=== PATIENT | male | born 1975 | race Hispanic/Latino ===

== ENCOUNTER 2017-08-07 15:40 | Emergency (ER) | payer OTHER ==
--- NOTE | 2017-08-07 17:16 | RAD REPORT ---
EXAM DESCRIPTION: RAD - Hand Left 3 View - 08/07/2017 5:07 pm CLINICAL HISTORY: Hand pain COMPARISON: None. FINDINGS: No fracture or dislocation is seen. No aggressive marrow pattern. No radiopaque foreign jacquelyn dy seen. IMPRESSION: No acute finding is evident.
--- NOTE | 2017-08-07 17:19 | EDPHYS ---
Physician Documentation [facility] Name: Frank Peck Age: 41 yrs Sex: Male : 1975 Arrival Date: 08/07/2017 Time: 15:44 Bed 9 Private MD: Out, [facility] ED Physician Noé Moreno HPI: 08/07 16:47 This 41 yrs old Male presents to ER via Ambulatory with complaints of Hand ps1 Pain. 16:47 The patient or guardian reports pain. The complaints affect the PIP of left little ps1 finger, PIP of left ring finger, PIP of left middle finger and PIP of left index finger. 16:47 Context: unknown. Onset: The symptoms/episode began/occurred 2 month(s) ago. Associated ps1 signs and symptoms: The patient has no apparent associated signs or symptoms. Historical: - Allergies: 15:52 No Known Allergies; hj - Home Meds: 15:52 carbamazepine 200 mg Oral tab 1 tab four times a day [Active]; hj - PMHx: 15:52 Cerebral Palsy; hj - PSHx: 15:52 leg surgery; hj ROS: 16:49 Constitutional: Negative for fever, chills, and weight loss, Cardiovascular: Negative ps1 for chest pain, palpitations, and edema, Respiratory: Negative for shortness of breath, cough, wheezing, and pleuritic chest pain, Abdomen/GI: Negative for abdominal pain, nausea, vomiting, diarrhea, and constipation, Back: Negative for injury and pain. 16:49 MS/extremity: Positive for increased flexibility in joints. . Exam: 17:19 Constitutional: This is a well developed, well nourished patient who is awake, alert, ps1 and in no acute distress. Head/Face: Normocephalic, atraumatic. Eyes: Pupils equal round and reactive to light, extra-ocular motions intact. Lids and lashes normal. Conjunctiva and sclera are non-icteric and not injected. Chest/axilla: Normal chest wall appearance and motion. Nontender with no deformity. No lesions are appreciated. Cardiovascular: Regular rate and rhythm. No gallops, murmurs, or rubs. Normal PMI, no JVD. No pulse deficits. Respiratory: Lungs have equal breath sounds bilaterally, clear to auscultation and percussion. No rales, rhonchi or wheezes noted. No increased work of breathing, no retractions or nasal flaring. Abdomen/GI: Soft, non-tender, with normal bowel sounds. No distension or tympany. No guarding or rebound. No evidence of tenderness throughout. 17:19 Constitutional: The patient appears CP appearing facies 17:19 Musculoskeletal/extremity: Extremities: grossly normal except: noted in the left hand: hyperextended DIP joints. No apparent trauma. . Vital Signs: 15:53 BP 114 / 80; Pulse 77; Resp 18; Temp 99.0(TE); Pulse Ox 100% on R/A; Weight 47.63 kg; hj Height 5 ft. 0 in. (152.40 cm); 15:53 Body Mass Index 20.51 (47.63 kg, 152.40 cm) hj MDM: 17:03 Patient medically screened. ps1 17:19 Data reviewed: vital signs, nurses notes, radiologic studies, plain films. ps1 08/07 16:50 Order name: Hand Left 3 View XRAY; Complete Time: 17:17 ps1 Administered Medications: No medications were administered Disposition: 1818 17:18 Discharged to Home. Impression: Left hand pain. - Condition is Stable. - Discharge Instructions: Hand Contusion. - Prescriptions for Anaprox 275 mg Oral Tablet - take 1 tablet by ORAL route every 8 hours As needed; 30 tablet. - Medication Reconciliation Form, Thank You Letter, Antibiotic Education, Prescription Opioid Use form. - Follow up: Private Physician; When: As needed; Reason: Recheck today's complaints, Continuance of care, Re-evaluation by your physician. Follow up: Emergency Department; When: As needed; Reason: Worsening of condition. - Problem is an ongoing problem. - Symptoms are unchanged. Signatures: Dispatcher [employer] EDMS Jus Singleton, RN RN Eulogio Epps RN RN hj Singer, Phillip, MD MD ps1
--- NOTE | 2017-08-07 17:19 | ER ---
Nurse's Notes [facility] Name: Frank Peck Age: 41 yrs Sex: Male : 1975 Arrival Date: 08/07/2017 Time: 15:44 Bed 9 Private MD: Out, [facility] Diagnosis: Left hand pain Presentation: 08/07 15:50 Presenting complaint: Patient states: kuwaiti speaking only: he is complaining of L hj hand?L wrist when he woke up this AM; it gets stiff;. Transition of care: patient was not received from another setting of care. Onset of symptoms was August 07, 2017. Care prior to arrival: None. 15:50 Method Of Arrival: Ambulatory hj 15:50 Acuity: ABBEY 4 hj 16:21 Initial Sepsis Screen: Does the patient meet any 2 criteria? No. Patient's initial hj sepsis screen is negative. Does the patient have a suspected source of infection? No. Patient's initial sepsis screen is negative. Triage Assessment: 15:53 General: Appears in no apparent distress. uncomfortable, Behavior is calm, cooperative, hj appropriate for age. Pain: Complains of pain in left hand. Historical: - Allergies: 15:52 No Known Allergies; hj - Home Meds: 15:52 carbamazepine 200 mg Oral tab 1 tab four times a day [Active]; hj - PMHx: 15:52 Cerebral Palsy; hj - PSHx: 15:52 leg surgery; hj Screenin:40 Abuse screen: Denies threats or abuse. Denies injuries from another. Nutritional sg screening: No deficits noted. Tuberculosis screening: No symptoms or risk factors identified. Never had TB. Fall Risk None identified. Assessment: 16:40 General: Appears in no apparent distress. comfortable, well groomed, well developed, sg well nourished, Behavior is calm, cooperative, appropriate for age. Pain: Complains of pain in left hand Pain does not radiate. Quality of pain is described as tender. Neuro: Level of Consciousness is awake, alert, obeys commands, Oriented to person, place, situation. Cardiovascular: Heart tones S1 S2 present Capillary refill is brisk in bilateral fingers Patient's skin is warm and dry. Chest pain is denied. Respiratory: Airway is patent Respiratory effort is even, unlabored, Respiratory pattern is regular, symmetrical. GI: No signs and/or symptoms were reported involving the gastrointestinal system. : No signs and/or symptoms were reported regarding the genitourinary system. EENT: No signs and/or symptoms were reported regarding the EENT system. Derm: Skin is pink, warm \T\ dry. Musculoskeletal: Circulation, motion, and sensation intact. Capillary refill is brisk, in bilateral fingers. Range of motion: intact in left wrist and right wrist Swelling absent. Vital Signs: 15:53 BP 114 / 80; Pulse 77; Resp 18; Temp 99.0(TE); Pulse Ox 100% on R/A; Weight 47.63 kg; hj Height 5 ft. 0 in. (152.40 cm); 15:53 Body Mass Index 20.51 (47.63 kg, 152.40 cm) ED Course: 15:44 Patient arrived in ED. mr 15:45 Out, of [facility] is Private Physician. mr 15:52 Triage completed. hj 15:53 Arm band placed on left wrist. hj 16:25 Noé Moreno MD is Attending Physician. ps1 17:00 Patient has correct armband on for positive identification. Pulse ox on. NIBP on. sg 17:07 Hand Left 3 View XRAY In Process Unspecified. EDMS 17:40 No provider procedures requiring assistance completed. Patient did not have IV access sg during this emergency room visit. Administered Medications: No medications were administered Outcome: 17:18 Discharge ordered by . ps1 17:40 Discharged to home via wheelchair, with family. sg 17:40 Condition: good 17:40 Discharge instructions given to family, systems eng, Instructed on discharge instructions, follow up and referral plans. medication usage, safety practices, Demonstrated understanding of instructions, follow-up care, medications, Prescriptions given X 1. 17:47 Patient left the ED. sg Signatures: Dispatcher [employer] EDMS Jus Singleton RN RN sg Rivera, Maria mr Eulogio Epps, Noé Ny RN, MD MD ps1
== END 2017-08-07 17:47 | disposition home or self-care (01) ==
LOC: ER 15:40
DX: M79.642 Pain in left hand (principal); G80.9 Cerebral palsy, unspecified
CPT/HCPCS: 99283

== ENCOUNTER 2018-05-07 13:48 | Emergency (ER) | payer OTHER ==
--- NOTE | 2018-05-07 15:51 | ER ---
Nurse's Notes [facility] Name: Frank Peck Age: 42 yrs Sex: Male : 1975 Arrival Date: 05/07/2018 Time: 13:53 Bed 28 Private MD: Diagnosis: Hemorrhoid Presentation: 05/07 14:10 Presenting complaint: Mother states: Rectal pain x 3 days. Transition of care: patient hb was not received from another setting of care. Onset of symptoms was May 04, 2018. Risk Assessment: Do you want to hurt yourself or someone else? Patient reports no desire to harm self or others. Care prior to arrival: None. 14:10 Method Of Arrival: Wheelchair hb 14:10 Acuity: ABBEY 3 hb 15:13 Initial Sepsis Screen: Does the patient meet any 2 criteria? No. Patient's initial rv sepsis screen is negative. Does the patient have a suspected source of infection? No. Patient's initial sepsis screen is negative. Historical: - Allergies: 14:10 No Known Allergies; hb - Home Meds: 14:10 carbamazepine 200 mg Oral tab 1 tab four times a day [Active]; hb - PMHx: 14:10 Cerebral Palsy; hb - PSHx: 14:10 leg surgery; hb - Immunization history:: Adult Immunizations up to date. - Social history:: Smoking status: Patient/guardian denies using tobacco. - Ebola Screening: : No symptoms or risks identified at this time. Screenin:12 Abuse screen: Denies threats or abuse. Denies injuries from another. Nutritional rv screening: No deficits noted. Tuberculosis screening: No symptoms or risk factors identified. Fall Risk None identified. Assessment: 15:10 General: Appears in no apparent distress. uncomfortable, Behavior is calm, cooperative. rv Pain: Complains of pain in rectal. Neuro: Level of Consciousness is awake, alert, obeys commands, Oriented to person, place, time, situation. Cardiovascular: Capillary refill < 3 seconds. Respiratory: Airway is patent. GI: Parent/caregiver reports the patient having pain, rectal bleeding 3 days ago. : No signs and/or symptoms were reported regarding the genitourinary system. EENT: No signs and/or symptoms were reported regarding the EENT system. Derm: Skin is intact. Musculoskeletal: No signs and/or symptoms reported regarding the musculoskeletal system. 16:05 Reassessment: Patient appears in no apparent distress at this time. rv Vital Signs: 14:10 BP 134 / 88; Pulse 86; Resp 16; Temp 98.8; Pulse Ox 99% on R/A; Pain 10/10; hb 15:30 BP 109 / 74; Pulse 100; Resp 18 S; Pulse Ox 99% on R/A; rv 16:05 BP 118 / 71; Pulse 85; Resp 17 S; Pulse Ox 99% on R/A; rv ED Course: 13:53 Patient arrived in ED. mr 14:10 Arm band placed on left wrist. hb 14:11 Triage completed. hb 15:08 Neri Freire NP is PHCP. pm1 15:08 Geovani Reed MD is Attending Physician. pm1 15:12 Patient has correct armband on for positive identification. Placed in gown. Bed in low rv position. Call light in reach. Side rails up X 1. Adult w/ patient. Pulse ox on. NIBP on. 15:49 Eulogio Agudelo MD is Referral Physician. pm1 16:06 Served as a sugar plantation manager during rectal exam. Patient did not have IV access during this emergency room visit. Administered Medications: No medications were administered Outcome: 15:50 Discharge ordered by MD. pm1 16:06 Discharged to home via wheelchair. rv 16:06 Condition: improved 16:06 Discharge instructions given to patient, family, Instructed on discharge instructions, follow up and referral plans. medication usage, Demonstrated understanding of instructions, follow-up care, medications, Prescriptions given X 2. 16:11 Patient left the ED. rv Signatures: Faviola Boo mr Neri Freire, KELLY APPEALS ANALYST pm1 Kira Nicole, RN RN Tru Leonardo RN RN rv
--- NOTE | 2018-05-07 15:51 | EDPHYS ---
Physician Documentation [facility] Name: Frank Peck Age: 42 yrs Sex: Male : 1975 Arrival Date: 05/07/2018 Time: 13:53 Bed 28 Private MD: ED Physician Geovani Reed HPI: 05/07 15:45 This 42 yrs old Male presents to ER via Wheelchair with complaints of Rectal pm1 Pain. 15:45 The patient presents to the emergency department with pain in the rectal area. Onset: pm1 The symptoms/episode began/occurred 3 day(s) ago. Context: the patient has no known special context relating to the rectal area complaint(s). Modifying factors: The symptoms are alleviated by nothing, The symptoms are aggravated by nothing. Associate signs and symptoms: Pertinent negatives: abdominal pain, constipation, diarrhea, fever, vomiting. The patient has not experienced similar symptoms in the past. The patient has not recently seen a physician. Historical: - Allergies: 14:10 No Known Allergies; hb - Home Meds: 14:10 carbamazepine 200 mg Oral tab 1 tab four times a day [Active]; hb - PMHx: 14:10 Cerebral Palsy; hb - PSHx: 14:10 leg surgery; hb - Immunization history:: Adult Immunizations up to date. - Social history:: Smoking status: Patient/guardian denies using tobacco. - Ebola Screening: : No symptoms or risks identified at this time. ROS: 15:45 Constitutional: Negative for fever, chills, and weight loss, Eyes: Negative for injury, pm1 pain, redness, and discharge, ENT: Negative for injury, pain, and discharge, Neck: Negative for injury, pain, and swelling, Cardiovascular: Negative for chest pain, palpitations, and edema, Respiratory: Negative for shortness of breath, cough, wheezing, and pleuritic chest pain, Abdomen/GI: Negative for abdominal pain, nausea, vomiting, diarrhea, and constipation, Back: Negative for injury and pain, : Negative for injury, bleeding, discharge, and swelling, MS/Extremity: Negative for injury and deformity, Skin: Negative for injury, rash, and discoloration, Neuro: Negative for headache, weakness, numbness, tingling, and seizure. Exam: 15:45 Constitutional: This is a well developed, well nourished patient who is awake, alert, pm1 and in no acute distress. Head/Face: Normocephalic, atraumatic. Eyes: Pupils equal round and reactive to light, extra-ocular motions intact. Lids and lashes normal. Conjunctiva and sclera are non-icteric and not injected. Cornea within normal limits. Periorbital areas with no swelling, redness, or edema. ENT: Nares patent. No nasal discharge, no septal abnormalities noted. Tympanic membranes are normal and external auditory canals are clear. Oropharynx with no redness, swelling, or masses, exudates, or evidence of obstruction, uvula midline. Mucous membranes moist. Neck: Trachea midline, no thyromegaly or masses palpated, and no cervical lymphadenopathy. Supple, full range of motion without nuchal rigidity, or vertebral point tenderness. No Meningismus. Chest/axilla: Normal chest wall appearance and motion. Nontender with no deformity. No lesions are appreciated. Cardiovascular: Regular rate and rhythm with a normal S1 and S2. No gallops, murmurs, or rubs. No pulse deficits. Respiratory: Lungs have equal breath sounds bilaterally, clear to auscultation and percussion. No rales, rhonchi or wheezes noted. No increased work of breathing, no retractions or nasal flaring. Abdomen/GI: Soft, non-tender, with normal bowel sounds. No distension or tympany. No guarding or rebound. No evidence of tenderness throughout. 15:45 Back: No spinal tenderness. No costovertebral tenderness. Full range of motion. Skin: Warm, dry with normal turgor. Normal color with no rashes, no lesions, and no evidence of cellulitis. MS/ Extremity: Pulses equal, no cyanosis. Neurovascular intact. Full, normal range of motion. 15:45 Abdomen/GI: Rectal exam: rectal tone normal, hemorrhoid(s), external, with inflammation, with pain, without bleeding, without thrombosis, [facility]. Vital Signs: 14:10 BP 134 / 88; Pulse 86; Resp 16; Temp 98.8; Pulse Ox 99% on R/A; Pain 10/10; hb 15:30 BP 109 / 74; Pulse 100; Resp 18 S; Pulse Ox 99% on R/A; rv 16:05 BP 118 / 71; Pulse 85; Resp 17 S; Pulse Ox 99% on R/A; rv MDM: 15:09 Patient medically screened. pm1 15:45 Data reviewed: vital signs. Data interpreted: Pulse oximetry: on room air is 99 %. pm1 Interpretation: normal. Counseling: I had a detailed discussion with the patient and/or guardian regarding: the historical points, exam findings, and any diagnostic results supporting the discharge/admit diagnosis, the need for outpatient follow up, for definitive care, a general surgeon, to return to the emergency department if symptoms worsen or persist or if there are any questions or concerns that arise at home. Administered Medications: No medications were administered Disposition: 17:56 Co-signature as Attending Physician, Geovani Reed MD. rn Disposition: 05/07/18 15:50 Discharged to Home. Impression: Hemorrhoid. - Condition is Stable. - Discharge Instructions: Hemorrhoids. - Prescriptions for Colace 100 mg Oral Tablet - take 1 tablet by ORAL route every 12 hours; 14 tablet. Anusol- HC 25 mg Rectal Suppository - insert 1 suppository by RECTAL route every 12 hours As needed; 20 suppository. - Medication Reconciliation Form, Thank You Letter form. - Follow up: Emergency Department; When: As needed; Reason: Worsening of condition. Follow up: Eulogio Agudelo MD; When: 2 - 3 days; Reason: Recheck today's complaints, Continuance of care, Re-evaluation by your physician. - Problem is new. - Symptoms have improved. Signatures: Geovani Reed MD MD rn Neri Freire, KELLY RETAIL LEADER pm1 Kira Nicole RN RN hb Vicente, Ronaldo, RN RN rv Corrections: (The following items were deleted from the chart) 16:11 15:50 05/07/2018 15:50 Discharged to Home. Impression: Hemorrhoid. Condition is Stable. rv Forms are Medication Reconciliation Form, Thank You Letter, Antibiotic Education, Prescription Opioid Use. Follow up: Emergency Department; When: As needed; Reason: Worsening of condition. Follow up: Eulogio Agudelo; When: 2 - 3 days; Reason: Recheck today's complaints, Continuance of care, Re-evaluation by your physician. Problem is new. Symptoms have improved. pm1
== END 2018-05-07 16:11 | disposition home or self-care (01) ==
LOC: ER 13:48
DX: K64.4 Residual hemorrhoidal skin tags (principal); G80.9 Cerebral palsy, unspecified
CPT/HCPCS: 99283

== ENCOUNTER 2019-04-17 20:28 | Emergency (ER) | payer OTHER ==
[2019-04-17 21:16] LABS: Absolute Lymphocytes (CBC) 1.4 K/uL (0.7-4.9); Basophils % 0.5 % (0-1.3); Hematocrit 42.2 % (39.6-49.0); Lymphocytes % 21.8 % (15.3-44.8); MPV 8.5 fL (7.6-11.3); RBC Red Blood Cell Count 4.59 M/uL (4.33-5.43)
[2019-04-17 21:26] LABS: Protime INR 1.01
[2019-04-17 21:34] LABS: ALT/SGPT 22 U/L (12-78); AST/SGOT 17 U/L (15-37); Albumin 3.9 g/dL (3.4-5.0); Alkaline Phosphatase 87 U/L (45-117); BUN Blood Urea Nitrogen 12 mg/dL (7-18); Bicarbonate 27 mmol/L (21-32); Bilirubin Direct < 0.1 mg/dL (0-0.2); Bilirubin Total 0.2 mg/dL (0.2-1.0); CKMB Creatine Kinase MB < 1.0 ng/mL (0.3-3.6); Creatine Phosphokinase 55 U/L (39-308); Glucose Level 103 mg/dL (74-106); Lipase 196 U/L (73-393); Magnesium 2.1 mg/dL (1.8-2.4); Protein, Total 7.8 g/dL (6.4-8.2); Sodium Level 141 mmol/L (136-145); Troponin (Emerg Dept Use Only) < 0.02 ng/mL (0.0-0.045)
--- NOTE | 2019-04-17 23:39 | ER ---
Nurse's Notes [facility] Name: Frank Peck Age: 43 yrs Sex: Male : 1975 Arrival Date: 04/17/2019 Time: 20:33 Bed 19 Private MD: Diagnosis: Epilepsy and recurrent seizures Presentation: 04/17 20:59 Presenting complaint: Mother states: Took his seizure medication late in the day and tl2 has had several seizure episodes this evening. Family denies any confusion or post ictal behavior post seizure. Family states that pt is at normal mentation at this time. Transition of care: patient was not received from another setting of care. Onset of symptoms was April 17, 2019. Risk Assessment: Do you want to hurt yourself or someone else? Patient reports no desire to harm self or others. Initial Sepsis Screen: Does the patient meet any 2 criteria? No. Patient's initial sepsis screen is negative. Does the patient have a suspected source of infection? No. Patient's initial sepsis screen is negative. Care prior to arrival: None. 20:59 Method Of Arrival: Wheelchair tl2 20:59 Acuity: ABBEY 3 tl2 Triage Assessment: 21:01 General: Appears in no apparent distress. Behavior is calm, cooperative. Pain: Denies tl2 pain. Neuro: Level of Consciousness is awake, alert, Oriented to pt is at normal mentation. Cardiovascular: Denies chest pain. Respiratory: Airway is patent Respiratory effort is even, unlabored, Respiratory pattern is regular, symmetrical. GI: No signs and/or symptoms were reported involving the gastrointestinal system. : No signs and/or symptoms were reported regarding the genitourinary system. Derm: Skin is pink, warm \T\ dry. Historical: - Allergies: 21:01 No Known Allergies; tl2 - Home Meds: 21:01 carbamazepine 200 mg Oral tab 1 tab four times a day [Active]; tl2 - PMHx: 21:01 Cerebral Palsy; Seizures; tl2 - Immunization history:: Adult Immunizations up to date. - Social history:: Smoking status: Patient/guardian denies using tobacco. - Ebola Screening: : No symptoms or risks identified at this time. Screenin:03 Abuse screen: Denies threats or abuse. Nutritional screening: No deficits noted. tl2 Tuberculosis screening: No symptoms or risk factors identified. Fall Risk Ambulatory Aid- Crutches/Cane/Walker (15 pts). Gait- Impaired (20 pts.). Mental Status- Overestimates/Forgets Limitations (15 pts.). Assessment: 21:01 Reassessment: see triage assessment. tl2 22:04 Reassessment: Patient appears in no apparent distress at this time. Patient and/or tl2 family updated on plan of care and expected duration. Pain level reassessed. Patient is alert, oriented x 3, equal unlabored respirations, skin warm/dry/pink. Awaiting lab results and further orders. Family stated to Dr. Carmen that pt has had 3 small episodes since being in the ER. Family did not notify staff when episodes were happening. Pt is not post ictal at this time. 04/18 00:08 Reassessment: Patient appears in no apparent distress at this time. Patient and/or tl2 family updated on plan of care and expected duration. Pain level reassessed. Patient is alert, oriented x 3, equal unlabored respirations, skin warm/dry/pink. Dr Carmen approved discharge without UDS. Family verbalized understanding of discharge instructions and need for follow up. Vital Signs: 04/17 21:01 BP 116 / 79; Pulse 67; Resp 18; Temp 98.6(A); Pulse Ox 97% on R/A; Weight 47.63 kg; tl2 Height 5 ft. 1 in. (154.94 cm); 22:04 BP 115 / 73; Pulse 61; Resp 18; Pulse Ox 100% on R/A; tl2 04/18 00:08 BP 123 / 78; Pulse 67; Resp 18; Pulse Ox 99% on R/A; tl2 04/17 21:01 Body Mass Index 19.84 (47.63 kg, 154.94 cm) tl2 Baker Coma Score: 04/17 21:01 Eye Response: spontaneous(4). Verbal Response: oriented(5). Motor Response: localizes tl2 pain(5). Total: 14. ED Course: 20:33 Patient arrived in ED. es 20:46 Cristofer Carmen MD is Attending Physician. tw4 20:59 Heidi Contreras, RAMSEY is Primary Nurse. tl2 21:01 Triage completed. tl2 21:01 Arm band placed on right wrist. tl2 21:03 Patient has correct armband on for positive identification. Bed in low position. Call tl2 light in reach. Side rails up X2. Adult w/ patient. 21:03 Inserted saline lock: 20 gauge in right antecubital area, using aseptic technique. tl2 Blood collected. placed by tessie Villanueva. 21:04 Seizure precautions initiated. tl2 23:38 Jesus Perry MD is Referral Physician. tw4 04/18 00:08 No provider procedures requiring assistance completed. IV discontinued, intact, tl2 bleeding controlled, No redness/swelling at site. Pressure dressing applied. Administered Medications: No medications were administered Outcome: 04/17 23:37 Discharge ordered by . tw4 04/18 00:08 Discharged to home via wheelchair, with family. tl2 Condition: stable Discharge instructions given to patient, family, Instructed on discharge instructions, follow up and referral plans. Demonstrated understanding of instructions, follow-up care. 00:13 Patient left the ED. tl2 Signatures: Manasa Guzman Taylor, RN RN tl2 Cristofer Carmen MD MD tw4
--- NOTE | 2019-04-17 23:39 | EDPHYS ---
Physician Documentation [facility] Name: Frank Peck Age: 43 yrs Sex: Male : 1975 Arrival Date: 04/17/2019 Time: 20:33 Bed 19 Private MD: ED Physician Cristofer Carmen HPI: 04/18 05:41 This 43 yrs old Male presents to ER via Wheelchair with complaints of Seizure. tw4 05:41 The patient presents with a history of multiple seizures, a total of 3. Character of tw4 seizure(s): Loss of consciousness: the patient did not lose consciousness, Motor activity: focal activity. Seizure onset: today. Context: the seizure(s) was witnessed, by family, mother. The patient has not experienced similar symptoms in the past. Historical: - Allergies: 04/17 21:01 No Known Allergies; tl2 - Home Meds: 21:01 carbamazepine 200 mg Oral tab 1 tab four times a day [Active]; tl2 - PMHx: 21:01 Cerebral Palsy; Seizures; tl2 - Immunization history:: Adult Immunizations up to date. - Social history:: Smoking status: Patient/guardian denies using tobacco. - Ebola Screening: : No symptoms or risks identified at this time. ROS: 04/18 05:41 Constitutional: Negative for fever, chills, and weight loss, Eyes: Negative for injury, tw4 pain, redness, and discharge, Cardiovascular: Negative for chest pain, palpitations, and edema, Respiratory: Negative for shortness of breath, cough, wheezing, and pleuritic chest pain, Abdomen/GI: Negative for abdominal pain, nausea, vomiting, diarrhea, and constipation, Back: Negative for injury and pain, Skin: Negative for injury, rash, and discoloration. Neuro: Positive for seizure activity, Negative for altered mental status, dizziness, gait disturbance, headache, hearing loss, loss of consciousness, speech changes, syncope, near syncope, tingling, tinnitus, tremor. Exam: 05:41 Constitutional: This is a well developed, well nourished patient who is awake, alert, tw4 and in no acute distress. Head/Face: Normocephalic, atraumatic. Cardiovascular: Regular rate and rhythm with a normal S1 and S2. No gallops, murmurs, or rubs. Normal PMI, no JVD. No pulse deficits. Respiratory: Lungs have equal breath sounds bilaterally, clear to auscultation and percussion. No rales, rhonchi or wheezes noted. No increased work of breathing, no retractions or nasal flaring. Abdomen/GI: Soft, non-tender, with normal bowel sounds. No distension or tympany. No guarding or rebound. No evidence of tenderness throughout. Back: No spinal tenderness. No costovertebral tenderness. Full range of motion. MS/ Extremity: Pulses equal, no cyanosis. Neurovascular intact. Full, normal range of motion. Neuro: Awake and alert, GCS 15, oriented to person, place, time, and situation. Cranial nerves II-XII grossly intact. Motor strength 5/5 in all extremities. Sensory grossly intact. Cerebellar exam normal. Normal gait. Vital Signs: 04/17 21:01 BP 116 / 79; Pulse 67; Resp 18; Temp 98.6(A); Pulse Ox 97% on R/A; Weight 47.63 kg; tl2 Height 5 ft. 1 in. (154.94 cm); 22:04 BP 115 / 73; Pulse 61; Resp 18; Pulse Ox 100% on R/A; tl2 04/18 00:08 BP 123 / 78; Pulse 67; Resp 18; Pulse Ox 99% on R/A; tl2 04/17 21:01 Body Mass Index 19.84 (47.63 kg, 154.94 cm) tl2 [place] Coma Score: 04/17 21:01 Eye Response: spontaneous(4). Verbal Response: oriented(5). Motor Response: localizes tl2 pain(5). Total: 14. MDM: 20:55 Patient medically screened. 04/18 05:41 Differential diagnosis: cerebral vascular accident, drug overdose, cardiac arrhythmia, tw4 seizure. Data reviewed: vital signs, nurses notes. Counseling: I had a detailed discussion with the patient and/or guardian regarding: the historical points, exam findings, and any diagnostic results supporting the discharge/admit diagnosis. 04/17 20:47 Order name: Basic Metabolic Panel tw4 04/17 20:47 Order name: CBC with Diff tw4 04/17 20:47 Order name: Ckmb tw4 04/17 20:47 Order name: CPK tw4 04/17 20:47 Order name: Hepatic Function tw4 04/17 20:47 Order name: Lipase [facility] 04/17 20:47 Order name: Magnesium 04/17 20:47 Order name: Protime (+inr) [facility] 04/17 20:47 Order name: Ptt, Activated 04/17 20:47 Order name: Troponin (emerg Dept Use Only) [facility] 04/17 20:47 Order name: EKG; Complete Time: 20:48 tw4 04/17 20:47 Order name: Cardiac monitoring; Complete Time: 21:04 tw 04/17 21:51 Order name: Carbamazepine (tegretol); Complete Time: 22:59 04/17 20:47 Order name: EKG - Nurse/Tech; Complete Time: 21:23 [facility] 04/17 20:47 Order name: IV Saline Lock; Complete Time: 21:05 [facility] 04/17 20:47 Order name: Labs collected and sent; Complete Time: 21:11 [facility] 04/17 20:47 Order name: NPO; Complete Time: 21:05 [facility] 04/17 20:47 Order name: O2 Per Protocol; Complete Time: 21:05 [facility] 04/17 20:47 Order name: O2 Sat Monitoring; Complete Time: 21:05 Administered Medications: No medications were administered Disposition: 04/17/19 23:37 Discharged to Home. Impression: Epilepsy and recurrent seizures. - Condition is Stable. - Discharge Instructions: Seizure, Adult. - Medication Reconciliation Form, Thank You Letter, Antibiotic Education, Prescription Opioid Use form. - Follow up: Private Physician; When: Upon discharge from the Emergency Department; Reason: Recheck today's complaints, Continuance of care. Follow up: Jesus Perry MD; When: Upon discharge from the Emergency Department; Reason: Recheck today's complaints, Continuance of care. - Problem is an ongoing problem. - Symptoms are unchanged. Signatures: Dispatcher [employer] EDHeidi Sanchez, RN RN tl2 Cristofer Carmen MD MD tw4 Corrections: (The following items were deleted from the chart) 04/17 23:38 23:37 04/17/2019 23:37 Discharged to Home. Impression: Epilepsy and recurrent seizures. tw4 Condition is Stable. Forms are Medication Reconciliation Form, Thank You Letter, Antibiotic Education, Prescription Opioid Use. Follow up: Private Physician; When: Upon discharge from the Emergency Department; Reason: Recheck today's complaints, Continuance of care. Problem is an ongoing problem. Symptoms are unchanged. tw4 04/18 00:13 04/17 20:47 Urine Dipstick-Ancillary ordered. tw4 tl2 04/18 00:13 04/17 23:38 04/17/2019 23:37 Discharged to Home. Impression: Epilepsy and recurrent tl2 seizures. Condition is Stable. Forms are Medication Reconciliation Form, Thank You Letter, Antibiotic Education, Prescription Opioid Use. Follow up: Private Physician; When: Upon discharge from the Emergency Department; Reason: Recheck today's complaints, Continuance of care. Follow up: Jesus Perry; When: Upon discharge from the Emergency Department; Reason: Recheck today's complaints, Continuance of care. Problem is an ongoing problem. Symptoms are unchanged. tw4
[2019-04-18 00:38] VITALS: TEMP 98.6
[2019-04-18 00:41] VITALS: BP 123/78; O2SAT 99
--- NOTE | 2019-04-19 11:46 | EKG ---
Test Date: 2019-04-17 Test Time: 21:18:29 Pricing Coordinator: RUTHANN MEASUREMENT RESULTS: Intervals: Rate: 65 NV: 188 QRSD: 92 QT: 352 QTc: 366 [place]: P: 34 NV: 188 QRS: 80 T: 54 INTERPRETIVE STATEMENTS: Normal sinus rhythm Incomplete right bundle branch block Nonspecific ST abnormality Abnormal ECG Compared to ECG 01/28/2017 13:32:52 Incomplete right bundle-branch block now present Sinus bradycardia no longer present ST (T wave) deviation still present Electronically Signed On 04-19-19 11:42:23 FACTORY WORKER by Santiago Gunderson
--- NOTE | 2019-04-20 10:22 | EKG ---
Test Date: 2019-04-17 Test Time: 21:19:00 [employer] Order Filler: RUTHANN MEASUREMENT RESULTS: Intervals: Rate: 65 CO: 192 QRSD: 86 QT: 352 QTc: 366 [place]: P: -1 CO: 192 QRS: 74 T: 49 INTERPRETIVE STATEMENTS: Normal sinus rhythm Nonspecific ST abnormality Abnormal ECG Compared to ECG 04/17/2019 21:18:29 Incomplete right bundle-branch block no longer present ST (T wave) deviation still present Electronically Signed On 04-20-19 10:21:50 ENVIRONMENTAL LEAD by Stephen Lindsey
== END 2019-04-18 00:13 | disposition home or self-care (01) ==
LOC: ER 20:28
DX: G40.802 Other epilepsy, not intractable, without status epilepticus (principal); G80.9 Cerebral palsy, unspecified
CPT/HCPCS: 36415; 80048; 80076; 80156; 82550; 82553; 83690; 83735; 84484; 85025; 85610; 85730; 93005; 99283

== ENCOUNTER 2019-05-18 22:23 | Emergency (ER) | payer OTHER ==
--- NOTE | 2019-05-18 23:12 | EDPHYS ---
Physician Documentation [facility] Name: Frank Peck Age: 43 yrs Sex: Male : 1975 Arrival Date: 05/18/2019 Time: 22: Bed 18 Private MD: ED Physician Cristofer Carmen HPI: 05/18 23:02 This 43 yrs old Male presents to ER via Wheelchair with complaints of Seizure. la1 23:02 The patient presents with a history of multiple seizures, an unknown number, that last la1 5 second(s), with the most recent occurring 1 minute(s) ago, after having a possible seizure episode, no tonic-clonic activity was appreciated, no post-ictal period is described, the episode(s) was witnessed, by family. Character of seizure(s): Loss of consciousness: the patient did not lose consciousness, Motor activity: focal activity, of the right arm and left arm, Incontinence: none, Apnea: the patient did not experience apnea, Circulation: the patient did not experience evidence of pulse disturbance, Eye movements: the eyes did not move. Seizure Hx: Original onset: longstanding, Usual frequency: unknown, Seizure medications: tegretol. Associated injury: The patient did not suffer any apparent associated injury. Current symptoms: Currently, the patient is not experiencing any symptoms. The patient has experienced similar episodes in the past. Pt had what family are describing as a sz in front of me while in the room, patients arms shook for about 3 seconds, during the time pt turned his head and made eye contact with me and smiled. Pt at baseline mental status per family, has not been able to see neurology since their last visit but is planning no making apt in the morning. Historical: - Allergies: 22:48 No Known Allergies; - Home Meds: 22:48 carbamazepine 200 mg Oral tab 1 tab four times a day [Active]; - PMHx: 22:48 Cerebral Palsy; Seizures; - Immunization history:: Flu vaccine is up to date. - Coronavirus screen:: The patient has NOT traveled to [place], [place], or [place] in the past 14 days. - Social history:: Smoking status: Patient/guardian denies using. - Ebola Screening: : Patient negative for fever greater than or equal to 101.5 degrees Fahrenheit, and additional compatible Ebola Virus Disease symptoms Patient denies exposure to infectious person. ROS: 23:05 Constitutional: Negative for fever, chills, and weight loss, ENT: Negative for injury, la1 pain, and discharge, Cardiovascular: Negative for chest pain, palpitations, and edema, Respiratory: Negative for shortness of breath, cough, wheezing, and pleuritic chest pain, Abdomen/GI: Negative for abdominal pain, nausea, vomiting, diarrhea, and constipation, Back: Negative for injury and pain, MS/Extremity: Negative for injury and deformity, Psych: Negative for depression, anxiety, suicide ideation, homicidal ideation, and hallucinations. 23:05 Neuro: Positive for seizure activity, Negative for altered mental status, dizziness, gait disturbance, headache, loss of consciousness, numbness, speech changes, syncope, visual changes, weakness. Exam: 23:05 Constitutional: This is a well developed, well nourished patient who is awake, alert, la1 and in no acute distress. Head/Face: Normocephalic, atraumatic. Eyes: Pupils equal round and reactive to light, extra-ocular motions intact. Lids and lashes normal. Conjunctiva and sclera are non-icteric and not injected. Cornea within normal limits. Periorbital areas with no swelling, redness, or edema. ENT: Mucous membranes moist. Neck: Trachea midline. No Meningismus. Chest/axilla: Normal chest wall appearance and motion. Cardiovascular: Regular rate and rhythm with a normal S1 and S2. No gallops, murmurs, or rubs. Respiratory: Lungs have equal breath sounds bilaterally, clear to auscultation Abdomen/GI: Soft, non-tender, with normal bowel sounds. Back: No spinal tenderness. Skin: Warm, dry with normal turgor. Normal color with no rashes, no lesions, and no evidence of cellulitis. 23:05 Neuro: Orientation: is normal, Mentation: no acute changes, Sensation: is normal, seizure activity, focal in nature is displayed by patient, arms shook for the about three seconds, no LOC, pt making eye contact and smiling throughout. 23:05 Special observations: no evidence of discomfort, the patient smiles, the patient tolerates PO fluids, tolerates food. Vital Signs: 22:49 BP 120 / 74; Pulse 81; Resp 18; Temp 98.1; Pulse Ox 100% ; Weight 47.63 kg; Height 5 wh ft. 0 in. (152.40 cm); Pain 0/10; 22:49 Body Mass Index 20.51 (47.63 kg, 152.40 cm) wh [place] Coma Score: 22:52 Eye Response: spontaneous(4). Verbal Response: oriented(5). Motor Response: obeys wh commands(6). Total: 15. MDM: 22:29 Patient medically screened. la1 23:10 Differential diagnosis: cerebral vascular accident, drug overdose, seizure, TIA. Data la1 reviewed: vital signs, nurses notes, lab test result(s), and as a result, I will discharge patient. Data interpreted: Pulse oximetry: on room air is 100 %. Interpretation: normal. Counseling: I had a detailed discussion with the patient and/or guardian regarding: the historical points, exam findings, and any diagnostic results supporting the discharge/admit diagnosis, the need for outpatient follow up, a neurologist, to return to the emergency department if symptoms worsen or persist or if there are any questions or concerns that arise at home. Special discussion: Based on the history and exam findings, there is no indication for further emergent testing or inpatient evaluation. I discussed with the patient/guardian the need to see the neurologist for further evaluation of the symptoms. 05/18 23:14 Order name: Urine Dipstick--Ancillary (enter results) mw2 05/18 23:08 Order name: Urine Dipstick-Ancillary (obtain specimen); Complete Time: 23:11 la1 Administered Medications: No medications were administered Disposition: 05/19 06:48 Co-signature as Attending Physician, Cristofer Carmen MD I agree with the assessment and tw4 plan of care. Disposition: 05/18/19 23:12 Discharged to Home. Impression: Epilepsy and recurrent seizures. - Condition is Stable. - Discharge Instructions: Seizure, Adult. - Medication Reconciliation Form, Thank You Letter form. - Follow up: Private Physician; When: 2 - 3 days; Reason: Recheck today's complaints, Re-evaluation by your physician. Follow up: Emergency Department; When: As needed; Reason: Worsening of condition. - Problem is an ongoing problem. - Symptoms are unchanged. Signatures: Dispatcher [employer] EDMS Yinka Benson, [employer] BOX LINING MACHINE OPERATOR-Cla1 Jennifer Lindo Cristofer, MD MD tw4 Corrections: (The following items were deleted from the chart) 05/18 23:20 23:12 05/18/2019 23:12 Discharged to Home. Impression: Epilepsy and recurrent seizures. wh Condition is Stable. Forms are Medication Reconciliation Form, Thank You Letter, Antibiotic Education, Prescription Opioid Use. Follow up: Private Physician; When: 2 - 3 days; Reason: Recheck today's complaints, Re-evaluation by your physician. Follow up: Emergency Department; When: As needed; Reason: Worsening of condition. Problem is an ongoing problem. Symptoms are unchanged. la1
--- NOTE | 2019-05-18 23:12 | ER ---
Nurse's Notes [facility] Name: Frank Peck Age: 43 yrs Sex: Male : 1975 Arrival Date: 05/18/2019 Time: 22:26 Bed 18 Private MD: Diagnosis: Epilepsy and recurrent seizures Presentation: 05/18 22:45 Presenting complaint: Family states Pt is having more seizure activity today. Mother wh states he had 8 seizure like activity at home. Mother states Pt hasn't had much sleep because he hasn't slept well this past few days mostly because of watching Tv. Transition of care: patient was not received from another setting of care. Onset of symptoms was May 18, 2019. Risk Assessment: Do you want to hurt yourself or someone else? Patient reports no desire to harm self or others. Initial Sepsis Screen: Does the patient meet any 2 criteria? No. Patient's initial sepsis screen is negative. Does the patient have a suspected source of infection? No. Patient's initial sepsis screen is negative. Care prior to arrival: None. 22:45 Method Of Arrival: Wheelchair 22:45 Acuity: ABBEY 3 Historical: - Allergies: 22:48 No Known Allergies; - Home Meds: 22:48 carbamazepine 200 mg Oral tab 1 tab four times a day [Active]; - PMHx: 22:48 Cerebral Palsy; Seizures; - Immunization history:: Flu vaccine is up to date. - Coronavirus screen:: The patient has NOT traveled to [place], [place], or [place] in the past 14 days. - Social history:: Smoking status: Patient/guardian denies using. - Ebola Screening: : Patient negative for fever greater than or equal to 101.5 degrees Fahrenheit, and additional compatible Ebola Virus Disease symptoms Patient denies exposure to infectious person. Screenin:51 Abuse screen: Denies threats or abuse. Denies injuries from another. Nutritional screening: No deficits noted. Tuberculosis screening: No symptoms or risk factors identified. Fall Risk None identified. Assessment: 22:49 General: Appears in no apparent distress. Behavior is calm, cooperative. Pain: Denies pain. Neuro: Level of Consciousness is awake, alert, Hx of Cerebral Palsy. Seizure activity reported prior to arrival. Cardiovascular: Heart tones S1 S2. Respiratory: Airway is patent Respiratory effort is even, unlabored, Respiratory pattern is regular, symmetrical, Breath sounds are clear bilaterally. GI: Abdomen is flat, non-distended. : No signs and/or symptoms were reported regarding the genitourinary system. EENT: No signs and/or symptoms were reported regarding the EENT system. Derm: Skin is intact, is healthy with good turgor, Skin is pink, warm \T\ dry. normal. Musculoskeletal: Hx of Cerebral Palsy. Vital Signs: 22:49 BP 120 / 74; Pulse 81; Resp 18; Temp 98.1; Pulse Ox 100% ; Weight 47.63 kg; Height 5 wh ft. 0 in. (152.40 cm); Pain 0/10; 22:49 Body Mass Index 20.51 (47.63 kg, 152.40 cm) wh [place] Coma Score: 22:52 Eye Response: spontaneous(4). Verbal Response: oriented(5). Motor Response: obeys commands(6). Total: 15. ED Course: 22:26 Patient arrived in ED. cl3 22:29 Jennifer Lindo is Primary Nurse. wh 22:29 Yinka Benson FNP-C is PHCP. la1 22:29 Cristofer Carmen MD is Attending Physician. la1 22:46 Triage completed. wh 22:51 Arm band placed on right wrist. wh 22:52 Patient has correct armband on for positive identification. Bed in low position. Call light in reach. Side rails up X 1. Adult w/ patient. Seizure precautions initiated. Pulse ox on. NIBP on. 23:19 No provider procedures requiring assistance completed. Patient did not have IV access during this emergency room visit. Administered Medications: No medications were administered Outcome: 23:12 Discharge ordered by . la1 23:19 Discharged to home via wheelchair, with family. wh 23:19 Condition: stable 23:19 Discharge instructions given to patient, family, Instructed on discharge instructions, follow up and referral plans. POC Demonstrated understanding of instructions, follow-up care, POC 23:20 Patient left the ED. Signatures: Yinka Benson FNP-C HIP HOP DANCER-Cla1 Jennifer Lindo Sakina Quesada cl3
[2019-05-18 23:25] VITALS: BP 120/74; TEMP 98.1; O2SAT 100
[2019-05-18 23:28] LABS: Urine Blood NEGATIVE (NEG); Urine Glucose NEGATIVE (NEG); Urine Protein NEGATIVE (NEG); Urine Specific Gravity 1.015 (1.005-1.030); Urine pH 6.5 (5.0-7.0)
== END 2019-05-18 23:20 | disposition home or self-care (01) ==
LOC: ER 22:23
DX: G40.802 Other epilepsy, not intractable, without status epilepticus (principal); G80.9 Cerebral palsy, unspecified
CPT/HCPCS: 81003; 99283

== ENCOUNTER 2021-06-27 14:49 | Emergency (ER) | payer OTHER ==
--- OUTSIDE RECORDS SUMMARY | 2021-06-27 14:52 | XMS REPORT | Continuity of Care Document ---
:1975 Author Organization [facility] Address [address] [place] [address] [address] [place] [address] Care Team Providers Name Role Phone Doug Baez MD Attending Clinician DOUG BAEZ Attending Clinician Unavailable DOUG BAEZ Attending Clinician Unavailable Payers Payer Name Policy Type Policy Number Effective Date Expiration Date S ource Problems This patient has no known problems. Allergies, Adverse Reactions, Alerts Allergy Allergy Status Severity Reaction(s) Onset Inactive Treating Comm ents Source Name Type Date Date Clinician NO KNOWN Drug Active [facility] ALLERGIE Class ity of [facility] Social History Social Habit Start Date Stop Date Quantity Comments Source History [facility] [place] Alcohol Std Drinks Medica l Branch History [facility] [place] Alcohol Binge Medical Bra [facility] Sex Assigned [facility] Alcohol intake 2019-06-16 2019-06-16 [facility] 00:00:00 00:00:00 Medical Branch History INOH 2019-06-16 2019-06-16 1 [facility] [place] Alcohol Frequency 00:00:00 00:00:00 Medical Branch Smoking Status Start Date Stop Date Source Never smoker [facility] Medical Branch Medications Ordered Filled Start Stop Current Ordering Indication Dosage Frequency Signature Comments Components Source Medication Medication Date Date Medication? Clinician (SIG) Name Name carBAMazepi Yes Univer s ne 400 mg 1-23 ity of 12 hr 00:00: [place] tablet 00 Medical Branch carBAMazepi 0 Yes Univer s ne 400 mg 1-23 ity of 12 hr 00:00: [place] tablet 00 Medical Branch Vital Signs Vital Name Observation Time Observation Value Comments Source Systolic blood 2019-06-16 21:32:00 113 mm[Hg] Univer sity of pressure [facility] Diastolic blood 2019-06-16 21:32:00 71 mm[Hg] Unive rsity of pressure [facility] Heart rate 2019-06-16 21:32:00 81 /min [facility]i [facility] Body temperature 2019-06-16 21:32:00 36.33 [facility] 2019-06-16 21:32:00 14 /min [facility] Procedures This patient has no known procedures. Encounters Start End Encounter Admission Attending Care Care Encounter Source Date/Time Date/Time Type Type Clinicians Facility Department ID 2019-06-16 2019-06-16 Office Sasha [facility] [id number] Univers 15:10:10 16:34:53 Visit Benoit Pappas [id number] brendan [facility] [id number] Reji vega Professio [phone] Tn dical nal 092 Branch Building 2019-06-16 2019-06-16 Outpatient R BENOIT BAEZ [facility] [id number] Univers 15:00:00 15:00:00 BENOIT BAEZ [facility] Results This patient has no known results.
[2021-06-27 15:06] LABS: Hematocrit 38.5 % (39.6-49.0); Lymphocytes % 17.7 % (15.3-44.8); RBC Red Blood Cell Count 4.37 M/uL (4.33-5.43)
[2021-06-27 15:09] LABS: Urine Blood Negative (Negative); Urine Glucose Negative (Negative); Urine Protein Negative (Negative)
[2021-06-27] MEDS ORDERED: LEVETIRACETAM 500 MG/5 ML VIAL IV ONE (15:14)
[2021-06-27] MEDS ORDERED: NA CHLORIDE 0.9% 1,000 ML ONE (15:14)
[2021-06-27] MEDS ORDERED: carBAMazepine 200 MG TAB ONE (15:14)
[2021-06-27] MEDS ORDERED: NA CHLORIDE 0.9% 250 ML ONE (15:14)
[2021-06-27 15:18] LABS: Potassium 3.5 mmol/L (3.5-5.1)
[2021-06-27 15:19] LABS: Urine Bacteria <20 /HPF (NONE SEEN); Urine RBC <5 /HPF (NONE SEEN)
[2021-06-27 15:23] LABS: Barbiturates NEGATIVE (NEGATIVE); Benzodiazepines NEGATIVE (NEGATIVE); Cocaine NEGATIVE (NEGATIVE); METHAMPHETAM NEGATIVE (NEGATIVE); Methadone NEGATIVE (NEGATIVE); Opiates NEGATIVE (NEGATIVE); Phencyclidine NEGATIVE (NEGATIVE); THC Cannibis NEGATIVE (NEGATIVE)
--- NOTE | 2021-06-27 17:26 | ER ---
Nurse's Notes [facility] Name: Frank Peck Age: 45 yrs Sex: Male : 1975 Arrival Date: 06/27/2021 Time: 14:50 Bed 6 Private MD: Diagnosis: Epileptic seizures related to external causes, not intractable, without status epilepticus Presentation: 06/27 14:53 Chief complaint: Patient states: seizure. Coronavirus screen: Vaccine status: Patient olivarez reports receiving the 2nd dose of the covid vaccine. Ebola Screen: Patient denies travel to an Ebola-affected area in the 21 days before illness onset. Initial Sepsis Screen: Does the patient meet any 2 criteria? HR > 90 bpm. Does the patient have a suspected source of infection? No. Patient's initial sepsis screen is negative. Risk Assessment: Do you want to hurt yourself or someone else? Patient reports no desire to harm self or others. Onset of symptoms was June 27, 2021. 14:53 Method Of Arrival: EMS: [facility] 14:53 Acuity: ABBEY 3 olivarez Triage Assessment: 14:59 General: Appears in no apparent distress. Behavior is calm, cooperative. Pain: Denies olivarez pain. Historical: - Allergies: 14:59 No Known Allergies; olivarez - Home Meds: 14:59 carbamazepine 200 mg Oral tab 1 tab four times a day [Active]; olivarez - PMHx: 14:59 Cerebral Palsy; Seizures; olivarez - PSHx: 14:59 None; olivarez - Immunization history:: Adult Immunizations up to date. - Social history:: Smoking status: Patient denies any tobacco usage or history of. - Family history:: not pertinent. - Hospitalizations: : No recent hospitalization is reported. Screenin:59 Abuse screen: Denies threats or abuse. Denies injuries from another. Nutritional olivarez screening: No deficits noted. Tuberculosis screening: No symptoms or risk factors identified. Fall Risk IV access (20 points). Assessment: 17:55 General: Appears in no apparent distress. Behavior is calm, cooperative. Pain: Denies olivarez pain. Neuro: Level of Consciousness is awake, alert, obeys commands, Oriented to person, Appropriate for age. Vital Signs: 14:53 BP 121 / 88; Pulse 97; Resp 18; Temp 98.8(O); Pulse Ox 100% on R/A; Weight 61 kg; olivarez Height 5 ft. 2 in. (157.48 cm); 16:04 BP 105 / 68; Pulse 75; Resp 18; Pulse Ox 100% ; olivarez 14:53 Body Mass Index 24.60 (61.00 kg, 157.48 cm) olivarez ED Course: 14:50 Patient arrived in ED. ap3 14:51 Geovani Reed MD is Attending Physician. rn 14:59 Triage completed. olivarez 14:59 Arm band placed on. olivarez 14:59 Patient has correct armband on for positive identification. Placed in gown. Bed in low olivarez position. Adult w/ patient. Seizure precautions initiated. seizure pads applied to bed. 14:59 Inserted saline lock: 20 gauge in right antecubital area, using aseptic technique. olivarez 15:00 No provider procedures requiring assistance completed. olivarez 15:18 COVID-19/FLU A+B (Document "Date of Onset" if Symptomatic) Sent. olivarez 15:48 Kira Calixto, RN is Primary Nurse. olivarez 17:56 IV discontinued, intact, Pressure dressing applied. olivarez Administered Medications: 15:17 Drug: NS 0.9% 1000 ml Route: IV; Rate: 1000 ml; Site: right antecubital; olivarez 15:17 Drug: Keppra (levETIRAcetam) 1000 mg Route: IV; Rate: calculated rate; Site: right olivarez antecubital; 15:17 Drug: TEGretol (carbamazepine) 200 mg Route: PO; olivarez Outcome: 17:26 Discharge ordered by . rn 17:55 Discharged to home via ambulance. olivarez 17:55 Condition: good 17:55 Discharge instructions given to family. 17:56 Patient left the ED. olivarez Signatures: Geovani Reed MD MD rn Prokisch, Amanda, RN RN ap3 Kira Calixto RN RN olivarez
--- NOTE | 2021-06-27 17:27 | EDPHYS ---
[facility] Name: Frank Peck Age: 45 yrs Sex: Male : 1975 Arrival Date: 06/27/2021 Time: 14:50 Bed 6 Private MD: ED Physician Geovani Reed HPI: 06/27 16:24 This 45 yrs old Male presents to ER via EMS with complaints of Seizure. rn 16:24 The patient presents with a history of multiple seizures, an unknown number. Character rn of seizure(s): Loss of consciousness: it is not known if the patient experienced loss of consciousness, Motor activity: generalized, Incontinence: incontinent of bladder, Apnea: the patient did not experience apnea, Circulation: the patient did not experience evidence of pulse disturbance. Seizure onset: today. Associated injury: The patient did not suffer any apparent associated injury. Current symptoms: Currently, the patient is not experiencing any symptoms. The patient has experienced similar episodes in the past. The patient has not recently seen a physician. Mother reports patient missed 1 or 2 doses of seizure medication yesterday after she upset him by taking away his candy bag. Patient also stays up all night and sleeps during the day. Mother reports multiple seizures today, brief, unknown number. EMS reports found patient with wet shorts from urine, no seizure activity noted by EMS, no meds given. Pt takes carbamazepine for seizures. . Historical: - Allergies: 14:59 No Known Allergies; olivarez - Home Meds: 14:59 carbamazepine 200 mg Oral tab 1 tab four times a day [Active]; olivarez - PMHx: 14:59 Cerebral Palsy; Seizures; olivarez - PSHx: 14:59 None; olivarez - Immunization history:: Adult Immunizations up to date. - Social history:: Smoking status: Patient denies any tobacco usage or history of. - Family history:: not pertinent. - Hospitalizations: : No recent hospitalization is reported. ROS: 16:24 Constitutional: Negative for fever, chills, and weight loss, Eyes: Negative for injury, rn pain, redness, and discharge, Neck: Negative for injury, pain, and swelling, Cardiovascular: Negative for chest pain, palpitations, and edema, Respiratory: Negative for shortness of breath, cough, wheezing, and pleuritic chest pain, Abdomen/GI: Negative for abdominal pain, nausea, vomiting, diarrhea, and constipation, Back: Negative for injury and pain, : Negative for injury, bleeding, discharge, and swelling, MS/Extremity: Negative for injury and deformity, Skin: Negative for injury, rash, and discoloration, Neuro: Negative for headache, weakness, numbness, tingling Exam: 16:24 Constitutional: This is a well developed, well nourished patient who is awake, alert, rn and in no acute distress. Answering all questions appropriately. Head/Face: Normocephalic, atraumatic. Eyes: Periorbital areas with no swelling, redness, or edema. ENT: MMM, no tongue laceration Cardiovascular: Regular rate and rhythm. No pulse deficits. Respiratory: No increased work of breathing, no retractions or nasal flaring. Abdomen/GI: Soft, non-tender, non-distended Skin: Warm, dry, no cellulitis MS/ Extremity: Pulses equal, no cyanosis. Neuro: Awake and alert, non-verbal, + contractures of bilateral upper and lower extremities. Vital Signs: 14:53 BP 121 / 88; Pulse 97; Resp 18; Temp 98.8(O); Pulse Ox 100% on R/A; Weight 61 kg; olivarez Height 5 ft. 2 in. (157.48 cm); 16:04 BP 105 / 68; Pulse 75; Resp 18; Pulse Ox 100% ; olivarez 14:53 Body Mass Index 24.60 (61.00 kg, 157.48 cm) olivarez MDM: 14:51 Patient medically screened. rn 16:24 Differential diagnosis: seizure. Data reviewed: vital signs, nurses notes, lab test rn result(s), EKG. 17:24 Counseling: I had a detailed discussion with the patient and/or guardian regarding: the rn historical points, exam findings, and any diagnostic results supporting the discharge/admit diagnosis, lab results, radiology results, the need for outpatient follow up, to return to the emergency department if symptoms worsen or persist or if there are any questions or concerns that arise at home. Response to treatment: the patient's symptoms have markedly improved after treatment, the patient's condition has returned to base line, the patient is now symptom free, patient is well hydrated. and as a result, I will discharge patient. Special discussion: I discussed with the patient/guardian in detail that at this point there is no indication for admission to the hospital. It is understood, however, that if the symptoms persist or worsen the patient needs to return immediately for re-evaluation. Based on the history and exam findings, there is no indication for further emergent testing or inpatient evaluation. I discussed with the patient/guardian the need to see the neurologist for further evaluation of the symptoms. ED course: Pt back to baseline, no further seizures, likely 2/2 missing doses. COVID machine is currently down, will dc home prior to result as lab does not known when it would return. Afebrile without any new symptoms. . 06/27 14:51 Order name: CBC with Diff; Complete Time: 15:47 rn 06/27 14:51 Order name: Basic Metabolic Panel; Complete Time: 15:47 rn 06/27 14:51 Order name: Urine Drug Screen; Complete Time: 15:47 rn 06/27 14:51 Order name: Urine Microscopic Only; Complete Time: 15:47 06/27 14:52 Order name: COVID-19/FLU A+B (Document "Date of Onset" if Symptomatic) 06/27 15:10 Order name: Urine Dipstick-Ancillary; Complete Time: 15:47 [facility] 06/27 14:51 Order name: IV Start; Complete Time: 15:18 rn 06/27 14:51 Order name: Urine Dipstick-Ancillary (obtain specimen); Complete Time: 15:18 rn 06/27 14:51 Order name: EKG; Complete Time: 14:54 rn 06/27 14:51 Order name: EKG - Nurse/Tech; Complete Time: 15:01 rn 06/27 15:20 Order name: Urine Culture [facility] 06/27 14:51 Order name: Cardiac monitoring; Complete Time: 15:01 rn 06/27 14:51 Order name: O2 Sat Monitoring; Complete Time: 15:01 rn Administered Medications: 15:17 Drug: NS 0.9% 1000 ml Route: IV; Rate: 1000 ml; Site: right antecubital; olivarez 15:17 Drug: Keppra (levETIRAcetam) 1000 mg Route: IV; Rate: calculated rate; Site: right olivarez antecubital; 15:17 Drug: TEGretol (carbamazepine) 200 mg Route: PO; olivarez Disposition Summary: 06/27/21 17:26 Discharge Ordered Location: Home rn Problem: new rn Symptoms: have improved rn Condition: Stable rn Diagnosis - Epileptic seizures related to external causes, not intractable, without status rn epilepticus Followup: rn - With: Private Physician - When: As needed - Reason: Recheck today's complaints, Re-evaluation by your physician Discharge Instructions: - Discharge Summary Sheet rn - Epilepsy rn - Seizure, Adult rn Forms: - Medication Reconciliation Form rn - Thank You Letter rn - Antibiotic furniture shampooer - Prescription Opioid Use rn Signatures: Dispatcher [employer] Geovani Cordon MD MD rn Gin-Kira Miller RN RN olivarez
[2021-06-27 17:58] LABS: SARS-COV-2 RT PCR NEGATIVE (NEGATIVE)
[2021-06-27 18:54] VITALS: TEMP 98.8; O2SAT 100
[2021-06-27 18:59] VITALS: BP 105/68
--- NOTE | 2021-06-28 12:54 | EKG ---
Test Date: 2021-06-27 Test Time: 15:08:55 Divinity Professor: ALP MEASUREMENT RESULTS: Intervals: Rate: 84 NM: 204 QRSD: 88 QT: 336 QTc: 397 Rhodes: P: 74 NM: 204 QRS: 95 T: 71 INTERPRETIVE STATEMENTS: Normal sinus rhythm Rightward axis Borderline ECG Compared to ECG 06/27/2021 15:08:21 ST (T wave) deviation no longer present Electronically Signed On 06-28-21 12:52:05 SENIOR SUPPLIER QUALITY ENGINEER by Santiago Gunderson
--- NOTE | 2021-06-28 12:54 | EKG ---
Test Date: 2021-06-27 Test Time: 15:08:21 Life Skills Trainer: ALP MEASUREMENT RESULTS: Intervals: Rate: 83 FL: 202 QRSD: 88 QT: 332 QTc: 390 [place]: P: 70 FL: 202 QRS: 94 T: 71 INTERPRETIVE STATEMENTS: Normal sinus rhythm Rightward axis Nonspecific ST abnormality Abnormal ECG Compared to ECG 04/17/2019 21:19:00 Right-axis deviation now present ST (T wave) deviation still present Electronically Signed On 06-28-21 12:52:06 NEW CAR INSPECTOR by Santiago Gunderson
== END 2021-06-27 17:56 | disposition home or self-care (01) ==
LOC: ER 14:49
DX: G40.509 Epileptic seizures related to external causes, not intractable, without status epilepticus (principal); G80.9 Cerebral palsy, unspecified; Z20.822 Contact with and (suspected) exposure to COVID-19
CPT/HCPCS: 93005 ×2; 87088; 85025; 87086; 80048; 36415; 0240U; 80307; 96374; 99284; J1953; J7050; J7030; 81003; 81015

== ENCOUNTER 2022-04-26 18:25 | Emergency (ER) | payer OTHER ==
--- OUTSIDE RECORDS SUMMARY | 2022-04-26 18:27 | XMS REPORT | Continuity of Care Document ---
:1975 Author Organization [facility] t Address [address] [place] [address] Care Team Providers Name Role Phone Benoit Baez MD Attending Clinician BENOIT BAEZ Attending Clinician Unavailable BENOIT BAEZ Attending Clinician Unavailable Payers Payer Name Policy Type Policy Number Effective Date Expiration Date S ource Problems This patient has no known problems. Allergies, Adverse Reactions, Alerts Allergy Allergy Status Severity Reaction(s) Onset Inactive Treating Comm ents Source Name Type Date Date Clinician NO KNOWN Drug Active Univers ALLERGIE Class ity of [facility] Social History Social Habit Start Date Stop Date Quantity Comments Source History [facility] Alcohol Std Drinks Medica l Branch History [facility] Alcohol Binge Medical Bra [facility] Sex Assigned At [facility] Branch Alcohol intake 2019-06-16 2019-06-16 [facility] 00:00:00 00:00:00 Medical Branch History [facility] 2019-06-16 2019-06-16 [facility] [place] Alcohol Frequency 00:00:00 00:00:00 Medical Branch Smoking Status Start Date Stop Date Source Never smoker [facility] Branch Medications Ordered Filled Start Stop Current Ordering Indication Dosage Frequency Signature Comments Components Source Medication Medication Date Date Medication? Clinician (SIG) Name Name carBAMazepi 2020-0 Yes Univer s ne 400 mg 1-23 ity of 12 hr 00:00: [place] tablet 00 Medical Branch carBAMazepi 2020-0 Yes Univer s ne 400 mg 1-23 ity of 12 hr 00:00: [place] tablet 00 [facility] Vital Signs Vital Name Observation Time Observation Value Comments Source Systolic blood 2019-06-16 21:32:00 113 mm[Hg] Univer sity of pressure [facility] Diastolic blood 2019-06-16 21:32:00 71 mm[Hg] Unive rsity of pressure [facility] Heart rate 2019-06-16 21:32:00 81 /min Universi ty [facility] Body temperature 2019-06-16 21:32:00 36.33 Amber Univ ersity of [facility] Respiratory rate 2019-06-16 21:32:00 14 /min [facility] Procedures This patient has no known procedures. Encounters Start End Encounter Admission Attending Care Care Encounter Source Date/Time Date/Time Type Type Clinicians Facility Department ID 2022-03-27 2022-03-27 Outpatient SFA SFA [id number] Fabricio 14:13:32 14:13:32 [address] [place] 2019-06-16 2019-06-16 Office Sasha INLE [id number] [facility] 15:10:10 16:34:53 [id number] Reji vega Professio [id number] Mt dical nal 092 [facility] 2019-06-16 2019-06-16 Outpatient BENOIT LOO [facility] [id number] [facility] 15:00:00 15:00:00 BENOIT BAEZ [facility] Results This patient has no known results.
[2022-04-26] MEDS ORDERED: FAMOTIDINE 20 MG/2 ML VIAL IV ONE (19:20)
[2022-04-26] MEDS ORDERED: NA CHLORIDE 0.9% 1,000 ML ONE (19:20)
[2022-04-26] MEDS ORDERED: ONDANSETRON 4 MG/2 ML VIAL ONE ×2 (19:20→22:22)
[2022-04-26 19:35] LABS: Urine Blood Negative (Negative); Urine Glucose Negative (Negative); Urine Protein 1+ (Negative); Urine Specific Gravity >=1.030 (1.005-1.030)
[2022-04-26 19:44] LABS: Absolute Lymphocytes (CBC) 1.3 K/uL (0.7-4.9); Hematocrit 39.7 % (39.6-49.0); Lymphocytes % 17.2 % (15.3-44.8); MCV 87.1 fL (80-100); MPV 7.9 fL (7.6-11.3); RBC Red Blood Cell Count 4.56 M/uL (4.33-5.43)
[2022-04-26 19:47] LABS: Urine Bacteria None Seen /HPF (<20); Urine Mucus 2+ /HPF (None Seen); Urine RBC <5 /HPF (None Seen)
[2022-04-26 20:00] LABS: Albumin 3.7 g/dL (3.4-5.0); Bilirubin Total 0.4 mg/dL (0.2-1.0); Potassium 3.6 mmol/L (3.5-5.1); Protein, Total 7.8 g/dL (6.4-8.2)
[2022-04-26 20:17] LABS: SARS-COV-2 RT PCR NEGATIVE (NEGATIVE)
--- NOTE | 2022-04-26 20:18 | RAD REPORT ---
EXAM DESCRIPTION: RAD - Chest Single View - 04/26/2022 8:02 pm CLINICAL HISTORY: Cough Chest pain. COMPARISON: Chest Pa And Lat (2 Views) dated 09/10/2017; Chest Single View dated 03/28/2017; Chest Sin gle View dated 01/28/2017; Chest Single View dated 01/23/2017 FINDINGS: Portable technique limits examination quality. Mild interstitial opacities are present in both lower lobes, likely indicating viral infection. The h eart is normal in size. No displaced fractures.
[2022-04-26] MEDS ORDERED: NA CHLORIDE 0.9% 50 ML IV ONE (20:35)
[2022-04-26] MEDS ORDERED: AZITHROMYCIN 250 MG TAB ONE (20:35)
[2022-04-26] MEDS ORDERED: CEFTRIAXONE 1000 MG/VIAL ONE (20:35)
--- NOTE | 2022-04-26 21:56 | RAD REPORT ---
EXAM DESCRIPTION: CT - Soft Tissue Neck W/Contr CLINICAL HISTORY: dysphagia Neck pain and swelling COMPARISON: No comparisons TECHNIQUE All CT scans are performed using dose optimization technique as appropriate and may includ e automated exposure control or mA/KV adjustment according to patient size. FINDINGS: Adenoidal and tonsillar tissue appears prominent. No peritonsillar abscess. No prevertebral abscess. Salivary glands are symmetric. No intrinsic neck mass is seen. No bulky lymphadenopathy in the neck. Normal size thyroid gland. IMPRESSION: Adenoidal and tonsillar tissue is prominent.
--- NOTE | 2022-04-26 22:21 | EDPHYS ---
Physician Documentation [facility] Name: Frank Peck Age: 46 yrs Sex: Male : 1975 Arrival Date: 04/26/2022 Time: 18:30 Bed 15 Private MD: ED Physician Kaleb Jaquez HPI: 04/26 20:00 This 46 yrs old Male presents to ER via Ambulatory with complaints of Fever, cp Vomiting. 20:00 The patient or guardian reports cough, that is intermittent. cp 20:00 Onset: The symptoms/episode began/occurred 3 day(s) ago. Associated signs and symptoms: cp Pertinent positives: fever, rhinorrhea, sore throat, vomiting, Pertinent negatives: diarrhea. Mother reports she has not given patient prescribed medications due to vomiting. Historical: - Allergies: 18:42 No Known Drug Allergies; ll1 - PMHx: 18:42 Seizures; Cerebral Palsy; ll1 - PSHx: 18:42 None; ll1 - Immunization history:: Adult Immunizations up to date. - Social history:: Smoking status: Patient denies any tobacco usage or history of. ROS: 20:05 Constitutional: Positive for poor PO intake, Negative for fever. cp 20:05 Eyes: Negative for injury, pain, redness, and discharge. cp 20:05 ENT: Positive for sore throat, Negative for drainage from ear(s), ear pain, difficulty handling secretions. 20:05 Cardiovascular: Negative for chest pain, palpitations. 20:05 Respiratory: Positive for cough, "sounds productive", Negative for wheezing. 20:05 Abdomen/GI: Positive for vomiting, Negative for diarrhea, constipation. 20:05 Neuro: Negative for altered mental status. 20:05 Unable to obtain ROS due to patient non-verbal, history given by mother. Exam: 20:10 Head/Face: Normocephalic, atraumatic. cp 20:10 Constitutional: The patient appears in no acute distress, alert, awake, non-toxic, well developed, well nourished. 20:10 Eyes: Periorbital structures: appear normal, Conjunctiva: normal, no exudate, no injection, Sclera: no appreciated abnormality, Lids and lashes: appear normal, bilaterally. 20:10 ENT: External ear(s): are unremarkable, Ear canal(s): are normal, clear, TM's: dullness, bilaterally, Nose: is normal, Mouth: Lips: moist, Oral mucosa: moist, Posterior pharynx: Airway: no evidence of obstruction, patent, Tonsils: bilaterally enlarged, with erythema, Uvula: midline, erythema, that is moderate, exudate, is not appreciated. 20:10 Neck: ROM/movement: is normal, is supple, without pain, no range of motions limitations, no meningismus, Lymph nodes: lymphadenopathy is appreciated, anterior cervical nodes. 20:10 Chest/axilla: Inspection: normal, Palpation: is normal, no crepitus, no tenderness. 20:10 Cardiovascular: Rate: normal, Rhythm: regular, Edema: is not appreciated, JVD: is not appreciated. 20:10 Respiratory: the patient does not display signs of respiratory distress, Respirations: cp normal, no use of accessory muscles, no retractions, labored breathing, is not present, Breath sounds: bronchial sounds, that are mild, are heard diffusely, decreased breath sounds, are not appreciated, stridor, is not appreciated, + upper airway congestion. wheezing: is not appreciated. 20:10 Abdomen/GI: Inspection: abdomen appears normal, Palpation: abdomen is soft and non-tender, in all quadrants. 20:10 Back: pain, is absent, ROM is normal. 20:10 Skin: no rash present. 20:10 Neuro: Orientation: no acute changes, per family, Mentation: no acute changes, per family. Vital Signs: 18:41 BP 104 / 78; Pulse 101; Resp 18; Temp 100.0; Pulse Ox 100% ; ll1 20:00 BP 100 / 73; Pulse 93; Resp 20 S; Pulse Ox 99% on R/A; aa9 22:00 BP 101 / 68; Pulse 73; Resp 22 S; Pulse Ox 95% on R/A; aa9 22:40 BP 111 / 70; Pulse 84; Resp 20; Pulse Ox 95% on R/A; aa9 MDM: 18:45 Patient medically screened. cp 22:20 Data reviewed: vital signs, nurses notes, lab test result(s), radiologic studies, CT cp scan, plain films. 22:20 Antibiotic administration: The patient is discharged and will get outpatient cp antibiotics, Zithromax, Augmentin. Differential diagnosis: flu, viral Infection, bacterial infection, bronchitis, pneumonia UTI, gastroenteritis. Test interpretation: by ED physician or midlevel provider: plain radiologic studies. Counseling: I had a detailed discussion with the patient and/or guardian regarding: the historical points, exam findings, and any diagnostic results supporting the discharge/admit diagnosis, lab results, radiology results, to return to the emergency department if symptoms worsen or persist or if there are any questions or concerns that arise at home. Response to treatment: the patient's symptoms have markedly improved after treatment, VSS. Nausea markedly improved and patient observed tolerating oral meds. Will discharge to home for continued monitoring. 04/26 19:09 Order name: CBC with Diff; Complete Time: 20:09 04/26 19:09 Order name: CMP; Complete Time: 20:09 04/26 20:09 Interpretation: Normal except: GLOB 4.1; A/G 0.9. 04/26 19:09 Order name: Lipase; Complete Time: 20:09 04/26 19:09 Order name: Urine Microscopic Only; Complete Time: 20:09 04/26 20:28 Interpretation: Reviewed. 04/26 19:09 Order name: Strep; Complete Time: 20:09 04/26 19:09 Order name: COVID-19/FLU A+B/RSV; Complete Time: 20:28 04/26 20:28 Interpretation: Reviewed. 04/26 19:09 Order name: Magnesium; Complete Time: 20:09 04/26 19:09 Order name: XRAY Chest (1 view); Complete Time: 20:28 04/26 20:28 Interpretation: Report reviewed. 04/26 19:35 Order name: Urine Dipstick-Ancillary; Complete Time: 19:40 [facility] 04/26 19:40 Interpretation: Normal except: UKET Trace; UPROT 1+. cp 04/26 19:56 Order name: Throat Culture [facility] 04/26 20:54 Order name: CT Soft Tissue Neck W/contr; Complete Time: 22:01 cp 04/26 19:09 Order name: IV Saline Lock; Complete Time: 19:31 cp 04/26 19:09 Order name: Labs collected and sent; Complete Time: 19:31 cp 04/26 19:09 Order name: Urine Dipstick-Ancillary (obtain specimen); Complete Time: 19:32 cp 04/26 20:29 Order name: PO challenge; Complete Time: 20:40 cp Administered Medications: 19:31 Drug: NS 0.9% 1000 ml Route: IV; Rate: 1 bolus; Site: left antecubital; aa9 20:30 Follow up: Response: No adverse reaction; IV Status: Completed infusion; IV Intake: aa9 100ml 19:31 Drug: Pepcid (famotidine) 20 mg Route: IVP; Site: left antecubital; aa9 22:41 Follow up: Response: No adverse reaction aa9 19:31 Drug: Zofran (Ondansetron) 4 mg Route: IVP; Site: left antecubital; aa9 22:41 Follow up: Response: No adverse reaction aa9 20:40 Drug: Rocephin - (cefTRIAXone) 1 grams Route: IVPB; Infused Over: 30 mins; Site: left aa9 antecubital; 22:10 Follow up: Response: No adverse reaction; IV Status: Completed infusion; IV Intake: aa9 100ml 20:41 Drug: Zithromax (azithromycin) 500 mg Route: PO; aa9 22:09 Follow up: Response: No adverse reaction aa9 22:21 Drug: Zofran (Ondansetron) 4 mg Route: IVP; Site: left antecubital; aa9 22:37 Follow up: Response: No adverse reaction aa9 Disposition: 04/27 18:51 Co-signature as Attending Physician, Kaleb BORGES was immediately available on-site ms3 in the Emergency Department for consultation in the care of the patient. Disposition Summary: 04/26/22 22:20 Discharge Ordered Location: Home cp Problem: new cp Symptoms: have improved cp Condition: Stable cp Diagnosis - Vomiting cp - Acute tonsillitis, unspecified cp - Pneumonia in diseases classified elsewhere cp Followup: cp - With: Private Physician - When: 2 - 3 days - Reason: Recheck today's complaints Discharge Instructions: - Discharge Summary Sheet cp - Nausea and Vomiting, Adult cp - Community-Acquired Pneumonia, Adult cp - Tonsillitis cp Forms: - Medication Reconciliation Form cp - Thank You Letter cp - Antibiotic Education cp - Prescription Opioid Use cp Prescriptions: - Augmentin 875-125 mg Oral Tablet - take 1 tablet by ORAL route every 12 hours for 10 days; 20 tablet; Refills: 0, cp Product Selection Permitted - Lidocaine Viscous - take 5 milliliter by ORAL route every 4-6 hours As needed; 1 bottle; Refills: cp 0, Product Selection Permitted - Zithromax Z-Ismael 250 mg Oral Tablet - take 1 tablet by ORAL route as directed for 5 days Day 1 - take two (2) tablets cp one time. Day 2, 3, 4 , 5 take one (1) tablet once daily.; 6 tablet; Refills: 0, Product Selection Permitted - Zofran 4 mg Oral Tablet - take 1 tablet by ORAL route every 12 hours As needed; 20 tablet; Refills: 0, cp Product Selection Permitted - Ibuprofen 800 mg Oral Tablet - take 1 tablet by ORAL route every 8 hours As needed take with food; 30 tablet; cp Refills: 0, Product Selection Permitted Signatures: Dispatcher [employer] Osmar Yuan PA PA cp Lewis, Lynsay, RN RN ll1 Kaleb Jaquez DO DO ms3 Nika Najera RN RN aa9
--- NOTE | 2022-04-26 22:21 | ER ---
Nurse's Notes [facility] Name: Frank Peck Age: 46 yrs Sex: Male : 1975 Arrival Date: 04/26/2022 Time: 18:30 Bed 15 Private MD: Diagnosis: Vomiting;Acute tonsillitis, unspecified;Pneumonia in diseases classified elsewhere Presentation: 04/26 18:41 Chief complaint: Patient states: Cough, fever, N/V since Saturday. Ebola Screen: Patient ll1 denies travel to an Ebola-affected area in the 21 days before illness onset. Risk Assessment: Do you want to hurt yourself or someone else? Patient reports no desire to harm self or others. Onset of symptoms was April 23, 2022. 18:41 Method Of Arrival: Ambulatory ll1 18:41 Acuity: ABBEY 3 ll1 18:41 Coronavirus screen: Client denies travel out of the [place] in the last 14 days. ll1 congestion, cough unrelated to allergies, fatigue, fever, headache, nausea, vomiting. Initial Sepsis Screen: Does the patient meet any 2 criteria? HR > 90 bpm. No. Patient's initial sepsis screen is negative. Does the patient have a suspected source of infection? Yes: Productive cough/pneumonia. Historical: - Allergies: 18:42 No Known Drug Allergies; ll1 - PMHx: 18:42 Seizures; Cerebral Palsy; ll1 - PSHx: 18:42 None; ll1 - Immunization history:: Adult Immunizations up to date. - Social history:: Smoking status: Patient denies any tobacco usage or history of. Screenin:46 [facility] ED Fall Risk Assessment (Adult) History of falling in the last 3 months, ko1 including since admission No falls in past 3 months (0 pts) Confusion or Disorientation No (0 pts) Intoxicated or Sedated No (0 pts) Impaired Gait Yes (1 pt) Mobility Assist Device Used Yes (1 pt) Altered Elimination Yes (1 pt) Score/Fall Risk Level 3 or more points = High Risk Oriented to surroundings, Maintained a safe environment, Educated pt \T\ family on fall prevention, incl call for assistance when getting out of bed, Assessed \T\ reinforced patient's understanding of fall precautions, Provided non-skid footwear, Hourly rounding (assess needs \T\ fall precautionary measures) done, Used ambulatory aids as needed (educated on \T\ assisted with), Used gait belt as appropriate Implemented a Fall Risk Plan of Care, Apply high fall risk patient identification: yellow non skid footwear/ fall signage, Remained w/in arm's length of patient and in sight while toileting, Offered frequent toileting (1:1 observation), Remained with patient while ambulating, Utilized family, sitter, or virtual director of primary as indicated. Abuse screen: Denies threats or abuse. Denies injuries from another. Nutritional screening: No deficits noted. Tuberculosis screening: No symptoms or risk factors identified. Assessment: 18:46 General: Appears in no apparent distress. ill, Behavior is inappropriate for age, ko1 cerebral palsy. Pain: Complains of pain in abdomen. GI: Abdomen is non-distended, Stools are reported to be diarrhea. Parent/caregiver reports the patient having diarrhea, nausea, vomiting. 19:32 General: Appears in no apparent distress. slender, Behavior is calm. Pain: Complains of aa9 pain in chest and abdomen. Neuro: Level of Consciousness is awake, alert. Respiratory: Airway is patent Respiratory effort is even, unlabored. GI: Abdomen is non-distended, Parent/caregiver reports the patient having pain. 21:58 Reassessment: Patient appears in no apparent distress at this time. Patient and/or aa9 family updated on plan of care and expected duration. Pain level reassessed. 22:40 Reassessment: Patient appears in no apparent distress at this time. pt taken to aa9 personal vehicle with mother and family member via wheelchair, prescriptions explained, denies concerns. Vital Signs: 18:41 BP 104 / 78; Pulse 101; Resp 18; Temp 100.0; Pulse Ox 100% ; ll1 20:00 BP 100 / 73; Pulse 93; Resp 20 S; Pulse Ox 99% on R/A; aa9 22:00 BP 101 / 68; Pulse 73; Resp 22 S; Pulse Ox 95% on R/A; aa9 22:40 BP 111 / 70; Pulse 84; Resp 20; Pulse Ox 95% on R/A; aa9 ED Course: 18:30 Patient arrived in ED. mr 18:34 Osmar Torres PA is PHCP. cp 18:34 Kaleb Jaquez DO is Attending Physician. cp 18:42 Triage completed. ll1 18:42 Arm band placed on Patient placed in an exam room, on a stretcher. ll1 18:44 Benita Padilla, RN is Primary Nurse. ko1 18:46 Patient has correct armband on for positive identification. Fall risk band placed. Bed ko1 in low position. Call light in reach. Side rails up X2. Adult w/ patient. 19:28 Inserted saline lock: 20 gauge in left antecubital area, using aseptic technique. Blood aa9 collected. 19:31 Strep Sent. aa9 19:31 COVID-19/FLU A+B/RSV Sent. aa9 19:31 CBC with Diff Sent. aa9 19:31 CMP Sent. aa9 19:31 Lipase Sent. aa9 19:31 Urine Microscopic Only Sent. aa9 19:32 Magnesium Sent. aa9 20:03 XRAY Chest (1 view) In Process Unspecified. EDMS 21:35 CT Soft Tissue Neck W/contr In Process Unspecified. EDMS 22:37 No provider procedures requiring assistance completed. IV discontinued, intact, aa9 bleeding controlled, No redness/swelling at site. Pressure dressing applied. Administered Medications: 19:31 Drug: NS 0.9% 1000 ml Route: IV; Rate: 1 bolus; Site: left antecubital; aa9 20:30 Follow up: Response: No adverse reaction; IV Status: Completed infusion; IV Intake: aa9 100ml 19:31 Drug: Pepcid (famotidine) 20 mg Route: IVP; Site: left antecubital; aa9 22:41 Follow up: Response: No adverse reaction aa9 19:31 Drug: Zofran (Ondansetron) 4 mg Route: IVP; Site: left antecubital; aa9 22:41 Follow up: Response: No adverse reaction aa9 20:40 Drug: Rocephin - (cefTRIAXone) 1 grams Route: IVPB; Infused Over: 30 mins; Site: left aa9 antecubital; 22:10 Follow up: Response: No adverse reaction; IV Status: Completed infusion; IV Intake: aa9 100ml 20:41 Drug: Zithromax (azithromycin) 500 mg Route: PO; aa9 22:09 Follow up: Response: No adverse reaction aa9 22:21 Drug: Zofran (Ondansetron) 4 mg Route: IVP; Site: left antecubital; aa9 22:37 Follow up: Response: No adverse reaction aa9 Medication: 19:35 VIS not applicable for this client. aa9 Intake: 20:30 IV: 100ml; Total: 100ml. aa9 22:10 IV: 100ml; Total: 200ml. aa9 Outcome: 22:20 Discharge ordered by MD. cp 22:37 Discharged to home via wheelchair, with family. aa9 22:37 Condition: stable 22:37 Discharge instructions given to patient, family, Instructed on discharge instructions, follow up and referral plans. medication usage, Demonstrated understanding of instructions, follow-up care, medications, Prescriptions given X 5 22:38 Patient left the ED. aa9 Signatures: Dispatcher [employer] EDPR Rajeev Faviola mr Osmar Torres PA PA cp Lewis, Lynsay, RN RN ll1 Nika Najera RN RN aa9 Benita Padilla RN RN ko1 Corrections: (The following items were deleted from the chart) 18:46 18:41 Pulse 92bpm; Pulse Ox 100%; ll1 ll1
[2022-04-26 22:53] VITALS: TEMP 100
[2022-04-26 23:08] VITALS: BP 101/68; O2SAT 95
== END 2022-04-26 22:38 | disposition home or self-care (01) ==
LOC: ER 18:25
DX: J18.9 Pneumonia, unspecified organism (principal); J03.90 Acute tonsillitis, unspecified; Z20.822 Contact with and (suspected) exposure to COVID-19
CPT/HCPCS: 96365; 96361; 87070; 85025; 36415; 83735; 87081; 83690; 80053; 0241U; 70491; 71045; 96375; 99284; Q9967; Q0144; J7030; J2405 ×2; 81003; 81015

== ENCOUNTER 2023-10-15 21:41 | Emergency (ER) | payer OTHER ==
--- OUTSIDE RECORDS SUMMARY | 2023-10-15 21:50 | XMS REPORT | Continuity of Care Document ---
Author Name Unknown Address [address] [place] [address] [facility] thconnect Address [address] [place] [address] Care Team Providers Care Medical Director Of Hospice Name Role Phone Emily Bustamante NP Primary Care Physician [phone] Lori Atkins MD Attending Clinician [phone] Emily Bustamante NP Attending Clinician [phone] Benoit Baez MD Attending Clinician [phone] BENOIT BAEZ Attending Clinician Unavail able BENOIT BAEZ Attending Clinician Unavail able Payers Payer Name Policy Type Policy Number Effective Date Expirati on Date Source Allergies, Adverse Reactions, Alerts Allergy Name Allergy Type Status Severity Reaction(s) Onset Date Inactive Date Treating Clinician Comments Source NO KNOWN ALLERGIE S Drug Class Active [facility] Social History Social Habit Start Date Stop Date Quantity Comments Source Sexual orientation [facility] History SDOH Alcohol Std Drinks [facility] History SDOH Alcohol Binge [facility] History of Social function 2019-11-25 00:00:00 2019-11-25 00:00:00 [facility] Alcoholic beverage intake 2019-06-16 00:00:00 2019-06-16 00:00:00 Lifetime non-drinker (finding) [facility] Alcohol intake 2019-06-16 00:00:00 2019-06-16 00:00:00 Lifetime non-drinker (finding) [facility] History SDOH Alcohol Frequency 2019-06-16 00:00:00 2019-06-16 00:00:00 1 [facility] Sex assigned at 1975 00:00:00 1975 00:00:00 [facility] Smoking Status Start Date Stop Date Source Never smoked tobacco [facility] Medications Ordered Medication Name Filled Medication Name Start Date Stop Date Current Medication? Ordering Clinician Indication Dosage Frequency Signature (SIG) Comments Components Source famotidine 40 mg tablet 09-29 00:00: 00 Yes mg Fabricio Casiano fluticasone propionate 50 mcg/actuati on blister powder for inhalation 09-29 00:00: 00 Yes 1mcg/ac tuation Fabricio Casiano Arnuity Ellipta 50 mcg/actuati on powder for inhalation 09-29 00:00: 00 Yes 1mcg/ac tuation Fabricio Casiano carbamazepi ne 200 mg tablet 09-29 00:00: 00 Yes 2mg Fabricio Casiano omeprazole 40 mg capsule,del ayed release 09-29 00:00: 00 Yes 1mg Fabricio Casiano loratadine 10 mg capsule 09-29 00:00: 00 Yes 1mg Fabricio Casiano Arnuity Ellipta 50 mcg/actuati on powder for inhalation 08-11 00:00: 00 Yes 1mcg/ac tuation Fabricio Casiano omeprazole 40 mg capsule,del ayed release 08-11 00:00: 00 Yes 1mg Fabricio Casiano loratadine 10 mg capsule 08-11 00:00: 00 Yes 1mg Fabricio Casiano famotidine 40 mg tablet 08-07 00:00: 00 Yes mg Fabricio Casiano carbamazepi ne 200 mg tablet 08-07 00:00: 00 Yes 2mg Fabricio Casiano USE 1 SPRAY IN EACH NOSTRIL TWICE DAILY. - 00:00: 00 Yes 50 Fabricio Casiano TAKE 1 CAPSULE BY MOUTH EVERY MORNING - 00:00: 00 Yes Fabricio Casiano TAKE 1 TABLET DAILY. 04-30 00:00: 00 Yes 40 Fabricio Casiano TAKE 2 TABLETS TWICE DAILY 04-30 00:00: 00 Yes 200 Fabricio Casiano TAKE 1 CAPSULE EVERY MORNING DAILY. 2022-04 00:00: 00 08-26 00:00 :00 No 40 Fabricio Casiano USE 1 SPRAY IN EACH NOSTRIL TWICE DAILY. 2022-04 00:00: 00 08-26 00:00 :00 No 50 Fabricio Casiano TAKE 1 TABLET DAILY. 2022-04 00:00: 00 08-26 00:00 :00 No 40 Fabricio Casiano TAKE 2 TABLETS TWICE DAILY 2022-04 00:00: 00 08-26 00:00 :00 No 200 Fabricio Casiano SHAKE LIQUID AND USE 1 SPRAY IN EACH NOSTRIL TWICE DAILY 11-20 00:00: 00 Yes Fabricio Casiano TAKE 1 TABLET BY MOUTH DAILY 11-20 00:00: 00 Yes Fabricio Casiano TAKE 1 TABLET DAILY. 11-20 00:00: 00 08-26 00:00 :00 No 40 Fabricio Casiano TAKE 5 ML EVERY 4 TO 6 HOURS NEEDED FOR COUGH. 11-20 00:00: 00 08-26 00:00 :00 No [id number] Fabricio Casiano OMEPRAZOLE 40 MG CPDR 11-13 00:00: 00 Yes Fabricio Casiano TAKE 2 TABLETS BY MOUTH TWICE DAILY 08-01 00:00: 00 Yes Fabricio Casiano TAKE 1 TABLET BY MOUTH DAILY 08-01 00:00: 00 Yes Fabricio Casiano FLUTICASONE PROPIONATE 50 MCG/ACT SUSP - 00:00: 00 Yes Fabricio Casiano TAKE 1 TABLET DAILY. 08-01 00:00: 00 08-26 00:00 :00 No 10 Fabricio Casiano TAKE 5 ML EVERY 4 TO 6 HOURS NEEDED FOR COUGH. - 00:00: 00 08-26 00:00 :00 No [id number] Fabricio Casiano TAKE 1 TABLET BY MOUTH DAILY 1- 00:00: 00 Yes Fabricio Casiano AZITHROMYCI N 250 MG TABS 05-02 00:00: 00 Yes Fabricio Casiano ALBUTEROL SULFATE HFA 108 (90 Base) MCG/ACT AERS 05-02 00:00: 00 Yes Fabricio Casiano TAKE 5 ML EVERY 4 TO 6 HOURS NEEDED FOR COUGH. 05-02 00:00: 00 08-26 00:00 :00 No [id number] Fabricio Casiano MOUNJARO 2.5 MG/0.5ML SOPN 05-02 00:00: 00 08-26 00:00 :00 No Fabricio Casiano 1 CAP EVERY 8 HOURS NEEDED FOR COUGH 05-02 00:00: 00 08-26 00:00 :00 No 200 Fabricio Casiano USE 1 SPRAY IN EACH NOSTRIL TWICE DAILY. 05-02 00:00: 00 08-26 00:00 :00 No 50 Fabricio Casiano TAKE 1 TABLET BY MOUTH EVERY EIGHT HOURS NEEDED FOR PAIN CONTROL 04-26 00:00: 00 Yes Fabricio Casiano LIDOCAINE VISCOUS 2 % SOLN 04-26 00:00: 00 Yes Fabricio Casiano ONDANSETRON HYDROCHLORI DE 4 MG TABS 04-26 00:00: 00 Yes Fabricio Casiano AMOXICILLIN /CLAVULANAT E POTASSIUM 875-125 MG TABS 04-26 00:00: 00 Yes Fabricio Casiano TK 2 TS PO ON DAY 1, THEN TK 1 T PO D FOR 4 DAYS 04-26 00:00: 00 Yes Fabricio Casiano TAKE 1 TABLET BY MOUTH DAILY 2021-04 00:00: 00 Yes Fabricio Casiano TAKE 2 TABLETS BY MOUTH TWICE DAILY 2021-04 00:00: 00 Yes Fabricio Casiano TAKE 1 CAPSULE BY MOUTH EVERY MORNING 2021-04 00:00: 00 Yes Fabricio Casiano FLUTICASONE PROPIONATE 50 MCG/ACT SUSP 2021-04 00:00: 00 Yes Fabricio Casiano TAKE 1 TABLET DAILY. 2021-04 00:00: 00 08-26 00:00 :00 No 40 Fabricio Patricia Casiano FLUTICASONE PROPIONATE 50 MCG/ACT SUSP 2021-0 9-13 00:00: 00 Yes Fabricio Casiano TAKE 5 ML BY MOUTH EVERY 4 TO 6 HOURS NEEDED 2021-0 9-13 00:00: 00 Yes Fabricio Casiano OMEPRAZOLE 40 MG CPDR 2021-0 9-13 00:00: 00 Yes Fabricio Casiano CARBAMAZEPI NE 200 MG TABS 2021-0 9-13 00:00: 00 Yes Fabricio Casiano FAMOTIDINE 40 MG TABS 2021-0 9-13 00:00: 00 Yes Fabricio Casiano TAKE 5 ML BY MOUTH EVERY 6 TO 8 HOURS NEEDED 2021-0 8-24 00:00: 00 Yes Fabricio Casiano &lt 2021-0 8-09 00:00: 00 Yes Fabricio Casiano Dose Unknown 0 8-09 00:00: 00 Yes Fabricio Casiano TAKE 1 TABLET BY MOUTH DAILY 2021-0 7-23 00:00: 00 Yes 500 Fabricio Casiano FAMOTIDINE 40 MG TABS 0 7-20 00:00: 00 Yes Fabricio Casiano TAKE 5 ML BY MOUTH EVERY 6 TO 8 HOURS NEEDED 2021-0 7-11 00:00: 00 Yes Fabricio Casiano TAKE 2 TABLETS BY MOUTH TWICE A DAY FROYLAN DOS TABLETAS DOS VECES AL DMITRI OK TO CRUSH 0 - 00:00: 00 Yes 200 Fabricio Casiano Dose Unknown 0 - 00:00: 00 Yes Fabricio Casiano TAKE 2 TABLETS BY MOUTH TWICE A DAY FROYLAN DOS TABLETAS DOS VECES AL DMITRI OK TO CRUSH 0 10-18 00:00: 00 Yes Fabricio Casiano Dose Unknown 0 - 00:00: 00 Yes Fabricio Casiano TAKE 1 TABLET BY MOUTH DAILY 0 -23 00:00: 00 Yes Fabricio Casiano TAKE 1 TABLET BY MOUTH DAILY 2021-0 -15 00:00: 00 Yes Fabricio Casiano APPLY TOPICALLY TO THE AFFECTED AREA TWICE DAILY 2021-0 6-15 00:00: 00 Yes Fabricio Casiano loratadine 10 mg tablet 2021-0 -26 00:00: 00 Yes 1mg Fabricio Casiano famotidine 40 mg tablet 0 5- 00:00: 00 Yes 1mg Fabricio Casiano fluticasone propionate 50 mcg/actuati on nasal spray,suspe nsion 0 - 00:00: 00 Yes 1mcg/ac tuation Fabricio Casiano omeprazole 40 mg capsule,del ayed release 0 09-14 00:00: 00 Yes 1mg Fabricio Casiano Bromfed DM 2 mg-30 mg-10 mg/5 mL oral syrup 0 - 00:00: 00 Yes 5mg/5 mL Fabricio Casiano Dose Unknown 4-04 00:00: 00 Yes Fabricio Casiano Dose Unknown 07-19 00:00: 00 Yes Fabricio Casiano loratadine 10 mg tablet 0 - 00:00: 00 Yes 1mg Fabricio Casiano carbamazepi ne 200 mg tablet 07-18 00:00: 00 Yes 2mg Fabricio Casiano fluticasone propionate 50 mcg/actuati on nasal spray,suspe nsion - 00:00: 00 Yes 1mcg/ac tuation Fabricio Casiano omeprazole 40 mg capsule,del ayed release - 00:00: 00 Yes 1mg Fabricio Casiano Bromfed DM 2 mg-30 mg-10 mg/5 mL oral syrup 0 3- 00:00: 00 Yes 5mg/5 mL Fabricio Casiano famotidine 40 mg tablet 0 2-10 00:00: 00 Yes 1mg Fabricio Casiano Dose Unknown 0 2-10 00:00: 00 Yes Fabricio Casiano Dose Unknown 0 2-10 00:00: 00 Yes Fabricio Casiano Dose Unknown 0 2-10 00:00: 00 Yes Fabricio Casiano Dose Unknown 0 2-10 00:00: 00 Yes Fabricio Casiano nystatin 100,000 unit/gram topical cream 2020-04 2- 00:00: 00 Yes 1unit/g dyllan Fabricio Casiano famotidine 40 mg tablet 2020-04 2-14 00:00: 00 Yes 1mg Fabricio Casiano loratadine 10 mg tablet 2020-04 2-14 00:00: 00 Yes 1mg Fabricio Casiano levofloxaci n 500 mg tablet 2020-04-14 00:00: 00 Yes 1mg Fabricio Casiano carbamazepi ne 200 mg tablet 2020-04- 00:00: 00 Yes 2mg Fabricio Casiano ondansetron 4 mg disintegrat ing tablet 2020-04- 00:00: 00 Yes 1mg Fabricio Casiano fluticasone propionate 50 mcg/actuati on nasal spray,suspe nsion 2020-04- 00:00: 00 Yes 1mcg/ac tuation Fabricio Miramontesfed DM 2 mg-30 mg-10 mg/5 mL oral syrup 2020-04- 00:00: 00 Yes 5mg/5 mL Fabricio Casiano famotidine 40 mg tablet - 00:00: 00 Yes 1mg Fabricio Casiano loratadine 10 mg tablet - 00:00: 00 Yes 1mg Fabricio Casiano carbamazepi ne 200 mg tablet - 00:00: 00 Yes 2mg Fabricio Casiano fluticasone propionate 50 mcg/actuati on nasal spray,suspe nsion 11-01 00:00: 00 Yes 1mcg/ac tuation Fabricio Miraomntesfed DM 2 mg-30 mg-10 mg/5 mL oral syrup - 00:00: 00 Yes 5mg/5 mL Fabricio Casiano loratadine 10 mg tablet 0 - 00:00: 00 Yes 1mg Fabricio Casiano famotidine 40 mg tablet 0 - 00:00: 00 Yes 1mg Fabricio Casiano carbamazepi ne 200 mg tablet 0 - 00:00: 00 Yes 2mg Fabricio Casiano fluticasone propionate 50 mcg/actuati on nasal spray,suspe nsion - 00:00: 00 Yes 1mcg/ac tuation Fabricio Casiano Bromfed DM 2 mg-30 mg-10 mg/5 mL oral syrup 0 - 00:00: 00 Yes 5mg/5 mL Fabricio Casiano loratadine 10 mg tablet 0 2-24 00:00: 00 Yes 1mg Fabricio Casiano carbamazepi ne 200 mg tablet 2-24 00:00: 00 Yes 2mg Fabricio Casiano fluticasone propionate 50 mcg/actuati on nasal spray,suspe nsion 2-24 00:00: 00 Yes 1mcg/ac tuation Fabricio Casiano Bromfed DM 2 mg-30 mg-10 mg/5 mL oral syrup 2-24 00:00: 00 Yes 5mg/5 mL Fabricio Casiano loratadine 10 mg tablet - 00:00: 00 Yes 1mg Fabricio Casiano carbamazepi ne 200 mg tablet 05-19 00:00: 00 Yes 2mg Fabricio Casiano fluticasone propionate 50 mcg/actuati on nasal spray,suspe nsion 05-19 00:00: 00 Yes 1mcg/ac tuation Fabricio Casiano Bromfed DM 2 mg-30 mg-10 mg/5 mL oral syrup 05-19 00:00: 00 Yes 5mg/5 mL Fabricio Casiano carbamazepi ne 200 mg tablet 05-16 00:00: 00 Yes 2mg Fabricio Casiano carbamazepi ne 200 mg tablet 2019-04 00:00: 00 Yes 2mg Fabricio Miramontesfed DM 2 mg-30 mg-10 mg/5 mL oral syrup 2019-04 00:00: 00 Yes 5mg/5 mL Fabricio Casiano loratadine 10 mg tablet 2019-04 0-16 00:00: 00 Yes 1mg Fabricio Casiano carbamazepi ne ER 400 mg tablet,exte nded release,12 hr 2019-04 0-16 00:00: 00 Yes 1mg Fabricio Casiano fluticasone propionate 50 mcg/actuati on nasal spray,suspe nsion 2019-04 0-16 00:00: 00 Yes 1mcg/ac tuation Fabricio Casiano loratadine 10 mg tablet -24 00:00: 00 Yes 1mg Fabricio Casiano carbamazepi ne ER 400 mg tablet,exte nded release,12 hr 7-24 00:00: 00 Yes 1mg Fabricio Casiano fluticasone propionate 50 mcg/actuati on nasal spray,suspe nsion 2019-0 7-24 00:00: 00 Yes 1mcg/ac tuation Fabricio Casiano fluticasone propionate 50 mcg/actuati on nasal spray,suspe nsion 2019-0 6-05 00:00: 00 Yes 1mcg/ac tuation Fabricio Casiano loratadine 10 mg tablet 0 4-28 00:00: 00 Yes 1mg Fabricio Casiano carbamazepi ne ER 400 mg tablet,exte nded release,12 hr 2019-0 4-28 00:00: 00 Yes 1mg Fabricio Casiano loratadine 10 mg tablet 0 3-24 00:00: 00 Yes 1mg Fabricio Casiano carbamazepi ne ER 400 mg tablet,exte nded release,12 hr 2019-0 3-24 00:00: 00 Yes 1mg Fabricio Casiano carBAMazepi ne 400 mg 12 hr tablet 0 1-23 00:00: 00 Yes [facility] loratadine 10 mg tablet 0 1-21 00:00: 00 Yes 1mg Fabricio Casiano carbamazepi ne ER 400 mg tablet,exte nded release,12 hr 0 1-21 00:00: 00 Yes 1mg Fabricio Casiano loratadine 10 mg tablet 2018-04 0-08 00:00: 00 Yes 1mg Fabricio Casiano fluticasone propionate 50 mcg/actuati on nasal spray,suspe nsion 2018-04 0-08 00:00: 00 Yes 1mcg/ac tuation Fabricio Casiano fluticasone propionate 50 mcg/actuati on nasal spray,suspe nsion 2018-04 0-08 00:00: 00 Yes 1mcg/ac tuation Fabricio Casiano Bromfed DM 2 mg-30 mg-10 mg/5 mL oral syrup 2018-04 0-08 00:00: 00 Yes 5mg/5 mL Fabricio Casiano Bromfed DM 2 mg-30 mg-10 mg/5 mL oral syrup 2018-04 0-08 00:00: 00 Yes 5mg/5 mL Fabricio Casiano fluticasone propionate 50 mcg/actuati on nasal spray,suspe nsion 0 8-05 00:00: 00 Yes 1mcg/ac tuation Fabricio Casiano loratadine 10 mg tablet 10-28 00:00: 00 Yes 1mg Fabricio Casiano Bromfed DM 2 mg-30 mg-10 mg/5 mL oral syrup 10-28 00:00: 00 Yes 5mg/5 mL Fabricio Casiano loratadine 10 mg tablet 09-23 00:00: 00 Yes 1mg Fabricio Casiano fluticasone propionate 50 mcg/actuati on nasal spray,suspe nsion 09-23 00:00: 00 Yes 1mcg/ac tuation Fabricio Casiano Bromfed DM 2 mg-30 mg-10 mg/5 mL oral syrup 09-23 00:00: 00 Yes 5mg/5 mL Fabricio Casiano carbamazepi ne 200 mg tablet 07-29 00:00: 00 Yes 2mg Fabricio Casiano carbamazepi ne 200 mg tablet 05-01 00:00: 00 Yes 2mg Fabricio Casiano carbamazepi ne 200 mg tablet 2017-04 00:00: 00 Yes 2mg Fabricio Casiano loratadine 10 mg tablet 2017-04 00:00: 00 Yes 1mg Fabricio Casiano prednisone 20 mg tablet 2017-04 00:00: 00 Yes 1mg Fabricio Casiano azithromyci n 250 mg tablet 2017-04 00:00: 00 Yes mg Fabricio Casiano promethazin e-DM 6.25 mg-15 mg/5 mL syrup 2017-04 00:00: 00 Yes 5mg/5 mL Fabricio Casiano carbamazepi ne 200 mg tablet 12-24 00:00: 00 Yes 2mg Fabricio Casiano ondansetron 4 mg disintegrat ing tablet 12-24 00:00: 00 Yes 1mg Fabricio Casiano amoxicillin 875 mg-potassiu m clavulanate 125 mg tablet 12-24 00:00: 00 Yes 1mg Fabricio Casiano Saline Mist 0.65 % nasal spray aerosol 12-24 00:00: 00 Yes 2% Fabricio Casiano carbamazepi ne 200 mg tablet 09-09 00:00: 00 Yes 4mg Fabricio Casiano promethazin e-DM 6.25 mg-15 mg/5 mL syrup 5-21 00:00: 00 Yes 5mg/5 mL Fabricio Casiano carbamazepi ne 200 mg tablet 3-15 00:00: 00 Yes 1mg Fabricio Casiano carbamazepi ne 200 mg tablet 2016-04 2-20 00:00: 00 Yes 1mg Fabricio Casiano carbamazepi ne 200 mg tablet 9-06 00:00: 00 Yes 1mg Fabricio Casiano Tessalon Perles 100 mg capsule 6-09 00:00: 00 Yes 1mg Fabricio Casiano carbamazepi ne 200 mg tablet 3-11 00:00: 00 Yes 1mg Fabricio Casiano neomycin-po lymyxin-hyd rocort 3.5 mg-10,000 unit/mL-1 % ear drops,susp 2015-04 0-06 00:00: 00 Yes 4mg/mL- unit/mL -% Fabricio Casiano penicillin V potassium 250 mg tablet 2015-04 0-06 00:00: 00 Yes 1mg Fabricio Casiano carbamazepi ne 200 mg tablet 9 00:00: 00 Yes 1mg Fabricio Casiano carbamazepi ne 200 mg tablet 8-04 00:00: 00 Yes 1mg Fabricio Casiano Tessalon Perle 100 mg capsule 3-03 00:00: 00 Yes 1mg Fabricio Casiano Zithromax Z-Ismael 250 mg tablet 2-26 00:00: 00 Yes 12mg Fabricio Casiano albuterol sulfate 2.5 mg/3 mL (0.083 %) solution for nebulizatio n 2-23 00:00: 00 Yes 1/3 mL (0.083 %) Fabricio Casiano carbamazepi ne 200 mg tablet 2-10 00:00: 00 Yes 1mg Fabricio Casiano albuterol sulfate 2.5 mg/3 mL (0.083 %) solution for nebulizatio n 1- 00:00: 00 Yes 1/3 mL (0.083 %) Fabricio Casiano albuterol sulfate 0.63 mg/3 mL solution for nebulizatio n 1- 00:00: 00 Yes 1mg/3 mL Fabricio Casiano carbamazepi ne 200 mg tablet 2014- 0-20 00:00: 00 Yes 1mg Fabricio Casiano Immunizations Ordered Immunization Name Filled Immunization Name Date Status Comments Source influenza, seasonal vaccine, quadrivalent, adjuvanted, .5mL dose, preservative-free influenza, seasonal vaccine, quadrivalent, adjuvanted, .5mL dose, preservative-free 2022-03-27 00:00:00 Completed Fabricio Patricia Oh influenza, seasonal vaccine, quadrivalent, adjuvanted, .5mL dose, preservative-free influenza, seasonal vaccine, quadrivalent, adjuvanted, .5mL dose, preservative-free 2022-03-27 00:00:00 Completed Fabricio Patricia Oh Moderna COVID-19 Vaccine Moderna COVID-19 Vaccine 2021-07-18 00:00:00 Completed Fabricio Patricia Casiano Moderna COVID-19 Vaccine Moderna COVID-19 Vaccine 2021-07-18 00:00:00 Completed Fabricio Patricia Casiano Moderna COVID-19 Vaccine Moderna COVID-19 Vaccine 2020-07-26 00:00:00 Completed Fabricio Patricia Casiano Moderna COVID-19 Vaccine Moderna COVID-19 Vaccine 2020-07-26 00:00:00 Completed Fabricio Patricia Casiano Moderna COVID-19 Vaccine Moderna COVID-19 Vaccine 2020-06-24 00:00:00 Completed Fabricio Patricia Casiano Moderna COVID-19 Vaccine Moderna COVID-19 Vaccine 2020-06-24 00:00:00 Completed Fabricio Patricia Oh Vital Signs Vital Name Observation Time Observation Value Comments S ource Systolic blood pressure 2019-06-16 21:32:00 113 mm[Hg] [place] [facility] Diastolic blood pressure 2019-06-16 21:32:00 71 mm[Hg] [place] [facility] Heart rate 2019-06-16 21:32:00 81 /min [facility] Body temperature 2019-06-16 21:32:00 36.33 Amber [facility] Respiratory rate 2019-06-16 21:32:00 14 /min [facility] BP Diastolic 2023-08-12 16:03:00 76 mm[Hg] [place] keller Patricia Casiano Weight Measured 2023-08-12 16:03:00 Fabricio F Oh Height Measured 2023-08-12 16:03:00 Fabricio F Oh Body Temperature 2023-08-12 16:03:00 97.80 degrees Fabricio F Oh Heart Rate 2023-08-12 16:03:00 66.00 /min Casie en F Oh Respiratory Rate 2023-08-12 16:03:00 Fabricio F Oh BP Systolic 2023-08-12 16:03:00 113 mm[Hg] Step hen F Oh BP Systolic 2023-05-01 17:21:00 Step hen F Oh BP Diastolic 2023-05-01 17:21:00 Oliver phen F Oh Weight Measured 2023-05-01 17:21:00 Fabricio F Oh Height Measured 2023-05-01 17:21:00 Fabricio F Oh Body Temperature 2023-05-01 17:21:00 Fabricio F Oh Heart Rate 2023-05-01 17:21:00 Casie en F Oh Respiratory Rate 2023-05-01 17:21:00 Fabricio F Oh BP Systolic 2022-08-01 17:16:00 114 mm[Hg] Step hen F Oh BP Diastolic 2022-08-01 17:16:00 74 mm[Hg] Oliver phen F Oh Weight Measured 2022-08-01 17:16:00 Fabricio F Oh Height Measured 2022-08-01 17:16:00 Fabricio F Oh Body Temperature 2022-08-01 17:16:00 98.00 degrees Fabricio F Oh Heart Rate 2022-08-01 17:16:00 78.00 /min Casie en F Oh Respiratory Rate 2022-08-01 17:16:00 19.00 /min Fabricio F Oh BP Systolic 2022-05-02 14:51:00 105 mm[Hg] Step hen F Oh BP Diastolic 2022-05-02 14:51:00 69 mm[Hg] Oliver phen F Oh Weight Measured 2022-05-02 14:51:00 Fabricio F Oh Height Measured 2022-05-02 14:51:00 63.00 inches Fabricio F Oh Body Temperature 2022-05-02 14:51:00 98.20 degrees Fabricio F Oh Heart Rate 2022-05-02 14:51:00 79.00 /min Casie en F Oh Respiratory Rate 2022-05-02 14:51:00 18.00 /min Fabricio F Oh BP Systolic 2022-03-27 14:24:00 125 mm[Hg] Step hen F Oh BP Diastolic 2022-03-27 14:24:00 82 mm[Hg] Oliver phen F Oh Weight Measured 2022-03-27 14:24:00 Fabricio F Oh Height Measured 2022-03-27 14:24:00 63.00 inches Fabricio F Oh Body Temperature 2022-03-27 14:24:00 97.80 degrees Fabricio F Oh Heart Rate 2022-03-27 14:24:00 67.00 /min Casie en F Oh Respiratory Rate 2022-03-27 14:24:00 17.00 /min Fabricio F Oh BP Systolic 2021-07-18 16:39:00 112 mm[Hg] Step hen F Oh BP Diastolic 2021-07-18 16:39:00 75 mm[Hg] Oliver phen F Oh Weight Measured 2021-07-18 16:39:00 Fabricio F Oh Height Measured 2021-07-18 16:39:00 63.00 inches Fabricio F Oh Body Temperature 2021-07-18 16:39:00 98.10 degrees Fabricio F Oh Heart Rate 2021-07-18 16:39:00 66.00 /min Casie en F Oh Respiratory Rate 2021-07-18 16:39:00 17.00 /min Fabricio F Oh BP Systolic 2021-04-04 11:07:00 119 mm[Hg] Step hen F Oh BP Diastolic 2021-04-04 11:07:00 79 mm[Hg] Oliver phen F Oh Weight Measured 2021-04-04 11:07:00 Fabricio F Oh Height Measured 2021-04-04 11:07:00 63.00 inches Fabricio F Oh Body Temperature 2021-04-04 11:07:00 98.30 degrees Fabricio F Oh Heart Rate 2021-04-04 11:07:00 73.00 /min Casie en F Oh Respiratory Rate 2021-04-04 11:07:00 16.00 /min Fabricio F Oh BP Systolic 2019-05-12 17:01:00 107 mm[Hg] Step hen F Oh BP Diastolic 2019-05-12 17:01:00 66 mm[Hg] Oliver phen F Oh Weight Measured 2019-05-12 17:01:00 Fabricio F Oh Height Measured 2019-05-12 17:01:00 63.00 inches Fabricio F Oh Body Temperature 2019-05-12 17:01:00 98.60 degrees Fabricio F Oh Heart Rate 2019-05-12 17:01:00 83.00 /min Casie en F Oh Respiratory Rate 2019-05-12 17:01:00 17.00 /min Fabricio F Oh BP Systolic 2019-01-27 16:35:00 111 mm[Hg] Step hen F Oh BP Diastolic 2019-01-27 16:35:00 71 mm[Hg] Oliver phen F Oh Weight Measured 2019-01-27 16:35:00 Fabricio F Oh Height Measured 2019-01-27 16:35:00 63.00 inches Fabricio F Oh Body Temperature 2019-01-27 16:35:00 98.70 degrees Fabricio F Oh Heart Rate 2019-01-27 16:35:00 66.00 /min Casie en F Oh Respiratory Rate 2019-01-27 16:35:00 18.00 /min Fabricio F Oh BP Systolic 2018-10-28 16:05:00 115 mm[Hg] Step hen F Oh BP Diastolic 2018-10-28 16:05:00 69 mm[Hg] Oliver phen F Oh Weight Measured 2018-10-28 16:05:00 Fabricio F Oh Height Measured 2018-10-28 16:05:00 63.00 inches Fabricio F Oh Body Temperature 2018-10-28 16:05:00 98.10 degrees Fabricio F Oh Heart Rate 2018-10-28 16:05:00 85.00 /min Casie en F Oh Respiratory Rate 2018-10-28 16:05:00 16.00 /min Fabricio F Oh Encounters Start Date/Time End Date/Time Encounter Type Admission Type Attending [facility] Facility Care Department Encounter ID Source 2023-09-30 14:24:01 2023-09-30 14:24:01 Outpatient [facility] [id number] Fabricio Casiano 2023-09-30 00:00:00 2023-09-30 00:00:00 Outpatient Visit [facility] [id number] Fabricio Casiano 2023-08-30 00:00:00 2023-08-30 14:35:54 Letter (Out) Milly Lori [facility] [id number] [facility] 2023-08-19 00:00:00 2023-08-19 00:00:00 Letter (Out) Emily Bustamante [facility] [id number] [facility] 2023-08-12 16:00:07 2023-08-12 16:00:07 Outpatient [facility] [id number] Fabricio Casiano 2023-08-12 00:00:00 2023-08-12 00:00:00 Outpatient Visit [facility] [id number] Fabricio Casiano 2023-06-11 00:00:00 2023-06-11 00:00:00 Outpatient Visit [facility] [id number] Fabricio Casiano 2023-05-01 00:00:00 2023-05-01 00:00:00 Outpatient Visit [facility] [id number] Fabricio Casiano 2023-02-28 00:00:00 2023-02-28 00:00:00 Outpatient Visit [facility] [id number] Fabricio Casiano 2023-02-21 17:36:45 2023-02-21 17:36:45 Outpatient [facility] [id number] Fabricio Casiano 2023-02-06 14:58:04 2023-02-06 14:58:04 Outpatient [facility] 1018 Fabricio Casiano 2022-11-20 13:50:35 2022-11-20 13:50:35 Outpatient [facility] [id number] Fabricio Casiano 2022-11-20 00:00:00 2022-11-20 00:00:00 Outpatient Visit [facility] [id number] Fabricio Casiano 2022-08-01 17:01:17 2022-08-01 17:01:17 Outpatient [facility] 0412 Fabricio Casiano 2022-08-01 00:00:00 2022-08-01 00:00:00 Outpatient Visit [facility] [id number] Fabricio Casiano 2022-05-02 14:39:05 2022-05-02 14:39:05 Outpatient [facility] 0111 Fabricio Casiano 2022-05-02 00:00:00 2022-05-02 00:00:00 Outpatient Visit [facility] [id number] Fabricio Casiano 2022-03-29 00:00:00 2022-03-29 00:00:00 Outpatient Visit [facility] [id number] Fabricio Casiano 2022-03-27 14:13:32 2022-03-27 14:13:32 Outpatient [facility] [id number] Fabricio Casiano 2022-03-27 00:00:00 2022-03-27 00:00:00 Outpatient Visit [facility] [id number] Fabricio Casiano 2022-01-01 00:00:00 2022-01-01 00:00:00 Outpatient Visit [facility] [id number] Fabricio Casiano 2021-10-25 00:00:00 2021-10-25 00:00:00 Outpatient Visit SFA [id number] Fabricio Casiano 2019-06-16 15:10:10 2019-06-16 16:34:53 Office Visit Benoit Baez [facility] Elyse Bynum [facility] [id number] [facility] 2019-06-16 15:00:00 2019-06-16 15:00:00 Outpatient R BENOIT BAEZ [facility] [id number] [facility] Results Test Description Test Time Test Comments Results Result Co mments Source LIPID [id number] 04:48:17* Test Item Value Reference Range Interpretation Comme nts CHOLESTEROL (test code = 2210) 191 MG/DL <200 TRIGLYCERIDES (test code = 2232) 82 MG/DL <150 HDL CHOLESTEROL (test code = 2220) 58 MG/DL >39 CALC LDL CHOL (test code = 2237) 115 MG/DL <100 H NOTE: CALCULATED LDL IS BASED ON VARUN-WAGONER METHOD WHICHINCLUDES ADJUSTABLE TRIGLYCERIDE:VLDL CHOLESTEROL RATIO.THIS FACTOR VARIES BY MEASURED TRIGLYCERIDE AND NON-HDLCHOLESTEROL CONCENTRATIONS WITH INCREASED CALCULATED LDL SEENIN HIGHER TRIGLYCERIDE OR LOWER NON-HDL SPECIMENS. FOR MOREINFORMATION, SEE CLIENT ANNOUNCEMENT AT [email or web address] /[email or web address]-[email or web address] RISK RATIO LDL/HDL (test code = 2238) 1.98 RATIO <3.55 COMPREHENSIVE METABOLIC [id number] 04:48:17* Test Item Value Reference Range Interpretation Comme nts GLUCOSE (test code = 2217) 97 MG/DL 70-99 BUN (test code = 2208) 12 MG/DL 6-20 CREATININE (test code = 2214) 0.86 MG/DL 0.80-1.40 eGFR (2020 CKD-EPI) (test code = 25478) 108 ML/MIN/1.73 >60 CALC BUN/CREAT (test code = 2235) 14 RATIO 6-28 SODIUM (test code = 223) 141 MEQ/L 133-146 POTASSIUM (test code = 2228) 4.2 MEQ/L 3.5-5.4 CHLORIDE (test code = 2215) 106 MEQ/L 95-107 CARBON DIOXIDE (test code = 2206) 23 MEQ/L 19-31 CALCIUM (test code = 2209) 8.8 MG/DL 8.5-10.5 PROTEIN, TOTAL (test code = 2229) 7.1 G/DL 6.1-8.3 ALBUMIN (test code = 2200) 4.3 G/DL 3.5-5.2 CALC GLOBULIN (test code = 2240) 2.8 G/DL 1.9-3.7 CALC A/G RATIO (test code = 2234) 1.5 RATIO 1.0-2.6 BILIRUBIN, TOTAL (test code = 2206) <0.2 MG/DL <=1.2 ALKALINE PHOSPHATASE (test code = 2203) 83 U/L 40-118 AST (test code = 2217) 15 U/L 9-50 ALT (test code = 2218) 15 U/L 5-50 CBC W/AUTO DIFF WITH [id number] 02:22:07* Test Item Value Reference Range Interpretation Comme nts WBC (test code = 1001) 4.9 K/UL 3.5-11.0 RBC (test code = 1002) 4.49 M/UL 4.50-6.10 L HEMOGLOBIN (test code = 1003) 13.0 G/DL 13.5-17.0 L HEMATOCRIT (test code = 1004) 38.8 % 40.0-51.0 L MCV (test code = 1005) 86.4 fL 80.0-99.0 MCH (test code = 1006) 29.0 PG 25.0-33.0 MCHC (test code = 1007) 33.5 G/DL 31.0-36.0 RDW (test code = 1038) 13.9 % 11.5-15.0 NEUTROPHILS (test code = 1008) 51.9 % LYMPHOCYTES (test code = 1010) 36.2 % MONOCYTES (test code = 1011) 7.2 % EOSINOPHILS (test code = 1012) 4.1 % BASOPHILS (test code = 1013) 0.4 % IMMATURE GRANULOCYTES (test code = 1036) 0.2 % NUCLEATED RBCS (test code = 1065) 0.0 /100 WBC'S See_Comment [Automated messa ge] The system which generated this result transmitted reference range: 0.0. The reference range was not used to interpret this result as normal/abnormal. PLATELET COUNT (test code = 1015) 165 K/UL 130-400 ABSOLUTE NEUTROPHILS (test code = 1066) 2.52 K/UL 1.50-7.50 ABSOLUTE LYMPHOCYTES (test code = 1067) 1.76 K/UL 1.00-4.00 ABSOLUTE MONOCYTES (test code = 1068) 0.35 K/UL 0.20-1.00 ABSOLUTE EOSINOPHILS (test code = 1040) 0.20 K/UL 0.00-0.50 ABSOLUTE BASOPHILS (test code = 1069) 0.02 K/UL 0.00-0.20 ABS IMMATURE GRANULOCYTES (test code = 1020) 0.01 K/UL 0.00-0.10 ABS NUCLEATED RBCS (test code = 96307) 0.00 K/UL 0.00-0.11 CBC W/AUTO [id number] 00:00:00* Test Item Value Reference Range Interpretation Comme nts WBC (test code = 1001) 4.9 K/UL RBC (test code = 1002) 4.49 M/UL HEMOGLOBIN (test code = 1003) 13.0 G/DL HEMATOCRIT (test code = 1004) 38.8 % MCV (test code = 1005) 86.4 fL MCH (test code = 1006) 29.0 PG MCHC (test code = 1007) 33.5 G/DL RDW (test code = 1038) 13.9 % NEUTROPHILS (test code = 1008) 51.9 % LYMPHOCYTES (test code = 1010) 36.2 % MONOCYTES (test code = 1011) 7.2 % EOSINOPHILS (test code = 1012) 4.1 % BASOPHILS (test code = 1013) 0.4 % IMMATURE GRANULOCYTES (test code = 1036) 0.2 % NUCLEATED RBCS (test code = 1065) 0.0 /100WBC'S PLATELET COUNT (test code = 1015) 165 K/UL ABSOLUTE NEUTROPHILS (test c ode = 1066) 2.52 K/UL ABSOLUTE LYMPHOCYTES (test c ode = 1067) 1.76 K/UL ABSOLUTE MONOCYTES (test cod e = 1068) 0.35 K/UL ABSOLUTE EOSINOPHILS (test c ode = 1040) 0.20 K/UL ABSOLUTE BASOPHILS (test cod e = 1069) 0.02 K/UL ABS IMMATURE GRANULOCYTES (t est code = 1020) 0.01 K/UL ABS NUCLEATED RBCS (test cod e = 64551) 0.00 K/UL Fabricio CasianoLIPID [id number] 00:00:00* Test Item Value Reference Range Interpretation Comme nts CHOLESTEROL (test code = 2210) 191 MG/DL TRIGLYCERIDES (test code = 2232) 82 MG/DL HDL CHOLESTEROL (test code = 2220) 58 MG/DL CALC LDL CHOL (test code = 2237) 115 MG/DL RISK RATIO LDL/HDL (test cod e = 2238) 1.98 RATIO Fabricio CasianoCOMPREHENSIVE METABOLIC [id number] 00:00:00* Test Item Value Reference Range Interpretation Comme nts GLUCOSE (test code = 2217) 97 MG/DL BUN (test code = 2208) 12 MG/DL CREATININE (test code = 2214) 0.86 MG/DL eGFR (2020 CKD-EPI) (test code = 61134) 108 ML/MIN/1.73 CALC BUN/CREAT (test code = 2235) 14 RATIO SODIUM (test code = 2231) 141 MEQ/L POTASSIUM (test code = 2228) 4.2 MEQ/L CHLORIDE (test code = 2215) 106 MEQ/L CARBON DIOXIDE (test code = 2206) 23 MEQ/L CALCIUM (test code = 2209) 8.8 MG/DL PROTEIN, TOTAL (test code = 2229) 7.1 G/DL ALBUMIN (test code = 2201) 4.3 G/DL CALC GLOBULIN (test code = 2240) 2.8 G/DL CALC A/G RATIO (test code = 2234) 1.5 RATIO BILIRUBIN, TOTAL (test code = 2207) <0.2 MG/DL ALKALINE PHOSPHATASE (test code = 2204) 83 U/L AST (test code = 2218) 15 U/L ALT (test code = 2219) 15 U/L Fabricio F OhCARBAMAZEPINE (TEGRETOL)2023-02-07 00:00:00* Test Item Value Reference Range Interpretation Comme nts CARBAMAZEPINE (TEGRETOL) (te st code = 3006) 11.2 UG/ML Fabricio CasianoCBC W/AUTO [id number] 00:00:00* Test Item Value Reference Range Interpretation Comme nts WBC (test code = 1001) 4.9 K/UL RBC (test code = 1002) 4.49 M/UL HEMOGLOBIN (test code = 1003) 13.0 G/DL HEMATOCRIT (test code = 1004) 38.8 % MCV (test code = 1005) 86.4 fL MCH (test code = 1006) 29.0 PG MCHC (test code = 1007) 33.5 G/DL RDW (test code = 1038) 13.9 % NEUTROPHILS (test code = 1008) 51.9 % LYMPHOCYTES (test code = 1010) 36.2 % MONOCYTES (test code = 1011) 7.2 % EOSINOPHILS (test code = 1012) 4.1 % BASOPHILS (test code = 1013) 0.4 % IMMATURE GRANULOCYTES (test code = 1036) 0.2 % NUCLEATED RBCS (test code = 1065) 0.0 /100WBC'S PLATELET COUNT (test code = 1015) 165 K/UL ABSOLUTE NEUTROPHILS (test c ode = 1066) 2.52 K/UL ABSOLUTE LYMPHOCYTES (test c ode = 1067) 1.76 K/UL ABSOLUTE MONOCYTES (test cod e = 1068) 0.35 K/UL ABSOLUTE EOSINOPHILS (test c ode = 1040) 0.20 K/UL ABSOLUTE BASOPHILS (test cod e = 1069) 0.02 K/UL ABS IMMATURE GRANULOCYTES (t est code = 1020) 0.01 K/UL ABS NUCLEATED RBCS (test cod e = 24013) 0.00 K/UL Fabricio CasianoLIPID [id number] 00:00:00* Test Item Value Reference Range Interpretation Comme nts CHOLESTEROL (test code = 2210) 191 MG/DL TRIGLYCERIDES (test code = 2232) 82 MG/DL HDL CHOLESTEROL (test code = 2220) 58 MG/DL CALC LDL CHOL (test code = 2237) 115 MG/DL RISK RATIO LDL/HDL (test cod e = 2238) 1.98 RATIO Fabricio CasianoCOMPREHENSIVE METABOLIC [id number] 00:00:00* Test Item Value Reference Range Interpretation Comme nts GLUCOSE (test code = 2217) 97 MG/DL BUN (test code = 2208) 12 MG/DL CREATININE (test code = 2214) 0.86 MG/DL eGFR (2020 CKD-EPI) (test code = 95149) 108 ML/MIN/1.73 CALC BUN/CREAT (test code = 2235) 14 RATIO SODIUM (test code = 2231) 141 MEQ/L POTASSIUM (test code = 2228) 4.2 MEQ/L CHLORIDE (test code = 2215) 106 MEQ/L CARBON DIOXIDE (test code = 2206) 23 MEQ/L CALCIUM (test code = 2209) 8.8 MG/DL PROTEIN, TOTAL (test code = 2229) 7.1 G/DL ALBUMIN (test code = 220) 4.3 G/DL CALC GLOBULIN (test code = 2240) 2.8 G/DL CALC A/G RATIO (test code = 2234) 1.5 RATIO BILIRUBIN, TOTAL (test code = 7) <0.2 MG/DL ALKALINE PHOSPHATASE (test code = 2204) 83 U/L AST (test code = 2218) 15 U/L ALT (test code = 2219) 15 U/L Fabricio CasianoCARBAMAZEPINE (TEGRETOL)2023-02-07 00:00:00* Test Item Value Reference Range Interpretation Comme nts CARBAMAZEPINE (TEGRETOL) (te st code = 3006) 11.2 UG/ML Fabricio CasianoCBC W/AUTO [id number] 00:00:00* Test Item Value Reference Range Interpretation Comme nts WBC (test code = 1001) 4.9 K/UL RBC (test code = 1002) 4.49 M/UL HEMOGLOBIN (test code = 1003) 13.0 G/DL HEMATOCRIT (test code = 1004) 38.8 % MCV (test code = 1005) 86.4 fL MCH (test code = 1006) 29.0 PG MCHC (test code = 1007) 33.5 G/DL RDW (test code = 1038) 13.9 % NEUTROPHILS (test code = 1008) 51.9 % LYMPHOCYTES (test code = 1010) 36.2 % MONOCYTES (test code = 1011) 7.2 % EOSINOPHILS (test code = 1012) 4.1 % BASOPHILS (test code = 1013) 0.4 % IMMATURE GRANULOCYTES (test code = 1036) 0.2 % NUCLEATED RBCS (test code = 1065) 0.0 /100WBC'S PLATELET COUNT (test code = 1015) 165 K/UL ABSOLUTE NEUTROPHILS (test c ode = 1066) 2.52 K/UL ABSOLUTE LYMPHOCYTES (test c ode = 1067) 1.76 K/UL ABSOLUTE MONOCYTES (test cod e = 1068) 0.35 K/UL ABSOLUTE EOSINOPHILS (test c ode = 1040) 0.20 K/UL ABSOLUTE BASOPHILS (test cod e = 1069) 0.02 K/UL ABS IMMATURE GRANULOCYTES (t est code = 1020) 0.01 K/UL ABS NUCLEATED RBCS (test cod e = 68454) 0.00 K/UL Fabricio Gomez FidelityLIPID [id number] 00:00:00* Test Item Value Reference Range Interpretation Comme nts CHOLESTEROL (test code = 2210) 191 MG/DL TRIGLYCERIDES (test code = 2232) 82 MG/DL HDL CHOLESTEROL (test code = 2220) 58 MG/DL CALC LDL CHOL (test code = 2237) 115 MG/DL RISK RATIO LDL/HDL (test cod e = 2238) 1.98 RATIO Fabricio CasianoCOMPREHENSIVE METABOLIC [id number] 00:00:00* Test Item Value Reference Range Interpretation Comme nts GLUCOSE (test code = 2217) 97 MG/DL BUN (test code = 2208) 12 MG/DL CREATININE (test code = 2214) 0.86 MG/DL eGFR (2020 CKD-EPI) (test code = 78819) 108 ML/MIN/1.73 CALC BUN/CREAT (test code = 2235) 14 RATIO SODIUM (test code = 2231) 141 MEQ/L POTASSIUM (test code = 2228) 4.2 MEQ/L CHLORIDE (test code = 2215) 106 MEQ/L CARBON DIOXIDE (test code = 2206) 23 MEQ/L CALCIUM (test code = 2209) 8.8 MG/DL PROTEIN, TOTAL (test code = 2229) 7.1 G/DL ALBUMIN (test code = 2201) 4.3 G/DL CALC GLOBULIN (test code = 2240) 2.8 G/DL CALC A/G RATIO (test code = 2234) 1.5 RATIO BILIRUBIN, TOTAL (test code = 2207) <0.2 MG/DL ALKALINE PHOSPHATASE (test code = 2204) 83 U/L AST (test code = 2218) 15 U/L ALT (test code = 2219) 15 U/L Fabricio CasianoCARBAMAZEPINE (TEGRETOL)2023-02-07 00:00:00* Test Item Value Reference Range Interpretation Comme nts CARBAMAZEPINE (TEGRETOL) (te st code = 3006) 11.2 UG/ML Fabricio CasianoCBC W/AUTO [id number] 00:00:00* Test Item Value Reference Range Interpretation Comme nts WBC (test code = 1001) 4.9 K/UL RBC (test code = 1002) 4.49 M/UL HEMOGLOBIN (test code = 1003) 13.0 G/DL HEMATOCRIT (test code = 1004) 38.8 % MCV (test code = 1005) 86.4 fL MCH (test code = 1006) 29.0 PG MCHC (test code = 1007) 33.5 G/DL RDW (test code = 1038) 13.9 % NEUTROPHILS (test code = 1008) 51.9 % LYMPHOCYTES (test code = 1010) 36.2 % MONOCYTES (test code = 1011) 7.2 % EOSINOPHILS (test code = 1012) 4.1 % BASOPHILS (test code = 1013) 0.4 % IMMATURE GRANULOCYTES (test code = 1036) 0.2 % NUCLEATED RBCS (test code = 1065) 0.0 /100WBC'S PLATELET COUNT (test code = 1015) 165 K/UL ABSOLUTE NEUTROPHILS (test c ode = 1066) 2.52 K/UL ABSOLUTE LYMPHOCYTES (test c ode = 1067) 1.76 K/UL ABSOLUTE MONOCYTES (test cod e = 1068) 0.35 K/UL ABSOLUTE EOSINOPHILS (test c ode = 1040) 0.20 K/UL ABSOLUTE BASOPHILS (test cod e = 1069) 0.02 K/UL ABS IMMATURE GRANULOCYTES (t est code = 1020) 0.01 K/UL ABS NUCLEATED RBCS (test cod e = 29689) 0.00 K/UL Fabricio CasianoLIPID [id number] 00:00:00* Test Item Value Reference Range Interpretation Comme nts CHOLESTEROL (test code = 2210) 191 MG/DL TRIGLYCERIDES (test code = 2232) 82 MG/DL HDL CHOLESTEROL (test code = 2220) 58 MG/DL CALC LDL CHOL (test code = 2237) 115 MG/DL RISK RATIO LDL/HDL (test cod e = 2238) 1.98 RATIO Fabricio CasianoCOMPREHENSIVE METABOLIC [id number] 00:00:00* Test Item Value Reference Range Interpretation Comme nts GLUCOSE (test code = 2217) 97 MG/DL BUN (test code = 2208) 12 MG/DL CREATININE (test code = 2214) 0.86 MG/DL eGFR (2020 CKD-EPI) (test code = 56999) 108 ML/MIN/1.73 CALC BUN/CREAT (test code = 2235) 14 RATIO SODIUM (test code = 2231) 141 MEQ/L POTASSIUM (test code = 2228) 4.2 MEQ/L CHLORIDE (test code = 2215) 106 MEQ/L CARBON DIOXIDE (test code = 2206) 23 MEQ/L CALCIUM (test code = 2209) 8.8 MG/DL PROTEIN, TOTAL (test code = 2229) 7.1 G/DL ALBUMIN (test code = 2201) 4.3 G/DL CALC GLOBULIN (test code = 2240) 2.8 G/DL CALC A/G RATIO (test code = 2234) 1.5 RATIO BILIRUBIN, TOTAL (test code = 2207) <0.2 MG/DL ALKALINE PHOSPHATASE (test code = 2204) 83 U/L AST (test code = 2218) 15 U/L ALT (test code = 2219) 15 U/L Fabricio CasianoCARBAMAZEPINE (TEGRETOL)2023-02-07 00:00:00* Test Item Value Reference Range Interpretation Comme nts CARBAMAZEPINE (TEGRETOL) (te st code = 3006) 11.2 UG/ML Fabricio CasianoCBC W/AUTO [id number] 00:00:00* Test Item Value Reference Range Interpretation Comme nts WBC (test code = 1001) 4.9 K/UL RBC (test code = 1002) 4.49 M/UL HEMOGLOBIN (test code = 1003) 13.0 G/DL HEMATOCRIT (test code = 1004) 38.8 % MCV (test code = 1005) 86.4 fL MCH (test code = 1006) 29.0 PG MCHC (test code = 1007) 33.5 G/DL RDW (test code = 1038) 13.9 % NEUTROPHILS (test code = 1008) 51.9 % LYMPHOCYTES (test code = 1010) 36.2 % MONOCYTES (test code = 1011) 7.2 % EOSINOPHILS (test code = 1012) 4.1 % BASOPHILS (test code = 1013) 0.4 % IMMATURE GRANULOCYTES (test code = 1036) 0.2 % NUCLEATED RBCS (test code = 1065) 0.0 /100WBC'S PLATELET COUNT (test code = 1015) 165 K/UL ABSOLUTE NEUTROPHILS (test c ode = 1066) 2.52 K/UL ABSOLUTE LYMPHOCYTES (test c ode = 1067) 1.76 K/UL ABSOLUTE MONOCYTES (test cod e = 1068) 0.35 K/UL ABSOLUTE EOSINOPHILS (test c ode = 1040) 0.20 K/UL ABSOLUTE BASOPHILS (test cod e = 1069) 0.02 K/UL ABS IMMATURE GRANULOCYTES (t est code = 1020) 0.01 K/UL ABS NUCLEATED RBCS (test cod e = 48196) 0.00 K/UL Fabricio Gomez [employer] [id number] 00:00:00* Test Item Value Reference Range Interpretation Comme nts CHOLESTEROL (test code = 2210) 191 MG/DL TRIGLYCERIDES (test code = 2232) 82 MG/DL HDL CHOLESTEROL (test code = 2220) 58 MG/DL CALC LDL CHOL (test code = 2237) 115 MG/DL RISK RATIO LDL/HDL (test cod e = 2238) 1.98 RATIO Fabricio CasianoCOMPREHENSIVE METABOLIC [id number] 00:00:00* Test Item Value Reference Range Interpretation Comme nts GLUCOSE (test code = 2217) 97 MG/DL BUN (test code = 2208) 12 MG/DL CREATININE (test code = 2214) 0.86 MG/DL eGFR (2020 CKD-EPI) (test code = 91309) 108 ML/MIN/1.73 CALC BUN/CREAT (test code = 2235) 14 RATIO SODIUM (test code = 2231) 141 MEQ/L POTASSIUM (test code = 2228) 4.2 MEQ/L CHLORIDE (test code = 2215) 106 MEQ/L CARBON DIOXIDE (test code = 2206) 23 MEQ/L CALCIUM (test code = 2209) 8.8 MG/DL PROTEIN, TOTAL (test code = 2229) 7.1 G/DL ALBUMIN (test code = 2201) 4.3 G/DL CALC GLOBULIN (test code = 2240) 2.8 G/DL CALC A/G RATIO (test code = 2234) 1.5 RATIO BILIRUBIN, TOTAL (test code = 2207) <0.2 MG/DL ALKALINE PHOSPHATASE (test code = 2204) 83 U/L AST (test code = 2218) 15 U/L ALT (test code = 2219) 15 U/L Fabricio CasianoCARBAMAZEPINE (TEGRETOL)2023-02-07 00:00:00* Test Item Value Reference Range Interpretation Comme nts CARBAMAZEPINE (TEGRETOL) (te st code = 3006) 11.2 UG/ML Fabricio CasianoCBC W/AUTO [id number] 00:00:00* Test Item Value Reference Range Interpretation Comme nts WBC (test code = 1001) 4.9 K/UL RBC (test code = 1002) 4.49 M/UL HEMOGLOBIN (test code = 1003) 13.0 G/DL HEMATOCRIT (test code = 1004) 38.8 % MCV (test code = 1005) 86.4 fL MCH (test code = 1006) 29.0 PG MCHC (test code = 1007) 33.5 G/DL RDW (test code = 1038) 13.9 % NEUTROPHILS (test code = 1008) 51.9 % LYMPHOCYTES (test code = 1010) 36.2 % MONOCYTES (test code = 1011) 7.2 % EOSINOPHILS (test code = 1012) 4.1 % BASOPHILS (test code = 1013) 0.4 % IMMATURE GRANULOCYTES (test code = 1036) 0.2 % NUCLEATED RBCS (test code = 1065) 0.0 /100WBC'S PLATELET COUNT (test code = 1015) 165 K/UL ABSOLUTE NEUTROPHILS (test c ode = 1066) 2.52 K/UL ABSOLUTE LYMPHOCYTES (test c ode = 1067) 1.76 K/UL ABSOLUTE MONOCYTES (test cod e = 1068) 0.35 K/UL ABSOLUTE EOSINOPHILS (test c ode = 1040) 0.20 K/UL ABSOLUTE BASOPHILS (test cod e = 1069) 0.02 K/UL ABS IMMATURE GRANULOCYTES (t est code = 1020) 0.01 K/UL ABS NUCLEATED RBCS (test cod e = 35075) 0.00 K/UL Fabricio CasianoLIPID [id number] 00:00:00* Test Item Value Reference Range Interpretation Comme nts CHOLESTEROL (test code = 2210) 191 MG/DL TRIGLYCERIDES (test code = 2232) 82 MG/DL HDL CHOLESTEROL (test code = 2220) 58 MG/DL CALC LDL CHOL (test code = 2237) 115 MG/DL RISK RATIO LDL/HDL (test cod e = 2238) 1.98 RATIO Fabricio CasianoCOMPREHENSIVE METABOLIC [id number] 00:00:00* Test Item Value Reference Range Interpretation Comme nts GLUCOSE (test code = 2217) 97 MG/DL BUN (test code = 2208) 12 MG/DL CREATININE (test code = 2214) 0.86 MG/DL eGFR (2020 CKD-EPI) (test code = 84921) 108 ML/MIN/1.73 CALC BUN/CREAT (test code = 2235) 14 RATIO SODIUM (test code = 2231) 141 MEQ/L POTASSIUM (test code = 2228) 4.2 MEQ/L CHLORIDE (test code = 2215) 106 MEQ/L CARBON DIOXIDE (test code = 2206) 23 MEQ/L CALCIUM (test code = 2209) 8.8 MG/DL PROTEIN, TOTAL (test code = 2229) 7.1 G/DL ALBUMIN (test code = 2201) 4.3 G/DL CALC GLOBULIN (test code = 2240) 2.8 G/DL CALC A/G RATIO (test code = 2234) 1.5 RATIO BILIRUBIN, TOTAL (test code = 2207) <0.2 MG/DL ALKALINE PHOSPHATASE (test code = 2204) 83 U/L AST (test code = 2218) 15 U/L ALT (test code = 2219) 15 U/L Fabricio CasianoCARBAMAZEPINE (TEGRETOL)2023-02-07 00:00:00* Test Item Value Reference Range Interpretation Comme nts CARBAMAZEPINE (TEGRETOL) (te st code = 3006) 11.2 UG/ML Fabricio CasianoCBC W/AUTO [id number] 00:00:00* Test Item Value Reference Range Interpretation Comme nts WBC (test code = 1001) 4.9 K/UL RBC (test code = 1002) 4.49 M/UL HEMOGLOBIN (test code = 1003) 13.0 G/DL HEMATOCRIT (test code = 1004) 38.8 % MCV (test code = 1005) 86.4 fL MCH (test code = 1006) 29.0 PG MCHC (test code = 1007) 33.5 G/DL RDW (test code = 1038) 13.9 % NEUTROPHILS (test code = 1008) 51.9 % LYMPHOCYTES (test code = 1010) 36.2 % MONOCYTES (test code = 1011) 7.2 % EOSINOPHILS (test code = 1012) 4.1 % BASOPHILS (test code = 1013) 0.4 % IMMATURE GRANULOCYTES (test code = 1036) 0.2 % NUCLEATED RBCS (test code = 1065) 0.0 /100WBC'S PLATELET COUNT (test code = 1015) 165 K/UL ABSOLUTE NEUTROPHILS (test c ode = 1066) 2.52 K/UL ABSOLUTE LYMPHOCYTES (test c ode = 1067) 1.76 K/UL ABSOLUTE MONOCYTES (test cod e = 1068) 0.35 K/UL ABSOLUTE EOSINOPHILS (test c ode = 1040) 0.20 K/UL ABSOLUTE BASOPHILS (test cod e = 1069) 0.02 K/UL ABS IMMATURE GRANULOCYTES (t est code = 1020) 0.01 K/UL ABS NUCLEATED RBCS (test cod e = 91579) 0.00 K/UL Fabricio Patricia AustinLIPID [id number] 00:00:00* Test Item Value Reference Range Interpretation Comme nts CHOLESTEROL (test code = 2210) 191 MG/DL TRIGLYCERIDES (test code = 2232) 82 MG/DL HDL CHOLESTEROL (test code = 2220) 58 MG/DL CALC LDL CHOL (test code = 2237) 115 MG/DL RISK RATIO LDL/HDL (test cod e = 2238) 1.98 RATIO Fabricio CasianoCOMPREHENSIVE METABOLIC [id number] 00:00:00* Test Item Value Reference Range Interpretation Comme nts GLUCOSE (test code = 2217) 97 MG/DL BUN (test code = 2208) 12 MG/DL CREATININE (test code = 2214) 0.86 MG/DL eGFR (2020 CKD-EPI) (test code = 93084) 108 ML/MIN/1.73 CALC BUN/CREAT (test code = 2235) 14 RATIO SODIUM (test code = 2231) 141 MEQ/L POTASSIUM (test code = 2228) 4.2 MEQ/L CHLORIDE (test code = 2215) 106 MEQ/L CARBON DIOXIDE (test code = 2206) 23 MEQ/L CALCIUM (test code = 2209) 8.8 MG/DL PROTEIN, TOTAL (test code = 2229) 7.1 G/DL ALBUMIN (test code = 2201) 4.3 G/DL CALC GLOBULIN (test code = 2240) 2.8 G/DL CALC A/G RATIO (test code = 2234) 1.5 RATIO BILIRUBIN, TOTAL (test code = 2207) <0.2 MG/DL ALKALINE PHOSPHATASE (test code = 2204) 83 U/L AST (test code = 2218) 15 U/L ALT (test code = 2219) 15 U/L Fabricio CasianoCARBAMAZEPINE (TEGRETOL)2023-02-07 00:00:00* Test Item Value Reference Range Interpretation Comme nts CARBAMAZEPINE (TEGRETOL) (te st code = 3006) 11.2 UG/ML Fabricio CasianoCBC W/AUTO [id number] 00:00:00* Test Item Value Reference Range Interpretation Comme nts WBC (test code = 1001) 4.9 K/UL RBC (test code = 1002) 4.49 M/UL HEMOGLOBIN (test code = 1003) 13.0 G/DL HEMATOCRIT (test code = 1004) 38.8 % MCV (test code = 1005) 86.4 fL MCH (test code = 1006) 29.0 PG MCHC (test code = 1007) 33.5 G/DL RDW (test code = 1038) 13.9 % NEUTROPHILS (test code = 1008) 51.9 % LYMPHOCYTES (test code = 1010) 36.2 % MONOCYTES (test code = 1011) 7.2 % EOSINOPHILS (test code = 1012) 4.1 % BASOPHILS (test code = 1013) 0.4 % IMMATURE GRANULOCYTES (test code = 1036) 0.2 % NUCLEATED RBCS (test code = 1065) 0.0 /100WBC'S PLATELET COUNT (test code = 1015) 165 K/UL ABSOLUTE NEUTROPHILS (test c ode = 1066) 2.52 K/UL ABSOLUTE LYMPHOCYTES (test c ode = 1067) 1.76 K/UL ABSOLUTE MONOCYTES (test cod e = 1068) 0.35 K/UL ABSOLUTE EOSINOPHILS (test c ode = 1040) 0.20 K/UL ABSOLUTE BASOPHILS (test cod e = 1069) 0.02 K/UL ABS IMMATURE GRANULOCYTES (t est code = 1020) 0.01 K/UL ABS NUCLEATED RBCS (test cod e = 59251) 0.00 K/UL Fabricio Gomez OhLIPID [id number] 00:00:00* Test Item Value Reference Range Interpretation Comme nts CHOLESTEROL (test code = 2210) 191 MG/DL TRIGLYCERIDES (test code = 2232) 82 MG/DL HDL CHOLESTEROL (test code = 2220) 58 MG/DL CALC LDL CHOL (test code = 2237) 115 MG/DL RISK RATIO LDL/HDL (test cod e = 2238) 1.98 RATIO Fabricio Gomez OhCOMPREHENSIVE METABOLIC [id number] 00:00:00* Test Item Value Reference Range Interpretation Comme nts GLUCOSE (test code = 2217) 97 MG/DL BUN (test code = 2208) 12 MG/DL CREATININE (test code = 2214) 0.86 MG/DL eGFR (2020 CKD-EPI) (test code = 00449) 108 ML/MIN/1.73 CALC BUN/CREAT (test code = 2235) 14 RATIO SODIUM (test code = 2231) 141 MEQ/L POTASSIUM (test code = 2228) 4.2 MEQ/L CHLORIDE (test code = 2215) 106 MEQ/L CARBON DIOXIDE (test code = 2206) 23 MEQ/L CALCIUM (test code = 2209) 8.8 MG/DL PROTEIN, TOTAL (test code = 2229) 7.1 G/DL ALBUMIN (test code = 2201) 4.3 G/DL CALC GLOBULIN (test code = 2240) 2.8 G/DL CALC A/G RATIO (test code = 2234) 1.5 RATIO BILIRUBIN, TOTAL (test code = 2207) <0.2 MG/DL ALKALINE PHOSPHATASE (test code = 2204) 83 U/L AST (test code = 2218) 15 U/L ALT (test code = 2219) 15 U/L Fabricio Patricia AustinCARBAMAZEPINE (TEGRETOL)2023-02-07 00:00:00* Test Item Value Reference Range Interpretation Comme nts CARBAMAZEPINE (TEGRETOL) (te st code = 3006) 11.2 UG/ML Fabricio CasianoCBC W/AUTO [id number] 00:00:00* Test Item Value Reference Range Interpretation Comme nts WBC (test code = 1001) 4.9 K/UL RBC (test code = 1002) 4.49 M/UL HEMOGLOBIN (test code = 1003) 13.0 G/DL HEMATOCRIT (test code = 1004) 38.8 % MCV (test code = 1005) 86.4 fL MCH (test code = 1006) 29.0 PG MCHC (test code = 1007) 33.5 G/DL RDW (test code = 1038) 13.9 % NEUTROPHILS (test code = 1008) 51.9 % LYMPHOCYTES (test code = 1010) 36.2 % MONOCYTES (test code = 1011) 7.2 % EOSINOPHILS (test code = 1012) 4.1 % BASOPHILS (test code = 1013) 0.4 % IMMATURE GRANULOCYTES (test code = 1036) 0.2 % NUCLEATED RBCS (test code = 1065) 0.0 /100WBC'S PLATELET COUNT (test code = 1015) 165 K/UL ABSOLUTE NEUTROPHILS (test c ode = 1066) 2.52 K/UL ABSOLUTE LYMPHOCYTES (test c ode = 1067) 1.76 K/UL ABSOLUTE MONOCYTES (test cod e = 1068) 0.35 K/UL ABSOLUTE EOSINOPHILS (test c ode = 1040) 0.20 K/UL ABSOLUTE BASOPHILS (test cod e = 1069) 0.02 K/UL ABS IMMATURE GRANULOCYTES (t est code = 1020) 0.01 K/UL ABS NUCLEATED RBCS (test cod e = 41330) 0.00 K/UL Fabricio CasianoLIPID [id number] 00:00:00* Test Item Value Reference Range Interpretation Comme nts CHOLESTEROL (test code = 2210) 191 MG/DL TRIGLYCERIDES (test code = 2232) 82 MG/DL HDL CHOLESTEROL (test code = 2220) 58 MG/DL CALC LDL CHOL (test code = 2237) 115 MG/DL RISK RATIO LDL/HDL (test cod e = 2238) 1.98 RATIO Fabricio CasianoCOMPREHENSIVE METABOLIC [id number] 00:00:00* Test Item Value Reference Range Interpretation Comme nts GLUCOSE (test code = 2217) 97 MG/DL BUN (test code = 2208) 12 MG/DL CREATININE (test code = 2214) 0.86 MG/DL eGFR (2020 CKD-EPI) (test code = 49101) 108 ML/MIN/1.73 CALC BUN/CREAT (test code = 2235) 14 RATIO SODIUM (test code = 2231) 141 MEQ/L POTASSIUM (test code = 2228) 4.2 MEQ/L CHLORIDE (test code = 2215) 106 MEQ/L CARBON DIOXIDE (test code = 2206) 23 MEQ/L CALCIUM (test code = 2209) 8.8 MG/DL PROTEIN, TOTAL (test code = 2229) 7.1 G/DL ALBUMIN (test code = 2201) 4.3 G/DL CALC GLOBULIN (test code = 2240) 2.8 G/DL CALC A/G RATIO (test code = 2234) 1.5 RATIO BILIRUBIN, TOTAL (test code = 2207) <0.2 MG/DL ALKALINE PHOSPHATASE (test code = 2204) 83 U/L AST (test code = 2218) 15 U/L ALT (test code = 2219) 15 U/L Fabricio CasianoCARBAMAZEPINE (TEGRETOL)2023-02-07 00:00:00* Test Item Value Reference Range Interpretation Comme nts CARBAMAZEPINE (TEGRETOL) (te st code = 3006) 11.2 UG/ML Fabricio CasianoCBC W/AUTO [id number] 00:00:00* Test Item Value Reference Range Interpretation Comme nts WBC (test code = 1001) 4.9 K/UL RBC (test code = 1002) 4.49 M/UL HEMOGLOBIN (test code = 1003) 13.0 G/DL HEMATOCRIT (test code = 1004) 38.8 % MCV (test code = 1005) 86.4 fL MCH (test code = 1006) 29.0 PG MCHC (test code = 1007) 33.5 G/DL RDW (test code = 1038) 13.9 % NEUTROPHILS (test code = 1008) 51.9 % LYMPHOCYTES (test code = 1010) 36.2 % MONOCYTES (test code = 1011) 7.2 % EOSINOPHILS (test code = 1012) 4.1 % BASOPHILS (test code = 1013) 0.4 % IMMATURE GRANULOCYTES (test code = 1036) 0.2 % NUCLEATED RBCS (test code = 1065) 0.0 /100WBC'S PLATELET COUNT (test code = 1015) 165 K/UL ABSOLUTE NEUTROPHILS (test c ode = 1066) 2.52 K/UL ABSOLUTE LYMPHOCYTES (test c ode = 1067) 1.76 K/UL ABSOLUTE MONOCYTES (test cod e = 1068) 0.35 K/UL ABSOLUTE EOSINOPHILS (test c ode = 1040) 0.20 K/UL ABSOLUTE BASOPHILS (test cod e = 1069) 0.02 K/UL ABS IMMATURE GRANULOCYTES (t est code = 1020) 0.01 K/UL ABS NUCLEATED RBCS (test cod e = 60341) 0.00 K/UL Fabricio Gomez AustinLIPID [id number] 00:00:00* Test Item Value Reference Range Interpretation Comme nts CHOLESTEROL (test code = 2210) 191 MG/DL TRIGLYCERIDES (test code = 2232) 82 MG/DL HDL CHOLESTEROL (test code = 2220) 58 MG/DL CALC LDL CHOL (test code = 2237) 115 MG/DL RISK RATIO LDL/HDL (test cod e = 2238) 1.98 RATIO Fabricio CasianoCOMPREHENSIVE METABOLIC [id number] 00:00:00* Test Item Value Reference Range Interpretation Comme nts GLUCOSE (test code = 2217) 97 MG/DL BUN (test code = 2208) 12 MG/DL CREATININE (test code = 2214) 0.86 MG/DL eGFR (2020 CKD-EPI) (test code = 27088) 108 ML/MIN/1.73 CALC BUN/CREAT (test code = 2235) 14 RATIO SODIUM (test code = 2231) 141 MEQ/L POTASSIUM (test code = 2228) 4.2 MEQ/L CHLORIDE (test code = 2215) 106 MEQ/L CARBON DIOXIDE (test code = 2206) 23 MEQ/L CALCIUM (test code = 2209) 8.8 MG/DL PROTEIN, TOTAL (test code = 2229) 7.1 G/DL ALBUMIN (test code = 2201) 4.3 G/DL CALC GLOBULIN (test code = 2240) 2.8 G/DL CALC A/G RATIO (test code = 2234) 1.5 RATIO BILIRUBIN, TOTAL (test code = 2207) <0.2 MG/DL ALKALINE PHOSPHATASE (test code = 2204) 83 U/L AST (test code = 2218) 15 U/L ALT (test code = 2219) 15 U/L Fabricio CasianoCARBAMAZEPINE (TEGRETOL)2023-02-07 00:00:00* Test Item Value Reference Range Interpretation Comme nts CARBAMAZEPINE (TEGRETOL) (te st code = 3006) 11.2 UG/ML Fabricio CasianoCBC W/AUTO [id number] 00:00:00* Test Item Value Reference Range Interpretation Comme nts WBC (test code = 1001) 4.9 K/UL RBC (test code = 1002) 4.49 M/UL HEMOGLOBIN (test code = 1003) 13.0 G/DL HEMATOCRIT (test code = 1004) 38.8 % MCV (test code = 1005) 86.4 fL MCH (test code = 1006) 29.0 PG MCHC (test code = 1007) 33.5 G/DL RDW (test code = 1038) 13.9 % NEUTROPHILS (test code = 1008) 51.9 % LYMPHOCYTES (test code = 1010) 36.2 % MONOCYTES (test code = 1011) 7.2 % EOSINOPHILS (test code = 1012) 4.1 % BASOPHILS (test code = 1013) 0.4 % IMMATURE GRANULOCYTES (test code = 1036) 0.2 % NUCLEATED RBCS (test code = 1065) 0.0 /100WBC'S PLATELET COUNT (test code = 1015) 165 K/UL ABSOLUTE NEUTROPHILS (test c ode = 1066) 2.52 K/UL ABSOLUTE LYMPHOCYTES (test c ode = 1067) 1.76 K/UL ABSOLUTE MONOCYTES (test cod e = 1068) 0.35 K/UL ABSOLUTE EOSINOPHILS (test c ode = 1040) 0.20 K/UL ABSOLUTE BASOPHILS (test cod e = 1069) 0.02 K/UL ABS IMMATURE GRANULOCYTES (t est code = 1020) 0.01 K/UL ABS NUCLEATED RBCS (test cod e = 52144) 0.00 K/UL Fabricio CasianoLIPID [id number] 00:00:00* Test Item Value Reference Range Interpretation Comme nts CHOLESTEROL (test code = 2210) 191 MG/DL TRIGLYCERIDES (test code = 2232) 82 MG/DL HDL CHOLESTEROL (test code = 2220) 58 MG/DL CALC LDL CHOL (test code = 2237) 115 MG/DL RISK RATIO LDL/HDL (test cod e = 2238) 1.98 RATIO Fabricio CasianoCOMPREHENSIVE METABOLIC [id number] 00:00:00* Test Item Value Reference Range Interpretation Comme nts GLUCOSE (test code = 2217) 97 MG/DL BUN (test code = 2208) 12 MG/DL CREATININE (test code = 2214) 0.86 MG/DL eGFR (2020 CKD-EPI) (test code = 45948) 108 ML/MIN/1.73 CALC BUN/CREAT (test code = 2235) 14 RATIO SODIUM (test code = 2231) 141 MEQ/L POTASSIUM (test code = 2228) 4.2 MEQ/L CHLORIDE (test code = 2215) 106 MEQ/L CARBON DIOXIDE (test code = 2206) 23 MEQ/L CALCIUM (test code = 2209) 8.8 MG/DL PROTEIN, TOTAL (test code = 2229) 7.1 G/DL ALBUMIN (test code = 2201) 4.3 G/DL CALC GLOBULIN (test code = 2240) 2.8 G/DL CALC A/G RATIO (test code = 2234) 1.5 RATIO BILIRUBIN, TOTAL (test code = 2207) <0.2 MG/DL ALKALINE PHOSPHATASE (test code = 2204) 83 U/L AST (test code = 2218) 15 U/L ALT (test code = 2219) 15 U/L Fabricio CasianoCARBAMAZEPINE (TEGRETOL)2023-02-07 00:00:00* Test Item Value Reference Range Interpretation Comme nts CARBAMAZEPINE (TEGRETOL) (te st code = 3006) 11.2 UG/ML Fabricio CasianoCBC W/AUTO [id number] 00:00:00* Test Item Value Reference Range Interpretation Comme nts WBC (test code = 1001) 4.9 K/UL RBC (test code = 1002) 4.49 M/UL HEMOGLOBIN (test code = 1003) 13.0 G/DL HEMATOCRIT (test code = 1004) 38.8 % MCV (test code = 1005) 86.4 fL MCH (test code = 1006) 29.0 PG MCHC (test code = 1007) 33.5 G/DL RDW (test code = 1038) 13.9 % NEUTROPHILS (test code = 1008) 51.9 % LYMPHOCYTES (test code = 1010) 36.2 % MONOCYTES (test code = 1011) 7.2 % EOSINOPHILS (test code = 1012) 4.1 % BASOPHILS (test code = 1013) 0.4 % IMMATURE GRANULOCYTES (test code = 1036) 0.2 % NUCLEATED RBCS (test code = 1065) 0.0 /100WBC'S PLATELET COUNT (test code = 1015) 165 K/UL ABSOLUTE NEUTROPHILS (test c ode = 1066) 2.52 K/UL ABSOLUTE LYMPHOCYTES (test c ode = 1067) 1.76 K/UL ABSOLUTE MONOCYTES (test cod e = 1068) 0.35 K/UL ABSOLUTE EOSINOPHILS (test c ode = 1040) 0.20 K/UL ABSOLUTE BASOPHILS (test cod e = 1069) 0.02 K/UL ABS IMMATURE GRANULOCYTES (t est code = 1020) 0.01 K/UL ABS NUCLEATED RBCS (test cod e = 70466) 0.00 K/UL Fabricio Patricia AustinLIPID [id number] 00:00:00* Test Item Value Reference Range Interpretation Comme nts CHOLESTEROL (test code = 2210) 191 MG/DL TRIGLYCERIDES (test code = 2232) 82 MG/DL HDL CHOLESTEROL (test code = 2220) 58 MG/DL CALC LDL CHOL (test code = 2237) 115 MG/DL RISK RATIO LDL/HDL (test cod e = 2238) 1.98 RATIO Fabricio CasianoCOMPREHENSIVE METABOLIC [id number] 00:00:00* Test Item Value Reference Range Interpretation Comme nts GLUCOSE (test code = 2217) 97 MG/DL BUN (test code = 2208) 12 MG/DL CREATININE (test code = 2214) 0.86 MG/DL eGFR (2020 CKD-EPI) (test code = 54508) 108 ML/MIN/1.73 CALC BUN/CREAT (test code = 2235) 14 RATIO SODIUM (test code = 2231) 141 MEQ/L POTASSIUM (test code = 2228) 4.2 MEQ/L CHLORIDE (test code = 2215) 106 MEQ/L CARBON DIOXIDE (test code = 2206) 23 MEQ/L CALCIUM (test code = 2209) 8.8 MG/DL PROTEIN, TOTAL (test code = 222) 7.1 G/DL ALBUMIN (test code = 2201) 4.3 G/DL CALC GLOBULIN (test code = 2240) 2.8 G/DL CALC A/G RATIO (test code = 2234) 1.5 RATIO BILIRUBIN, TOTAL (test code = 220) <0.2 MG/DL ALKALINE PHOSPHATASE (test code = 220) 83 U/L AST (test code = 2218) 15 U/L ALT (test code = 221) 15 U/L Fabricio Gomez AustinCARBAMAZEPINE (TEGRETOL)2023-02-07 00:00:00* Test Item Value Reference Range Interpretation Comme nts CARBAMAZEPINE (TEGRETOL) (te st code = 3006) 11.2 UG/ML Fabricio Gomez AustinCARBAMAZEPINE (TEGRETOL)2022-03-28 04:08:54* Test Item Value Reference Range Interpretation Comme nts CARBAMAZEPINE (TEGRETOL) (te st code = 3006) 6.6 UG/ML 4.0-12.0 COMPREHENSIVE METABOLIC [id number] 03:56:46* Test Item Value Reference Range Interpretation Comme nts GLUCOSE (test code = 2217) 94 MG/DL 70-99 BUN (test code = 2207) 14 MG/DL 6-20 CREATININE (test code = 2214) 0.94 MG/DL 0.80-1.40 eGFR (2020 CKD-EPI) (test code = 93202) 102 ML/MIN/1.73 >60 CALC BUN/CREAT (test code = 2235) 15 RATIO 6-28 SODIUM (test code = 2231) 143 MEQ/L 133-146 POTASSIUM (test code = 2228) 4.2 MEQ/L 3.5-5.4 CHLORIDE (test code = 2215) 105 MEQ/L 95-107 CARBON DIOXIDE (test code = 2206) 29 MEQ/L 19-31 CALCIUM (test code = 220) 9.5 MG/DL 8.5-10.5 PROTEIN, TOTAL (test code = 222) 7.4 G/DL 6.1-8.3 ALBUMIN (test code = 220) 4.3 G/DL 3.5-5.2 CALC GLOBULIN (test code = 2240) 3.1 G/DL 1.9-3.7 CALC A/G RATIO (test code = 2234) 1.4 RATIO 1.0-2.6 BILIRUBIN, TOTAL (test code = 2207) 0.2 MG/DL See_Comment [Automated me ssage] The system which generated this result transmitted reference range: <=1.2. The reference range was not used to interpret this result as normal/abnormal. ALKALINE PHOSPHATASE (test code = 2203) 96 U/L 40-119 AST (test code = 2218) 17 U/L 9-50 ALT (test code = 2219) 16 U/L 5-50 LIPID [id number] 03:56:46* Test Item Value Reference Range Interpretation Comme nts CHOLESTEROL (test code = 0) 176 MG/DL <200 TRIGLYCERIDES (test code = 2231) 74 MG/DL <150 HDL CHOLESTEROL (test code = 2219) 52 MG/DL >39 CALC LDL CHOL (test code = 2236) 108 MG/DL <100 H NOTE: CALCULATED LDL IS BASED ON VARUN-WAGONER METHOD WHICHINCLUDES ADJUSTABLE TRIGLYCERIDE:VLDL CHOLESTEROL RATIO.THIS FACTOR VARIES BY MEASURED TRIGLYCERIDE AND NON-HDLCHOLESTEROL CONCENTRATIONS WITH INCREASED CALCULATED LDL SEENIN HIGHER TRIGLYCERIDE OR LOWER NON-HDL SPECIMENS. FOR MOREINFORMATION, SEE CLIENT ANNOUNCEMENT AT [email or web address] /CalcLDL-C RISK RATIO LDL/HDL (test code = 223) 2.08 RATIO <3.55 UNLESS OTHERW ISE INDICATED, ALL TESTING PERFORMED AT[facility], [facility] [address] [place] [address] COLLATOR: ELIEZER MOSS M.D. CLIA NUMBER [id number] [place]. [id number] CBC W/AUTO DIFF WITH [id number] 03:07:54* Test Item Value Reference Range Interpretation Comme nts WBC (test code = 1001) 5.1 K/UL 3.5-11.0 RBC (test code = 1002) 4.69 M/UL 4.50-6.10 HEMOGLOBIN (test code = 1003) 13.7 G/DL 13.5-17.0 HEMATOCRIT (test code = 1004) 40.0 % 40.0-51.0 MCV (test code = 1005) 85.3 fL 80.0-99.0 MCH (test code = 1006) 29.2 PG 25.0-33.0 MCHC (test code = 1007) 34.3 G/DL 31.0-36.0 RDW (test code = 1038) 12.8 % 11.5-15.0 NEUTROPHILS (test code = 1008) 55.0 % LYMPHOCYTES (test code = 1010) 35.2 % MONOCYTES (test code = 1011) 5.7 % EOSINOPHILS (test code = 1012) 3.7 % BASOPHILS (test code = 1013) 0.4 % IMMATURE GRANULOCYTES (test code = 1036) 0.0 % NUCLEATED RBCS (test code = 1065) 0.0 /100 WBC'S See_Comment [Automated messa ge] The system which generated this result transmitted reference range: 0.0. The reference range was not used to interpret this result as normal/abnormal. PLATELET COUNT (test code = 1015) 211 K/UL 130-400 ABSOLUTE NEUTROPHILS (test code = 1066) 2.81 K/UL 1.50-7.50 ABSOLUTE LYMPHOCYTES (test code = 1067) 1.80 K/UL 1.00-4.00 ABSOLUTE MONOCYTES (test code = 1068) 0.29 K/UL 0.20-1.00 ABSOLUTE EOSINOPHILS (test code = 1040) 0.19 K/UL 0.00-0.50 ABSOLUTE BASOPHILS (test code = 1069) 0.02 K/UL 0.00-0.20 ABS IMMATURE GRANULOCYTES (test code = 1020) 0.00 K/UL 0.00-0.10 ABS NUCLEATED RBCS (test code = 42452) 0.00 K/UL 0.00-0.11 CARBAMAZEPINE (TEGRETOL)2022-03-28 00:00:00* Test Item Value Reference Range Interpretation Comme nts CARBAMAZEPINE (TEGRETOL) (te st code = 3006) 6.6 UG/ML Fabricio F OhCBC W/AUTO [id number] 00:00:00* Test Item Value Reference Range Interpretation Comme nts WBC (test code = 1001) 5.1 K/UL RBC (test code = 1002) 4.69 M/UL HEMOGLOBIN (test code = 1003) 13.7 G/DL HEMATOCRIT (test code = 1004) 40.0 % MCV (test code = 1005) 85.3 fL MCH (test code = 1006) 29.2 PG MCHC (test code = 1007) 34.3 G/DL RDW (test code = 1038) 12.8 % NEUTROPHILS (test code = 1008) 55.0 % LYMPHOCYTES (test code = 1010) 35.2 % MONOCYTES (test code = 1011) 5.7 % EOSINOPHILS (test code = 1012) 3.7 % BASOPHILS (test code = 1013) 0.4 % IMMATURE GRANULOCYTES (test code = 1036) 0.0 % NUCLEATED RBCS (test code = 1065) 0.0 /100WBC'S PLATELET COUNT (test code = 1015) 211 K/UL ABSOLUTE NEUTROPHILS (test c ode = 1066) 2.81 K/UL ABSOLUTE LYMPHOCYTES (test c ode = 1067) 1.80 K/UL ABSOLUTE MONOCYTES (test cod e = 1068) 0.29 K/UL ABSOLUTE EOSINOPHILS (test c ode = 1040) 0.19 K/UL ABSOLUTE BASOPHILS (test cod e = 1069) 0.02 K/UL ABS IMMATURE GRANULOCYTES (t est code = 1020) 0.00 K/UL ABS NUCLEATED RBCS (test cod e = 86557) 0.00 K/UL Fabricio CasianoCOMPREHENSIVE METABOLIC [id number] 00:00:00* Test Item Value Reference Range Interpretation Comme nts GLUCOSE (test code = 2217) 94 MG/DL BUN (test code = 2208) 14 MG/DL CREATININE (test code = 2214) 0.94 MG/DL eGFR (2020 CKD-EPI) (test code = 53815) 102 ML/MIN/1.73 CALC BUN/CREAT (test code = 2235) 15 RATIO SODIUM (test code = 2231) 143 MEQ/L POTASSIUM (test code = 2228) 4.2 MEQ/L CHLORIDE (test code = 2215) 105 MEQ/L CARBON DIOXIDE (test code = 2206) 29 MEQ/L CALCIUM (test code = 2209) 9.5 MG/DL PROTEIN, TOTAL (test code = 2229) 7.4 G/DL ALBUMIN (test code = 2201) 4.3 G/DL CALC GLOBULIN (test code = 2240) 3.1 G/DL CALC A/G RATIO (test code = 2234) 1.4 RATIO BILIRUBIN, TOTAL (test code = 2207) 0.2 MG/DL ALKALINE PHOSPHATASE (test code = 2204) 96 U/L AST (test code = 2218) 17 U/L ALT (test code = 2219) 16 U/L Fabrciio CasianoLIPID [id number] 00:00:00* Test Item Value Reference Range Interpretation Comme nts CHOLESTEROL (test code = 2210) 176 MG/DL TRIGLYCERIDES (test code = 2232) 74 MG/DL HDL CHOLESTEROL (test code = 2220) 52 MG/DL CALC LDL CHOL (test code = 2237) 108 MG/DL RISK RATIO LDL/HDL (test cod e = 2238) 2.08 RATIO Fabricio CasianoCARBAMAZEPINE (TEGRETOL)2022-03-28 00:00:00* Test Item Value Reference Range Interpretation Comme nts CARBAMAZEPINE (TEGRETOL) (te st code = 3006) 6.6 UG/ML Fabricio CasianoCBC W/AUTO [id number] 00:00:00* Test Item Value Reference Range Interpretation Comme nts WBC (test code = 1001) 5.1 K/UL RBC (test code = 1002) 4.69 M/UL HEMOGLOBIN (test code = 1003) 13.7 G/DL HEMATOCRIT (test code = 1004) 40.0 % MCV (test code = 1005) 85.3 fL MCH (test code = 1006) 29.2 PG MCHC (test code = 1007) 34.3 G/DL RDW (test code = 1038) 12.8 % NEUTROPHILS (test code = 1008) 55.0 % LYMPHOCYTES (test code = 1010) 35.2 % MONOCYTES (test code = 1011) 5.7 % EOSINOPHILS (test code = 1012) 3.7 % BASOPHILS (test code = 1013) 0.4 % IMMATURE GRANULOCYTES (test code = 1036) 0.0 % NUCLEATED RBCS (test code = 1065) 0.0 /100WBC'S PLATELET COUNT (test code = 1015) 211 K/UL ABSOLUTE NEUTROPHILS (test c ode = 1066) 2.81 K/UL ABSOLUTE LYMPHOCYTES (test c ode = 1067) 1.80 K/UL ABSOLUTE MONOCYTES (test cod e = 1068) 0.29 K/UL ABSOLUTE EOSINOPHILS (test c ode = 1040) 0.19 K/UL ABSOLUTE BASOPHILS (test cod e = 1069) 0.02 K/UL ABS IMMATURE GRANULOCYTES (t est code = 1020) 0.00 K/UL ABS NUCLEATED RBCS (test cod e = 30449) 0.00 K/UL Fabricio CaisanoCOMPREHENSIVE METABOLIC [id number] 00:00:00* Test Item Value Reference Range Interpretation Comme nts GLUCOSE (test code = 2217) 94 MG/DL BUN (test code = 2208) 14 MG/DL CREATININE (test code = 2214) 0.94 MG/DL eGFR (2020 CKD-EPI) (test code = 90422) 102 ML/MIN/1.73 CALC BUN/CREAT (test code = 2235) 15 RATIO SODIUM (test code = 2231) 143 MEQ/L POTASSIUM (test code = 2228) 4.2 MEQ/L CHLORIDE (test code = 2215) 105 MEQ/L CARBON DIOXIDE (test code = 2206) 29 MEQ/L CALCIUM (test code = 2209) 9.5 MG/DL PROTEIN, TOTAL (test code = 2229) 7.4 G/DL ALBUMIN (test code = 2201) 4.3 G/DL CALC GLOBULIN (test code = 2240) 3.1 G/DL CALC A/G RATIO (test code = 2234) 1.4 RATIO BILIRUBIN, TOTAL (test code = 2207) 0.2 MG/DL ALKALINE PHOSPHATASE (test code = 2204) 96 U/L AST (test code = 2218) 17 U/L ALT (test code = 2219) 16 U/L Fabricio CasianoLIPID [id number] 00:00:00* Test Item Value Reference Range Interpretation Comme nts CHOLESTEROL (test code = 2210) 176 MG/DL TRIGLYCERIDES (test code = 2232) 74 MG/DL HDL CHOLESTEROL (test code = 2220) 52 MG/DL CALC LDL CHOL (test code = 2237) 108 MG/DL RISK RATIO LDL/HDL (test cod e = 2238) 2.08 RATIO Fabricio CasianoCARBAMAZEPINE (TEGRETOL)2022-03-28 00:00:00* Test Item Value Reference Range Interpretation Comme nts CARBAMAZEPINE (TEGRETOL) (te st code = 3006) 6.6 UG/ML Fabricio CasianoCBC W/AUTO [id number] 00:00:00* Test Item Value Reference Range Interpretation Comme nts WBC (test code = 1001) 5.1 K/UL RBC (test code = 1002) 4.69 M/UL HEMOGLOBIN (test code = 1003) 13.7 G/DL HEMATOCRIT (test code = 1004) 40.0 % MCV (test code = 1005) 85.3 fL MCH (test code = 1006) 29.2 PG MCHC (test code = 1007) 34.3 G/DL RDW (test code = 1038) 12.8 % NEUTROPHILS (test code = 1008) 55.0 % LYMPHOCYTES (test code = 1010) 35.2 % MONOCYTES (test code = 1011) 5.7 % EOSINOPHILS (test code = 1012) 3.7 % BASOPHILS (test code = 1013) 0.4 % IMMATURE GRANULOCYTES (test code = 1036) 0.0 % NUCLEATED RBCS (test code = 1065) 0.0 /100WBC'S PLATELET COUNT (test code = 1015) 211 K/UL ABSOLUTE NEUTROPHILS (test c ode = 1066) 2.81 K/UL ABSOLUTE LYMPHOCYTES (test c ode = 1067) 1.80 K/UL ABSOLUTE MONOCYTES (test cod e = 1068) 0.29 K/UL ABSOLUTE EOSINOPHILS (test c ode = 1040) 0.19 K/UL ABSOLUTE BASOPHILS (test cod e = 1069) 0.02 K/UL ABS IMMATURE GRANULOCYTES (t est code = 1020) 0.00 K/UL ABS NUCLEATED RBCS (test cod e = 68830) 0.00 K/UL Fabricio CasianoCOMPREHENSIVE METABOLIC [id number] 00:00:00* Test Item Value Reference Range Interpretation Comme nts GLUCOSE (test code = 2217) 94 MG/DL BUN (test code = 2208) 14 MG/DL CREATININE (test code = 2214) 0.94 MG/DL eGFR (2020 CKD-EPI) (test code = 97842) 102 ML/MIN/1.73 CALC BUN/CREAT (test code = 2235) 15 RATIO SODIUM (test code = 2231) 143 MEQ/L POTASSIUM (test code = 2228) 4.2 MEQ/L CHLORIDE (test code = 2215) 105 MEQ/L CARBON DIOXIDE (test code = 2206) 29 MEQ/L CALCIUM (test code = 2209) 9.5 MG/DL PROTEIN, TOTAL (test code = 2229) 7.4 G/DL ALBUMIN (test code = 2201) 4.3 G/DL CALC GLOBULIN (test code = 2240) 3.1 G/DL CALC A/G RATIO (test code = 2234) 1.4 RATIO BILIRUBIN, TOTAL (test code = 2207) 0.2 MG/DL ALKALINE PHOSPHATASE (test code = 2204) 96 U/L AST (test code = 2218) 17 U/L ALT (test code = 2219) 16 U/L Fabricio CasianoLIPID [id number] 00:00:00* Test Item Value Reference Range Interpretation Comme nts CHOLESTEROL (test code = 2210) 176 MG/DL TRIGLYCERIDES (test code = 2232) 74 MG/DL HDL CHOLESTEROL (test code = 2220) 52 MG/DL CALC LDL CHOL (test code = 2237) 108 MG/DL RISK RATIO LDL/HDL (test cod e = 2238) 2.08 RATIO Fabricio CasianoCARBAMAZEPINE (TEGRETOL)2022-03-28 00:00:00* Test Item Value Reference Range Interpretation Comme nts CARBAMAZEPINE (TEGRETOL) (te st code = 3006) 6.6 UG/ML Fabricio CasianoCBC W/AUTO [id number] 00:00:00* Test Item Value Reference Range Interpretation Comme nts WBC (test code = 1001) 5.1 K/UL RBC (test code = 1002) 4.69 M/UL HEMOGLOBIN (test code = 1003) 13.7 G/DL HEMATOCRIT (test code = 1004) 40.0 % MCV (test code = 1005) 85.3 fL MCH (test code = 1006) 29.2 PG MCHC (test code = 1007) 34.3 G/DL RDW (test code = 1038) 12.8 % NEUTROPHILS (test code = 1008) 55.0 % LYMPHOCYTES (test code = 1010) 35.2 % MONOCYTES (test code = 1011) 5.7 % EOSINOPHILS (test code = 1012) 3.7 % BASOPHILS (test code = 1013) 0.4 % IMMATURE GRANULOCYTES (test code = 1036) 0.0 % NUCLEATED RBCS (test code = 1065) 0.0 /100WBC'S PLATELET COUNT (test code = 1015) 211 K/UL ABSOLUTE NEUTROPHILS (test c ode = 1066) 2.81 K/UL ABSOLUTE LYMPHOCYTES (test c ode = 1067) 1.80 K/UL ABSOLUTE MONOCYTES (test cod e = 1068) 0.29 K/UL ABSOLUTE EOSINOPHILS (test c ode = 1040) 0.19 K/UL ABSOLUTE BASOPHILS (test cod e = 1069) 0.02 K/UL ABS IMMATURE GRANULOCYTES (t est code = 1020) 0.00 K/UL ABS NUCLEATED RBCS (test cod e = 13016) 0.00 K/UL Fabricio Patricia OhCOMPREHENSIVE METABOLIC [id number] 00:00:00* Test Item Value Reference Range Interpretation Comme nts GLUCOSE (test code = 2217) 94 MG/DL BUN (test code = 2208) 14 MG/DL CREATININE (test code = 2214) 0.94 MG/DL eGFR (2020 CKD-EPI) (test code = 87487) 102 ML/MIN/1.73 CALC BUN/CREAT (test code = 2235) 15 RATIO SODIUM (test code = 2231) 143 MEQ/L POTASSIUM (test code = 2228) 4.2 MEQ/L CHLORIDE (test code = 2215) 105 MEQ/L CARBON DIOXIDE (test code = 2206) 29 MEQ/L CALCIUM (test code = 2209) 9.5 MG/DL PROTEIN, TOTAL (test code = 2229) 7.4 G/DL ALBUMIN (test code = 2201) 4.3 G/DL CALC GLOBULIN (test code = 2240) 3.1 G/DL CALC A/G RATIO (test code = 2234) 1.4 RATIO BILIRUBIN, TOTAL (test code = 2207) 0.2 MG/DL ALKALINE PHOSPHATASE (test code = 2204) 96 U/L AST (test code = 2218) 17 U/L ALT (test code = 2219) 16 U/L Fabricio Patricia OhLIPID [id number] 00:00:00* Test Item Value Reference Range Interpretation Comme nts CHOLESTEROL (test code = 2210) 176 MG/DL TRIGLYCERIDES (test code = 2232) 74 MG/DL HDL CHOLESTEROL (test code = 2220) 52 MG/DL CALC LDL CHOL (test code = 2237) 108 MG/DL RISK RATIO LDL/HDL (test cod e = 2238) 2.08 RATIO Fabricio CasianoCARBAMAZEPINE (TEGRETOL)2022-03-28 00:00:00* Test Item Value Reference Range Interpretation Comme nts CARBAMAZEPINE (TEGRETOL) (te st code = 3006) 6.6 UG/ML Fabricio CasianoCBC W/AUTO [id number] 00:00:00* Test Item Value Reference Range Interpretation Comme nts WBC (test code = 1001) 5.1 K/UL RBC (test code = 1002) 4.69 M/UL HEMOGLOBIN (test code = 1003) 13.7 G/DL HEMATOCRIT (test code = 1004) 40.0 % MCV (test code = 1005) 85.3 fL MCH (test code = 1006) 29.2 PG MCHC (test code = 1007) 34.3 G/DL RDW (test code = 1038) 12.8 % NEUTROPHILS (test code = 1008) 55.0 % LYMPHOCYTES (test code = 1010) 35.2 % MONOCYTES (test code = 1011) 5.7 % EOSINOPHILS (test code = 1012) 3.7 % BASOPHILS (test code = 1013) 0.4 % IMMATURE GRANULOCYTES (test code = 1036) 0.0 % NUCLEATED RBCS (test code = 1065) 0.0 /100WBC'S PLATELET COUNT (test code = 1015) 211 K/UL ABSOLUTE NEUTROPHILS (test c ode = 1066) 2.81 K/UL ABSOLUTE LYMPHOCYTES (test c ode = 1067) 1.80 K/UL ABSOLUTE MONOCYTES (test cod e = 1068) 0.29 K/UL ABSOLUTE EOSINOPHILS (test c ode = 1040) 0.19 K/UL ABSOLUTE BASOPHILS (test cod e = 1069) 0.02 K/UL ABS IMMATURE GRANULOCYTES (t est code = 1020) 0.00 K/UL ABS NUCLEATED RBCS (test cod e = 02272) 0.00 K/UL Fabricio CasianoCOMPREHENSIVE METABOLIC [id number] 00:00:00* Test Item Value Reference Range Interpretation Comme nts GLUCOSE (test code = 2217) 94 MG/DL BUN (test code = 2208) 14 MG/DL CREATININE (test code = 2214) 0.94 MG/DL eGFR (2020 CKD-EPI) (test code = 03107) 102 ML/MIN/1.73 CALC BUN/CREAT (test code = 2235) 15 RATIO SODIUM (test code = 2231) 143 MEQ/L POTASSIUM (test code = 2228) 4.2 MEQ/L CHLORIDE (test code = 2215) 105 MEQ/L CARBON DIOXIDE (test code = 2206) 29 MEQ/L CALCIUM (test code = 2209) 9.5 MG/DL PROTEIN, TOTAL (test code = 2229) 7.4 G/DL ALBUMIN (test code = 2201) 4.3 G/DL CALC GLOBULIN (test code = 2240) 3.1 G/DL CALC A/G RATIO (test code = 2234) 1.4 RATIO BILIRUBIN, TOTAL (test code = 2207) 0.2 MG/DL ALKALINE PHOSPHATASE (test code = 2204) 96 U/L AST (test code = 2218) 17 U/L ALT (test code = 2219) 16 U/L Fabricio CasianoLIPID [id number] 00:00:00* Test Item Value Reference Range Interpretation Comme nts CHOLESTEROL (test code = 2210) 176 MG/DL TRIGLYCERIDES (test code = 2232) 74 MG/DL HDL CHOLESTEROL (test code = 2220) 52 MG/DL CALC LDL CHOL (test code = 2237) 108 MG/DL RISK RATIO LDL/HDL (test cod e = 2238) 2.08 RATIO Fabricio CasianoCARBAMAZEPINE (TEGRETOL)2022-03-28 00:00:00* Test Item Value Reference Range Interpretation Comme nts CARBAMAZEPINE (TEGRETOL) (te st code = 3006) 6.6 UG/ML Fabricio CasianoCBC W/AUTO [id number] 00:00:00* Test Item Value Reference Range Interpretation Comme nts WBC (test code = 1001) 5.1 K/UL RBC (test code = 1002) 4.69 M/UL HEMOGLOBIN (test code = 1003) 13.7 G/DL HEMATOCRIT (test code = 1004) 40.0 % MCV (test code = 1005) 85.3 fL MCH (test code = 1006) 29.2 PG MCHC (test code = 1007) 34.3 G/DL RDW (test code = 1038) 12.8 % NEUTROPHILS (test code = 1008) 55.0 % LYMPHOCYTES (test code = 1010) 35.2 % MONOCYTES (test code = 1011) 5.7 % EOSINOPHILS (test code = 1012) 3.7 % BASOPHILS (test code = 1013) 0.4 % IMMATURE GRANULOCYTES (test code = 1036) 0.0 % NUCLEATED RBCS (test code = 1065) 0.0 /100WBC'S PLATELET COUNT (test code = 1015) 211 K/UL ABSOLUTE NEUTROPHILS (test c ode = 1066) 2.81 K/UL ABSOLUTE LYMPHOCYTES (test c ode = 1067) 1.80 K/UL ABSOLUTE MONOCYTES (test cod e = 1068) 0.29 K/UL ABSOLUTE EOSINOPHILS (test c ode = 1040) 0.19 K/UL ABSOLUTE BASOPHILS (test cod e = 1069) 0.02 K/UL ABS IMMATURE GRANULOCYTES (t est code = 1020) 0.00 K/UL ABS NUCLEATED RBCS (test cod e = 17896) 0.00 K/UL Fabricio Patricia OhCOMPREHENSIVE METABOLIC [id number] 00:00:00* Test Item Value Reference Range Interpretation Comme nts GLUCOSE (test code = 2217) 94 MG/DL BUN (test code = 2208) 14 MG/DL CREATININE (test code = 2214) 0.94 MG/DL eGFR (2020 CKD-EPI) (test code = 88667) 102 ML/MIN/1.73 CALC BUN/CREAT (test code = 2235) 15 RATIO SODIUM (test code = 2231) 143 MEQ/L POTASSIUM (test code = 2228) 4.2 MEQ/L CHLORIDE (test code = 2215) 105 MEQ/L CARBON DIOXIDE (test code = 2206) 29 MEQ/L CALCIUM (test code = 2209) 9.5 MG/DL PROTEIN, TOTAL (test code = 2229) 7.4 G/DL ALBUMIN (test code = 2201) 4.3 G/DL CALC GLOBULIN (test code = 2240) 3.1 G/DL CALC A/G RATIO (test code = 2234) 1.4 RATIO BILIRUBIN, TOTAL (test code = 2207) 0.2 MG/DL ALKALINE PHOSPHATASE (test code = 2204) 96 U/L AST (test code = 2218) 17 U/L ALT (test code = 2219) 16 U/L Fabricio CasianoLIPID [id number] 00:00:00* Test Item Value Reference Range Interpretation Comme nts CHOLESTEROL (test code = 2210) 176 MG/DL TRIGLYCERIDES (test code = 2232) 74 MG/DL HDL CHOLESTEROL (test code = 2220) 52 MG/DL CALC LDL CHOL (test code = 2237) 108 MG/DL RISK RATIO LDL/HDL (test cod e = 2238) 2.08 RATIO Fabricio CasianoCARBAMAZEPINE (TEGRETOL)2022-03-28 00:00:00* Test Item Value Reference Range Interpretation Comme nts CARBAMAZEPINE (TEGRETOL) (te st code = 3006) 6.6 UG/ML Fabricio CasianoCBC W/AUTO [id number] 00:00:00* Test Item Value Reference Range Interpretation Comme nts WBC (test code = 1001) 5.1 K/UL RBC (test code = 1002) 4.69 M/UL HEMOGLOBIN (test code = 1003) 13.7 G/DL HEMATOCRIT (test code = 1004) 40.0 % MCV (test code = 1005) 85.3 fL MCH (test code = 1006) 29.2 PG MCHC (test code = 1007) 34.3 G/DL RDW (test code = 1038) 12.8 % NEUTROPHILS (test code = 1008) 55.0 % LYMPHOCYTES (test code = 1010) 35.2 % MONOCYTES (test code = 1011) 5.7 % EOSINOPHILS (test code = 1012) 3.7 % BASOPHILS (test code = 1013) 0.4 % IMMATURE GRANULOCYTES (test code = 1036) 0.0 % NUCLEATED RBCS (test code = 1065) 0.0 /100WBC'S PLATELET COUNT (test code = 1015) 211 K/UL ABSOLUTE NEUTROPHILS (test c ode = 1066) 2.81 K/UL ABSOLUTE LYMPHOCYTES (test c ode = 1067) 1.80 K/UL ABSOLUTE MONOCYTES (test cod e = 1068) 0.29 K/UL ABSOLUTE EOSINOPHILS (test c ode = 1040) 0.19 K/UL ABSOLUTE BASOPHILS (test cod e = 1069) 0.02 K/UL ABS IMMATURE GRANULOCYTES (t est code = 1020) 0.00 K/UL ABS NUCLEATED RBCS (test cod e = 87651) 0.00 K/UL Fabricio CasianoCOMPREHENSIVE METABOLIC [id number] 00:00:00* Test Item Value Reference Range Interpretation Comme nts GLUCOSE (test code = 2217) 94 MG/DL BUN (test code = 2208) 14 MG/DL CREATININE (test code = 2214) 0.94 MG/DL eGFR (2020 CKD-EPI) (test code = 47199) 102 ML/MIN/1.73 CALC BUN/CREAT (test code = 2235) 15 RATIO SODIUM (test code = 2231) 143 MEQ/L POTASSIUM (test code = 2228) 4.2 MEQ/L CHLORIDE (test code = 2215) 105 MEQ/L CARBON DIOXIDE (test code = 2206) 29 MEQ/L CALCIUM (test code = 2209) 9.5 MG/DL PROTEIN, TOTAL (test code = 2229) 7.4 G/DL ALBUMIN (test code = 2201) 4.3 G/DL CALC GLOBULIN (test code = 2240) 3.1 G/DL CALC A/G RATIO (test code = 2234) 1.4 RATIO BILIRUBIN, TOTAL (test code = 2207) 0.2 MG/DL ALKALINE PHOSPHATASE (test code = 2204) 96 U/L AST (test code = 2218) 17 U/L ALT (test code = 2219) 16 U/L Fabricio CasianoLIPID [id number] 00:00:00* Test Item Value Reference Range Interpretation Comme nts CHOLESTEROL (test code = 2210) 176 MG/DL TRIGLYCERIDES (test code = 2232) 74 MG/DL HDL CHOLESTEROL (test code = 2220) 52 MG/DL CALC LDL CHOL (test code = 2237) 108 MG/DL RISK RATIO LDL/HDL (test cod e = 2238) 2.08 RATIO Fabricio CasianoCARBAMAZEPINE (TEGRETOL)2022-03-28 00:00:00* Test Item Value Reference Range Interpretation Comme nts CARBAMAZEPINE (TEGRETOL) (te st code = 3006) 6.6 UG/ML Fabricioaaron CasianoCBC W/AUTO [id number] 00:00:00* Test Item Value Reference Range Interpretation Comme nts WBC (test code = 1001) 5.1 K/UL RBC (test code = 1002) 4.69 M/UL HEMOGLOBIN (test code = 1003) 13.7 G/DL HEMATOCRIT (test code = 1004) 40.0 % MCV (test code = 1005) 85.3 fL MCH (test code = 1006) 29.2 PG MCHC (test code = 1007) 34.3 G/DL RDW (test code = 1038) 12.8 % NEUTROPHILS (test code = 1008) 55.0 % LYMPHOCYTES (test code = 1010) 35.2 % MONOCYTES (test code = 1011) 5.7 % EOSINOPHILS (test code = 1012) 3.7 % BASOPHILS (test code = 1013) 0.4 % IMMATURE GRANULOCYTES (test code = 1036) 0.0 % NUCLEATED RBCS (test code = 1065) 0.0 /100WBC'S PLATELET COUNT (test code = 1015) 211 K/UL ABSOLUTE NEUTROPHILS (test c ode = 1066) 2.81 K/UL ABSOLUTE LYMPHOCYTES (test c ode = 1067) 1.80 K/UL ABSOLUTE MONOCYTES (test cod e = 1068) 0.29 K/UL ABSOLUTE EOSINOPHILS (test c ode = 1040) 0.19 K/UL ABSOLUTE BASOPHILS (test cod e = 1069) 0.02 K/UL ABS IMMATURE GRANULOCYTES (t est code = 1020) 0.00 K/UL ABS NUCLEATED RBCS (test cod e = 08396) 0.00 K/UL Fabricio Patricia OhCOMPREHENSIVE METABOLIC [id number] 00:00:00* Test Item Value Reference Range Interpretation Comme nts GLUCOSE (test code = 2217) 94 MG/DL BUN (test code = 2208) 14 MG/DL CREATININE (test code = 2214) 0.94 MG/DL eGFR (2020 CKD-EPI) (test code = 02022) 102 ML/MIN/1.73 CALC BUN/CREAT (test code = 2235) 15 RATIO SODIUM (test code = 2231) 143 MEQ/L POTASSIUM (test code = 2228) 4.2 MEQ/L CHLORIDE (test code = 2215) 105 MEQ/L CARBON DIOXIDE (test code = 2206) 29 MEQ/L CALCIUM (test code = 2209) 9.5 MG/DL PROTEIN, TOTAL (test code = 2229) 7.4 G/DL ALBUMIN (test code = 2201) 4.3 G/DL CALC GLOBULIN (test code = 2240) 3.1 G/DL CALC A/G RATIO (test code = 2234) 1.4 RATIO BILIRUBIN, TOTAL (test code = 2207) 0.2 MG/DL ALKALINE PHOSPHATASE (test code = 2204) 96 U/L AST (test code = 2218) 17 U/L ALT (test code = 2219) 16 U/L Fabricio CasianoLIPID [id number] 00:00:00* Test Item Value Reference Range Interpretation Comme nts CHOLESTEROL (test code = 2210) 176 MG/DL TRIGLYCERIDES (test code = 2232) 74 MG/DL HDL CHOLESTEROL (test code = 2220) 52 MG/DL CALC LDL CHOL (test code = 2237) 108 MG/DL RISK RATIO LDL/HDL (test cod e = 2238) 2.08 RATIO Fabricio CasianoCARBAMAZEPINE (TEGRETOL)2022-03-28 00:00:00* Test Item Value Reference Range Interpretation Comme nts CARBAMAZEPINE (TEGRETOL) (te st code = 3006) 6.6 UG/ML Fabricio CasianoCBC W/AUTO [id number] 00:00:00* Test Item Value Reference Range Interpretation Comme nts WBC (test code = 1001) 5.1 K/UL RBC (test code = 1002) 4.69 M/UL HEMOGLOBIN (test code = 1003) 13.7 G/DL HEMATOCRIT (test code = 1004) 40.0 % MCV (test code = 1005) 85.3 fL MCH (test code = 1006) 29.2 PG MCHC (test code = 1007) 34.3 G/DL RDW (test code = 1038) 12.8 % NEUTROPHILS (test code = 1008) 55.0 % LYMPHOCYTES (test code = 1010) 35.2 % MONOCYTES (test code = 1011) 5.7 % EOSINOPHILS (test code = 1012) 3.7 % BASOPHILS (test code = 1013) 0.4 % IMMATURE GRANULOCYTES (test code = 1036) 0.0 % NUCLEATED RBCS (test code = 1065) 0.0 /100WBC'S PLATELET COUNT (test code = 1015) 211 K/UL ABSOLUTE NEUTROPHILS (test c ode = 1066) 2.81 K/UL ABSOLUTE LYMPHOCYTES (test c ode = 1067) 1.80 K/UL ABSOLUTE MONOCYTES (test cod e = 1068) 0.29 K/UL ABSOLUTE EOSINOPHILS (test c ode = 1040) 0.19 K/UL ABSOLUTE BASOPHILS (test cod e = 1069) 0.02 K/UL ABS IMMATURE GRANULOCYTES (t est code = 1020) 0.00 K/UL ABS NUCLEATED RBCS (test cod e = 86230) 0.00 K/UL Fabricio CasianoCOMPREHENSIVE METABOLIC [id number] 00:00:00* Test Item Value Reference Range Interpretation Comme nts GLUCOSE (test code = 2217) 94 MG/DL BUN (test code = 2208) 14 MG/DL CREATININE (test code = 2214) 0.94 MG/DL eGFR (2020 CKD-EPI) (test code = 37050) 102 ML/MIN/1.73 CALC BUN/CREAT (test code = 2235) 15 RATIO SODIUM (test code = 2231) 143 MEQ/L POTASSIUM (test code = 2228) 4.2 MEQ/L CHLORIDE (test code = 2215) 105 MEQ/L CARBON DIOXIDE (test code = 2206) 29 MEQ/L CALCIUM (test code = 2209) 9.5 MG/DL PROTEIN, TOTAL (test code = 2229) 7.4 G/DL ALBUMIN (test code = 2201) 4.3 G/DL CALC GLOBULIN (test code = 2240) 3.1 G/DL CALC A/G RATIO (test code = 2234) 1.4 RATIO BILIRUBIN, TOTAL (test code = 2207) 0.2 MG/DL ALKALINE PHOSPHATASE (test code = 2204) 96 U/L AST (test code = 2218) 17 U/L ALT (test code = 2219) 16 U/L Fabricio CasianoLIPID [id number] 00:00:00* Test Item Value Reference Range Interpretation Comme nts CHOLESTEROL (test code = 2210) 176 MG/DL TRIGLYCERIDES (test code = 2232) 74 MG/DL HDL CHOLESTEROL (test code = 2220) 52 MG/DL CALC LDL CHOL (test code = 2237) 108 MG/DL RISK RATIO LDL/HDL (test cod e = 2238) 2.08 RATIO Fabricio CasianoCARBAMAZEPINE (TEGRETOL)2022-03-28 00:00:00* Test Item Value Reference Range Interpretation Comme nts CARBAMAZEPINE (TEGRETOL) (te st code = 3006) 6.6 UG/ML Fabricio CasianoCBC W/AUTO [id number] 00:00:00* Test Item Value Reference Range Interpretation Comme nts WBC (test code = 1001) 5.1 K/UL RBC (test code = 1002) 4.69 M/UL HEMOGLOBIN (test code = 1003) 13.7 G/DL HEMATOCRIT (test code = 1004) 40.0 % MCV (test code = 1005) 85.3 fL MCH (test code = 1006) 29.2 PG MCHC (test code = 1007) 34.3 G/DL RDW (test code = 1038) 12.8 % NEUTROPHILS (test code = 1008) 55.0 % LYMPHOCYTES (test code = 1010) 35.2 % MONOCYTES (test code = 1011) 5.7 % EOSINOPHILS (test code = 1012) 3.7 % BASOPHILS (test code = 1013) 0.4 % IMMATURE GRANULOCYTES (test code = 1036) 0.0 % NUCLEATED RBCS (test code = 1065) 0.0 /100WBC'S PLATELET COUNT (test code = 1015) 211 K/UL ABSOLUTE NEUTROPHILS (test c ode = 1066) 2.81 K/UL ABSOLUTE LYMPHOCYTES (test c ode = 1067) 1.80 K/UL ABSOLUTE MONOCYTES (test cod e = 1068) 0.29 K/UL ABSOLUTE EOSINOPHILS (test c ode = 1040) 0.19 K/UL ABSOLUTE BASOPHILS (test cod e = 1069) 0.02 K/UL ABS IMMATURE GRANULOCYTES (t est code = 1020) 0.00 K/UL ABS NUCLEATED RBCS (test cod e = 99935) 0.00 K/UL Fabricio CasianoCOMPREHENSIVE METABOLIC [id number] 00:00:00* Test Item Value Reference Range Interpretation Comme nts GLUCOSE (test code = 2217) 94 MG/DL BUN (test code = 2208) 14 MG/DL CREATININE (test code = 2214) 0.94 MG/DL eGFR (2020 CKD-EPI) (test code = 86822) 102 ML/MIN/1.73 CALC BUN/CREAT (test code = 2235) 15 RATIO SODIUM (test code = 2231) 143 MEQ/L POTASSIUM (test code = 2228) 4.2 MEQ/L CHLORIDE (test code = 2215) 105 MEQ/L CARBON DIOXIDE (test code = 2206) 29 MEQ/L CALCIUM (test code = 2209) 9.5 MG/DL PROTEIN, TOTAL (test code = 2229) 7.4 G/DL ALBUMIN (test code = 2201) 4.3 G/DL CALC GLOBULIN (test code = 2240) 3.1 G/DL CALC A/G RATIO (test code = 2234) 1.4 RATIO BILIRUBIN, TOTAL (test code = 2207) 0.2 MG/DL ALKALINE PHOSPHATASE (test code = 2204) 96 U/L AST (test code = 2218) 17 U/L ALT (test code = 2219) 16 U/L Fabricio CasianoLIPID [id number] 00:00:00* Test Item Value Reference Range Interpretation Comme nts CHOLESTEROL (test code = 2210) 176 MG/DL TRIGLYCERIDES (test code = 2232) 74 MG/DL HDL CHOLESTEROL (test code = 2220) 52 MG/DL CALC LDL CHOL (test code = 2237) 108 MG/DL RISK RATIO LDL/HDL (test cod e = 2238) 2.08 RATIO Fabricio CasianoCARBAMAZEPINE (TEGRETOL)2022-03-28 00:00:00* Test Item Value Reference Range Interpretation Comme nts CARBAMAZEPINE (TEGRETOL) (te st code = 3006) 6.6 UG/ML Fabricio Gomez OhCBC W/AUTO [id number] 00:00:00* Test Item Value Reference Range Interpretation Comme nts WBC (test code = 1001) 5.1 K/UL RBC (test code = 1002) 4.69 M/UL HEMOGLOBIN (test code = 1003) 13.7 G/DL HEMATOCRIT (test code = 1004) 40.0 % MCV (test code = 1005) 85.3 fL MCH (test code = 1006) 29.2 PG MCHC (test code = 1007) 34.3 G/DL RDW (test code = 1038) 12.8 % NEUTROPHILS (test code = 1008) 55.0 % LYMPHOCYTES (test code = 1010) 35.2 % MONOCYTES (test code = 1011) 5.7 % EOSINOPHILS (test code = 1012) 3.7 % BASOPHILS (test code = 1013) 0.4 % IMMATURE GRANULOCYTES (test code = 1036) 0.0 % NUCLEATED RBCS (test code = 1065) 0.0 /100WBC'S PLATELET COUNT (test code = 1015) 211 K/UL ABSOLUTE NEUTROPHILS (test c ode = 1066) 2.81 K/UL ABSOLUTE LYMPHOCYTES (test c ode = 1067) 1.80 K/UL ABSOLUTE MONOCYTES (test cod e = 1068) 0.29 K/UL ABSOLUTE EOSINOPHILS (test c ode = 1040) 0.19 K/UL ABSOLUTE BASOPHILS (test cod e = 1069) 0.02 K/UL ABS IMMATURE GRANULOCYTES (t est code = 1020) 0.00 K/UL ABS NUCLEATED RBCS (test cod e = 64418) 0.00 K/UL Fabricio CasianoCOMPREHENSIVE METABOLIC [id number] 00:00:00* Test Item Value Reference Range Interpretation Comme nts GLUCOSE (test code = 2217) 94 MG/DL BUN (test code = 2208) 14 MG/DL CREATININE (test code = 2214) 0.94 MG/DL eGFR (2020 CKD-EPI) (test code = 43616) 102 ML/MIN/1.73 CALC BUN/CREAT (test code = 2235) 15 RATIO SODIUM (test code = 2231) 143 MEQ/L POTASSIUM (test code = 2228) 4.2 MEQ/L CHLORIDE (test code = 2215) 105 MEQ/L CARBON DIOXIDE (test code = 2206) 29 MEQ/L CALCIUM (test code = 2209) 9.5 MG/DL PROTEIN, TOTAL (test code = 2229) 7.4 G/DL ALBUMIN (test code = 2201) 4.3 G/DL CALC GLOBULIN (test code = 2240) 3.1 G/DL CALC A/G RATIO (test code = 2234) 1.4 RATIO BILIRUBIN, TOTAL (test code = 2207) 0.2 MG/DL ALKALINE PHOSPHATASE (test code = 2204) 96 U/L AST (test code = 2218) 17 U/L ALT (test code = 2219) 16 U/L Fabricio CasianoLIPID [id number] 00:00:00* Test Item Value Reference Range Interpretation Comme nts CHOLESTEROL (test code = 2210) 176 MG/DL TRIGLYCERIDES (test code = 2232) 74 MG/DL HDL CHOLESTEROL (test code = 2220) 52 MG/DL CALC LDL CHOL (test code = 2237) 108 MG/DL RISK RATIO LDL/HDL (test cod e = 2238) 2.08 RATIO Fabricio CasianoCARBAMAZEPINE (TEGRETOL)2022-03-28 00:00:00* Test Item Value Reference Range Interpretation Comme nts CARBAMAZEPINE (TEGRETOL) (te st code = 3006) 6.6 UG/ML Fabricio CasianoCBC W/AUTO [id number] 00:00:00* Test Item Value Reference Range Interpretation Comme nts WBC (test code = 1001) 5.1 K/UL RBC (test code = 1002) 4.69 M/UL HEMOGLOBIN (test code = 1003) 13.7 G/DL HEMATOCRIT (test code = 1004) 40.0 % MCV (test code = 1005) 85.3 fL MCH (test code = 1006) 29.2 PG MCHC (test code = 1007) 34.3 G/DL RDW (test code = 1038) 12.8 % NEUTROPHILS (test code = 1008) 55.0 % LYMPHOCYTES (test code = 1010) 35.2 % MONOCYTES (test code = 1011) 5.7 % EOSINOPHILS (test code = 1012) 3.7 % BASOPHILS (test code = 1013) 0.4 % IMMATURE GRANULOCYTES (test code = 1036) 0.0 % NUCLEATED RBCS (test code = 1065) 0.0 /100WBC'S PLATELET COUNT (test code = 1015) 211 K/UL ABSOLUTE NEUTROPHILS (test c ode = 1066) 2.81 K/UL ABSOLUTE LYMPHOCYTES (test c ode = 1067) 1.80 K/UL ABSOLUTE MONOCYTES (test cod e = 1068) 0.29 K/UL ABSOLUTE EOSINOPHILS (test c ode = 1040) 0.19 K/UL ABSOLUTE BASOPHILS (test cod e = 1069) 0.02 K/UL ABS IMMATURE GRANULOCYTES (t est code = 1020) 0.00 K/UL ABS NUCLEATED RBCS (test cod e = 88264) 0.00 K/UL Fabricio CasianoCOMPREHENSIVE METABOLIC [id number] 00:00:00* Test Item Value Reference Range Interpretation Comme nts GLUCOSE (test code = 2217) 94 MG/DL BUN (test code = 2208) 14 MG/DL CREATININE (test code = 2214) 0.94 MG/DL eGFR (2020 CKD-EPI) (test code = 55461) 102 ML/MIN/1.73 CALC BUN/CREAT (test code = 2235) 15 RATIO SODIUM (test code = 2231) 143 MEQ/L POTASSIUM (test code = 2228) 4.2 MEQ/L CHLORIDE (test code = 2215) 105 MEQ/L CARBON DIOXIDE (test code = 2206) 29 MEQ/L CALCIUM (test code = 2209) 9.5 MG/DL PROTEIN, TOTAL (test code = 2229) 7.4 G/DL ALBUMIN (test code = 2201) 4.3 G/DL CALC GLOBULIN (test code = 2240) 3.1 G/DL CALC A/G RATIO (test code = 2234) 1.4 RATIO BILIRUBIN, TOTAL (test code = 2207) 0.2 MG/DL ALKALINE PHOSPHATASE (test code = 2204) 96 U/L AST (test code = 2218) 17 U/L ALT (test code = 2219) 16 U/L Fabricio CasianoLIPID [id number] 00:00:00* Test Item Value Reference Range Interpretation Comme nts CHOLESTEROL (test code = 2210) 176 MG/DL TRIGLYCERIDES (test code = 2232) 74 MG/DL HDL CHOLESTEROL (test code = 2220) 52 MG/DL CALC LDL CHOL (test code = 2237) 108 MG/DL RISK RATIO LDL/HDL (test cod e = 2238) 2.08 RATIO Fabricio CasianoCBC W/AUTO DIFF WITH [id number] 15:29:19* Test Item Value Reference Range Interpretation Comme nts WBC (test code = 1001) 6.1 K/UL 3.5-11.0 RBC (test code = 1002) 4.12 M/UL 4.50-6.10 L HEMOGLOBIN (test code = 1003) 12.6 G/DL 13.5-17.0 L HEMATOCRIT (test code = 1004) 35.7 % 40.0-51.0 L MCV (test code = 1005) 86.7 fL 80.0-99.0 MCH (test code = 1006) 30.6 PG 25.0-33.0 MCHC (test code = 1007) 35.3 G/DL 31.0-36.0 RDW (test code = 1038) 12.9 % 11.5-15.0 NEUTROPHILS (test code = 1008) 53.1 % LYMPHOCYTES (test code = 1010) 35.4 % MONOCYTES (test code = 1011) 7.5 % EOSINOPHILS (test code = 1012) 3.4 % BASOPHILS (test code = 1013) 0.3 % IMMATURE GRANULOCYTES (test code = 1036) 0.3 % NUCLEATED RBCS (test code = 1065) 0.0 /100 WBC'S See_Comment [Automated [employer]] The system which generated this result transmitted reference range: 0.0. The reference range was not used to interpret this result as normal/abnormal. PLATELET COUNT (test code = 1015) 179 K/UL 130-400 ABSOLUTE NEUTROPHILS (test code = 1066) 3.23 K/UL 1.50-7.50 ABSOLUTE LYMPHOCYTES (test code = 1067) 2.16 K/UL 1.00-4.00 ABSOLUTE MONOCYTES (test code = 1068) 0.46 K/UL 0.20-1.00 ABSOLUTE EOSINOPHILS (test code = 1040) 0.21 K/UL 0.00-0.50 ABSOLUTE BASOPHILS (test code = 1069) 0.02 K/UL 0.00-0.20 ABS IMMATURE GRANULOCYTES (test code = 1020) 0.02 K/UL 0.00-0.10 ABS NUCLEATED RBCS (test code = 96558) 0.00 K/UL 0.00-0.11 COMPREHENSIVE METABOLIC [id number] 04:29:59* Test Item Value Reference Range Interpretation Comme nts GLUCOSE (test code = 2217) 95 MG/DL 70-99 BUN (test code = 2208) 16 MG/DL 6-20 CREATININE (test code = 2214) 0.97 MG/DL 0.80-1.40 eGFR (2020 CKD-EPI) (test code = 20942) 99 ML/MIN/1.73 >60 CALC BUN/CREAT (test code = 2235) 16 RATIO 6-28 SODIUM (test code = 2230) 142 MEQ/L 133-146 POTASSIUM (test code = 2228) 3.9 MEQ/L 3.5-5.4 CHLORIDE (test code = 2215) 107 MEQ/L 95-107 CARBON DIOXIDE (test code = 2205) 24 MEQ/L 19-31 CALCIUM (test code = 2208) 9.1 MG/DL 8.5-10.5 PROTEIN, TOTAL (test code = 2228) 7.2 G/DL 6.1-8.3 ALBUMIN (test code = 2200) 4.4 G/DL 3.5-5.2 CALC GLOBULIN (test code = 2240) 2.8 G/DL 1.9-3.7 CALC A/G RATIO (test code = 2233) 1.6 RATIO 1.0-2.6 BILIRUBIN, TOTAL (test code = 2206) 0.2 MG/DL See_Comment [Automated me ssage] The system which generated this result transmitted reference range: <=1.2. The reference range was not used to interpret this result as normal/abnormal. ALKALINE PHOSPHATASE (test code = 2203) 77 U/L 40-119 AST (test code = 221) 12 U/L 9-50 ALT (test code = 221) 13 U/L 5-50 LIPID [id number] 04:29:59* Test Item Value Reference Range Interpretation Comme nts CHOLESTEROL (test code = 2210) 181 MG/DL <200 TRIGLYCERIDES (test code = 2232) 69 MG/DL <150 HDL CHOLESTEROL (test code = 2219) 44 MG/DL >39 CALC LDL CHOL (test code = 2236) 121 MG/DL <100 H NOTE: CALCULATED LDL IS BASED ON VARUN-WAGONER METHOD WHICHINCLUDES ADJUSTABLE TRIGLYCERIDE:VLDL CHOLESTEROL RATIO.THIS FACTOR VARIES BY MEASURED TRIGLYCERIDE AND NON-HDLCHOLESTEROL CONCENTRATIONS WITH INCREASED CALCULATED LDL SEENIN HIGHER TRIGLYCERIDE OR LOWER NON-HDL SPECIMENS. FOR MOREINFORMATION, SEE CLIENT ANNOUNCEMENT AT [email or web address] RISK RATIO LDL/HDL (test code = 2238) 2.75 RATIO <3.55 UNLESS OTHERW ISE INDICATED, ALL TESTING PERFORMED ATCLINICAL PATHOLOGY [employer] [address] [place] [id number] COLLATOR: ELIEZER MOSS M.D. CLIA NUMBER [id number] [facility] [place]. [id number] CBC W/AUTO [id number] 00:00:00* Test Item Value Reference Range Interpretation Comme nts WBC (test code = 1001) 6.1 K/UL RBC (test code = 1002) 4.12 M/UL HEMOGLOBIN (test code = 1003) 12.6 G/DL HEMATOCRIT (test code = 1004) 35.7 % MCV (test code = 1005) 86.7 fL MCH (test code = 1006) 30.6 PG MCHC (test code = 1007) 35.3 G/DL RDW (test code = 1038) 12.9 % NEUTROPHILS (test code = 1008) 53.1 % LYMPHOCYTES (test code = 1010) 35.4 % MONOCYTES (test code = 1011) 7.5 % EOSINOPHILS (test code = 1012) 3.4 % BASOPHILS (test code = 1013) 0.3 % IMMATURE GRANULOCYTES (test code = 1036) 0.3 % NUCLEATED RBCS (test code = 1065) 0.0 /100WBC'S PLATELET COUNT (test code = 1015) 179 K/UL ABSOLUTE NEUTROPHILS (test c ode = 1066) 3.23 K/UL ABSOLUTE LYMPHOCYTES (test c ode = 1067) 2.16 K/UL ABSOLUTE MONOCYTES (test cod e = 1068) 0.46 K/UL ABSOLUTE EOSINOPHILS (test c ode = 1040) 0.21 K/UL ABSOLUTE BASOPHILS (test cod e = 1069) 0.02 K/UL ABS IMMATURE GRANULOCYTES (t est code = 1020) 0.02 K/UL ABS NUCLEATED RBCS (test cod e = 81719) 0.00 K/UL Fabricio F AustinCOMPREHENSIVE METABOLIC [id number] 00:00:00* Test Item Value Reference Range Interpretation Comme nts GLUCOSE (test code = 2217) 95 MG/DL BUN (test code = 2208) 16 MG/DL CREATININE (test code = 2214) 0.97 MG/DL eGFR (2020 CKD-EPI) (test co de = 53772) 99 ML/MIN/1.73 CALC BUN/CREAT (test code = 2235) 16 RATIO SODIUM (test code = 2231) 142 MEQ/L POTASSIUM (test code = 2228) 3.9 MEQ/L CHLORIDE (test code = 2215) 107 MEQ/L CARBON DIOXIDE (test code = 2206) 24 MEQ/L CALCIUM (test code = 2209) 9.1 MG/DL PROTEIN, TOTAL (test code = 2229) 7.2 G/DL ALBUMIN (test code = 2201) 4.4 G/DL CALC GLOBULIN (test code = 2240) 2.8 G/DL CALC A/G RATIO (test code = 2234) 1.6 RATIO BILIRUBIN, TOTAL (test code = 2207) 0.2 MG/DL ALKALINE PHOSPHATASE (test code = 2204) 77 U/L AST (test code = 2218) 12 U/L ALT (test code = 2219) 13 U/L Fabricio CasianoLIPID [id number] 00:00:00* Test Item Value Reference Range Interpretation Comme nts CHOLESTEROL (test code = 2210) 181 MG/DL TRIGLYCERIDES (test code = 2232) 69 MG/DL HDL CHOLESTEROL (test code = 2220) 44 MG/DL CALC LDL CHOL (test code = 2237) 121 MG/DL RISK RATIO LDL/HDL (test cod e = 2238) 2.75 RATIO Fabricio CasianoCBC W/AUTO [id number] 00:00:00* Test Item Value Reference Range Interpretation Comme nts WBC (test code = 1001) 6.1 K/UL RBC (test code = 1002) 4.12 M/UL HEMOGLOBIN (test code = 1003) 12.6 G/DL HEMATOCRIT (test code = 1004) 35.7 % MCV (test code = 1005) 86.7 fL MCH (test code = 1006) 30.6 PG MCHC (test code = 1007) 35.3 G/DL RDW (test code = 1038) 12.9 % NEUTROPHILS (test code = 1008) 53.1 % LYMPHOCYTES (test code = 1010) 35.4 % MONOCYTES (test code = 1011) 7.5 % EOSINOPHILS (test code = 1012) 3.4 % BASOPHILS (test code = 1013) 0.3 % IMMATURE GRANULOCYTES (test code = 1036) 0.3 % NUCLEATED RBCS (test code = 1065) 0.0 /100WBC'S PLATELET COUNT (test code = 1015) 179 K/UL ABSOLUTE NEUTROPHILS (test c ode = 1066) 3.23 K/UL ABSOLUTE LYMPHOCYTES (test c ode = 1067) 2.16 K/UL ABSOLUTE MONOCYTES (test cod e = 1068) 0.46 K/UL ABSOLUTE EOSINOPHILS (test c ode = 1040) 0.21 K/UL ABSOLUTE BASOPHILS (test cod e = 1069) 0.02 K/UL ABS IMMATURE GRANULOCYTES (t est code = 1020) 0.02 K/UL ABS NUCLEATED RBCS (test cod e = 69469) 0.00 K/UL Fabricio aCsianoCOMPREHENSIVE METABOLIC [id number] 00:00:00* Test Item Value Reference Range Interpretation Comme nts GLUCOSE (test code = 2217) 95 MG/DL BUN (test code = 2208) 16 MG/DL CREATININE (test code = 2214) 0.97 MG/DL eGFR (2020 CKD-EPI) (test co de = 40892) 99 ML/MIN/1.73 CALC BUN/CREAT (test code = 2235) 16 RATIO SODIUM (test code = 2231) 142 MEQ/L POTASSIUM (test code = 2228) 3.9 MEQ/L CHLORIDE (test code = 2215) 107 MEQ/L CARBON DIOXIDE (test code = 2206) 24 MEQ/L CALCIUM (test code = 2209) 9.1 MG/DL PROTEIN, TOTAL (test code = 2229) 7.2 G/DL ALBUMIN (test code = 2201) 4.4 G/DL CALC GLOBULIN (test code = 2240) 2.8 G/DL CALC A/G RATIO (test code = 2234) 1.6 RATIO BILIRUBIN, TOTAL (test code = 2207) 0.2 MG/DL ALKALINE PHOSPHATASE (test code = 2204) 77 U/L AST (test code = 2218) 12 U/L ALT (test code = 2219) 13 U/L Fabricio CasianoLIPID [id number] 00:00:00* Test Item Value Reference Range Interpretation Comme nts CHOLESTEROL (test code = 2210) 181 MG/DL TRIGLYCERIDES (test code = 2232) 69 MG/DL HDL CHOLESTEROL (test code = 2220) 44 MG/DL CALC LDL CHOL (test code = 2237) 121 MG/DL RISK RATIO LDL/HDL (test cod e = 2238) 2.75 RATIO Fabricio CasianoCBC W/AUTO [id number] 00:00:00* Test Item Value Reference Range Interpretation Comme nts WBC (test code = 1001) 6.1 K/UL RBC (test code = 1002) 4.12 M/UL HEMOGLOBIN (test code = 1003) 12.6 G/DL HEMATOCRIT (test code = 1004) 35.7 % MCV (test code = 1005) 86.7 fL MCH (test code = 1006) 30.6 PG MCHC (test code = 1007) 35.3 G/DL RDW (test code = 1038) 12.9 % NEUTROPHILS (test code = 1008) 53.1 % LYMPHOCYTES (test code = 1010) 35.4 % MONOCYTES (test code = 1011) 7.5 % EOSINOPHILS (test code = 1012) 3.4 % BASOPHILS (test code = 1013) 0.3 % IMMATURE GRANULOCYTES (test code = 1036) 0.3 % NUCLEATED RBCS (test code = 1065) 0.0 /100WBC'S PLATELET COUNT (test code = 1015) 179 K/UL ABSOLUTE NEUTROPHILS (test c ode = 1066) 3.23 K/UL ABSOLUTE LYMPHOCYTES (test c ode = 1067) 2.16 K/UL ABSOLUTE MONOCYTES (test cod e = 1068) 0.46 K/UL ABSOLUTE EOSINOPHILS (test c ode = 1040) 0.21 K/UL ABSOLUTE BASOPHILS (test cod e = 1069) 0.02 K/UL ABS IMMATURE GRANULOCYTES (t est code = 1020) 0.02 K/UL ABS NUCLEATED RBCS (test cod e = 50046) 0.00 K/UL Fabricio CasianoCOMPREHENSIVE METABOLIC [id number] 00:00:00* Test Item Value Reference Range Interpretation Comme nts GLUCOSE (test code = 2217) 95 MG/DL BUN (test code = 2208) 16 MG/DL CREATININE (test code = 2214) 0.97 MG/DL eGFR (2020 CKD-EPI) (test co de = 99451) 99 ML/MIN/1.73 CALC BUN/CREAT (test code = 2235) 16 RATIO SODIUM (test code = 2231) 142 MEQ/L POTASSIUM (test code = 2228) 3.9 MEQ/L CHLORIDE (test code = 2215) 107 MEQ/L CARBON DIOXIDE (test code = 2206) 24 MEQ/L CALCIUM (test code = 2209) 9.1 MG/DL PROTEIN, TOTAL (test code = 2229) 7.2 G/DL ALBUMIN (test code = 2201) 4.4 G/DL CALC GLOBULIN (test code = 2240) 2.8 G/DL CALC A/G RATIO (test code = 2234) 1.6 RATIO BILIRUBIN, TOTAL (test code = 2207) 0.2 MG/DL ALKALINE PHOSPHATASE (test code = 2204) 77 U/L AST (test code = 2218) 12 U/L ALT (test code = 2219) 13 U/L Fabricio CasianoLIPID [id number] 00:00:00* Test Item Value Reference Range Interpretation Comme nts CHOLESTEROL (test code = 2210) 181 MG/DL TRIGLYCERIDES (test code = 2232) 69 MG/DL HDL CHOLESTEROL (test code = 2220) 44 MG/DL CALC LDL CHOL (test code = 2237) 121 MG/DL RISK RATIO LDL/HDL (test cod e = 2238) 2.75 RATIO Fabricio CasianoCBC W/AUTO [id number] 00:00:00* Test Item Value Reference Range Interpretation Comme nts WBC (test code = 1001) 6.1 K/UL RBC (test code = 1002) 4.12 M/UL HEMOGLOBIN (test code = 1003) 12.6 G/DL HEMATOCRIT (test code = 1004) 35.7 % MCV (test code = 1005) 86.7 fL MCH (test code = 1006) 30.6 PG MCHC (test code = 1007) 35.3 G/DL RDW (test code = 1038) 12.9 % NEUTROPHILS (test code = 1008) 53.1 % LYMPHOCYTES (test code = 1010) 35.4 % MONOCYTES (test code = 1011) 7.5 % EOSINOPHILS (test code = 1012) 3.4 % BASOPHILS (test code = 1013) 0.3 % IMMATURE GRANULOCYTES (test code = 1036) 0.3 % NUCLEATED RBCS (test code = 1065) 0.0 /100WBC'S PLATELET COUNT (test code = 1015) 179 K/UL ABSOLUTE NEUTROPHILS (test c ode = 1066) 3.23 K/UL ABSOLUTE LYMPHOCYTES (test c ode = 1067) 2.16 K/UL ABSOLUTE MONOCYTES (test cod e = 1068) 0.46 K/UL ABSOLUTE EOSINOPHILS (test c ode = 1040) 0.21 K/UL ABSOLUTE BASOPHILS (test cod e = 1069) 0.02 K/UL ABS IMMATURE GRANULOCYTES (t est code = 1020) 0.02 K/UL ABS NUCLEATED RBCS (test cod e = 95528) 0.00 K/UL Fabricio CasianoCOMPREHENSIVE METABOLIC [id number] 00:00:00* Test Item Value Reference Range Interpretation Comme nts GLUCOSE (test code = 2217) 95 MG/DL BUN (test code = 2208) 16 MG/DL CREATININE (test code = 2214) 0.97 MG/DL eGFR (2020 CKD-EPI) (test co de = 19311) 99 ML/MIN/1.73 CALC BUN/CREAT (test code = 2235) 16 RATIO SODIUM (test code = 2231) 142 MEQ/L POTASSIUM (test code = 2228) 3.9 MEQ/L CHLORIDE (test code = 2215) 107 MEQ/L CARBON DIOXIDE (test code = 2206) 24 MEQ/L CALCIUM (test code = 2209) 9.1 MG/DL PROTEIN, TOTAL (test code = 2229) 7.2 G/DL ALBUMIN (test code = 2201) 4.4 G/DL CALC GLOBULIN (test code = 2240) 2.8 G/DL CALC A/G RATIO (test code = 2234) 1.6 RATIO BILIRUBIN, TOTAL (test code = 2207) 0.2 MG/DL ALKALINE PHOSPHATASE (test code = 2204) 77 U/L AST (test code = 2218) 12 U/L ALT (test code = 2219) 13 U/L Fabricio CasianoLIPID [id number] 00:00:00* Test Item Value Reference Range Interpretation Comme nts CHOLESTEROL (test code = 2210) 181 MG/DL TRIGLYCERIDES (test code = 2232) 69 MG/DL HDL CHOLESTEROL (test code = 2220) 44 MG/DL CALC LDL CHOL (test code = 2237) 121 MG/DL RISK RATIO LDL/HDL (test cod e = 2238) 2.75 RATIO Fabricio CasianoCBC W/AUTO [id number] 00:00:00* Test Item Value Reference Range Interpretation Comme nts WBC (test code = 1001) 6.1 K/UL RBC (test code = 1002) 4.12 M/UL HEMOGLOBIN (test code = 1003) 12.6 G/DL HEMATOCRIT (test code = 1004) 35.7 % MCV (test code = 1005) 86.7 fL MCH (test code = 1006) 30.6 PG MCHC (test code = 1007) 35.3 G/DL RDW (test code = 1038) 12.9 % NEUTROPHILS (test code = 1008) 53.1 % LYMPHOCYTES (test code = 1010) 35.4 % MONOCYTES (test code = 1011) 7.5 % EOSINOPHILS (test code = 1012) 3.4 % BASOPHILS (test code = 1013) 0.3 % IMMATURE GRANULOCYTES (test code = 1036) 0.3 % NUCLEATED RBCS (test code = 1065) 0.0 /100WBC'S PLATELET COUNT (test code = 1015) 179 K/UL ABSOLUTE NEUTROPHILS (test c ode = 1066) 3.23 K/UL ABSOLUTE LYMPHOCYTES (test c ode = 1067) 2.16 K/UL ABSOLUTE MONOCYTES (test cod e = 1068) 0.46 K/UL ABSOLUTE EOSINOPHILS (test c ode = 1040) 0.21 K/UL ABSOLUTE BASOPHILS (test cod e = 1069) 0.02 K/UL ABS IMMATURE GRANULOCYTES (t est code = 1020) 0.02 K/UL ABS NUCLEATED RBCS (test cod e = 92197) 0.00 K/UL Fabricio F AustinCOMPREHENSIVE METABOLIC [id number] 00:00:00* Test Item Value Reference Range Interpretation Comme nts GLUCOSE (test code = 2217) 95 MG/DL BUN (test code = 2208) 16 MG/DL CREATININE (test code = 2214) 0.97 MG/DL eGFR (2020 CKD-EPI) (test co de = 34525) 99 ML/MIN/1.73 CALC BUN/CREAT (test code = 2235) 16 RATIO SODIUM (test code = 2231) 142 MEQ/L POTASSIUM (test code = 2228) 3.9 MEQ/L CHLORIDE (test code = 2215) 107 MEQ/L CARBON DIOXIDE (test code = 2206) 24 MEQ/L CALCIUM (test code = 2209) 9.1 MG/DL PROTEIN, TOTAL (test code = 2229) 7.2 G/DL ALBUMIN (test code = 2201) 4.4 G/DL CALC GLOBULIN (test code = 2240) 2.8 G/DL CALC A/G RATIO (test code = 2234) 1.6 RATIO BILIRUBIN, TOTAL (test code = 2207) 0.2 MG/DL ALKALINE PHOSPHATASE (test code = 2204) 77 U/L AST (test code = 2218) 12 U/L ALT (test code = 2219) 13 U/L Fabricio CasianoLIPID [id number] 00:00:00* Test Item Value Reference Range Interpretation Comme nts CHOLESTEROL (test code = 2210) 181 MG/DL TRIGLYCERIDES (test code = 2232) 69 MG/DL HDL CHOLESTEROL (test code = 2220) 44 MG/DL CALC LDL CHOL (test code = 2237) 121 MG/DL RISK RATIO LDL/HDL (test cod e = 2238) 2.75 RATIO Fabricio CasianoCBC W/AUTO [id number] 00:00:00* Test Item Value Reference Range Interpretation Comme nts WBC (test code = 1001) 6.1 K/UL RBC (test code = 1002) 4.12 M/UL HEMOGLOBIN (test code = 1003) 12.6 G/DL HEMATOCRIT (test code = 1004) 35.7 % MCV (test code = 1005) 86.7 fL MCH (test code = 1006) 30.6 PG MCHC (test code = 1007) 35.3 G/DL RDW (test code = 1038) 12.9 % NEUTROPHILS (test code = 1008) 53.1 % LYMPHOCYTES (test code = 1010) 35.4 % MONOCYTES (test code = 1011) 7.5 % EOSINOPHILS (test code = 1012) 3.4 % BASOPHILS (test code = 1013) 0.3 % IMMATURE GRANULOCYTES (test code = 1036) 0.3 % NUCLEATED RBCS (test code = 1065) 0.0 /100WBC'S PLATELET COUNT (test code = 1015) 179 K/UL ABSOLUTE NEUTROPHILS (test c ode = 1066) 3.23 K/UL ABSOLUTE LYMPHOCYTES (test c ode = 1067) 2.16 K/UL ABSOLUTE MONOCYTES (test cod e = 1068) 0.46 K/UL ABSOLUTE EOSINOPHILS (test c ode = 1040) 0.21 K/UL ABSOLUTE BASOPHILS (test cod e = 1069) 0.02 K/UL ABS IMMATURE GRANULOCYTES (t est code = 1020) 0.02 K/UL ABS NUCLEATED RBCS (test cod e = 91493) 0.00 K/UL Fabricio CasianoCOMPREHENSIVE METABOLIC [id number] 00:00:00* Test Item Value Reference Range Interpretation Comme nts GLUCOSE (test code = 2217) 95 MG/DL BUN (test code = 2208) 16 MG/DL CREATININE (test code = 2214) 0.97 MG/DL eGFR (2020 CKD-EPI) (test co de = 76980) 99 ML/MIN/1.73 CALC BUN/CREAT (test code = 2235) 16 RATIO SODIUM (test code = 2231) 142 MEQ/L POTASSIUM (test code = 2228) 3.9 MEQ/L CHLORIDE (test code = 2215) 107 MEQ/L CARBON DIOXIDE (test code = 2206) 24 MEQ/L CALCIUM (test code = 2209) 9.1 MG/DL PROTEIN, TOTAL (test code = 2229) 7.2 G/DL ALBUMIN (test code = 2201) 4.4 G/DL CALC GLOBULIN (test code = 2240) 2.8 G/DL CALC A/G RATIO (test code = 2234) 1.6 RATIO BILIRUBIN, TOTAL (test code = 2207) 0.2 MG/DL ALKALINE PHOSPHATASE (test code = 2204) 77 U/L AST (test code = 2218) 12 U/L ALT (test code = 2219) 13 U/L Fabricio CasianoLIPID [id number] 00:00:00* Test Item Value Reference Range Interpretation Comme nts CHOLESTEROL (test code = 2210) 181 MG/DL TRIGLYCERIDES (test code = 2232) 69 MG/DL HDL CHOLESTEROL (test code = 2220) 44 MG/DL CALC LDL CHOL (test code = 2237) 121 MG/DL RISK RATIO LDL/HDL (test cod e = 2238) 2.75 RATIO Fabricio CasianoCBC W/AUTO [id number] 00:00:00* Test Item Value Reference Range Interpretation Comme nts WBC (test code = 1001) 6.1 K/UL RBC (test code = 1002) 4.12 M/UL HEMOGLOBIN (test code = 1003) 12.6 G/DL HEMATOCRIT (test code = 1004) 35.7 % MCV (test code = 1005) 86.7 fL MCH (test code = 1006) 30.6 PG MCHC (test code = 1007) 35.3 G/DL RDW (test code = 1038) 12.9 % NEUTROPHILS (test code = 1008) 53.1 % LYMPHOCYTES (test code = 1010) 35.4 % MONOCYTES (test code = 1011) 7.5 % EOSINOPHILS (test code = 1012) 3.4 % BASOPHILS (test code = 1013) 0.3 % IMMATURE GRANULOCYTES (test code = 1036) 0.3 % NUCLEATED RBCS (test code = 1065) 0.0 /100WBC'S PLATELET COUNT (test code = 1015) 179 K/UL ABSOLUTE NEUTROPHILS (test c ode = 1066) 3.23 K/UL ABSOLUTE LYMPHOCYTES (test c ode = 1067) 2.16 K/UL ABSOLUTE MONOCYTES (test cod e = 1068) 0.46 K/UL ABSOLUTE EOSINOPHILS (test c ode = 1040) 0.21 K/UL ABSOLUTE BASOPHILS (test cod e = 1069) 0.02 K/UL ABS IMMATURE GRANULOCYTES (t est code = 1020) 0.02 K/UL ABS NUCLEATED RBCS (test cod e = 44982) 0.00 K/UL Fabricio F OhCOMPREHENSIVE METABOLIC [id number] 00:00:00* Test Item Value Reference Range Interpretation Comme nts GLUCOSE (test code = 2217) 95 MG/DL BUN (test code = 2208) 16 MG/DL CREATININE (test code = 2214) 0.97 MG/DL eGFR (2020 CKD-EPI) (test co de = 07263) 99 ML/MIN/1.73 CALC BUN/CREAT (test code = 2235) 16 RATIO SODIUM (test code = 2231) 142 MEQ/L POTASSIUM (test code = 2228) 3.9 MEQ/L CHLORIDE (test code = 2215) 107 MEQ/L CARBON DIOXIDE (test code = 2206) 24 MEQ/L CALCIUM (test code = 2209) 9.1 MG/DL PROTEIN, TOTAL (test code = 2229) 7.2 G/DL ALBUMIN (test code = 2201) 4.4 G/DL CALC GLOBULIN (test code = 2240) 2.8 G/DL CALC A/G RATIO (test code = 2234) 1.6 RATIO BILIRUBIN, TOTAL (test code = 2207) 0.2 MG/DL ALKALINE PHOSPHATASE (test code = 2204) 77 U/L AST (test code = 2218) 12 U/L ALT (test code = 2219) 13 U/L Fabricio CasianoLIPID [id number] 00:00:00* Test Item Value Reference Range Interpretation Comme nts CHOLESTEROL (test code = 2210) 181 MG/DL TRIGLYCERIDES (test code = 2232) 69 MG/DL HDL CHOLESTEROL (test code = 2220) 44 MG/DL CALC LDL CHOL (test code = 2237) 121 MG/DL RISK RATIO LDL/HDL (test cod e = 2238) 2.75 RATIO Fabricio CasianoCBC W/AUTO [id number] 00:00:00* Test Item Value Reference Range Interpretation Comme nts WBC (test code = 1001) 6.1 K/UL RBC (test code = 1002) 4.12 M/UL HEMOGLOBIN (test code = 1003) 12.6 G/DL HEMATOCRIT (test code = 1004) 35.7 % MCV (test code = 1005) 86.7 fL MCH (test code = 1006) 30.6 PG MCHC (test code = 1007) 35.3 G/DL RDW (test code = 1038) 12.9 % NEUTROPHILS (test code = 1008) 53.1 % LYMPHOCYTES (test code = 1010) 35.4 % MONOCYTES (test code = 1011) 7.5 % EOSINOPHILS (test code = 1012) 3.4 % BASOPHILS (test code = 1013) 0.3 % IMMATURE GRANULOCYTES (test code = 1036) 0.3 % NUCLEATED RBCS (test code = 1065) 0.0 /100WBC'S PLATELET COUNT (test code = 1015) 179 K/UL ABSOLUTE NEUTROPHILS (test c ode = 1066) 3.23 K/UL ABSOLUTE LYMPHOCYTES (test c ode = 1067) 2.16 K/UL ABSOLUTE MONOCYTES (test cod e = 1068) 0.46 K/UL ABSOLUTE EOSINOPHILS (test c ode = 1040) 0.21 K/UL ABSOLUTE BASOPHILS (test cod e = 1069) 0.02 K/UL ABS IMMATURE GRANULOCYTES (t est code = 1020) 0.02 K/UL ABS NUCLEATED RBCS (test cod e = 61843) 0.00 K/UL Fabricio CasianoCOMPREHENSIVE METABOLIC [id number] 00:00:00* Test Item Value Reference Range Interpretation Comme nts GLUCOSE (test code = 2217) 95 MG/DL BUN (test code = 2208) 16 MG/DL CREATININE (test code = 2214) 0.97 MG/DL eGFR (2020 CKD-EPI) (test co de = 13930) 99 ML/MIN/1.73 CALC BUN/CREAT (test code = 2235) 16 RATIO SODIUM (test code = 2231) 142 MEQ/L POTASSIUM (test code = 2228) 3.9 MEQ/L CHLORIDE (test code = 2215) 107 MEQ/L CARBON DIOXIDE (test code = 2206) 24 MEQ/L CALCIUM (test code = 2209) 9.1 MG/DL PROTEIN, TOTAL (test code = 2229) 7.2 G/DL ALBUMIN (test code = 2201) 4.4 G/DL CALC GLOBULIN (test code = 2240) 2.8 G/DL CALC A/G RATIO (test code = 2234) 1.6 RATIO BILIRUBIN, TOTAL (test code = 2207) 0.2 MG/DL ALKALINE PHOSPHATASE (test code = 2204) 77 U/L AST (test code = 2218) 12 U/L ALT (test code = 2219) 13 U/L Fabricio CasianoLIPID [id number] 00:00:00* Test Item Value Reference Range Interpretation Comme nts CHOLESTEROL (test code = 2210) 181 MG/DL TRIGLYCERIDES (test code = 2232) 69 MG/DL HDL CHOLESTEROL (test code = 2220) 44 MG/DL CALC LDL CHOL (test code = 2237) 121 MG/DL RISK RATIO LDL/HDL (test cod e = 2238) 2.75 RATIO Fabricio Gomez OhCBC W/AUTO [id number] 00:00:00* Test Item Value Reference Range Interpretation Comme nts WBC (test code = 1001) 6.1 K/UL RBC (test code = 1002) 4.12 M/UL HEMOGLOBIN (test code = 1003) 12.6 G/DL HEMATOCRIT (test code = 1004) 35.7 % MCV (test code = 1005) 86.7 fL MCH (test code = 1006) 30.6 PG MCHC (test code = 1007) 35.3 G/DL RDW (test code = 1038) 12.9 % NEUTROPHILS (test code = 1008) 53.1 % LYMPHOCYTES (test code = 1010) 35.4 % MONOCYTES (test code = 1011) 7.5 % EOSINOPHILS (test code = 1012) 3.4 % BASOPHILS (test code = 1013) 0.3 % IMMATURE GRANULOCYTES (test code = 1036) 0.3 % NUCLEATED RBCS (test code = 1065) 0.0 /100WBC'S PLATELET COUNT (test code = 1015) 179 K/UL ABSOLUTE NEUTROPHILS (test c ode = 1066) 3.23 K/UL ABSOLUTE LYMPHOCYTES (test c ode = 1067) 2.16 K/UL ABSOLUTE MONOCYTES (test cod e = 1068) 0.46 K/UL ABSOLUTE EOSINOPHILS (test c ode = 1040) 0.21 K/UL ABSOLUTE BASOPHILS (test cod e = 1069) 0.02 K/UL ABS IMMATURE GRANULOCYTES (t est code = 1020) 0.02 K/UL ABS NUCLEATED RBCS (test cod e = 78413) 0.00 K/UL Fabricio CasianoCOMPREHENSIVE METABOLIC [id number] 00:00:00* Test Item Value Reference Range Interpretation Comme nts GLUCOSE (test code = 2217) 95 MG/DL BUN (test code = 2208) 16 MG/DL CREATININE (test code = 2214) 0.97 MG/DL eGFR (2020 CKD-EPI) (test co de = 69521) 99 ML/MIN/1.73 CALC BUN/CREAT (test code = 2235) 16 RATIO SODIUM (test code = 2231) 142 MEQ/L POTASSIUM (test code = 2228) 3.9 MEQ/L CHLORIDE (test code = 2215) 107 MEQ/L CARBON DIOXIDE (test code = 2206) 24 MEQ/L CALCIUM (test code = 2209) 9.1 MG/DL PROTEIN, TOTAL (test code = 2229) 7.2 G/DL ALBUMIN (test code = 2201) 4.4 G/DL CALC GLOBULIN (test code = 2240) 2.8 G/DL CALC A/G RATIO (test code = 2234) 1.6 RATIO BILIRUBIN, TOTAL (test code = 2207) 0.2 MG/DL ALKALINE PHOSPHATASE (test code = 2204) 77 U/L AST (test code = 2218) 12 U/L ALT (test code = 2219) 13 U/L Fabricio CasianoLIPID [id number] 00:00:00* Test Item Value Reference Range Interpretation Comme nts CHOLESTEROL (test code = 2210) 181 MG/DL TRIGLYCERIDES (test code = 2232) 69 MG/DL HDL CHOLESTEROL (test code = 2220) 44 MG/DL CALC LDL CHOL (test code = 2237) 121 MG/DL RISK RATIO LDL/HDL (test cod e = 2238) 2.75 RATIO Fabricio CasianoCBC W/AUTO [id number] 00:00:00* Test Item Value Reference Range Interpretation Comme nts WBC (test code = 1001) 6.1 K/UL RBC (test code = 1002) 4.12 M/UL HEMOGLOBIN (test code = 1003) 12.6 G/DL HEMATOCRIT (test code = 1004) 35.7 % MCV (test code = 1005) 86.7 fL MCH (test code = 1006) 30.6 PG MCHC (test code = 1007) 35.3 G/DL RDW (test code = 1038) 12.9 % NEUTROPHILS (test code = 1008) 53.1 % LYMPHOCYTES (test code = 1010) 35.4 % MONOCYTES (test code = 1011) 7.5 % EOSINOPHILS (test code = 1012) 3.4 % BASOPHILS (test code = 1013) 0.3 % IMMATURE GRANULOCYTES (test code = 1036) 0.3 % NUCLEATED RBCS (test code = 1065) 0.0 /100WBC'S PLATELET COUNT (test code = 1015) 179 K/UL ABSOLUTE NEUTROPHILS (test c ode = 1066) 3.23 K/UL ABSOLUTE LYMPHOCYTES (test c ode = 1067) 2.16 K/UL ABSOLUTE MONOCYTES (test cod e = 1068) 0.46 K/UL ABSOLUTE EOSINOPHILS (test c ode = 1040) 0.21 K/UL ABSOLUTE BASOPHILS (test cod e = 1069) 0.02 K/UL ABS IMMATURE GRANULOCYTES (t est code = 1020) 0.02 K/UL ABS NUCLEATED RBCS (test cod e = 08984) 0.00 K/UL Fabricio CasianoCOMPREHENSIVE METABOLIC [id number] 00:00:00* Test Item Value Reference Range Interpretation Comme nts GLUCOSE (test code = 2217) 95 MG/DL BUN (test code = 2208) 16 MG/DL CREATININE (test code = 2214) 0.97 MG/DL eGFR (2020 CKD-EPI) (test co de = 67559) 99 ML/MIN/1.73 CALC BUN/CREAT (test code = 2235) 16 RATIO SODIUM (test code = 2231) 142 MEQ/L POTASSIUM (test code = 2228) 3.9 MEQ/L CHLORIDE (test code = 2215) 107 MEQ/L CARBON DIOXIDE (test code = 2206) 24 MEQ/L CALCIUM (test code = 2209) 9.1 MG/DL PROTEIN, TOTAL (test code = 2229) 7.2 G/DL ALBUMIN (test code = 2201) 4.4 G/DL CALC GLOBULIN (test code = 2240) 2.8 G/DL CALC A/G RATIO (test code = 2234) 1.6 RATIO BILIRUBIN, TOTAL (test code = 2207) 0.2 MG/DL ALKALINE PHOSPHATASE (test code = 2204) 77 U/L AST (test code = 2218) 12 U/L ALT (test code = 2219) 13 U/L Fabricio CasianoLIPID [id number] 00:00:00* Test Item Value Reference Range Interpretation Comme nts CHOLESTEROL (test code = 2210) 181 MG/DL TRIGLYCERIDES (test code = 2232) 69 MG/DL HDL CHOLESTEROL (test code = 2220) 44 MG/DL CALC LDL CHOL (test code = 2237) 121 MG/DL RISK RATIO LDL/HDL (test cod e = 2238) 2.75 RATIO Fabricio CasianoCBC W/AUTO [id number] 00:00:00* Test Item Value Reference Range Interpretation Comme nts WBC (test code = 1001) 6.1 K/UL RBC (test code = 1002) 4.12 M/UL HEMOGLOBIN (test code = 1003) 12.6 G/DL HEMATOCRIT (test code = 1004) 35.7 % MCV (test code = 1005) 86.7 fL MCH (test code = 1006) 30.6 PG MCHC (test code = 1007) 35.3 G/DL RDW (test code = 1038) 12.9 % NEUTROPHILS (test code = 1008) 53.1 % LYMPHOCYTES (test code = 1010) 35.4 % MONOCYTES (test code = 1011) 7.5 % EOSINOPHILS (test code = 1012) 3.4 % BASOPHILS (test code = 1013) 0.3 % IMMATURE GRANULOCYTES (test code = 1036) 0.3 % NUCLEATED RBCS (test code = 1065) 0.0 /100WBC'S PLATELET COUNT (test code = 1015) 179 K/UL ABSOLUTE NEUTROPHILS (test c ode = 1066) 3.23 K/UL ABSOLUTE LYMPHOCYTES (test c ode = 1067) 2.16 K/UL ABSOLUTE MONOCYTES (test cod e = 1068) 0.46 K/UL ABSOLUTE EOSINOPHILS (test c ode = 1040) 0.21 K/UL ABSOLUTE BASOPHILS (test cod e = 1069) 0.02 K/UL ABS IMMATURE GRANULOCYTES (t est code = 1020) 0.02 K/UL ABS NUCLEATED RBCS (test cod e = 82656) 0.00 K/UL Fabricio Gomez OhCOMPREHENSIVE METABOLIC [id number] 00:00:00* Test Item Value Reference Range Interpretation Comme nts GLUCOSE (test code = 2217) 95 MG/DL BUN (test code = 2208) 16 MG/DL CREATININE (test code = 2214) 0.97 MG/DL eGFR (2020 CKD-EPI) (test co de = 74835) 99 ML/MIN/1.73 CALC BUN/CREAT (test code = 2235) 16 RATIO SODIUM (test code = 2231) 142 MEQ/L POTASSIUM (test code = 2228) 3.9 MEQ/L CHLORIDE (test code = 2215) 107 MEQ/L CARBON DIOXIDE (test code = 2206) 24 MEQ/L CALCIUM (test code = 2209) 9.1 MG/DL PROTEIN, TOTAL (test code = 2229) 7.2 G/DL ALBUMIN (test code = 2201) 4.4 G/DL CALC GLOBULIN (test code = 2240) 2.8 G/DL CALC A/G RATIO (test code = 2234) 1.6 RATIO BILIRUBIN, TOTAL (test code = 2207) 0.2 MG/DL ALKALINE PHOSPHATASE (test code = 2204) 77 U/L AST (test code = 2218) 12 U/L ALT (test code = 2219) 13 U/L Fabricio CasianoLIPID [id number] 00:00:00* Test Item Value Reference Range Interpretation Comme nts CHOLESTEROL (test code = 2210) 181 MG/DL TRIGLYCERIDES (test code = 2232) 69 MG/DL HDL CHOLESTEROL (test code = 2220) 44 MG/DL CALC LDL CHOL (test code = 2237) 121 MG/DL RISK RATIO LDL/HDL (test cod e = 2238) 2.75 RATIO Fabricio CasianoCBC W/AUTO [id number] 00:00:00* Test Item Value Reference Range Interpretation Comme nts WBC (test code = 1001) 6.1 K/UL RBC (test code = 1002) 4.12 M/UL HEMOGLOBIN (test code = 1003) 12.6 G/DL HEMATOCRIT (test code = 1004) 35.7 % MCV (test code = 1005) 86.7 fL MCH (test code = 1006) 30.6 PG MCHC (test code = 1007) 35.3 G/DL RDW (test code = 1038) 12.9 % NEUTROPHILS (test code = 1008) 53.1 % LYMPHOCYTES (test code = 1010) 35.4 % MONOCYTES (test code = 1011) 7.5 % EOSINOPHILS (test code = 1012) 3.4 % BASOPHILS (test code = 1013) 0.3 % IMMATURE GRANULOCYTES (test code = 1036) 0.3 % NUCLEATED RBCS (test code = 1065) 0.0 /100WBC'S PLATELET COUNT (test code = 1015) 179 K/UL ABSOLUTE NEUTROPHILS (test c ode = 1066) 3.23 K/UL ABSOLUTE LYMPHOCYTES (test c ode = 1067) 2.16 K/UL ABSOLUTE MONOCYTES (test cod e = 1068) 0.46 K/UL ABSOLUTE EOSINOPHILS (test c ode = 1040) 0.21 K/UL ABSOLUTE BASOPHILS (test cod e = 1069) 0.02 K/UL ABS IMMATURE GRANULOCYTES (t est code = 1020) 0.02 K/UL ABS NUCLEATED RBCS (test cod e = 80154) 0.00 K/UL Fabricio CasianoCOMPREHENSIVE METABOLIC [id number] 00:00:00* Test Item Value Reference Range Interpretation Comme nts GLUCOSE (test code = 2217) 95 MG/DL BUN (test code = 2208) 16 MG/DL CREATININE (test code = 2214) 0.97 MG/DL eGFR (2020 CKD-EPI) (test co de = 33266) 99 ML/MIN/1.73 CALC BUN/CREAT (test code = 2235) 16 RATIO SODIUM (test code = 2231) 142 MEQ/L POTASSIUM (test code = 2228) 3.9 MEQ/L CHLORIDE (test code = 2215) 107 MEQ/L CARBON DIOXIDE (test code = 2206) 24 MEQ/L CALCIUM (test code = 2209) 9.1 MG/DL PROTEIN, TOTAL (test code = 2229) 7.2 G/DL ALBUMIN (test code = 2201) 4.4 G/DL CALC GLOBULIN (test code = 2240) 2.8 G/DL CALC A/G RATIO (test code = 2234) 1.6 RATIO BILIRUBIN, TOTAL (test code = 2207) 0.2 MG/DL ALKALINE PHOSPHATASE (test code = 2204) 77 U/L AST (test code = 2218) 12 U/L ALT (test code = 2219) 13 U/L Fabricio CasianoLIPID [id number] 00:00:00* Test Item Value Reference Range Interpretation Comme nts CHOLESTEROL (test code = 2210) 181 MG/DL TRIGLYCERIDES (test code = 2232) 69 MG/DL HDL CHOLESTEROL (test code = 2220) 44 MG/DL CALC LDL CHOL (test code = 2237) 121 MG/DL RISK RATIO LDL/HDL (test cod e = 2238) 2.75 RATIO Fabricio CasianoCARBAMAZEPINE (TEGRETOL)[id number] 00:00:00* Test Item Value Reference Range Interpretation Comme nts CARBAMAZEPINE (TEGRETOL) (te st code = 3006) 9.5 UG/ML Fabricio CasianoCOMPREHENSIVE METABOLIC [id number] 00:00:00* Test Item Value Reference Range Interpretation Comme nts GLUCOSE (test code = 2217) 84 MG/DL BUN (test code = 2208) 15 MG/DL CREATININE (test code = 2214) 0.85 MG/DL eGFR AMER. (test cod e = 66807) 125 ML/MIN/1.73 eGFR NON- AMER. (test code = 16806) 108 ML/MIN/1.73 CALC BUN/CREAT (test code = 2235) 18 RATIO SODIUM (test code = 2231) 142 MEQ/L POTASSIUM (test code = 2228) 4.0 MEQ/L CHLORIDE (test code = 2215) 103 MEQ/L CARBON DIOXIDE (test code = 2206) 28 MEQ/L CALCIUM (test code = 2209) 9.2 MG/DL PROTEIN, TOTAL (test code = 2229) 7.3 G/DL ALBUMIN (test code = 2201) 4.5 G/DL CALC GLOBULIN (test code = 2240) 2.8 G/DL CALC A/G RATIO (test code = 2234) 1.6 RATIO BILIRUBIN, TOTAL (test code = 2207) 0.3 MG/DL ALKALINE PHOSPHATASE (test code = 2204) 72 U/L AST (test code = 2218) 13 U/L ALT (test code = 2219) 13 U/L Fabricio CasianoLIPID [id number] 00:00:00* Test Item Value Reference Range Interpretation Comme nts CHOLESTEROL (test code = 2210) 185 MG/DL TRIGLYCERIDES (test code = 2232) 77 MG/DL HDL CHOLESTEROL (test code = 2220) 51 MG/DL CALC LDL CHOL (test code = 2237) 119 MG/DL RISK RATIO LDL/HDL (test cod e = 2238) 2.33 RATIO Fabricio CasianoCBC W/AUTO [id number] 00:00:00* Test Item Value Reference Range Interpretation Comme nts WBC (test code = 1001) 5.4 K/UL RBC (test code = 1002) 4.25 M/UL HEMOGLOBIN (test code = 1003) 13.3 G/DL HEMATOCRIT (test code = 1004) 37.6 % MCV (test code = 1005) 88.5 fL MCH (test code = 1006) 31.3 PG MCHC (test code = 1007) 35.4 G/DL RDW (test code = 1038) 12.4 % NEUTROPHILS (test code = 1008) 58.1 % LYMPHOCYTES (test code = 1010) 30.7 % MONOCYTES (test code = 1011) 7.1 % EOSINOPHILS (test code = 1012) 3.7 % BASOPHILS (test code = 1013) 0.4 % PLATELET COUNT (test code = 1015) 205 K/UL Fabricio CasianoCARBAMAZEPINE (TEGRETOL)2018-05-01 00:00:00* Test Item Value Reference Range Interpretation Comme nts CARBAMAZEPINE (TEGRETOL) (te st code = 3006) 9.5 UG/ML Fabricio CasianoCOMPREHENSIVE METABOLIC [id number] 00:00:00* Test Item Value Reference Range Interpretation Comme nts GLUCOSE (test code = 2217) 84 MG/DL BUN (test code = 2208) 15 MG/DL CREATININE (test code = 2214) 0.85 MG/DL eGFR AMER. (test cod e = 62683) 125 ML/MIN/1.73 eGFR NON- AMER. (test code = 70066) 108 ML/MIN/1.73 CALC BUN/CREAT (test code = 2235) 18 RATIO SODIUM (test code = 2231) 142 MEQ/L POTASSIUM (test code = 2228) 4.0 MEQ/L CHLORIDE (test code = 2215) 103 MEQ/L CARBON DIOXIDE (test code = 2206) 28 MEQ/L CALCIUM (test code = 2209) 9.2 MG/DL PROTEIN, TOTAL (test code = 2229) 7.3 G/DL ALBUMIN (test code = 2201) 4.5 G/DL CALC GLOBULIN (test code = 2240) 2.8 G/DL CALC A/G RATIO (test code = 2234) 1.6 RATIO BILIRUBIN, TOTAL (test code = 2207) 0.3 MG/DL ALKALINE PHOSPHATASE (test code = 2204) 72 U/L AST (test code = 2218) 13 U/L ALT (test code = 2219) 13 U/L Fabricio CasianoLIPID [id number] 00:00:00* Test Item Value Reference Range Interpretation Comme nts CHOLESTEROL (test code = 2210) 185 MG/DL TRIGLYCERIDES (test code = 2232) 77 MG/DL HDL CHOLESTEROL (test code = 2220) 51 MG/DL CALC LDL CHOL (test code = 2237) 119 MG/DL RISK RATIO LDL/HDL (test cod e = 2238) 2.33 RATIO Fabricio CasianoCBC W/AUTO [id number] 00:00:00* Test Item Value Reference Range Interpretation Comme nts WBC (test code = 1001) 5.4 K/UL RBC (test code = 1002) 4.25 M/UL HEMOGLOBIN (test code = 1003) 13.3 G/DL HEMATOCRIT (test code = 1004) 37.6 % MCV (test code = 1005) 88.5 fL MCH (test code = 1006) 31.3 PG MCHC (test code = 1007) 35.4 G/DL RDW (test code = 1038) 12.4 % NEUTROPHILS (test code = 1008) 58.1 % LYMPHOCYTES (test code = 1010) 30.7 % MONOCYTES (test code = 1011) 7.1 % EOSINOPHILS (test code = 1012) 3.7 % BASOPHILS (test code = 1013) 0.4 % PLATELET COUNT (test code = 1015) 205 K/UL Fabricio CasianoCARBAMAZEPINE (TEGRETOL)2018-05-01 00:00:00* Test Item Value Reference Range Interpretation Comme nts CARBAMAZEPINE (TEGRETOL) (te st code = 3006) 9.5 UG/ML Fabricio CasianoCOMPREHENSIVE METABOLIC [id number] 00:00:00* Test Item Value Reference Range Interpretation Comme nts GLUCOSE (test code = 2217) 84 MG/DL BUN (test code = 2208) 15 MG/DL CREATININE (test code = 2214) 0.85 MG/DL eGFR AMER. (test cod e = 32062) 125 ML/MIN/1.73 eGFR NON- AMER. (test code = 75938) 108 ML/MIN/1.73 CALC BUN/CREAT (test code = 2235) 18 RATIO SODIUM (test code = 2231) 142 MEQ/L POTASSIUM (test code = 2228) 4.0 MEQ/L CHLORIDE (test code = 2215) 103 MEQ/L CARBON DIOXIDE (test code = 2206) 28 MEQ/L CALCIUM (test code = 2209) 9.2 MG/DL PROTEIN, TOTAL (test code = 2229) 7.3 G/DL ALBUMIN (test code = 2201) 4.5 G/DL CALC GLOBULIN (test code = 2240) 2.8 G/DL CALC A/G RATIO (test code = 2234) 1.6 RATIO BILIRUBIN, TOTAL (test code = 2207) 0.3 MG/DL ALKALINE PHOSPHATASE (test code = 2204) 72 U/L AST (test code = 2218) 13 U/L ALT (test code = 2219) 13 U/L Fabricio CasianoLIPID [id number] 00:00:00* Test Item Value Reference Range Interpretation Comme nts CHOLESTEROL (test code = 2210) 185 MG/DL TRIGLYCERIDES (test code = 2232) 77 MG/DL HDL CHOLESTEROL (test code = 2220) 51 MG/DL CALC LDL CHOL (test code = 2237) 119 MG/DL RISK RATIO LDL/HDL (test cod e = 2238) 2.33 RATIO Fabricio CasianoCBC W/AUTO [id number] 00:00:00* Test Item Value Reference Range Interpretation Comme nts WBC (test code = 1001) 5.4 K/UL RBC (test code = 1002) 4.25 M/UL HEMOGLOBIN (test code = 1003) 13.3 G/DL HEMATOCRIT (test code = 1004) 37.6 % MCV (test code = 1005) 88.5 fL MCH (test code = 1006) 31.3 PG MCHC (test code = 1007) 35.4 G/DL RDW (test code = 1038) 12.4 % NEUTROPHILS (test code = 1008) 58.1 % LYMPHOCYTES (test code = 1010) 30.7 % MONOCYTES (test code = 1011) 7.1 % EOSINOPHILS (test code = 1012) 3.7 % BASOPHILS (test code = 1013) 0.4 % PLATELET COUNT (test code = 1015) 205 K/UL Fabricio CasianoCARBAMAZEPINE (TEGRETOL)2018-05-01 00:00:00* Test Item Value Reference Range Interpretation Comme nts CARBAMAZEPINE (TEGRETOL) (te st code = 3006) 9.5 UG/ML Fabricio CasianoCOMPREHENSIVE METABOLIC [id number] 00:00:00* Test Item Value Reference Range Interpretation Comme nts GLUCOSE (test code = 2217) 84 MG/DL BUN (test code = 2208) 15 MG/DL CREATININE (test code = 2214) 0.85 MG/DL eGFR AMER. (test cod e = 28159) 125 ML/MIN/1.73 eGFR NON- AMER. (test code = 28451) 108 ML/MIN/1.73 CALC BUN/CREAT (test code = 2235) 18 RATIO SODIUM (test code = 2231) 142 MEQ/L POTASSIUM (test code = 2228) 4.0 MEQ/L CHLORIDE (test code = 2215) 103 MEQ/L CARBON DIOXIDE (test code = 2206) 28 MEQ/L CALCIUM (test code = 2209) 9.2 MG/DL PROTEIN, TOTAL (test code = 2229) 7.3 G/DL ALBUMIN (test code = 2201) 4.5 G/DL CALC GLOBULIN (test code = 2240) 2.8 G/DL CALC A/G RATIO (test code = 2234) 1.6 RATIO BILIRUBIN, TOTAL (test code = 2207) 0.3 MG/DL ALKALINE PHOSPHATASE (test code = 2204) 72 U/L AST (test code = 2218) 13 U/L ALT (test code = 2219) 13 U/L Fabricio CasianoLIPID [id number] 00:00:00* Test Item Value Reference Range Interpretation Comme nts CHOLESTEROL (test code = 2210) 185 MG/DL TRIGLYCERIDES (test code = 2232) 77 MG/DL HDL CHOLESTEROL (test code = 2220) 51 MG/DL CALC LDL CHOL (test code = 2237) 119 MG/DL RISK RATIO LDL/HDL (test cod e = 2238) 2.33 RATIO Fabricio Patricia OhCBC W/AUTO [id number] 00:00:00* Test Item Value Reference Range Interpretation Comme nts WBC (test code = 1001) 5.4 K/UL RBC (test code = 1002) 4.25 M/UL HEMOGLOBIN (test code = 1003) 13.3 G/DL HEMATOCRIT (test code = 1004) 37.6 % MCV (test code = 1005) 88.5 fL MCH (test code = 1006) 31.3 PG MCHC (test code = 1007) 35.4 G/DL RDW (test code = 1038) 12.4 % NEUTROPHILS (test code = 1008) 58.1 % LYMPHOCYTES (test code = 1010) 30.7 % MONOCYTES (test code = 1011) 7.1 % EOSINOPHILS (test code = 1012) 3.7 % BASOPHILS (test code = 1013) 0.4 % PLATELET COUNT (test code = 1015) 205 K/UL Fabricio CasianoCARBAMAZEPINE (TEGRETOL)2018-05-01 00:00:00* Test Item Value Reference Range Interpretation Comme nts CARBAMAZEPINE (TEGRETOL) (te st code = 3006) 9.5 UG/ML Fabricio CasianoCOMPREHENSIVE METABOLIC [id number] 00:00:00* Test Item Value Reference Range Interpretation Comme nts GLUCOSE (test code = 2217) 84 MG/DL BUN (test code = 2208) 15 MG/DL CREATININE (test code = 2214) 0.85 MG/DL eGFR AMER. (test cod e = 43471) 125 ML/MIN/1.73 eGFR NON- AMER. (test code = 30661) 108 ML/MIN/1.73 CALC BUN/CREAT (test code = 2235) 18 RATIO SODIUM (test code = 2231) 142 MEQ/L POTASSIUM (test code = 2228) 4.0 MEQ/L CHLORIDE (test code = 2215) 103 MEQ/L CARBON DIOXIDE (test code = 2206) 28 MEQ/L CALCIUM (test code = 2209) 9.2 MG/DL PROTEIN, TOTAL (test code = 2229) 7.3 G/DL ALBUMIN (test code = 2201) 4.5 G/DL CALC GLOBULIN (test code = 2240) 2.8 G/DL CALC A/G RATIO (test code = 2234) 1.6 RATIO BILIRUBIN, TOTAL (test code = 2207) 0.3 MG/DL ALKALINE PHOSPHATASE (test code = 2204) 72 U/L AST (test code = 2218) 13 U/L ALT (test code = 2219) 13 U/L Fabricio CasianoLIPID [id number] 00:00:00* Test Item Value Reference Range Interpretation Comme nts CHOLESTEROL (test code = 2210) 185 MG/DL TRIGLYCERIDES (test code = 2232) 77 MG/DL HDL CHOLESTEROL (test code = 2220) 51 MG/DL CALC LDL CHOL (test code = 2237) 119 MG/DL RISK RATIO LDL/HDL (test cod e = 2238) 2.33 RATIO Fabricio CasianoCBC W/AUTO [id number] 00:00:00* Test Item Value Reference Range Interpretation Comme nts WBC (test code = 1001) 5.4 K/UL RBC (test code = 1002) 4.25 M/UL HEMOGLOBIN (test code = 1003) 13.3 G/DL HEMATOCRIT (test code = 1004) 37.6 % MCV (test code = 1005) 88.5 fL MCH (test code = 1006) 31.3 PG MCHC (test code = 1007) 35.4 G/DL RDW (test code = 1038) 12.4 % NEUTROPHILS (test code = 1008) 58.1 % LYMPHOCYTES (test code = 1010) 30.7 % MONOCYTES (test code = 1011) 7.1 % EOSINOPHILS (test code = 1012) 3.7 % BASOPHILS (test code = 1013) 0.4 % PLATELET COUNT (test code = 1015) 205 K/UL Fabricio CasianoCARBAMAZEPINE (TEGRETOL)2018-05-01 00:00:00* Test Item Value Reference Range Interpretation Comme nts CARBAMAZEPINE (TEGRETOL) (te st code = 3006) 9.5 UG/ML Fabricio CasianoCOMPREHENSIVE METABOLIC [id number] 00:00:00* Test Item Value Reference Range Interpretation Comme nts GLUCOSE (test code = 2217) 84 MG/DL BUN (test code = 2208) 15 MG/DL CREATININE (test code = 2214) 0.85 MG/DL eGFR AMER. (test cod e = 40267) 125 ML/MIN/1.73 eGFR NON- AMER. (test code = 70880) 108 ML/MIN/1.73 CALC BUN/CREAT (test code = 2235) 18 RATIO SODIUM (test code = 2231) 142 MEQ/L POTASSIUM (test code = 2228) 4.0 MEQ/L CHLORIDE (test code = 2215) 103 MEQ/L CARBON DIOXIDE (test code = 2206) 28 MEQ/L CALCIUM (test code = 2209) 9.2 MG/DL PROTEIN, TOTAL (test code = 2229) 7.3 G/DL ALBUMIN (test code = 2201) 4.5 G/DL CALC GLOBULIN (test code = 2240) 2.8 G/DL CALC A/G RATIO (test code = 2234) 1.6 RATIO BILIRUBIN, TOTAL (test code = 2207) 0.3 MG/DL ALKALINE PHOSPHATASE (test code = 2204) 72 U/L AST (test code = 2218) 13 U/L ALT (test code = 2219) 13 U/L Fabricio CasianoLIPID [id number] 00:00:00* Test Item Value Reference Range Interpretation Comme nts CHOLESTEROL (test code = 2210) 185 MG/DL TRIGLYCERIDES (test code = 2232) 77 MG/DL HDL CHOLESTEROL (test code = 2220) 51 MG/DL CALC LDL CHOL (test code = 2237) 119 MG/DL RISK RATIO LDL/HDL (test cod e = 2238) 2.33 RATIO Fabricio CasianoCBC W/AUTO [id number] 00:00:00* Test Item Value Reference Range Interpretation Comme nts WBC (test code = 1001) 5.4 K/UL RBC (test code = 1002) 4.25 M/UL HEMOGLOBIN (test code = 1003) 13.3 G/DL HEMATOCRIT (test code = 1004) 37.6 % MCV (test code = 1005) 88.5 fL MCH (test code = 1006) 31.3 PG MCHC (test code = 1007) 35.4 G/DL RDW (test code = 1038) 12.4 % NEUTROPHILS (test code = 1008) 58.1 % LYMPHOCYTES (test code = 1010) 30.7 % MONOCYTES (test code = 1011) 7.1 % EOSINOPHILS (test code = 1012) 3.7 % BASOPHILS (test code = 1013) 0.4 % PLATELET COUNT (test code = 1015) 205 K/UL Fabricio CasianoCARBAMAZEPINE (TEGRETOL)2018-05-01 00:00:00* Test Item Value Reference Range Interpretation Comme nts CARBAMAZEPINE (TEGRETOL) (te st code = 3006) 9.5 UG/ML Fabricio CasianoCOMPREHENSIVE METABOLIC [id number] 00:00:00* Test Item Value Reference Range Interpretation Comme nts GLUCOSE (test code = 2217) 84 MG/DL BUN (test code = 2208) 15 MG/DL CREATININE (test code = 2214) 0.85 MG/DL eGFR AMER. (test cod e = 66527) 125 ML/MIN/1.73 eGFR NON- AMER. (test code = 26673) 108 ML/MIN/1.73 CALC BUN/CREAT (test code = 2235) 18 RATIO SODIUM (test code = 2231) 142 MEQ/L POTASSIUM (test code = 2228) 4.0 MEQ/L CHLORIDE (test code = 2215) 103 MEQ/L CARBON DIOXIDE (test code = 2206) 28 MEQ/L CALCIUM (test code = 2209) 9.2 MG/DL PROTEIN, TOTAL (test code = 2229) 7.3 G/DL ALBUMIN (test code = 2201) 4.5 G/DL CALC GLOBULIN (test code = 2240) 2.8 G/DL CALC A/G RATIO (test code = 2234) 1.6 RATIO BILIRUBIN, TOTAL (test code = 2207) 0.3 MG/DL ALKALINE PHOSPHATASE (test code = 2204) 72 U/L AST (test code = 2218) 13 U/L ALT (test code = 2219) 13 U/L Fabricio CasianoLIPID [id number] 00:00:00* Test Item Value Reference Range Interpretation Comme nts CHOLESTEROL (test code = 2210) 185 MG/DL TRIGLYCERIDES (test code = 2232) 77 MG/DL HDL CHOLESTEROL (test code = 2220) 51 MG/DL CALC LDL CHOL (test code = 2237) 119 MG/DL RISK RATIO LDL/HDL (test cod e = 2238) 2.33 RATIO Fabricio CasianoCBC W/AUTO [id number] 00:00:00* Test Item Value Reference Range Interpretation Comme nts WBC (test code = 1001) 5.4 K/UL RBC (test code = 1002) 4.25 M/UL HEMOGLOBIN (test code = 1003) 13.3 G/DL HEMATOCRIT (test code = 1004) 37.6 % MCV (test code = 1005) 88.5 fL MCH (test code = 1006) 31.3 PG MCHC (test code = 1007) 35.4 G/DL RDW (test code = 1038) 12.4 % NEUTROPHILS (test code = 1008) 58.1 % LYMPHOCYTES (test code = 1010) 30.7 % MONOCYTES (test code = 1011) 7.1 % EOSINOPHILS (test code = 1012) 3.7 % BASOPHILS (test code = 1013) 0.4 % PLATELET COUNT (test code = 1015) 205 K/UL Fabricio CasianoCARBAMAZEPINE (TEGRETOL)2018-05-01 00:00:00* Test Item Value Reference Range Interpretation Comme nts CARBAMAZEPINE (TEGRETOL) (te st code = 3006) 9.5 UG/ML Fabricio CasianoCOMPREHENSIVE METABOLIC [id number] 00:00:00* Test Item Value Reference Range Interpretation Comme nts GLUCOSE (test code = 2217) 84 MG/DL BUN (test code = 2208) 15 MG/DL CREATININE (test code = 2214) 0.85 MG/DL eGFR AMER. (test cod e = 56958) 125 ML/MIN/1.73 eGFR NON- AMER. (test code = 86942) 108 ML/MIN/1.73 CALC BUN/CREAT (test code = 2235) 18 RATIO SODIUM (test code = 2231) 142 MEQ/L POTASSIUM (test code = 2228) 4.0 MEQ/L CHLORIDE (test code = 2215) 103 MEQ/L CARBON DIOXIDE (test code = 2206) 28 MEQ/L CALCIUM (test code = 2209) 9.2 MG/DL PROTEIN, TOTAL (test code = 2229) 7.3 G/DL ALBUMIN (test code = 2201) 4.5 G/DL CALC GLOBULIN (test code = 2240) 2.8 G/DL CALC A/G RATIO (test code = 2234) 1.6 RATIO BILIRUBIN, TOTAL (test code = 2207) 0.3 MG/DL ALKALINE PHOSPHATASE (test code = 2204) 72 U/L AST (test code = 2218) 13 U/L ALT (test code = 2219) 13 U/L Fabricio CasianoLIPID [id number] 00:00:00* Test Item Value Reference Range Interpretation Comme nts CHOLESTEROL (test code = 2210) 185 MG/DL TRIGLYCERIDES (test code = 2232) 77 MG/DL HDL CHOLESTEROL (test code = 2220) 51 MG/DL CALC LDL CHOL (test code = 2237) 119 MG/DL RISK RATIO LDL/HDL (test cod e = 2238) 2.33 RATIO Fabricio CasianoCBC W/AUTO [id number] 00:00:00* Test Item Value Reference Range Interpretation Comme nts WBC (test code = 1001) 5.4 K/UL RBC (test code = 1002) 4.25 M/UL HEMOGLOBIN (test code = 1003) 13.3 G/DL HEMATOCRIT (test code = 1004) 37.6 % MCV (test code = 1005) 88.5 fL MCH (test code = 1006) 31.3 PG MCHC (test code = 1007) 35.4 G/DL RDW (test code = 1038) 12.4 % NEUTROPHILS (test code = 1008) 58.1 % LYMPHOCYTES (test code = 1010) 30.7 % MONOCYTES (test code = 1011) 7.1 % EOSINOPHILS (test code = 1012) 3.7 % BASOPHILS (test code = 1013) 0.4 % PLATELET COUNT (test code = 1015) 205 K/UL Fabricio Gomez OhCARBAMAZEPINE (TEGRETOL)2018-05-01 00:00:00* Test Item Value Reference Range Interpretation Comme nts CARBAMAZEPINE (TEGRETOL) (te st code = 3006) 9.5 UG/ML Fabricio Gomez OhCOMPREHENSIVE METABOLIC [id number] 00:00:00* Test Item Value Reference Range Interpretation Comme nts GLUCOSE (test code = 2217) 84 MG/DL BUN (test code = 2208) 15 MG/DL CREATININE (test code = 2214) 0.85 MG/DL eGFR AMER. (test cod e = 54731) 125 ML/MIN/1.73 eGFR NON- AMER. (test code = 47154) 108 ML/MIN/1.73 CALC BUN/CREAT (test code = 2235) 18 RATIO SODIUM (test code = 2231) 142 MEQ/L POTASSIUM (test code = 2228) 4.0 MEQ/L CHLORIDE (test code = 2215) 103 MEQ/L CARBON DIOXIDE (test code = 2206) 28 MEQ/L CALCIUM (test code = 2209) 9.2 MG/DL PROTEIN, TOTAL (test code = 2229) 7.3 G/DL ALBUMIN (test code = 2201) 4.5 G/DL CALC GLOBULIN (test code = 2240) 2.8 G/DL CALC A/G RATIO (test code = 2234) 1.6 RATIO BILIRUBIN, TOTAL (test code = 2207) 0.3 MG/DL ALKALINE PHOSPHATASE (test code = 2204) 72 U/L AST (test code = 2218) 13 U/L ALT (test code = 2219) 13 U/L Fabricio CasianoLIPID [id number] 00:00:00* Test Item Value Reference Range Interpretation Comme nts CHOLESTEROL (test code = 2210) 185 MG/DL TRIGLYCERIDES (test code = 2232) 77 MG/DL HDL CHOLESTEROL (test code = 2220) 51 MG/DL CALC LDL CHOL (test code = 2237) 119 MG/DL RISK RATIO LDL/HDL (test cod e = 2238) 2.33 RATIO Fabricio CasianoCBC W/AUTO [id number] 00:00:00* Test Item Value Reference Range Interpretation Comme nts WBC (test code = 1001) 5.4 K/UL RBC (test code = 1002) 4.25 M/UL HEMOGLOBIN (test code = 1003) 13.3 G/DL HEMATOCRIT (test code = 1004) 37.6 % MCV (test code = 1005) 88.5 fL MCH (test code = 1006) 31.3 PG MCHC (test code = 1007) 35.4 G/DL RDW (test code = 1038) 12.4 % NEUTROPHILS (test code = 1008) 58.1 % LYMPHOCYTES (test code = 1010) 30.7 % MONOCYTES (test code = 1011) 7.1 % EOSINOPHILS (test code = 1012) 3.7 % BASOPHILS (test code = 1013) 0.4 % PLATELET COUNT (test code = 1015) 205 K/UL Fabricio CasianoCARBAMAZEPINE (TEGRETOL)2018-05-01 00:00:00* Test Item Value Reference Range Interpretation Comme nts CARBAMAZEPINE (TEGRETOL) (te st code = 3006) 9.5 UG/ML Fabricio CasianoCOMPREHENSIVE METABOLIC [id number] 00:00:00* Test Item Value Reference Range Interpretation Comme nts GLUCOSE (test code = 2217) 84 MG/DL BUN (test code = 2208) 15 MG/DL CREATININE (test code = 2214) 0.85 MG/DL eGFR AMER. (test cod e = 32974) 125 ML/MIN/1.73 eGFR NON- AMER. (test code = 44988) 108 ML/MIN/1.73 CALC BUN/CREAT (test code = 2235) 18 RATIO SODIUM (test code = 2231) 142 MEQ/L POTASSIUM (test code = 2228) 4.0 MEQ/L CHLORIDE (test code = 2215) 103 MEQ/L CARBON DIOXIDE (test code = 2206) 28 MEQ/L CALCIUM (test code = 2209) 9.2 MG/DL PROTEIN, TOTAL (test code = 2229) 7.3 G/DL ALBUMIN (test code = 2201) 4.5 G/DL CALC GLOBULIN (test code = 2240) 2.8 G/DL CALC A/G RATIO (test code = 2234) 1.6 RATIO BILIRUBIN, TOTAL (test code = 2207) 0.3 MG/DL ALKALINE PHOSPHATASE (test code = 2204) 72 U/L AST (test code = 2218) 13 U/L ALT (test code = 2219) 13 U/L Fabricio CasianoLIPID [id number] 00:00:00* Test Item Value Reference Range Interpretation Comme nts CHOLESTEROL (test code = 2210) 185 MG/DL TRIGLYCERIDES (test code = 2232) 77 MG/DL HDL CHOLESTEROL (test code = 2220) 51 MG/DL CALC LDL CHOL (test code = 2237) 119 MG/DL RISK RATIO LDL/HDL (test cod e = 2238) 2.33 RATIO Fabricio Gomez OhCBC W/AUTO [id number] 00:00:00* Test Item Value Reference Range Interpretation Comme nts WBC (test code = 1001) 5.4 K/UL RBC (test code = 1002) 4.25 M/UL HEMOGLOBIN (test code = 1003) 13.3 G/DL HEMATOCRIT (test code = 1004) 37.6 % MCV (test code = 1005) 88.5 fL MCH (test code = 1006) 31.3 PG MCHC (test code = 1007) 35.4 G/DL RDW (test code = 1038) 12.4 % NEUTROPHILS (test code = 1008) 58.1 % LYMPHOCYTES (test code = 1010) 30.7 % MONOCYTES (test code = 1011) 7.1 % EOSINOPHILS (test code = 1012) 3.7 % BASOPHILS (test code = 1013) 0.4 % PLATELET COUNT (test code = 1015) 205 K/UL Fabricio CasianoCARBAMAZEPINE (TEGRETOL)2018-05-01 00:00:00* Test Item Value Reference Range Interpretation Comme nts CARBAMAZEPINE (TEGRETOL) (te st code = 3006) 9.5 UG/ML Fabricio CasianoCOMPREHENSIVE METABOLIC [id number] 00:00:00* Test Item Value Reference Range Interpretation Comme nts GLUCOSE (test code = 2217) 84 MG/DL BUN (test code = 2208) 15 MG/DL CREATININE (test code = 2214) 0.85 MG/DL eGFR AMER. (test cod e = 47150) 125 ML/MIN/1.73 eGFR NON- AMER. (test code = 04224) 108 ML/MIN/1.73 CALC BUN/CREAT (test code = 2235) 18 RATIO SODIUM (test code = 2231) 142 MEQ/L POTASSIUM (test code = 2228) 4.0 MEQ/L CHLORIDE (test code = 2215) 103 MEQ/L CARBON DIOXIDE (test code = 2206) 28 MEQ/L CALCIUM (test code = 2209) 9.2 MG/DL PROTEIN, TOTAL (test code = 2229) 7.3 G/DL ALBUMIN (test code = 2201) 4.5 G/DL CALC GLOBULIN (test code = 2240) 2.8 G/DL CALC A/G RATIO (test code = 2234) 1.6 RATIO BILIRUBIN, TOTAL (test code = 2207) 0.3 MG/DL ALKALINE PHOSPHATASE (test code = 2204) 72 U/L AST (test code = 2218) 13 U/L ALT (test code = 2219) 13 U/L Fabricio CasianoLIPID [id number] 00:00:00* Test Item Value Reference Range Interpretation Comme nts CHOLESTEROL (test code = 2210) 185 MG/DL TRIGLYCERIDES (test code = 2232) 77 MG/DL HDL CHOLESTEROL (test code = 2220) 51 MG/DL CALC LDL CHOL (test code = 2237) 119 MG/DL RISK RATIO LDL/HDL (test cod e = 2238) 2.33 RATIO Fabricio CasianoCBC W/AUTO [id number] 00:00:00* Test Item Value Reference Range Interpretation Comme nts WBC (test code = 1001) 5.4 K/UL RBC (test code = 1002) 4.25 M/UL HEMOGLOBIN (test code = 1003) 13.3 G/DL HEMATOCRIT (test code = 1004) 37.6 % MCV (test code = 1005) 88.5 fL MCH (test code = 1006) 31.3 PG MCHC (test code = 1007) 35.4 G/DL RDW (test code = 1038) 12.4 % NEUTROPHILS (test code = 1008) 58.1 % LYMPHOCYTES (test code = 1010) 30.7 % MONOCYTES (test code = 1011) 7.1 % EOSINOPHILS (test code = 1012) 3.7 % BASOPHILS (test code = 1013) 0.4 % PLATELET COUNT (test code = 1015) 205 K/UL Fabricio Gomez OhCARBAMAZEPINE (TEGRETOL)2018-05-01 00:00:00* Test Item Value Reference Range Interpretation Comme nts CARBAMAZEPINE (TEGRETOL) (te st code = 3006) 9.5 UG/ML Fabricio Gomez OhCOMPREHENSIVE METABOLIC [id number] 00:00:00* Test Item Value Reference Range Interpretation Comme nts GLUCOSE (test code = 2217) 84 MG/DL BUN (test code = 2208) 15 MG/DL CREATININE (test code = 2214) 0.85 MG/DL eGFR AMER. (test cod e = 06911) 125 ML/MIN/1.73 eGFR NON- AMER. (test code = 10040) 108 ML/MIN/1.73 CALC BUN/CREAT (test code = 2235) 18 RATIO SODIUM (test code = 2231) 142 MEQ/L POTASSIUM (test code = 2228) 4.0 MEQ/L CHLORIDE (test code = 2215) 103 MEQ/L CARBON DIOXIDE (test code = 2206) 28 MEQ/L CALCIUM (test code = 2209) 9.2 MG/DL PROTEIN, TOTAL (test code = 2229) 7.3 G/DL ALBUMIN (test code = 2201) 4.5 G/DL CALC GLOBULIN (test code = 2240) 2.8 G/DL CALC A/G RATIO (test code = 2234) 1.6 RATIO BILIRUBIN, TOTAL (test code = 2207) 0.3 MG/DL ALKALINE PHOSPHATASE (test code = 2204) 72 U/L AST (test code = 2218) 13 U/L ALT (test code = 2219) 13 U/L Fabricio CasianoLIPID [id number] 00:00:00* Test Item Value Reference Range Interpretation Comme nts CHOLESTEROL (test code = 2210) 185 MG/DL TRIGLYCERIDES (test code = 2232) 77 MG/DL HDL CHOLESTEROL (test code = 2220) 51 MG/DL CALC LDL CHOL (test code = 2237) 119 MG/DL RISK RATIO LDL/HDL (test cod e = 2238) 2.33 RATIO Fabricio CasianoCBC W/AUTO [id number] 00:00:00* Test Item Value Reference Range Interpretation Comme nts WBC (test code = 1001) 5.4 K/UL RBC (test code = 1002) 4.25 M/UL HEMOGLOBIN (test code = 1003) 13.3 G/DL HEMATOCRIT (test code = 1004) 37.6 % MCV (test code = 1005) 88.5 fL MCH (test code = 1006) 31.3 PG MCHC (test code = 1007) 35.4 G/DL RDW (test code = 1038) 12.4 % NEUTROPHILS (test code = 1008) 58.1 % LYMPHOCYTES (test code = 1010) 30.7 % MONOCYTES (test code = 1011) 7.1 % EOSINOPHILS (test code = 1012) 3.7 % BASOPHILS (test code = 1013) 0.4 % PLATELET COUNT (test code = 1015) 205 K/UL Fabricio CasianoCARBAMAZEPINE (TEGRETOL)2017-07-06 00:00:00* Test Item Value Reference Range Interpretation Comme nts CARBAMAZEPINE (TEGRETOL) (te st code = 3006) 11.4 UG/ML Fabricio CasianoCOMPREHENSIVE METABOLIC [id number] 00:00:00* Test Item Value Reference Range Interpretation Comme nts GLUCOSE (test code = 2217) 108 MG/DL BUN (test code = 2208) 14 MG/DL CREATININE (test code = 2214) 0.76 MG/DL eGFR AMER. (test cod e = 86350) 132 ML/MIN/1.73 eGFR NON- AMER. (test code = 50963) 114 ML/MIN/1.73 CALC BUN/CREAT (test code = 2235) 18 RATIO SODIUM (test code = 2231) 140 MEQ/L POTASSIUM (test code = 2228) 3.9 MEQ/L CHLORIDE (test code = 2215) 102 MEQ/L CARBON DIOXIDE (test code = 2206) 27 MEQ/L CALCIUM (test code = 2209) 8.7 MG/DL PROTEIN, TOTAL (test code = 2229) 7.4 G/DL ALBUMIN (test code = 2201) 4.6 G/DL CALC GLOBULIN (test code = 2240) 2.8 G/DL CALC A/G RATIO (test code = 2234) 1.6 RATIO BILIRUBIN, TOTAL (test code = 2207) 0.2 MG/DL ALKALINE PHOSPHATASE (test code = 2204) 73 U/L AST (test code = 2218) 15 U/L ALT (test code = 2219) 16 U/L Fabricio CasianoLIPID [id number] 00:00:00* Test Item Value Reference Range Interpretation Comme nts CHOLESTEROL (test code = 2210) 183 MG/DL TRIGLYCERIDES (test code = 2232) 119 MG/DL HDL CHOLESTEROL (test code = 2220) 52 MG/DL CALC LDL CHOL (test code = 2237) 107 MG/DL RISK RATIO LDL/HDL (test cod e = 2238) 2.06 RATIO Fabricio [id number] 00:00:00* Test Item Value Reference Range Interpretation Comme nts TSH (test code = 2821) 1.820 UIU/ML Fabricio CasianoCARBAMAZEPINE (TEGRETOL)2017-07-06 00:00:00* Test Item Value Reference Range Interpretation Comme nts CARBAMAZEPINE (TEGRETOL) (te st code = 3006) 11.4 UG/ML Fabricio CasianoCOMPREHENSIVE METABOLIC [id number] 00:00:00* Test Item Value Reference Range Interpretation Comme nts GLUCOSE (test code = 2217) 108 MG/DL BUN (test code = 2208) 14 MG/DL CREATININE (test code = 2214) 0.76 MG/DL eGFR AMER. (test cod e = 37774) 132 ML/MIN/1.73 eGFR NON- AMER. (test code = 69905) 114 ML/MIN/1.73 CALC BUN/CREAT (test code = 2235) 18 RATIO SODIUM (test code = 2231) 140 MEQ/L POTASSIUM (test code = 2228) 3.9 MEQ/L CHLORIDE (test code = 2215) 102 MEQ/L CARBON DIOXIDE (test code = 2206) 27 MEQ/L CALCIUM (test code = 2209) 8.7 MG/DL PROTEIN, TOTAL (test code = 2229) 7.4 G/DL ALBUMIN (test code = 2201) 4.6 G/DL CALC GLOBULIN (test code = 2240) 2.8 G/DL CALC A/G RATIO (test code = 2234) 1.6 RATIO BILIRUBIN, TOTAL (test code = 2207) 0.2 MG/DL ALKALINE PHOSPHATASE (test code = 2204) 73 U/L AST (test code = 2218) 15 U/L ALT (test code = 2219) 16 U/L Fabricio Gomez AustinLIPID [id number] 00:00:00* Test Item Value Reference Range Interpretation Comme nts CHOLESTEROL (test code = 2210) 183 MG/DL TRIGLYCERIDES (test code = 2232) 119 MG/DL HDL CHOLESTEROL (test code = 2220) 52 MG/DL CALC LDL CHOL (test code = 2237) 107 MG/DL RISK RATIO LDL/HDL (test cod e = 2238) 2.06 RATIO Fabricio [id number] 00:00:00* Test Item Value Reference Range Interpretation Comme nts TSH (test code = 2821) 1.820 UIU/ML Fabricio CasianoCARBAMAZEPINE (TEGRETOL)2017-07-06 00:00:00* Test Item Value Reference Range Interpretation Comme nts CARBAMAZEPINE (TEGRETOL) (te st code = 3006) 11.4 UG/ML Fabricio Gomez FidelityCOMPREHENSIVE METABOLIC [id number] 00:00:00* Test Item Value Reference Range Interpretation Comme nts GLUCOSE (test code = 2217) 108 MG/DL BUN (test code = 2208) 14 MG/DL CREATININE (test code = 2214) 0.76 MG/DL eGFR AMER. (test cod e = 21525) 132 ML/MIN/1.73 eGFR NON- AMER. (test code = 82663) 114 ML/MIN/1.73 CALC BUN/CREAT (test code = 2235) 18 RATIO SODIUM (test code = 2231) 140 MEQ/L POTASSIUM (test code = 2228) 3.9 MEQ/L CHLORIDE (test code = 2215) 102 MEQ/L CARBON DIOXIDE (test code = 2206) 27 MEQ/L CALCIUM (test code = 2209) 8.7 MG/DL PROTEIN, TOTAL (test code = 2229) 7.4 G/DL ALBUMIN (test code = 2201) 4.6 G/DL CALC GLOBULIN (test code = 2240) 2.8 G/DL CALC A/G RATIO (test code = 2234) 1.6 RATIO BILIRUBIN, TOTAL (test code = 2207) 0.2 MG/DL ALKALINE PHOSPHATASE (test code = 2204) 73 U/L AST (test code = 2218) 15 U/L ALT (test code = 2219) 16 U/L Fabricio Gomez AustinLIPID [id number] 00:00:00* Test Item Value Reference Range Interpretation Comme nts CHOLESTEROL (test code = 2210) 183 MG/DL TRIGLYCERIDES (test code = 2232) 119 MG/DL HDL CHOLESTEROL (test code = 2220) 52 MG/DL CALC LDL CHOL (test code = 2237) 107 MG/DL RISK RATIO LDL/HDL (test cod e = 2238) 2.06 RATIO Fabricio [id number] 00:00:00* Test Item Value Reference Range Interpretation Comme nts TSH (test code = 2821) 1.820 UIU/ML Fabricio Gomez FidelityCARBAMAZEPINE (TEGRETOL)2017-07-06 00:00:00* Test Item Value Reference Range Interpretation Comme nts CARBAMAZEPINE (TEGRETOL) (te st code = 3006) 11.4 UG/ML Fabricio Gomez FidelityCOMPREHENSIVE METABOLIC [id number] 00:00:00* Test Item Value Reference Range Interpretation Comme nts GLUCOSE (test code = 2217) 108 MG/DL BUN (test code = 2208) 14 MG/DL CREATININE (test code = 2214) 0.76 MG/DL eGFR AMER. (test cod e = 39603) 132 ML/MIN/1.73 eGFR NON- AMER. (test code = 87360) 114 ML/MIN/1.73 CALC BUN/CREAT (test code = 2235) 18 RATIO SODIUM (test code = 2231) 140 MEQ/L POTASSIUM (test code = 2228) 3.9 MEQ/L CHLORIDE (test code = 2215) 102 MEQ/L CARBON DIOXIDE (test code = 2206) 27 MEQ/L CALCIUM (test code = 2209) 8.7 MG/DL PROTEIN, TOTAL (test code = 2229) 7.4 G/DL ALBUMIN (test code = 2201) 4.6 G/DL CALC GLOBULIN (test code = 2240) 2.8 G/DL CALC A/G RATIO (test code = 2234) 1.6 RATIO BILIRUBIN, TOTAL (test code = 2207) 0.2 MG/DL ALKALINE PHOSPHATASE (test code = 2204) 73 U/L AST (test code = 2218) 15 U/L ALT (test code = 2219) 16 U/L Fabricio CasianoLIPID [id number] 00:00:00* Test Item Value Reference Range Interpretation Comme nts CHOLESTEROL (test code = 2210) 183 MG/DL TRIGLYCERIDES (test code = 2232) 119 MG/DL HDL CHOLESTEROL (test code = 2220) 52 MG/DL CALC LDL CHOL (test code = 2237) 107 MG/DL RISK RATIO LDL/HDL (test cod e = 2238) 2.06 RATIO Fabricio [id number] 00:00:00* Test Item Value Reference Range Interpretation Comme nts TSH (test code = 2821) 1.820 UIU/ML Fabricio Gomez FidelityCARBAMAZEPINE (TEGRETOL)2017-07-06 00:00:00* Test Item Value Reference Range Interpretation Comme nts CARBAMAZEPINE (TEGRETOL) (te st code = 3006) 11.4 UG/ML Fabricio Gomez FidelityCOMPREHENSIVE METABOLIC [id number] 00:00:00* Test Item Value Reference Range Interpretation Comme nts GLUCOSE (test code = 2217) 108 MG/DL BUN (test code = 2208) 14 MG/DL CREATININE (test code = 2214) 0.76 MG/DL eGFR AMER. (test cod e = 70838) 132 ML/MIN/1.73 eGFR NON- AMER. (test code = 23930) 114 ML/MIN/1.73 CALC BUN/CREAT (test code = 2235) 18 RATIO SODIUM (test code = 2231) 140 MEQ/L POTASSIUM (test code = 2228) 3.9 MEQ/L CHLORIDE (test code = 2215) 102 MEQ/L CARBON DIOXIDE (test code = 2206) 27 MEQ/L CALCIUM (test code = 2209) 8.7 MG/DL PROTEIN, TOTAL (test code = 2229) 7.4 G/DL ALBUMIN (test code = 2201) 4.6 G/DL CALC GLOBULIN (test code = 2240) 2.8 G/DL CALC A/G RATIO (test code = 2234) 1.6 RATIO BILIRUBIN, TOTAL (test code = 2207) 0.2 MG/DL ALKALINE PHOSPHATASE (test code = 2204) 73 U/L AST (test code = 2218) 15 U/L ALT (test code = 2219) 16 U/L Fabricio CasianoLIPID [id number] 00:00:00* Test Item Value Reference Range Interpretation Comme nts CHOLESTEROL (test code = 2210) 183 MG/DL TRIGLYCERIDES (test code = 2232) 119 MG/DL HDL CHOLESTEROL (test code = 2220) 52 MG/DL CALC LDL CHOL (test code = 2237) 107 MG/DL RISK RATIO LDL/HDL (test cod e = 2238) 2.06 RATIO Fabricio [id number] 00:00:00* Test Item Value Reference Range Interpretation Comme nts TSH (test code = 2821) 1.820 UIU/ML Fabricio Gomez FidelityCARBAMAZEPINE (TEGRETOL)2017-07-06 00:00:00* Test Item Value Reference Range Interpretation Comme nts CARBAMAZEPINE (TEGRETOL) (te st code = 3006) 11.4 UG/ML Fabricio Gomez FidelityCOMPREHENSIVE METABOLIC [id number] 00:00:00* Test Item Value Reference Range Interpretation Comme nts GLUCOSE (test code = 2217) 108 MG/DL BUN (test code = 2208) 14 MG/DL CREATININE (test code = 2214) 0.76 MG/DL eGFR AMER. (test cod e = 15069) 132 ML/MIN/1.73 eGFR NON- AMER. (test code = 55247) 114 ML/MIN/1.73 CALC BUN/CREAT (test code = 2235) 18 RATIO SODIUM (test code = 2231) 140 MEQ/L POTASSIUM (test code = 2228) 3.9 MEQ/L CHLORIDE (test code = 2215) 102 MEQ/L CARBON DIOXIDE (test code = 2206) 27 MEQ/L CALCIUM (test code = 2209) 8.7 MG/DL PROTEIN, TOTAL (test code = 2229) 7.4 G/DL ALBUMIN (test code = 2201) 4.6 G/DL CALC GLOBULIN (test code = 2240) 2.8 G/DL CALC A/G RATIO (test code = 2234) 1.6 RATIO BILIRUBIN, TOTAL (test code = 2207) 0.2 MG/DL ALKALINE PHOSPHATASE (test code = 2204) 73 U/L AST (test code = 2218) 15 U/L ALT (test code = 2219) 16 U/L Fabricio CasianoLIPID [id number] 00:00:00* Test Item Value Reference Range Interpretation Comme nts CHOLESTEROL (test code = 2210) 183 MG/DL TRIGLYCERIDES (test code = 2232) 119 MG/DL HDL CHOLESTEROL (test code = 2220) 52 MG/DL CALC LDL CHOL (test code = 2237) 107 MG/DL RISK RATIO LDL/HDL (test cod e = 2238) 2.06 RATIO Fabricio [id number] 00:00:00* Test Item Value Reference Range Interpretation Comme nts TSH (test code = 2821) 1.820 UIU/ML Fabricio Gomez FidelityCARBAMAZEPINE (TEGRETOL)2017-07-06 00:00:00* Test Item Value Reference Range Interpretation Comme nts CARBAMAZEPINE (TEGRETOL) (te st code = 3006) 11.4 UG/ML Fabricio CasianoCOMPREHENSIVE METABOLIC [id number] 00:00:00* Test Item Value Reference Range Interpretation Comme nts GLUCOSE (test code = 2217) 108 MG/DL BUN (test code = 2208) 14 MG/DL CREATININE (test code = 2214) 0.76 MG/DL eGFR AMER. (test cod e = 15906) 132 ML/MIN/1.73 eGFR NON- AMER. (test code = 45073) 114 ML/MIN/1.73 CALC BUN/CREAT (test code = 2235) 18 RATIO SODIUM (test code = 2231) 140 MEQ/L POTASSIUM (test code = 2228) 3.9 MEQ/L CHLORIDE (test code = 2215) 102 MEQ/L CARBON DIOXIDE (test code = 2206) 27 MEQ/L CALCIUM (test code = 2209) 8.7 MG/DL PROTEIN, TOTAL (test code = 2229) 7.4 G/DL ALBUMIN (test code = 2201) 4.6 G/DL CALC GLOBULIN (test code = 2240) 2.8 G/DL CALC A/G RATIO (test code = 2234) 1.6 RATIO BILIRUBIN, TOTAL (test code = 2207) 0.2 MG/DL ALKALINE PHOSPHATASE (test code = 2204) 73 U/L AST (test code = 2218) 15 U/L ALT (test code = 2219) 16 U/L Fabricio CasianoLIPID [id number] 00:00:00* Test Item Value Reference Range Interpretation Comme nts CHOLESTEROL (test code = 2210) 183 MG/DL TRIGLYCERIDES (test code = 2232) 119 MG/DL HDL CHOLESTEROL (test code = 2220) 52 MG/DL CALC LDL CHOL (test code = 2237) 107 MG/DL RISK RATIO LDL/HDL (test cod e = 2238) 2.06 RATIO Fabricio [id number] 00:00:00* Test Item Value Reference Range Interpretation Comme nts TSH (test code = 2821) 1.820 UIU/ML Fabricio Gomez AustinCARBAMAZEPINE (TEGRETOL)2017-07-06 00:00:00* Test Item Value Reference Range Interpretation Comme nts CARBAMAZEPINE (TEGRETOL) (te st code = 3006) 11.4 UG/ML Fabricio CasianoCOMPREHENSIVE METABOLIC [id number] 00:00:00* Test Item Value Reference Range Interpretation Comme nts GLUCOSE (test code = 2217) 108 MG/DL BUN (test code = 2208) 14 MG/DL CREATININE (test code = 2214) 0.76 MG/DL eGFR AMER. (test cod e = 56486) 132 ML/MIN/1.73 eGFR NON- AMER. (test code = 34265) 114 ML/MIN/1.73 CALC BUN/CREAT (test code = 2235) 18 RATIO SODIUM (test code = 2231) 140 MEQ/L POTASSIUM (test code = 2228) 3.9 MEQ/L CHLORIDE (test code = 2215) 102 MEQ/L CARBON DIOXIDE (test code = 2206) 27 MEQ/L CALCIUM (test code = 2209) 8.7 MG/DL PROTEIN, TOTAL (test code = 2229) 7.4 G/DL ALBUMIN (test code = 2201) 4.6 G/DL CALC GLOBULIN (test code = 2240) 2.8 G/DL CALC A/G RATIO (test code = 2234) 1.6 RATIO BILIRUBIN, TOTAL (test code = 2207) 0.2 MG/DL ALKALINE PHOSPHATASE (test code = 2204) 73 U/L AST (test code = 2218) 15 U/L ALT (test code = 2219) 16 U/L Fabricio CasianoLIPID [id number] 00:00:00* Test Item Value Reference Range Interpretation Comme nts CHOLESTEROL (test code = 2210) 183 MG/DL TRIGLYCERIDES (test code = 2232) 119 MG/DL HDL CHOLESTEROL (test code = 2220) 52 MG/DL CALC LDL CHOL (test code = 2237) 107 MG/DL RISK RATIO LDL/HDL (test cod e = 2238) 2.06 RATIO Fabricio [id number] 00:00:00* Test Item Value Reference Range Interpretation Comme nts TSH (test code = 2821) 1.820 UIU/ML Fabricio CasianoCARBAMAZEPINE (TEGRETOL)2017-07-06 00:00:00* Test Item Value Reference Range Interpretation Comme nts CARBAMAZEPINE (TEGRETOL) (te st code = 3006) 11.4 UG/ML Fabricio CasianoCOMPREHENSIVE METABOLIC [id number] 00:00:00* Test Item Value Reference Range Interpretation Comme nts GLUCOSE (test code = 2217) 108 MG/DL BUN (test code = 2208) 14 MG/DL CREATININE (test code = 2214) 0.76 MG/DL eGFR AMER. (test cod e = 63395) 132 ML/MIN/1.73 eGFR NON- AMER. (test code = 48729) 114 ML/MIN/1.73 CALC BUN/CREAT (test code = 2235) 18 RATIO SODIUM (test code = 2231) 140 MEQ/L POTASSIUM (test code = 2228) 3.9 MEQ/L CHLORIDE (test code = 2215) 102 MEQ/L CARBON DIOXIDE (test code = 2206) 27 MEQ/L CALCIUM (test code = 2209) 8.7 MG/DL PROTEIN, TOTAL (test code = 2229) 7.4 G/DL ALBUMIN (test code = 2201) 4.6 G/DL CALC GLOBULIN (test code = 2240) 2.8 G/DL CALC A/G RATIO (test code = 2234) 1.6 RATIO BILIRUBIN, TOTAL (test code = 2207) 0.2 MG/DL ALKALINE PHOSPHATASE (test code = 2204) 73 U/L AST (test code = 2218) 15 U/L ALT (test code = 2219) 16 U/L Fabricio CasianoLIPID [id number] 00:00:00* Test Item Value Reference Range Interpretation Comme nts CHOLESTEROL (test code = 2210) 183 MG/DL TRIGLYCERIDES (test code = 2232) 119 MG/DL HDL CHOLESTEROL (test code = 2220) 52 MG/DL CALC LDL CHOL (test code = 2237) 107 MG/DL RISK RATIO LDL/HDL (test cod e = 2238) 2.06 RATIO Fabricio [id number] 00:00:00* Test Item Value Reference Range Interpretation Comme nts TSH (test code = 2821) 1.820 UIU/ML Fabricio CasianoCARBAMAZEPINE (TEGRETOL)2017-07-06 00:00:00* Test Item Value Reference Range Interpretation Comme nts CARBAMAZEPINE (TEGRETOL) (te st code = 3006) 11.4 UG/ML Fabricio CasianoCOMPREHENSIVE METABOLIC [id number] 00:00:00* Test Item Value Reference Range Interpretation Comme nts GLUCOSE (test code = 2217) 108 MG/DL BUN (test code = 2208) 14 MG/DL CREATININE (test code = 2214) 0.76 MG/DL eGFR AMER. (test cod e = 44114) 132 ML/MIN/1.73 eGFR NON- AMER. (test code = 30458) 114 ML/MIN/1.73 CALC BUN/CREAT (test code = 2235) 18 RATIO SODIUM (test code = 2231) 140 MEQ/L POTASSIUM (test code = 2228) 3.9 MEQ/L CHLORIDE (test code = 2215) 102 MEQ/L CARBON DIOXIDE (test code = 2206) 27 MEQ/L CALCIUM (test code = 2209) 8.7 MG/DL PROTEIN, TOTAL (test code = 2229) 7.4 G/DL ALBUMIN (test code = 2201) 4.6 G/DL CALC GLOBULIN (test code = 2240) 2.8 G/DL CALC A/G RATIO (test code = 2234) 1.6 RATIO BILIRUBIN, TOTAL (test code = 2207) 0.2 MG/DL ALKALINE PHOSPHATASE (test code = 2204) 73 U/L AST (test code = 2218) 15 U/L ALT (test code = 2219) 16 U/L Fabricio CasianoLIPID [id number] 00:00:00* Test Item Value Reference Range Interpretation Comme nts CHOLESTEROL (test code = 2210) 183 MG/DL TRIGLYCERIDES (test code = 2232) 119 MG/DL HDL CHOLESTEROL (test code = 2220) 52 MG/DL CALC LDL CHOL (test code = 2237) 107 MG/DL RISK RATIO LDL/HDL (test cod e = 2238) 2.06 RATIO Fabricio [id number] 00:00:00* Test Item Value Reference Range Interpretation Comme nts TSH (test code = 2821) 1.820 UIU/ML Fabricio CasianoCARBAMAZEPINE (TEGRETOL)2017-07-06 00:00:00* Test Item Value Reference Range Interpretation Comme nts CARBAMAZEPINE (TEGRETOL) (te st code = 3006) 11.4 UG/ML Fabricio CasianoCOMPREHENSIVE METABOLIC [id number] 00:00:00* Test Item Value Reference Range Interpretation Comme nts GLUCOSE (test code = 2217) 108 MG/DL BUN (test code = 2208) 14 MG/DL CREATININE (test code = 2214) 0.76 MG/DL eGFR AMER. (test cod e = 24707) 132 ML/MIN/1.73 eGFR NON- AMER. (test code = 28297) 114 ML/MIN/1.73 CALC BUN/CREAT (test code = 2235) 18 RATIO SODIUM (test code = 2231) 140 MEQ/L POTASSIUM (test code = 2228) 3.9 MEQ/L CHLORIDE (test code = 2215) 102 MEQ/L CARBON DIOXIDE (test code = 2206) 27 MEQ/L CALCIUM (test code = 2209) 8.7 MG/DL PROTEIN, TOTAL (test code = 2229) 7.4 G/DL ALBUMIN (test code = 2201) 4.6 G/DL CALC GLOBULIN (test code = 2240) 2.8 G/DL CALC A/G RATIO (test code = 2234) 1.6 RATIO BILIRUBIN, TOTAL (test code = 2207) 0.2 MG/DL ALKALINE PHOSPHATASE (test code = 2204) 73 U/L AST (test code = 2218) 15 U/L ALT (test code = 2219) 16 U/L Fabricio CasianoLIPID [id number] 00:00:00* Test Item Value Reference Range Interpretation Comme nts CHOLESTEROL (test code = 2210) 183 MG/DL TRIGLYCERIDES (test code = 2232) 119 MG/DL HDL CHOLESTEROL (test code = 2220) 52 MG/DL CALC LDL CHOL (test code = 2237) 107 MG/DL RISK RATIO LDL/HDL (test cod e = 2238) 2.06 RATIO Fabricio [id number] 00:00:00* Test Item Value Reference Range Interpretation Comme nts TSH (test code = 2821) 1.820 UIU/ML Fabricio CasianoCARBAMAZEPINE (TEGRETOL)2017-07-06 00:00:00* Test Item Value Reference Range Interpretation Comme nts CARBAMAZEPINE (TEGRETOL) (te st code = 3006) 11.4 UG/ML Fabricio CasianoCOMPREHENSIVE METABOLIC [id number] 00:00:00* Test Item Value Reference Range Interpretation Comme nts GLUCOSE (test code = 2217) 108 MG/DL BUN (test code = 2208) 14 MG/DL CREATININE (test code = 2214) 0.76 MG/DL eGFR AMER. (test cod e = 97666) 132 ML/MIN/1.73 eGFR NON- AMER. (test code = 53990) 114 ML/MIN/1.73 CALC BUN/CREAT (test code = 2235) 18 RATIO SODIUM (test code = 2231) 140 MEQ/L POTASSIUM (test code = 2228) 3.9 MEQ/L CHLORIDE (test code = 2215) 102 MEQ/L CARBON DIOXIDE (test code = 2206) 27 MEQ/L CALCIUM (test code = 2209) 8.7 MG/DL PROTEIN, TOTAL (test code = 2229) 7.4 G/DL ALBUMIN (test code = 2201) 4.6 G/DL CALC GLOBULIN (test code = 2240) 2.8 G/DL CALC A/G RATIO (test code = 2234) 1.6 RATIO BILIRUBIN, TOTAL (test code = 2207) 0.2 MG/DL ALKALINE PHOSPHATASE (test code = 2204) 73 U/L AST (test code = 2218) 15 U/L ALT (test code = 2219) 16 U/L Fabricio CasianoLIPID [id number] 00:00:00* Test Item Value Reference Range Interpretation Comme nts CHOLESTEROL (test code = 2210) 183 MG/DL TRIGLYCERIDES (test code = 2232) 119 MG/DL HDL CHOLESTEROL (test code = 2220) 52 MG/DL CALC LDL CHOL (test code = 2237) 107 MG/DL RISK RATIO LDL/HDL (test cod e = 2238) 2.06 RATIO Fabricio [id number] 00:00:00* Test Item Value Reference Range Interpretation Comme nts TSH (test code = 2821) 1.820 UIU/ML Fabricio CasianoCOMPREHENSIVE METABOLIC [id number] 00:00:00* Test Item Value Reference Range Interpretation Comme nts GLUCOSE (test code = 2217) 77 MG/DL BUN (test code = 2208) 12 MG/DL CREATININE (test code = 2214) 0.82 MG/DL eGFR AMER. (test cod e = 82785) 128 ML/MIN/1.73 eGFR NON- AMER. (test code = 73982) 111 ML/MIN/1.73 CALC BUN/CREAT (test code = 2235) 15 RATIO SODIUM (test code = 2231) 143 MEQ/L POTASSIUM (test code = 2228) 4.2 MEQ/L CHLORIDE (test code = 2215) 103 MEQ/L CARBON DIOXIDE (test code = 2206) 29 MEQ/L CALCIUM (test code = 2209) 8.9 MG/DL PROTEIN, TOTAL (test code = 2229) 7.3 G/DL ALBUMIN (test code = 2201) 4.5 G/DL CALC GLOBULIN (test code = 2240) 2.8 G/DL CALC A/G RATIO (test code = 2234) 1.6 RATIO BILIRUBIN, TOTAL (test code = 2207) 0.3 MG/DL ALKALINE PHOSPHATASE (test code = 2204) 64 U/L AST (test code = 2218) 17 U/L ALT (test code = 2219) 14 U/L Fabricio CasianoLIPID [id number] 00:00:00* Test Item Value Reference Range Interpretation Comme nts CHOLESTEROL (test code = 2210) 167 MG/DL TRIGLYCERIDES (test code = 2232) 85 MG/DL HDL CHOLESTEROL (test code = 2220) 54 MG/DL CALC LDL CHOL (test code = 2237) 96 MG/DL RISK RATIO LDL/HDL (test cod e = 2238) 1.78 RATIO Fabricio CasianoCARBAMAZEPINE (TEGRETOL)2016-12-28 00:00:00* Test Item Value Reference Range Interpretation Comme nts CARBAMAZEPINE (TEGRETOL) (te st code = 3006) 5.2 UG/ML Fabricio CasianoCOMPREHENSIVE METABOLIC [id number] 00:00:00* Test Item Value Reference Range Interpretation Comme nts GLUCOSE (test code = 2217) 77 MG/DL BUN (test code = 2208) 12 MG/DL CREATININE (test code = 2214) 0.82 MG/DL eGFR AMER. (test cod e = 03115) 128 ML/MIN/1.73 eGFR NON- AMER. (test code = 74080) 111 ML/MIN/1.73 CALC BUN/CREAT (test code = 2235) 15 RATIO SODIUM (test code = 2231) 143 MEQ/L POTASSIUM (test code = 2228) 4.2 MEQ/L CHLORIDE (test code = 2215) 103 MEQ/L CARBON DIOXIDE (test code = 2206) 29 MEQ/L CALCIUM (test code = 2209) 8.9 MG/DL PROTEIN, TOTAL (test code = 2229) 7.3 G/DL ALBUMIN (test code = 2201) 4.5 G/DL CALC GLOBULIN (test code = 2240) 2.8 G/DL CALC A/G RATIO (test code = 2234) 1.6 RATIO BILIRUBIN, TOTAL (test code = 2207) 0.3 MG/DL ALKALINE PHOSPHATASE (test code = 2204) 64 U/L AST (test code = 2218) 17 U/L ALT (test code = 2219) 14 U/L Fabricio CasianoLIPID [id number] 00:00:00* Test Item Value Reference Range Interpretation Comme nts CHOLESTEROL (test code = 2210) 167 MG/DL TRIGLYCERIDES (test code = 2232) 85 MG/DL HDL CHOLESTEROL (test code = 2220) 54 MG/DL CALC LDL CHOL (test code = 2237) 96 MG/DL RISK RATIO LDL/HDL (test cod e = 2238) 1.78 RATIO Fabricio CasianoCARBAMAZEPINE (TEGRETOL)2016-12-28 00:00:00* Test Item Value Reference Range Interpretation Comme nts CARBAMAZEPINE (TEGRETOL) (te st code = 3006) 5.2 UG/ML Fabricio CasianoCOMPREHENSIVE METABOLIC [id number] 00:00:00* Test Item Value Reference Range Interpretation Comme nts GLUCOSE (test code = 2217) 77 MG/DL BUN (test code = 2208) 12 MG/DL CREATININE (test code = 2214) 0.82 MG/DL eGFR AMER. (test cod e = 26808) 128 ML/MIN/1.73 eGFR NON- AMER. (test code = 37308) 111 ML/MIN/1.73 CALC BUN/CREAT (test code = 2235) 15 RATIO SODIUM (test code = 2231) 143 MEQ/L POTASSIUM (test code = 2228) 4.2 MEQ/L CHLORIDE (test code = 2215) 103 MEQ/L CARBON DIOXIDE (test code = 2206) 29 MEQ/L CALCIUM (test code = 2209) 8.9 MG/DL PROTEIN, TOTAL (test code = 2229) 7.3 G/DL ALBUMIN (test code = 2201) 4.5 G/DL CALC GLOBULIN (test code = 2240) 2.8 G/DL CALC A/G RATIO (test code = 2234) 1.6 RATIO BILIRUBIN, TOTAL (test code = 2207) 0.3 MG/DL ALKALINE PHOSPHATASE (test code = 2204) 64 U/L AST (test code = 2218) 17 U/L ALT (test code = 2219) 14 U/L Fabricio Gomez AustinLIPID [id number] 00:00:00* Test Item Value Reference Range Interpretation Comme nts CHOLESTEROL (test code = 2210) 167 MG/DL TRIGLYCERIDES (test code = 2232) 85 MG/DL HDL CHOLESTEROL (test code = 2220) 54 MG/DL CALC LDL CHOL (test code = 2237) 96 MG/DL RISK RATIO LDL/HDL (test cod e = 2238) 1.78 RATIO Fabricio CasianoCARBAMAZEPINE (TEGRETOL)2016-12-28 00:00:00* Test Item Value Reference Range Interpretation Comme nts CARBAMAZEPINE (TEGRETOL) (te st code = 3006) 5.2 UG/ML Fabricio CasianoCOMPREHENSIVE METABOLIC [id number] 00:00:00* Test Item Value Reference Range Interpretation Comme nts GLUCOSE (test code = 2217) 77 MG/DL BUN (test code = 2208) 12 MG/DL CREATININE (test code = 2214) 0.82 MG/DL eGFR AMER. (test cod e = 57758) 128 ML/MIN/1.73 eGFR NON- AMER. (test code = 18780) 111 ML/MIN/1.73 CALC BUN/CREAT (test code = 2235) 15 RATIO SODIUM (test code = 2231) 143 MEQ/L POTASSIUM (test code = 2228) 4.2 MEQ/L CHLORIDE (test code = 2215) 103 MEQ/L CARBON DIOXIDE (test code = 2206) 29 MEQ/L CALCIUM (test code = 2209) 8.9 MG/DL PROTEIN, TOTAL (test code = 2229) 7.3 G/DL ALBUMIN (test code = 2201) 4.5 G/DL CALC GLOBULIN (test code = 2240) 2.8 G/DL CALC A/G RATIO (test code = 2234) 1.6 RATIO BILIRUBIN, TOTAL (test code = 2207) 0.3 MG/DL ALKALINE PHOSPHATASE (test code = 2204) 64 U/L AST (test code = 2218) 17 U/L ALT (test code = 2219) 14 U/L Fabricio Gomez AustinLIPID [id number] 00:00:00* Test Item Value Reference Range Interpretation Comme nts CHOLESTEROL (test code = 2210) 167 MG/DL TRIGLYCERIDES (test code = 2232) 85 MG/DL HDL CHOLESTEROL (test code = 2220) 54 MG/DL CALC LDL CHOL (test code = 2237) 96 MG/DL RISK RATIO LDL/HDL (test cod e = 2238) 1.78 RATIO Fabricio CasianoCARBAMAZEPINE (TEGRETOL)2016-12-28 00:00:00* Test Item Value Reference Range Interpretation Comme nts CARBAMAZEPINE (TEGRETOL) (te st code = 3006) 5.2 UG/ML Fabricio CasianoCOMPREHENSIVE METABOLIC [id number] 00:00:00* Test Item Value Reference Range Interpretation Comme nts GLUCOSE (test code = 2217) 77 MG/DL BUN (test code = 2208) 12 MG/DL CREATININE (test code = 2214) 0.82 MG/DL eGFR AMER. (test cod e = 28367) 128 ML/MIN/1.73 eGFR NON- AMER. (test code = 98954) 111 ML/MIN/1.73 CALC BUN/CREAT (test code = 2235) 15 RATIO SODIUM (test code = 2231) 143 MEQ/L POTASSIUM (test code = 2228) 4.2 MEQ/L CHLORIDE (test code = 2215) 103 MEQ/L CARBON DIOXIDE (test code = 2206) 29 MEQ/L CALCIUM (test code = 2209) 8.9 MG/DL PROTEIN, TOTAL (test code = 2229) 7.3 G/DL ALBUMIN (test code = 2201) 4.5 G/DL CALC GLOBULIN (test code = 2240) 2.8 G/DL CALC A/G RATIO (test code = 2234) 1.6 RATIO BILIRUBIN, TOTAL (test code = 2207) 0.3 MG/DL ALKALINE PHOSPHATASE (test code = 2204) 64 U/L AST (test code = 2218) 17 U/L ALT (test code = 2219) 14 U/L Fabricio CasianoLIPID [id number] 00:00:00* Test Item Value Reference Range Interpretation Comme nts CHOLESTEROL (test code = 2210) 167 MG/DL TRIGLYCERIDES (test code = 2232) 85 MG/DL HDL CHOLESTEROL (test code = 2220) 54 MG/DL CALC LDL CHOL (test code = 2237) 96 MG/DL RISK RATIO LDL/HDL (test cod e = 2238) 1.78 RATIO Fabricio CasianoCARBAMAZEPINE (TEGRETOL)2016-12-28 00:00:00* Test Item Value Reference Range Interpretation Comme nts CARBAMAZEPINE (TEGRETOL) (te st code = 3006) 5.2 UG/ML Fabricio CasianoCOMPREHENSIVE METABOLIC [id number] 00:00:00* Test Item Value Reference Range Interpretation Comme nts GLUCOSE (test code = 2217) 77 MG/DL BUN (test code = 2208) 12 MG/DL CREATININE (test code = 2214) 0.82 MG/DL eGFR AMER. (test cod e = 14299) 128 ML/MIN/1.73 eGFR NON- AMER. (test code = 94655) 111 ML/MIN/1.73 CALC BUN/CREAT (test code = 2235) 15 RATIO SODIUM (test code = 2231) 143 MEQ/L POTASSIUM (test code = 2228) 4.2 MEQ/L CHLORIDE (test code = 2215) 103 MEQ/L CARBON DIOXIDE (test code = 2206) 29 MEQ/L CALCIUM (test code = 2209) 8.9 MG/DL PROTEIN, TOTAL (test code = 2229) 7.3 G/DL ALBUMIN (test code = 2201) 4.5 G/DL CALC GLOBULIN (test code = 2240) 2.8 G/DL CALC A/G RATIO (test code = 2234) 1.6 RATIO BILIRUBIN, TOTAL (test code = 2207) 0.3 MG/DL ALKALINE PHOSPHATASE (test code = 2204) 64 U/L AST (test code = 2218) 17 U/L ALT (test code = 2219) 14 U/L Fabricio CasianoLIPID [id number] 00:00:00* Test Item Value Reference Range Interpretation Comme nts CHOLESTEROL (test code = 2210) 167 MG/DL TRIGLYCERIDES (test code = 2232) 85 MG/DL HDL CHOLESTEROL (test code = 2220) 54 MG/DL CALC LDL CHOL (test code = 2237) 96 MG/DL RISK RATIO LDL/HDL (test cod e = 2238) 1.78 RATIO Fabricio CasianoCARBAMAZEPINE (TEGRETOL)2016-12-28 00:00:00* Test Item Value Reference Range Interpretation Comme nts CARBAMAZEPINE (TEGRETOL) (te st code = 3006) 5.2 UG/ML Fabricio CasianoCOMPREHENSIVE METABOLIC [id number] 00:00:00* Test Item Value Reference Range Interpretation Comme nts GLUCOSE (test code = 2217) 77 MG/DL BUN (test code = 2208) 12 MG/DL CREATININE (test code = 2214) 0.82 MG/DL eGFR AMER. (test cod e = 48575) 128 ML/MIN/1.73 eGFR NON- AMER. (test code = 65279) 111 ML/MIN/1.73 CALC BUN/CREAT (test code = 2235) 15 RATIO SODIUM (test code = 2231) 143 MEQ/L POTASSIUM (test code = 2228) 4.2 MEQ/L CHLORIDE (test code = 2215) 103 MEQ/L CARBON DIOXIDE (test code = 2206) 29 MEQ/L CALCIUM (test code = 2209) 8.9 MG/DL PROTEIN, TOTAL (test code = 2229) 7.3 G/DL ALBUMIN (test code = 2201) 4.5 G/DL CALC GLOBULIN (test code = 2240) 2.8 G/DL CALC A/G RATIO (test code = 2234) 1.6 RATIO BILIRUBIN, TOTAL (test code = 2207) 0.3 MG/DL ALKALINE PHOSPHATASE (test code = 2204) 64 U/L AST (test code = 2218) 17 U/L ALT (test code = 2219) 14 U/L Fabricio CasianoLIPID [id number] 00:00:00* Test Item Value Reference Range Interpretation Comme nts CHOLESTEROL (test code = 2210) 167 MG/DL TRIGLYCERIDES (test code = 2232) 85 MG/DL HDL CHOLESTEROL (test code = 2220) 54 MG/DL CALC LDL CHOL (test code = 2237) 96 MG/DL RISK RATIO LDL/HDL (test cod e = 2238) 1.78 RATIO Fabricio CasianoCARBAMAZEPINE (TEGRETOL)2016-12-28 00:00:00* Test Item Value Reference Range Interpretation Comme nts CARBAMAZEPINE (TEGRETOL) (te st code = 3006) 5.2 UG/ML Fabricio CasianoCOMPREHENSIVE METABOLIC [id number] 00:00:00* Test Item Value Reference Range Interpretation Comme nts GLUCOSE (test code = 2217) 77 MG/DL BUN (test code = 2208) 12 MG/DL CREATININE (test code = 2214) 0.82 MG/DL eGFR AMER. (test cod e = 30597) 128 ML/MIN/1.73 eGFR NON- AMER. (test code = 07217) 111 ML/MIN/1.73 CALC BUN/CREAT (test code = 2235) 15 RATIO SODIUM (test code = 2231) 143 MEQ/L POTASSIUM (test code = 2228) 4.2 MEQ/L CHLORIDE (test code = 2215) 103 MEQ/L CARBON DIOXIDE (test code = 2206) 29 MEQ/L CALCIUM (test code = 2209) 8.9 MG/DL PROTEIN, TOTAL (test code = 2229) 7.3 G/DL ALBUMIN (test code = 2201) 4.5 G/DL CALC GLOBULIN (test code = 2240) 2.8 G/DL CALC A/G RATIO (test code = 2234) 1.6 RATIO BILIRUBIN, TOTAL (test code = 2207) 0.3 MG/DL ALKALINE PHOSPHATASE (test code = 2204) 64 U/L AST (test code = 2218) 17 U/L ALT (test code = 2219) 14 U/L Fabricio Gomez AustinLIPID [id number] 00:00:00* Test Item Value Reference Range Interpretation Comme nts CHOLESTEROL (test code = 2210) 167 MG/DL TRIGLYCERIDES (test code = 2232) 85 MG/DL HDL CHOLESTEROL (test code = 2220) 54 MG/DL CALC LDL CHOL (test code = 2237) 96 MG/DL RISK RATIO LDL/HDL (test cod e = 2238) 1.78 RATIO Fabricio CasianoCARBAMAZEPINE (TEGRETOL)2016-12-28 00:00:00* Test Item Value Reference Range Interpretation Comme nts CARBAMAZEPINE (TEGRETOL) (te st code = 3006) 5.2 UG/ML Fabricio CasianoCOMPREHENSIVE METABOLIC [id number] 00:00:00* Test Item Value Reference Range Interpretation Comme nts GLUCOSE (test code = 2217) 77 MG/DL BUN (test code = 2208) 12 MG/DL CREATININE (test code = 2214) 0.82 MG/DL eGFR AMER. (test cod e = 16078) 128 ML/MIN/1.73 eGFR NON- AMER. (test code = 22281) 111 ML/MIN/1.73 CALC BUN/CREAT (test code = 2235) 15 RATIO SODIUM (test code = 2231) 143 MEQ/L POTASSIUM (test code = 2228) 4.2 MEQ/L CHLORIDE (test code = 2215) 103 MEQ/L CARBON DIOXIDE (test code = 2206) 29 MEQ/L CALCIUM (test code = 2209) 8.9 MG/DL PROTEIN, TOTAL (test code = 2229) 7.3 G/DL ALBUMIN (test code = 2201) 4.5 G/DL CALC GLOBULIN (test code = 2240) 2.8 G/DL CALC A/G RATIO (test code = 2234) 1.6 RATIO BILIRUBIN, TOTAL (test code = 2207) 0.3 MG/DL ALKALINE PHOSPHATASE (test code = 2204) 64 U/L AST (test code = 2218) 17 U/L ALT (test code = 2219) 14 U/L Fabricio Gomez AustinLIPID [id number] 00:00:00* Test Item Value Reference Range Interpretation Comme nts CHOLESTEROL (test code = 2210) 167 MG/DL TRIGLYCERIDES (test code = 2232) 85 MG/DL HDL CHOLESTEROL (test code = 2220) 54 MG/DL CALC LDL CHOL (test code = 2237) 96 MG/DL RISK RATIO LDL/HDL (test cod e = 2238) 1.78 RATIO Fabricio CasianoCARBAMAZEPINE (TEGRETOL)2016-12-28 00:00:00* Test Item Value Reference Range Interpretation Comme nts CARBAMAZEPINE (TEGRETOL) (te st code = 3006) 5.2 UG/ML Fabricio CasianoCOMPREHENSIVE METABOLIC [id number] 00:00:00* Test Item Value Reference Range Interpretation Comme nts GLUCOSE (test code = 2217) 77 MG/DL BUN (test code = 2208) 12 MG/DL CREATININE (test code = 2214) 0.82 MG/DL eGFR AMER. (test cod e = 39535) 128 ML/MIN/1.73 eGFR NON- AMER. (test code = 69093) 111 ML/MIN/1.73 CALC BUN/CREAT (test code = 2235) 15 RATIO SODIUM (test code = 2231) 143 MEQ/L POTASSIUM (test code = 2228) 4.2 MEQ/L CHLORIDE (test code = 2215) 103 MEQ/L CARBON DIOXIDE (test code = 2206) 29 MEQ/L CALCIUM (test code = 2209) 8.9 MG/DL PROTEIN, TOTAL (test code = 2229) 7.3 G/DL ALBUMIN (test code = 2201) 4.5 G/DL CALC GLOBULIN (test code = 2240) 2.8 G/DL CALC A/G RATIO (test code = 2234) 1.6 RATIO BILIRUBIN, TOTAL (test code = 2207) 0.3 MG/DL ALKALINE PHOSPHATASE (test code = 2204) 64 U/L AST (test code = 2218) 17 U/L ALT (test code = 2219) 14 U/L Fabricio Gomez FidelityLIPID [id number] 00:00:00* Test Item Value Reference Range Interpretation Comme nts CHOLESTEROL (test code = 2210) 167 MG/DL TRIGLYCERIDES (test code = 2232) 85 MG/DL HDL CHOLESTEROL (test code = 2220) 54 MG/DL CALC LDL CHOL (test code = 2237) 96 MG/DL RISK RATIO LDL/HDL (test cod e = 2238) 1.78 RATIO Fabricio CasianoCARBAMAZEPINE (TEGRETOL)2016-12-28 00:00:00* Test Item Value Reference Range Interpretation Comme nts CARBAMAZEPINE (TEGRETOL) (te st code = 3006) 5.2 UG/ML Fabricio CasianoCOMPREHENSIVE METABOLIC [id number] 00:00:00* Test Item Value Reference Range Interpretation Comme nts GLUCOSE (test code = 2217) 77 MG/DL BUN (test code = 2208) 12 MG/DL CREATININE (test code = 2214) 0.82 MG/DL eGFR AMER. (test cod e = 43791) 128 ML/MIN/1.73 eGFR NON- AMER. (test code = 07351) 111 ML/MIN/1.73 CALC BUN/CREAT (test code = 2235) 15 RATIO SODIUM (test code = 2231) 143 MEQ/L POTASSIUM (test code = 2228) 4.2 MEQ/L CHLORIDE (test code = 2215) 103 MEQ/L CARBON DIOXIDE (test code = 2206) 29 MEQ/L CALCIUM (test code = 2209) 8.9 MG/DL PROTEIN, TOTAL (test code = 2229) 7.3 G/DL ALBUMIN (test code = 2201) 4.5 G/DL CALC GLOBULIN (test code = 2240) 2.8 G/DL CALC A/G RATIO (test code = 2234) 1.6 RATIO BILIRUBIN, TOTAL (test code = 2207) 0.3 MG/DL ALKALINE PHOSPHATASE (test code = 2204) 64 U/L AST (test code = 2218) 17 U/L ALT (test code = 2219) 14 U/L Fabricio CasianoLIPID [id number] 00:00:00* Test Item Value Reference Range Interpretation Comme nts CHOLESTEROL (test code = 2210) 167 MG/DL TRIGLYCERIDES (test code = 2232) 85 MG/DL HDL CHOLESTEROL (test code = 2220) 54 MG/DL CALC LDL CHOL (test code = 2237) 96 MG/DL RISK RATIO LDL/HDL (test cod e = 2238) 1.78 RATIO Fabricio CasianoCARBAMAZEPINE (TEGRETOL)2016-12-28 00:00:00* Test Item Value Reference Range Interpretation Comme nts CARBAMAZEPINE (TEGRETOL) (te st code = 3006) 5.2 UG/ML Fabricio CasianoCOMPREHENSIVE METABOLIC [id number] 00:00:00* Test Item Value Reference Range Interpretation Comme nts GLUCOSE (test code = 2217) 77 MG/DL BUN (test code = 2208) 12 MG/DL CREATININE (test code = 2214) 0.82 MG/DL eGFR AMER. (test cod e = 22139) 128 ML/MIN/1.73 eGFR NON- AMER. (test code = 59701) 111 ML/MIN/1.73 CALC BUN/CREAT (test code = 2235) 15 RATIO SODIUM (test code = 2231) 143 MEQ/L POTASSIUM (test code = 2228) 4.2 MEQ/L CHLORIDE (test code = 2215) 103 MEQ/L CARBON DIOXIDE (test code = 2206) 29 MEQ/L CALCIUM (test code = 2209) 8.9 MG/DL PROTEIN, TOTAL (test code = 2229) 7.3 G/DL ALBUMIN (test code = 2201) 4.5 G/DL CALC GLOBULIN (test code = 2240) 2.8 G/DL CALC A/G RATIO (test code = 2234) 1.6 RATIO BILIRUBIN, TOTAL (test code = 2207) 0.3 MG/DL ALKALINE PHOSPHATASE (test code = 2204) 64 U/L AST (test code = 2218) 17 U/L ALT (test code = 2219) 14 U/L Fabricio CasianoLIPID [id number] 00:00:00* Test Item Value Reference Range Interpretation Comme nts CHOLESTEROL (test code = 2210) 167 MG/DL TRIGLYCERIDES (test code = 2232) 85 MG/DL HDL CHOLESTEROL (test code = 2220) 54 MG/DL CALC LDL CHOL (test code = 2237) 96 MG/DL RISK RATIO LDL/HDL (test cod e = 2238) 1.78 RATIO Fabricio CasianoCARBAMAZEPINE (TEGRETOL)2016-12-28 00:00:00* Test Item Value Reference Range Interpretation Comme nts CARBAMAZEPINE (TEGRETOL) (te st code = 3006) 5.2 UG/ML Fabricio CasianoCOMPREHENSIVE METABOLIC [id number] 00:00:00* Test Item Value Reference Range Interpretation Comme nts GLUCOSE (test code = 2217) 85 MG/DL BUN (test code = 2208) 13 MG/DL CREATININE (test code = 2214) 0.80 MG/DL eGFR AMER. (test cod e = 08240) 130 ML/MIN/1.73 eGFR NON- AMER. (test code = 76093) 113 ML/MIN/1.73 CALC BUN/CREAT (test code = 2235) 16 RATIO SODIUM (test code = 2231) 143 MEQ/L POTASSIUM (test code = 2228) 3.8 MEQ/L CHLORIDE (test code = 2215) 103 MEQ/L CARBON DIOXIDE (test code = 2206) 26 MEQ/L CALCIUM (test code = 2209) 8.8 MG/DL PROTEIN, TOTAL (test code = 2229) 7.2 G/DL ALBUMIN (test code = 2201) 4.2 G/DL CALC GLOBULIN (test code = 2240) 3.0 G/DL CALC A/G RATIO (test code = 2234) 1.4 RATIO BILIRUBIN, TOTAL (test code = 2207) 0.3 MG/DL ALKALINE PHOSPHATASE (test code = 2204) 64 U/L AST (test code = 2218) 16 U/L ALT (test code = 2219) 14 U/L Fabricio CasianoLIPID [id number] 00:00:00* Test Item Value Reference Range Interpretation Comme nts CHOLESTEROL (test code = 2210) 182 MG/DL TRIGLYCERIDES (test code = 2232) 68 MG/DL HDL CHOLESTEROL (test code = 2220) 54 MG/DL CALC LDL CHOL (test code = 2237) 114 MG/DL RISK RATIO LDL/HDL (test cod e = 2238) 2.12 RATIO Fabricio CasianoCARBAMAZEPINE (TEGRETOL)2016-06-29 00:00:00* Test Item Value Reference Range Interpretation Comme nts CARBAMAZEPINE (TEGRETOL) (te st code = 3006) 6.0 UG/ML Fabricio CasianoCOMPREHENSIVE METABOLIC [id number] 00:00:00* Test Item Value Reference Range Interpretation Comme nts GLUCOSE (test code = 2217) 85 MG/DL BUN (test code = 2208) 13 MG/DL CREATININE (test code = 2214) 0.80 MG/DL eGFR AMER. (test cod e = 57658) 130 ML/MIN/1.73 eGFR NON- AMER. (test code = 08596) 113 ML/MIN/1.73 CALC BUN/CREAT (test code = 2235) 16 RATIO SODIUM (test code = 2231) 143 MEQ/L POTASSIUM (test code = 2228) 3.8 MEQ/L CHLORIDE (test code = 2215) 103 MEQ/L CARBON DIOXIDE (test code = 2206) 26 MEQ/L CALCIUM (test code = 2209) 8.8 MG/DL PROTEIN, TOTAL (test code = 2229) 7.2 G/DL ALBUMIN (test code = 2201) 4.2 G/DL CALC GLOBULIN (test code = 2240) 3.0 G/DL CALC A/G RATIO (test code = 2234) 1.4 RATIO BILIRUBIN, TOTAL (test code = 2207) 0.3 MG/DL ALKALINE PHOSPHATASE (test code = 2204) 64 U/L AST (test code = 2218) 16 U/L ALT (test code = 2219) 14 U/L Fabricio CasianoLIPID [id number] 00:00:00* Test Item Value Reference Range Interpretation Comme nts CHOLESTEROL (test code = 2210) 182 MG/DL TRIGLYCERIDES (test code = 2232) 68 MG/DL HDL CHOLESTEROL (test code = 2220) 54 MG/DL CALC LDL CHOL (test code = 2237) 114 MG/DL RISK RATIO LDL/HDL (test cod e = 2238) 2.12 RATIO Fabricio CasianoCARBAMAZEPINE (TEGRETOL)2016-06-29 00:00:00* Test Item Value Reference Range Interpretation Comme nts CARBAMAZEPINE (TEGRETOL) (te st code = 3006) 6.0 UG/ML Fabricio CasianoCOMPREHENSIVE METABOLIC [id number] 00:00:00* Test Item Value Reference Range Interpretation Comme nts GLUCOSE (test code = 2217) 85 MG/DL BUN (test code = 2208) 13 MG/DL CREATININE (test code = 2214) 0.80 MG/DL eGFR AMER. (test cod e = 72859) 130 ML/MIN/1.73 eGFR NON- AMER. (test code = 08571) 113 ML/MIN/1.73 CALC BUN/CREAT (test code = 2235) 16 RATIO SODIUM (test code = 2231) 143 MEQ/L POTASSIUM (test code = 2228) 3.8 MEQ/L CHLORIDE (test code = 2215) 103 MEQ/L CARBON DIOXIDE (test code = 2206) 26 MEQ/L CALCIUM (test code = 2209) 8.8 MG/DL PROTEIN, TOTAL (test code = 2229) 7.2 G/DL ALBUMIN (test code = 2201) 4.2 G/DL CALC GLOBULIN (test code = 2240) 3.0 G/DL CALC A/G RATIO (test code = 2234) 1.4 RATIO BILIRUBIN, TOTAL (test code = 2207) 0.3 MG/DL ALKALINE PHOSPHATASE (test code = 2204) 64 U/L AST (test code = 2218) 16 U/L ALT (test code = 2219) 14 U/L Fabricio Gomez AustinLIPID [id number] 00:00:00* Test Item Value Reference Range Interpretation Comme nts CHOLESTEROL (test code = 2210) 182 MG/DL TRIGLYCERIDES (test code = 2232) 68 MG/DL HDL CHOLESTEROL (test code = 2220) 54 MG/DL CALC LDL CHOL (test code = 2237) 114 MG/DL RISK RATIO LDL/HDL (test cod e = 2238) 2.12 RATIO Fabricio CasianoCARBAMAZEPINE (TEGRETOL)2016-06-29 00:00:00* Test Item Value Reference Range Interpretation Comme nts CARBAMAZEPINE (TEGRETOL) (te st code = 3006) 6.0 UG/ML Fabricio CasianoCOMPREHENSIVE METABOLIC [id number] 00:00:00* Test Item Value Reference Range Interpretation Comme nts GLUCOSE (test code = 2217) 85 MG/DL BUN (test code = 2208) 13 MG/DL CREATININE (test code = 2214) 0.80 MG/DL eGFR AMER. (test cod e = 25224) 130 ML/MIN/1.73 eGFR NON- AMER. (test code = 05074) 113 ML/MIN/1.73 CALC BUN/CREAT (test code = 2235) 16 RATIO SODIUM (test code = 2231) 143 MEQ/L POTASSIUM (test code = 2228) 3.8 MEQ/L CHLORIDE (test code = 2215) 103 MEQ/L CARBON DIOXIDE (test code = 2206) 26 MEQ/L CALCIUM (test code = 2209) 8.8 MG/DL PROTEIN, TOTAL (test code = 2229) 7.2 G/DL ALBUMIN (test code = 2201) 4.2 G/DL CALC GLOBULIN (test code = 2240) 3.0 G/DL CALC A/G RATIO (test code = 2234) 1.4 RATIO BILIRUBIN, TOTAL (test code = 2207) 0.3 MG/DL ALKALINE PHOSPHATASE (test code = 2204) 64 U/L AST (test code = 2218) 16 U/L ALT (test code = 2219) 14 U/L Fabricio Gomez AustinLIPID [id number] 00:00:00* Test Item Value Reference Range Interpretation Comme nts CHOLESTEROL (test code = 2210) 182 MG/DL TRIGLYCERIDES (test code = 2232) 68 MG/DL HDL CHOLESTEROL (test code = 2220) 54 MG/DL CALC LDL CHOL (test code = 2237) 114 MG/DL RISK RATIO LDL/HDL (test cod e = 2238) 2.12 RATIO Fabricio CasianoCARBAMAZEPINE (TEGRETOL)2016-06-29 00:00:00* Test Item Value Reference Range Interpretation Comme nts CARBAMAZEPINE (TEGRETOL) (te st code = 3006) 6.0 UG/ML Fabricio CasianoCOMPREHENSIVE METABOLIC [id number] 00:00:00* Test Item Value Reference Range Interpretation Comme nts GLUCOSE (test code = 2217) 85 MG/DL BUN (test code = 2208) 13 MG/DL CREATININE (test code = 2214) 0.80 MG/DL eGFR AMER. (test cod e = 14110) 130 ML/MIN/1.73 eGFR NON- AMER. (test code = 17258) 113 ML/MIN/1.73 CALC BUN/CREAT (test code = 2235) 16 RATIO SODIUM (test code = 2231) 143 MEQ/L POTASSIUM (test code = 2228) 3.8 MEQ/L CHLORIDE (test code = 2215) 103 MEQ/L CARBON DIOXIDE (test code = 2206) 26 MEQ/L CALCIUM (test code = 2209) 8.8 MG/DL PROTEIN, TOTAL (test code = 2229) 7.2 G/DL ALBUMIN (test code = 2201) 4.2 G/DL CALC GLOBULIN (test code = 2240) 3.0 G/DL CALC A/G RATIO (test code = 2234) 1.4 RATIO BILIRUBIN, TOTAL (test code = 2207) 0.3 MG/DL ALKALINE PHOSPHATASE (test code = 2204) 64 U/L AST (test code = 2218) 16 U/L ALT (test code = 2219) 14 U/L Fabricio Gomez AustinLIPID [id number] 00:00:00* Test Item Value Reference Range Interpretation Comme nts CHOLESTEROL (test code = 2210) 182 MG/DL TRIGLYCERIDES (test code = 2232) 68 MG/DL HDL CHOLESTEROL (test code = 2220) 54 MG/DL CALC LDL CHOL (test code = 2237) 114 MG/DL RISK RATIO LDL/HDL (test cod e = 2238) 2.12 RATIO Fabricio CasianoCARBAMAZEPINE (TEGRETOL)2016-06-29 00:00:00* Test Item Value Reference Range Interpretation Comme nts CARBAMAZEPINE (TEGRETOL) (te st code = 3006) 6.0 UG/ML Fabricio CasianoCOMPREHENSIVE METABOLIC [id number] 00:00:00* Test Item Value Reference Range Interpretation Comme nts GLUCOSE (test code = 2217) 85 MG/DL BUN (test code = 2208) 13 MG/DL CREATININE (test code = 2214) 0.80 MG/DL eGFR AMER. (test cod e = 90413) 130 ML/MIN/1.73 eGFR NON- AMER. (test code = 75784) 113 ML/MIN/1.73 CALC BUN/CREAT (test code = 2235) 16 RATIO SODIUM (test code = 2231) 143 MEQ/L POTASSIUM (test code = 2228) 3.8 MEQ/L CHLORIDE (test code = 2215) 103 MEQ/L CARBON DIOXIDE (test code = 2206) 26 MEQ/L CALCIUM (test code = 2209) 8.8 MG/DL PROTEIN, TOTAL (test code = 2229) 7.2 G/DL ALBUMIN (test code = 2201) 4.2 G/DL CALC GLOBULIN (test code = 2240) 3.0 G/DL CALC A/G RATIO (test code = 2234) 1.4 RATIO BILIRUBIN, TOTAL (test code = 2207) 0.3 MG/DL ALKALINE PHOSPHATASE (test code = 2204) 64 U/L AST (test code = 2218) 16 U/L ALT (test code = 2219) 14 U/L Fabricio CasianoLIPID [id number] 00:00:00* Test Item Value Reference Range Interpretation Comme nts CHOLESTEROL (test code = 2210) 182 MG/DL TRIGLYCERIDES (test code = 2232) 68 MG/DL HDL CHOLESTEROL (test code = 2220) 54 MG/DL CALC LDL CHOL (test code = 2237) 114 MG/DL RISK RATIO LDL/HDL (test cod e = 2238) 2.12 RATIO Fabricio CasianoCARBAMAZEPINE (TEGRETOL)2016-06-29 00:00:00* Test Item Value Reference Range Interpretation Comme nts CARBAMAZEPINE (TEGRETOL) (te st code = 3006) 6.0 UG/ML Fabricio CasianoCOMPREHENSIVE METABOLIC [id number] 00:00:00* Test Item Value Reference Range Interpretation Comme nts GLUCOSE (test code = 2217) 85 MG/DL BUN (test code = 2208) 13 MG/DL CREATININE (test code = 2214) 0.80 MG/DL eGFR AMER. (test cod e = 17672) 130 ML/MIN/1.73 eGFR NON- AMER. (test code = 35990) 113 ML/MIN/1.73 CALC BUN/CREAT (test code = 2235) 16 RATIO SODIUM (test code = 2231) 143 MEQ/L POTASSIUM (test code = 2228) 3.8 MEQ/L CHLORIDE (test code = 2215) 103 MEQ/L CARBON DIOXIDE (test code = 2206) 26 MEQ/L CALCIUM (test code = 2209) 8.8 MG/DL PROTEIN, TOTAL (test code = 2229) 7.2 G/DL ALBUMIN (test code = 2201) 4.2 G/DL CALC GLOBULIN (test code = 2240) 3.0 G/DL CALC A/G RATIO (test code = 2234) 1.4 RATIO BILIRUBIN, TOTAL (test code = 2207) 0.3 MG/DL ALKALINE PHOSPHATASE (test code = 2204) 64 U/L AST (test code = 2218) 16 U/L ALT (test code = 2219) 14 U/L Fabricio Gomez AustinLIPID [id number] 00:00:00* Test Item Value Reference Range Interpretation Comme nts CHOLESTEROL (test code = 2210) 182 MG/DL TRIGLYCERIDES (test code = 2232) 68 MG/DL HDL CHOLESTEROL (test code = 2220) 54 MG/DL CALC LDL CHOL (test code = 2237) 114 MG/DL RISK RATIO LDL/HDL (test cod e = 2238) 2.12 RATIO Fabricio CasianoCARBAMAZEPINE (TEGRETOL)2016-06-29 00:00:00* Test Item Value Reference Range Interpretation Comme nts CARBAMAZEPINE (TEGRETOL) (te st code = 3006) 6.0 UG/ML Fabricio CasianoCOMPREHENSIVE METABOLIC [id number] 00:00:00* Test Item Value Reference Range Interpretation Comme nts GLUCOSE (test code = 2217) 85 MG/DL BUN (test code = 2208) 13 MG/DL CREATININE (test code = 2214) 0.80 MG/DL eGFR AMER. (test cod e = 40539) 130 ML/MIN/1.73 eGFR NON- AMER. (test code = 69439) 113 ML/MIN/1.73 CALC BUN/CREAT (test code = 2235) 16 RATIO SODIUM (test code = 2231) 143 MEQ/L POTASSIUM (test code = 2228) 3.8 MEQ/L CHLORIDE (test code = 2215) 103 MEQ/L CARBON DIOXIDE (test code = 2206) 26 MEQ/L CALCIUM (test code = 2209) 8.8 MG/DL PROTEIN, TOTAL (test code = 2229) 7.2 G/DL ALBUMIN (test code = 2201) 4.2 G/DL CALC GLOBULIN (test code = 2240) 3.0 G/DL CALC A/G RATIO (test code = 2234) 1.4 RATIO BILIRUBIN, TOTAL (test code = 2207) 0.3 MG/DL ALKALINE PHOSPHATASE (test code = 2204) 64 U/L AST (test code = 2218) 16 U/L ALT (test code = 2219) 14 U/L Fabricio Gomez AustinLIPID [id number] 00:00:00* Test Item Value Reference Range Interpretation Comme nts CHOLESTEROL (test code = 2210) 182 MG/DL TRIGLYCERIDES (test code = 2232) 68 MG/DL HDL CHOLESTEROL (test code = 2220) 54 MG/DL CALC LDL CHOL (test code = 2237) 114 MG/DL RISK RATIO LDL/HDL (test cod e = 2238) 2.12 RATIO Fabricio Gomze AustinCARBAMAZEPINE (TEGRETOL)2016-06-29 00:00:00* Test Item Value Reference Range Interpretation Comme nts CARBAMAZEPINE (TEGRETOL) (te st code = 3006) 6.0 UG/ML Fabricio CasianoCOMPREHENSIVE METABOLIC [id number] 00:00:00* Test Item Value Reference Range Interpretation Comme nts GLUCOSE (test code = 2217) 85 MG/DL BUN (test code = 2208) 13 MG/DL CREATININE (test code = 2214) 0.80 MG/DL eGFR AMER. (test cod e = 29635) 130 ML/MIN/1.73 eGFR NON- AMER. (test code = 61850) 113 ML/MIN/1.73 CALC BUN/CREAT (test code = 2235) 16 RATIO SODIUM (test code = 2231) 143 MEQ/L POTASSIUM (test code = 2228) 3.8 MEQ/L CHLORIDE (test code = 2215) 103 MEQ/L CARBON DIOXIDE (test code = 2206) 26 MEQ/L CALCIUM (test code = 2209) 8.8 MG/DL PROTEIN, TOTAL (test code = 2229) 7.2 G/DL ALBUMIN (test code = 2201) 4.2 G/DL CALC GLOBULIN (test code = 2240) 3.0 G/DL CALC A/G RATIO (test code = 2234) 1.4 RATIO BILIRUBIN, TOTAL (test code = 2207) 0.3 MG/DL ALKALINE PHOSPHATASE (test code = 2204) 64 U/L AST (test code = 2218) 16 U/L ALT (test code = 2219) 14 U/L Fabricio CasianoLIPID [id number] 00:00:00* Test Item Value Reference Range Interpretation Comme nts CHOLESTEROL (test code = 2210) 182 MG/DL TRIGLYCERIDES (test code = 2232) 68 MG/DL HDL CHOLESTEROL (test code = 2220) 54 MG/DL CALC LDL CHOL (test code = 2237) 114 MG/DL RISK RATIO LDL/HDL (test cod e = 2238) 2.12 RATIO Fabricio CasianoCARBAMAZEPINE (TEGRETOL)2016-06-29 00:00:00* Test Item Value Reference Range Interpretation Comme nts CARBAMAZEPINE (TEGRETOL) (te st code = 3006) 6.0 UG/ML Fabricio CasianoCOMPREHENSIVE METABOLIC [id number] 00:00:00* Test Item Value Reference Range Interpretation Comme nts GLUCOSE (test code = 2217) 85 MG/DL BUN (test code = 2208) 13 MG/DL CREATININE (test code = 2214) 0.80 MG/DL eGFR AMER. (test cod e = 22097) 130 ML/MIN/1.73 eGFR NON- AMER. (test code = 40528) 113 ML/MIN/1.73 CALC BUN/CREAT (test code = 2235) 16 RATIO SODIUM (test code = 2231) 143 MEQ/L POTASSIUM (test code = 2228) 3.8 MEQ/L CHLORIDE (test code = 2215) 103 MEQ/L CARBON DIOXIDE (test code = 2206) 26 MEQ/L CALCIUM (test code = 2209) 8.8 MG/DL PROTEIN, TOTAL (test code = 2229) 7.2 G/DL ALBUMIN (test code = 2201) 4.2 G/DL CALC GLOBULIN (test code = 2240) 3.0 G/DL CALC A/G RATIO (test code = 2234) 1.4 RATIO BILIRUBIN, TOTAL (test code = 2207) 0.3 MG/DL ALKALINE PHOSPHATASE (test code = 2204) 64 U/L AST (test code = 2218) 16 U/L ALT (test code = 2219) 14 U/L Fabricio CasianoLIPID [id number] 00:00:00* Test Item Value Reference Range Interpretation Comme nts CHOLESTEROL (test code = 2210) 182 MG/DL TRIGLYCERIDES (test code = 2232) 68 MG/DL HDL CHOLESTEROL (test code = 2220) 54 MG/DL CALC LDL CHOL (test code = 2237) 114 MG/DL RISK RATIO LDL/HDL (test cod e = 2238) 2.12 RATIO Fabricio CasianoCARBAMAZEPINE (TEGRETOL)2016-06-29 00:00:00* Test Item Value Reference Range Interpretation Comme nts CARBAMAZEPINE (TEGRETOL) (te st code = 3006) 6.0 UG/ML Fabricio CasianoCOMPREHENSIVE METABOLIC [id number] 00:00:00* Test Item Value Reference Range Interpretation Comme nts GLUCOSE (test code = 2217) 85 MG/DL BUN (test code = 2208) 13 MG/DL CREATININE (test code = 2214) 0.80 MG/DL eGFR AMER. (test cod e = 91418) 130 ML/MIN/1.73 eGFR NON- AMER. (test code = 07165) 113 ML/MIN/1.73 CALC BUN/CREAT (test code = 2235) 16 RATIO SODIUM (test code = 2231) 143 MEQ/L POTASSIUM (test code = 2228) 3.8 MEQ/L CHLORIDE (test code = 2215) 103 MEQ/L CARBON DIOXIDE (test code = 2206) 26 MEQ/L CALCIUM (test code = 2209) 8.8 MG/DL PROTEIN, TOTAL (test code = 2229) 7.2 G/DL ALBUMIN (test code = 2201) 4.2 G/DL CALC GLOBULIN (test code = 2240) 3.0 G/DL CALC A/G RATIO (test code = 2234) 1.4 RATIO BILIRUBIN, TOTAL (test code = 2207) 0.3 MG/DL ALKALINE PHOSPHATASE (test code = 2204) 64 U/L AST (test code = 2218) 16 U/L ALT (test code = 2219) 14 U/L Fabricio CasianoLIPID [id number] 00:00:00* Test Item Value Reference Range Interpretation Comme nts CHOLESTEROL (test code = 2210) 182 MG/DL TRIGLYCERIDES (test code = 2232) 68 MG/DL HDL CHOLESTEROL (test code = 2220) 54 MG/DL CALC LDL CHOL (test code = 2237) 114 MG/DL RISK RATIO LDL/HDL (test cod e = 2238) 2.12 RATIO Fabricio CasianoCARBAMAZEPINE (TEGRETOL)2016-06-29 00:00:00* Test Item Value Reference Range Interpretation Comme nts CARBAMAZEPINE (TEGRETOL) (te st code = 3006) 6.0 UG/ML Fabricio CasianoCOMPREHENSIVE METABOLIC [id number] 00:00:00* Test Item Value Reference Range Interpretation Comme nts GLUCOSE (test code = 2217) 85 MG/DL BUN (test code = 2208) 13 MG/DL CREATININE (test code = 2214) 0.80 MG/DL eGFR AMER. (test cod e = 36441) 130 ML/MIN/1.73 eGFR NON- AMER. (test code = 39558) 113 ML/MIN/1.73 CALC BUN/CREAT (test code = 2235) 16 RATIO SODIUM (test code = 2231) 143 MEQ/L POTASSIUM (test code = 2228) 3.8 MEQ/L CHLORIDE (test code = 2215) 103 MEQ/L CARBON DIOXIDE (test code = 2206) 26 MEQ/L CALCIUM (test code = 2209) 8.8 MG/DL PROTEIN, TOTAL (test code = 2229) 7.2 G/DL ALBUMIN (test code = 2201) 4.2 G/DL CALC GLOBULIN (test code = 2240) 3.0 G/DL CALC A/G RATIO (test code = 2234) 1.4 RATIO BILIRUBIN, TOTAL (test code = 2207) 0.3 MG/DL ALKALINE PHOSPHATASE (test code = 2204) 64 U/L AST (test code = 2218) 16 U/L ALT (test code = 2219) 14 U/L Fabricio CasianoLIPID [id number] 00:00:00* Test Item Value Reference Range Interpretation Comme nts CHOLESTEROL (test code = 2210) 182 MG/DL TRIGLYCERIDES (test code = 2232) 68 MG/DL HDL CHOLESTEROL (test code = 2220) 54 MG/DL CALC LDL CHOL (test code = 2237) 114 MG/DL RISK RATIO LDL/HDL (test cod e = 2238) 2.12 RATIO Fabricio Gomez AustinCARBAMAZEPINE (TEGRETOL)2016-06-29 00:00:00* Test Item Value Reference Range Interpretation Comme nts CARBAMAZEPINE (TEGRETOL) (te st code = 3006) 6.0 UG/ML Fabricio [id number] 00:00:00* Test Item Value Reference Range Interpretation Comme nts TSH (test code = 2821) 2.8 UIU/ML Fabricio CasianoCARBAMAZEPINE (TEGRETOL)2015-12-23 00:00:00* Test Item Value Reference Range Interpretation Comme nts CARBAMAZEPINE (TEGRETOL) (te st code = 3006) 7.4 UG/ML Fabricio CasianoCOMPREHENSIVE METABOLIC [id number] 00:00:00* Test Item Value Reference Range Interpretation Comme nts GLUCOSE (test code = 2217) 84 MG/DL BUN (test code = 2208) 14 MG/DL CREATININE (test code = 2214) 0.81 MG/DL eGFR AMER. (test cod e = 43937) 130 ML/MIN/1.73 eGFR NON- AMER. (test code = 33363) 112 ML/MIN/1.73 CALC BUN/CREAT (test code = 2235) 17 RATIO SODIUM (test code = 2231) 141 MEQ/L POTASSIUM (test code = 2228) 3.9 MEQ/L CHLORIDE (test code = 2215) 100 MEQ/L CARBON DIOXIDE (test code = 2206) 26 MEQ/L CALCIUM (test code = 2209) 9.2 MG/DL PROTEIN, TOTAL (test code = 2229) 7.8 G/DL ALBUMIN (test code = 2201) 4.9 G/DL CALC GLOBULIN (test code = 2240) 2.9 G/DL CALC A/G RATIO (test code = 2234) 1.7 RATIO BILIRUBIN, TOTAL (test code = 2207) 0.3 MG/DL ALKALINE PHOSPHATASE (test code = 2204) 71 U/L AST (test code = 2218) 15 U/L ALT (test code = 2219) 12 U/L Fabricio CasianoLIPID [id number] 00:00:00* Test Item Value Reference Range Interpretation Comme nts CHOLESTEROL (test code = 2210) 194 MG/DL TRIGLYCERIDES (test code = 2232) 100 MG/DL HDL CHOLESTEROL (test code = 2220) 53 MG/DL CALC LDL CHOL (test code = 2237) 121 MG/DL RISK RATIO LDL/HDL (test cod e = 2238) 2.28 RATIO Fabricio CasianoCBC W/AUTO [id number] 00:00:00* Test Item Value Reference Range Interpretation Comme nts WBC (test code = 1001) 5.9 K/UL RBC (test code = 1002) 4.58 M/UL HEMOGLOBIN (test code = 1003) 14.4 G/DL HEMATOCRIT (test code = 1004) 40.9 % MCV (test code = 1005) 89.3 fL MCH (test code = 1006) 31.4 PG MCHC (test code = 1007) 35.2 G/DL RDW (test code = 1038) 12.4 % NEUTROPHILS (test code = 1008) 46.5 % LYMPHOCYTES (test code = 1010) 42.2 % MONOCYTES (test code = 1011) 6.6 % EOSINOPHILS (test code = 1012) 4.2 % BASOPHILS (test code = 1013) 0.5 % PLATELET COUNT (test code = 1015) 192 K/UL Fabricio CasianoHEMOGLOBIN [id number] 00:00:00* Test Item Value Reference Range Interpretation Comme nts HEMOGLOBIN A1c (test code = 95462) 4.8 % Fabricio [id number] 00:00:00* Test Item Value Reference Range Interpretation Comme nts TSH (test code = 2821) 2.8 UIU/ML Fabricio CasianoCARBAMAZEPINE (TEGRETOL)2015-12-23 00:00:00* Test Item Value Reference Range Interpretation Comme airam CARBAMAZEPINE (TEGRETOL) (te st code = 3006) 7.4 UG/ML Fabricio CasianoCOMPREHENSIVE METABOLIC [id number] 00:00:00* Test Item Value Reference Range Interpretation Comme nts GLUCOSE (test code = 2217) 84 MG/DL BUN (test code = 2208) 14 MG/DL CREATININE (test code = 2214) 0.81 MG/DL eGFR AMER. (test cod e = 09318) 130 ML/MIN/1.73 eGFR NON- AMER. (test code = 25374) 112 ML/MIN/1.73 CALC BUN/CREAT (test code = 2235) 17 RATIO SODIUM (test code = 2231) 141 MEQ/L POTASSIUM (test code = 2228) 3.9 MEQ/L CHLORIDE (test code = 2215) 100 MEQ/L CARBON DIOXIDE (test code = 2206) 26 MEQ/L CALCIUM (test code = 2209) 9.2 MG/DL PROTEIN, TOTAL (test code = 2229) 7.8 G/DL ALBUMIN (test code = 2201) 4.9 G/DL CALC GLOBULIN (test code = 2240) 2.9 G/DL CALC A/G RATIO (test code = 2234) 1.7 RATIO BILIRUBIN, TOTAL (test code = 2207) 0.3 MG/DL ALKALINE PHOSPHATASE (test code = 2204) 71 U/L AST (test code = 2218) 15 U/L ALT (test code = 2219) 12 U/L Fabricio CasianoLIPID [id number] 00:00:00* Test Item Value Reference Range Interpretation Comme nts CHOLESTEROL (test code = 2210) 194 MG/DL TRIGLYCERIDES (test code = 2232) 100 MG/DL HDL CHOLESTEROL (test code = 2220) 53 MG/DL CALC LDL CHOL (test code = 2237) 121 MG/DL RISK RATIO LDL/HDL (test cod e = 2238) 2.28 RATIO Fabricio CasianoCBC W/AUTO [id number] 00:00:00* Test Item Value Reference Range Interpretation Comme nts WBC (test code = 1001) 5.9 K/UL RBC (test code = 1002) 4.58 M/UL HEMOGLOBIN (test code = 1003) 14.4 G/DL HEMATOCRIT (test code = 1004) 40.9 % MCV (test code = 1005) 89.3 fL MCH (test code = 1006) 31.4 PG MCHC (test code = 1007) 35.2 G/DL RDW (test code = 1038) 12.4 % NEUTROPHILS (test code = 1008) 46.5 % LYMPHOCYTES (test code = 1010) 42.2 % MONOCYTES (test code = 1011) 6.6 % EOSINOPHILS (test code = 1012) 4.2 % BASOPHILS (test code = 1013) 0.5 % PLATELET COUNT (test code = 1015) 192 K/UL Fabricio CasianoHEMOGLOBIN [id number] 00:00:00* Test Item Value Reference Range Interpretation Comme airam HEMOGLOBIN A1c (test code = 86385) 4.8 % Fabricio [id number] 00:00:00* Test Item Value Reference Range Interpretation Comme nts TSH (test code = 2821) 2.8 UIU/ML Fabricio CasianoCARBAMAZEPINE (TEGRETOL)2015-12-23 00:00:00* Test Item Value Reference Range Interpretation Comme airam CARBAMAZEPINE (TEGRETOL) (te st code = 3006) 7.4 UG/ML Fabricio CasianoCOMPREHENSIVE METABOLIC [id number] 00:00:00* Test Item Value Reference Range Interpretation Comme nts GLUCOSE (test code = 2217) 84 MG/DL BUN (test code = 2208) 14 MG/DL CREATININE (test code = 2214) 0.81 MG/DL eGFR AMER. (test cod e = 78262) 130 ML/MIN/1.73 eGFR NON- AMER. (test code = 46518) 112 ML/MIN/1.73 CALC BUN/CREAT (test code = 2235) 17 RATIO SODIUM (test code = 2231) 141 MEQ/L POTASSIUM (test code = 2228) 3.9 MEQ/L CHLORIDE (test code = 2215) 100 MEQ/L CARBON DIOXIDE (test code = 2206) 26 MEQ/L CALCIUM (test code = 2209) 9.2 MG/DL PROTEIN, TOTAL (test code = 2229) 7.8 G/DL ALBUMIN (test code = 2201) 4.9 G/DL CALC GLOBULIN (test code = 2240) 2.9 G/DL CALC A/G RATIO (test code = 2234) 1.7 RATIO BILIRUBIN, TOTAL (test code = 2207) 0.3 MG/DL ALKALINE PHOSPHATASE (test code = 2204) 71 U/L AST (test code = 2218) 15 U/L ALT (test code = 2219) 12 U/L Fabricio Patricia CasianoLIPID [id number] 00:00:00* Test Item Value Reference Range Interpretation Comme nts CHOLESTEROL (test code = 2210) 194 MG/DL TRIGLYCERIDES (test code = 2232) 100 MG/DL HDL CHOLESTEROL (test code = 2220) 53 MG/DL CALC LDL CHOL (test code = 2237) 121 MG/DL RISK RATIO LDL/HDL (test cod e = 2238) 2.28 RATIO Fabricio Gomez OhCBC W/AUTO [id number] 00:00:00* Test Item Value Reference Range Interpretation Comme nts WBC (test code = 1001) 5.9 K/UL RBC (test code = 1002) 4.58 M/UL HEMOGLOBIN (test code = 1003) 14.4 G/DL HEMATOCRIT (test code = 1004) 40.9 % MCV (test code = 1005) 89.3 fL MCH (test code = 1006) 31.4 PG MCHC (test code = 1007) 35.2 G/DL RDW (test code = 1038) 12.4 % NEUTROPHILS (test code = 1008) 46.5 % LYMPHOCYTES (test code = 1010) 42.2 % MONOCYTES (test code = 1011) 6.6 % EOSINOPHILS (test code = 1012) 4.2 % BASOPHILS (test code = 1013) 0.5 % PLATELET COUNT (test code = 1015) 192 K/UL Fabricioaaron CasianoHEMOGLOBIN [id number] 00:00:00* Test Item Value Reference Range Interpretation Comme nts HEMOGLOBIN A1c (test code = 56484) 4.8 % Fabricio [id number] 00:00:00* Test Item Value Reference Range Interpretation Comme nts TSH (test code = 2821) 2.8 UIU/ML Fabricio CasianoCARBAMAZEPINE (TEGRETOL)2015-12-23 00:00:00* Test Item Value Reference Range Interpretation Comme nts CARBAMAZEPINE (TEGRETOL) (te st code = 3006) 7.4 UG/ML Fabricio CasianoCOMPREHENSIVE METABOLIC [id number] 00:00:00* Test Item Value Reference Range Interpretation Comme nts GLUCOSE (test code = 2217) 84 MG/DL BUN (test code = 2208) 14 MG/DL CREATININE (test code = 2214) 0.81 MG/DL eGFR AMER. (test cod e = 32857) 130 ML/MIN/1.73 eGFR NON- AMER. (test code = 12258) 112 ML/MIN/1.73 CALC BUN/CREAT (test code = 2235) 17 RATIO SODIUM (test code = 2231) 141 MEQ/L POTASSIUM (test code = 2228) 3.9 MEQ/L CHLORIDE (test code = 2215) 100 MEQ/L CARBON DIOXIDE (test code = 2206) 26 MEQ/L CALCIUM (test code = 2209) 9.2 MG/DL PROTEIN, TOTAL (test code = 2229) 7.8 G/DL ALBUMIN (test code = 2201) 4.9 G/DL CALC GLOBULIN (test code = 2240) 2.9 G/DL CALC A/G RATIO (test code = 2234) 1.7 RATIO BILIRUBIN, TOTAL (test code = 2207) 0.3 MG/DL ALKALINE PHOSPHATASE (test code = 2204) 71 U/L AST (test code = 2218) 15 U/L ALT (test code = 2219) 12 U/L Fabricio CasianoLIPID [id number] 00:00:00* Test Item Value Reference Range Interpretation Comme nts CHOLESTEROL (test code = 2210) 194 MG/DL TRIGLYCERIDES (test code = 2232) 100 MG/DL HDL CHOLESTEROL (test code = 2220) 53 MG/DL CALC LDL CHOL (test code = 2237) 121 MG/DL RISK RATIO LDL/HDL (test cod e = 2238) 2.28 RATIO Fabricio F AustinCBC W/AUTO [id number] 00:00:00* Test Item Value Reference Range Interpretation Comme nts WBC (test code = 1001) 5.9 K/UL RBC (test code = 1002) 4.58 M/UL HEMOGLOBIN (test code = 1003) 14.4 G/DL HEMATOCRIT (test code = 1004) 40.9 % MCV (test code = 1005) 89.3 fL MCH (test code = 1006) 31.4 PG MCHC (test code = 1007) 35.2 G/DL RDW (test code = 1038) 12.4 % NEUTROPHILS (test code = 1008) 46.5 % LYMPHOCYTES (test code = 1010) 42.2 % MONOCYTES (test code = 1011) 6.6 % EOSINOPHILS (test code = 1012) 4.2 % BASOPHILS (test code = 1013) 0.5 % PLATELET COUNT (test code = 1015) 192 K/UL Fabricio CasianoHEMOGLOBIN [id number] 00:00:00* Test Item Value Reference Range Interpretation Comme airam HEMOGLOBIN A1c (test code = 14703) 4.8 % Fabricio [id number] 00:00:00* Test Item Value Reference Range Interpretation Comme nts TSH (test code = 2821) 2.8 UIU/ML Fabricio CasianoCARBAMAZEPINE (TEGRETOL)2015-12-23 00:00:00* Test Item Value Reference Range Interpretation Comme airam CARBAMAZEPINE (TEGRETOL) (te st code = 3006) 7.4 UG/ML Fabricio CasianoCOMPREHENSIVE METABOLIC [id number] 00:00:00* Test Item Value Reference Range Interpretation Comme nts GLUCOSE (test code = 2217) 84 MG/DL BUN (test code = 2208) 14 MG/DL CREATININE (test code = 2214) 0.81 MG/DL eGFR AMER. (test cod e = 08512) 130 ML/MIN/1.73 eGFR NON- AMER. (test code = 35423) 112 ML/MIN/1.73 CALC BUN/CREAT (test code = 2235) 17 RATIO SODIUM (test code = 2231) 141 MEQ/L POTASSIUM (test code = 2228) 3.9 MEQ/L CHLORIDE (test code = 2215) 100 MEQ/L CARBON DIOXIDE (test code = 2206) 26 MEQ/L CALCIUM (test code = 2209) 9.2 MG/DL PROTEIN, TOTAL (test code = 2229) 7.8 G/DL ALBUMIN (test code = 2201) 4.9 G/DL CALC GLOBULIN (test code = 2240) 2.9 G/DL CALC A/G RATIO (test code = 2234) 1.7 RATIO BILIRUBIN, TOTAL (test code = 2207) 0.3 MG/DL ALKALINE PHOSPHATASE (test code = 2204) 71 U/L AST (test code = 2218) 15 U/L ALT (test code = 2219) 12 U/L Fabricio Gomez OhLIPID [id number] 00:00:00* Test Item Value Reference Range Interpretation Comme nts CHOLESTEROL (test code = 2210) 194 MG/DL TRIGLYCERIDES (test code = 2232) 100 MG/DL HDL CHOLESTEROL (test code = 2220) 53 MG/DL CALC LDL CHOL (test code = 2237) 121 MG/DL RISK RATIO LDL/HDL (test cod e = 2238) 2.28 RATIO Fabricio Gomez OhCBC W/AUTO [id number] 00:00:00* Test Item Value Reference Range Interpretation Comme nts WBC (test code = 1001) 5.9 K/UL RBC (test code = 1002) 4.58 M/UL HEMOGLOBIN (test code = 1003) 14.4 G/DL HEMATOCRIT (test code = 1004) 40.9 % MCV (test code = 1005) 89.3 fL MCH (test code = 1006) 31.4 PG MCHC (test code = 1007) 35.2 G/DL RDW (test code = 1038) 12.4 % NEUTROPHILS (test code = 1008) 46.5 % LYMPHOCYTES (test code = 1010) 42.2 % MONOCYTES (test code = 1011) 6.6 % EOSINOPHILS (test code = 1012) 4.2 % BASOPHILS (test code = 1013) 0.5 % PLATELET COUNT (test code = 1015) 192 K/UL Fabricio Gomez OhHEMOGLOBIN [id number] 00:00:00* Test Item Value Reference Range Interpretation Comme nts HEMOGLOBIN A1c (test code = 08034) 4.8 % Fabricio [id number] 00:00:00* Test Item Value Reference Range Interpretation Comme nts TSH (test code = 2821) 2.8 UIU/ML Fabricio CasianoCARBAMAZEPINE (TEGRETOL)2015-12-23 00:00:00* Test Item Value Reference Range Interpretation Comme nts CARBAMAZEPINE (TEGRETOL) (te st code = 3006) 7.4 UG/ML Fabricio CasianoCOMPREHENSIVE METABOLIC [id number] 00:00:00* Test Item Value Reference Range Interpretation Comme nts GLUCOSE (test code = 2217) 84 MG/DL BUN (test code = 2208) 14 MG/DL CREATININE (test code = 2214) 0.81 MG/DL eGFR AMER. (test cod e = 16629) 130 ML/MIN/1.73 eGFR NON- AMER. (test code = 72518) 112 ML/MIN/1.73 CALC BUN/CREAT (test code = 2235) 17 RATIO SODIUM (test code = 2231) 141 MEQ/L POTASSIUM (test code = 2228) 3.9 MEQ/L CHLORIDE (test code = 2215) 100 MEQ/L CARBON DIOXIDE (test code = 2206) 26 MEQ/L CALCIUM (test code = 2209) 9.2 MG/DL PROTEIN, TOTAL (test code = 2229) 7.8 G/DL ALBUMIN (test code = 2201) 4.9 G/DL CALC GLOBULIN (test code = 2240) 2.9 G/DL CALC A/G RATIO (test code = 2234) 1.7 RATIO BILIRUBIN, TOTAL (test code = 2207) 0.3 MG/DL ALKALINE PHOSPHATASE (test code = 2204) 71 U/L AST (test code = 2218) 15 U/L ALT (test code = 2219) 12 U/L Fabricio CasianoLIPID [id number] 00:00:00* Test Item Value Reference Range Interpretation Comme nts CHOLESTEROL (test code = 2210) 194 MG/DL TRIGLYCERIDES (test code = 2232) 100 MG/DL HDL CHOLESTEROL (test code = 2220) 53 MG/DL CALC LDL CHOL (test code = 2237) 121 MG/DL RISK RATIO LDL/HDL (test cod e = 2238) 2.28 RATIO Fabricio CasianoCBC W/AUTO [id number] 00:00:00* Test Item Value Reference Range Interpretation Comme nts WBC (test code = 1001) 5.9 K/UL RBC (test code = 1002) 4.58 M/UL HEMOGLOBIN (test code = 1003) 14.4 G/DL HEMATOCRIT (test code = 1004) 40.9 % MCV (test code = 1005) 89.3 fL MCH (test code = 1006) 31.4 PG MCHC (test code = 1007) 35.2 G/DL RDW (test code = 1038) 12.4 % NEUTROPHILS (test code = 1008) 46.5 % LYMPHOCYTES (test code = 1010) 42.2 % MONOCYTES (test code = 1011) 6.6 % EOSINOPHILS (test code = 1012) 4.2 % BASOPHILS (test code = 1013) 0.5 % PLATELET COUNT (test code = 1015) 192 K/UL Fabricio CasianoHEMOGLOBIN [id number] 00:00:00* Test Item Value Reference Range Interpretation Comme airam HEMOGLOBIN A1c (test code = 22277) 4.8 % Fabricio [id number] 00:00:00* Test Item Value Reference Range Interpretation Comme nts TSH (test code = 2821) 2.8 UIU/ML Fabricio CasianoCARBAMAZEPINE (TEGRETOL)2015-12-23 00:00:00* Test Item Value Reference Range Interpretation Comme nts CARBAMAZEPINE (TEGRETOL) (te st code = 3006) 7.4 UG/ML Fabricio CasianoCOMPREHENSIVE METABOLIC [id number] 00:00:00* Test Item Value Reference Range Interpretation Comme nts GLUCOSE (test code = 2217) 84 MG/DL BUN (test code = 2208) 14 MG/DL CREATININE (test code = 2214) 0.81 MG/DL eGFR AMER. (test cod e = 12554) 130 ML/MIN/1.73 eGFR NON- AMER. (test code = 83804) 112 ML/MIN/1.73 CALC BUN/CREAT (test code = 2235) 17 RATIO SODIUM (test code = 2231) 141 MEQ/L POTASSIUM (test code = 2228) 3.9 MEQ/L CHLORIDE (test code = 2215) 100 MEQ/L CARBON DIOXIDE (test code = 2206) 26 MEQ/L CALCIUM (test code = 2209) 9.2 MG/DL PROTEIN, TOTAL (test code = 2229) 7.8 G/DL ALBUMIN (test code = 2201) 4.9 G/DL CALC GLOBULIN (test code = 2240) 2.9 G/DL CALC A/G RATIO (test code = 2234) 1.7 RATIO BILIRUBIN, TOTAL (test code = 2207) 0.3 MG/DL ALKALINE PHOSPHATASE (test code = 2204) 71 U/L AST (test code = 2218) 15 U/L ALT (test code = 2219) 12 U/L Fabricio CasianoLIPID [id number] 00:00:00* Test Item Value Reference Range Interpretation Comme nts CHOLESTEROL (test code = 2210) 194 MG/DL TRIGLYCERIDES (test code = 2232) 100 MG/DL HDL CHOLESTEROL (test code = 2220) 53 MG/DL CALC LDL CHOL (test code = 2237) 121 MG/DL RISK RATIO LDL/HDL (test cod e = 2238) 2.28 RATIO Fabricio CasianoCBC W/AUTO [id number] 00:00:00* Test Item Value Reference Range Interpretation Comme nts WBC (test code = 1001) 5.9 K/UL RBC (test code = 1002) 4.58 M/UL HEMOGLOBIN (test code = 1003) 14.4 G/DL HEMATOCRIT (test code = 1004) 40.9 % MCV (test code = 1005) 89.3 fL MCH (test code = 1006) 31.4 PG MCHC (test code = 1007) 35.2 G/DL RDW (test code = 1038) 12.4 % NEUTROPHILS (test code = 1008) 46.5 % LYMPHOCYTES (test code = 1010) 42.2 % MONOCYTES (test code = 1011) 6.6 % EOSINOPHILS (test code = 1012) 4.2 % BASOPHILS (test code = 1013) 0.5 % PLATELET COUNT (test code = 1015) 192 K/UL Fabricio CasianoHEMOGLOBIN [id number] 00:00:00* Test Item Value Reference Range Interpretation Comme airam HEMOGLOBIN A1c (test code = 35527) 4.8 % Fabricio Gomez [id number] 00:00:00* Test Item Value Reference Range Interpretation Comme nts TSH (test code = 2821) 2.8 UIU/ML Fabricio CasianoCARBAMAZEPINE (TEGRETOL)2015-12-23 00:00:00* Test Item Value Reference Range Interpretation Comme nts CARBAMAZEPINE (TEGRETOL) (te st code = 3006) 7.4 UG/ML Fabricio CasianoCOMPREHENSIVE METABOLIC [id number] 00:00:00* Test Item Value Reference Range Interpretation Comme nts GLUCOSE (test code = 2217) 84 MG/DL BUN (test code = 2208) 14 MG/DL CREATININE (test code = 2214) 0.81 MG/DL eGFR AMER. (test cod e = 31033) 130 ML/MIN/1.73 eGFR NON- AMER. (test code = 47410) 112 ML/MIN/1.73 CALC BUN/CREAT (test code = 2235) 17 RATIO SODIUM (test code = 2231) 141 MEQ/L POTASSIUM (test code = 2228) 3.9 MEQ/L CHLORIDE (test code = 2215) 100 MEQ/L CARBON DIOXIDE (test code = 2206) 26 MEQ/L CALCIUM (test code = 2209) 9.2 MG/DL PROTEIN, TOTAL (test code = 2229) 7.8 G/DL ALBUMIN (test code = 2201) 4.9 G/DL CALC GLOBULIN (test code = 2240) 2.9 G/DL CALC A/G RATIO (test code = 2234) 1.7 RATIO BILIRUBIN, TOTAL (test code = 2207) 0.3 MG/DL ALKALINE PHOSPHATASE (test code = 2204) 71 U/L AST (test code = 2218) 15 U/L ALT (test code = 2219) 12 U/L Fabricio CasianoLIPID [id number] 00:00:00* Test Item Value Reference Range Interpretation Comme nts CHOLESTEROL (test code = 2210) 194 MG/DL TRIGLYCERIDES (test code = 2232) 100 MG/DL HDL CHOLESTEROL (test code = 2220) 53 MG/DL CALC LDL CHOL (test code = 2237) 121 MG/DL RISK RATIO LDL/HDL (test cod e = 2238) 2.28 RATIO Fabricio CasianoCBC W/AUTO [id number] 00:00:00* Test Item Value Reference Range Interpretation Comme nts WBC (test code = 1001) 5.9 K/UL RBC (test code = 1002) 4.58 M/UL HEMOGLOBIN (test code = 1003) 14.4 G/DL HEMATOCRIT (test code = 1004) 40.9 % MCV (test code = 1005) 89.3 fL MCH (test code = 1006) 31.4 PG MCHC (test code = 1007) 35.2 G/DL RDW (test code = 1038) 12.4 % NEUTROPHILS (test code = 1008) 46.5 % LYMPHOCYTES (test code = 1010) 42.2 % MONOCYTES (test code = 1011) 6.6 % EOSINOPHILS (test code = 1012) 4.2 % BASOPHILS (test code = 1013) 0.5 % PLATELET COUNT (test code = 1015) 192 K/UL Fabricio CasianoHEMOGLOBIN [id number] 00:00:00* Test Item Value Reference Range Interpretation Comme airam HEMOGLOBIN A1c (test code = 83182) 4.8 % Fabricio Gomez [id number] 00:00:00* Test Item Value Reference Range Interpretation Comme nts TSH (test code = 2821) 2.8 UIU/ML Fabricio CasianoCARBAMAZEPINE (TEGRETOL)2015-12-23 00:00:00* Test Item Value Reference Range Interpretation Comme nts CARBAMAZEPINE (TEGRETOL) (te st code = 3006) 7.4 UG/ML Fabricio CasianoCOMPREHENSIVE METABOLIC [id number] 00:00:00* Test Item Value Reference Range Interpretation Comme nts GLUCOSE (test code = 2217) 84 MG/DL BUN (test code = 2208) 14 MG/DL CREATININE (test code = 2214) 0.81 MG/DL eGFR AMER. (test cod e = 12311) 130 ML/MIN/1.73 eGFR NON- AMER. (test code = 77682) 112 ML/MIN/1.73 CALC BUN/CREAT (test code = 2235) 17 RATIO SODIUM (test code = 2231) 141 MEQ/L POTASSIUM (test code = 2228) 3.9 MEQ/L CHLORIDE (test code = 2215) 100 MEQ/L CARBON DIOXIDE (test code = 2206) 26 MEQ/L CALCIUM (test code = 2209) 9.2 MG/DL PROTEIN, TOTAL (test code = 2229) 7.8 G/DL ALBUMIN (test code = 2201) 4.9 G/DL CALC GLOBULIN (test code = 2240) 2.9 G/DL CALC A/G RATIO (test code = 2234) 1.7 RATIO BILIRUBIN, TOTAL (test code = 2207) 0.3 MG/DL ALKALINE PHOSPHATASE (test code = 2204) 71 U/L AST (test code = 2218) 15 U/L ALT (test code = 2219) 12 U/L Fabricio CasianoLIPID [id number] 00:00:00* Test Item Value Reference Range Interpretation Comme nts CHOLESTEROL (test code = 2210) 194 MG/DL TRIGLYCERIDES (test code = 2232) 100 MG/DL HDL CHOLESTEROL (test code = 2220) 53 MG/DL CALC LDL CHOL (test code = 2237) 121 MG/DL RISK RATIO LDL/HDL (test cod e = 2238) 2.28 RATIO Fabricio CasianoCBC W/AUTO [id number] 00:00:00* Test Item Value Reference Range Interpretation Comme nts WBC (test code = 1001) 5.9 K/UL RBC (test code = 1002) 4.58 M/UL HEMOGLOBIN (test code = 1003) 14.4 G/DL HEMATOCRIT (test code = 1004) 40.9 % MCV (test code = 1005) 89.3 fL MCH (test code = 1006) 31.4 PG MCHC (test code = 1007) 35.2 G/DL RDW (test code = 1038) 12.4 % NEUTROPHILS (test code = 1008) 46.5 % LYMPHOCYTES (test code = 1010) 42.2 % MONOCYTES (test code = 1011) 6.6 % EOSINOPHILS (test code = 1012) 4.2 % BASOPHILS (test code = 1013) 0.5 % PLATELET COUNT (test code = 1015) 192 K/UL Fabricio CasianoHEMOGLOBIN [id number] 00:00:00* Test Item Value Reference Range Interpretation Comme airam HEMOGLOBIN A1c (test code = 21804) 4.8 % Fabricio [id number] 00:00:00* Test Item Value Reference Range Interpretation Comme nts TSH (test code = 2821) 2.8 UIU/ML Fabricio CasianoCARBAMAZEPINE (TEGRETOL)2015-12-23 00:00:00* Test Item Value Reference Range Interpretation Comme nts CARBAMAZEPINE (TEGRETOL) (te st code = 3006) 7.4 UG/ML Fabricio CasianoCOMPREHENSIVE METABOLIC [id number] 00:00:00* Test Item Value Reference Range Interpretation Comme nts GLUCOSE (test code = 2217) 84 MG/DL BUN (test code = 2208) 14 MG/DL CREATININE (test code = 2214) 0.81 MG/DL eGFR AMER. (test cod e = 52619) 130 ML/MIN/1.73 eGFR NON- AMER. (test code = 21318) 112 ML/MIN/1.73 CALC BUN/CREAT (test code = 2235) 17 RATIO SODIUM (test code = 2231) 141 MEQ/L POTASSIUM (test code = 2228) 3.9 MEQ/L CHLORIDE (test code = 2215) 100 MEQ/L CARBON DIOXIDE (test code = 2206) 26 MEQ/L CALCIUM (test code = 2209) 9.2 MG/DL PROTEIN, TOTAL (test code = 2229) 7.8 G/DL ALBUMIN (test code = 2201) 4.9 G/DL CALC GLOBULIN (test code = 2240) 2.9 G/DL CALC A/G RATIO (test code = 2234) 1.7 RATIO BILIRUBIN, TOTAL (test code = 2207) 0.3 MG/DL ALKALINE PHOSPHATASE (test code = 2204) 71 U/L AST (test code = 2218) 15 U/L ALT (test code = 2219) 12 U/L Fabricio CasianoLIPID [id number] 00:00:00* Test Item Value Reference Range Interpretation Comme nts CHOLESTEROL (test code = 2210) 194 MG/DL TRIGLYCERIDES (test code = 2232) 100 MG/DL HDL CHOLESTEROL (test code = 2220) 53 MG/DL CALC LDL CHOL (test code = 2237) 121 MG/DL RISK RATIO LDL/HDL (test cod e = 2238) 2.28 RATIO Fabricio CasianoCBC W/AUTO [id number] 00:00:00* Test Item Value Reference Range Interpretation Comme nts WBC (test code = 1001) 5.9 K/UL RBC (test code = 1002) 4.58 M/UL HEMOGLOBIN (test code = 1003) 14.4 G/DL HEMATOCRIT (test code = 1004) 40.9 % MCV (test code = 1005) 89.3 fL MCH (test code = 1006) 31.4 PG MCHC (test code = 1007) 35.2 G/DL RDW (test code = 1038) 12.4 % NEUTROPHILS (test code = 1008) 46.5 % LYMPHOCYTES (test code = 1010) 42.2 % MONOCYTES (test code = 1011) 6.6 % EOSINOPHILS (test code = 1012) 4.2 % BASOPHILS (test code = 1013) 0.5 % PLATELET COUNT (test code = 1015) 192 K/UL Fabricio CasianoHEMOGLOBIN [id number] 00:00:00* Test Item Value Reference Range Interpretation Comme airam HEMOGLOBIN A1c (test code = 17949) 4.8 % Fabricio Gomez [id number] 00:00:00* Test Item Value Reference Range Interpretation Comme nts TSH (test code = 2821) 2.8 UIU/ML Fabricio CasianoCARBAMAZEPINE (TEGRETOL)2015-12-23 00:00:00* Test Item Value Reference Range Interpretation Comme nts CARBAMAZEPINE (TEGRETOL) (te st code = 3006) 7.4 UG/ML Fabricio CasianoCOMPREHENSIVE METABOLIC [id number] 00:00:00* Test Item Value Reference Range Interpretation Comme nts GLUCOSE (test code = 2217) 84 MG/DL BUN (test code = 2208) 14 MG/DL CREATININE (test code = 2214) 0.81 MG/DL eGFR AMER. (test cod e = 11393) 130 ML/MIN/1.73 eGFR NON- AMER. (test code = 68792) 112 ML/MIN/1.73 CALC BUN/CREAT (test code = 2235) 17 RATIO SODIUM (test code = 2231) 141 MEQ/L POTASSIUM (test code = 2228) 3.9 MEQ/L CHLORIDE (test code = 2215) 100 MEQ/L CARBON DIOXIDE (test code = 2206) 26 MEQ/L CALCIUM (test code = 2209) 9.2 MG/DL PROTEIN, TOTAL (test code = 2229) 7.8 G/DL ALBUMIN (test code = 2201) 4.9 G/DL CALC GLOBULIN (test code = 2240) 2.9 G/DL CALC A/G RATIO (test code = 2234) 1.7 RATIO BILIRUBIN, TOTAL (test code = 2207) 0.3 MG/DL ALKALINE PHOSPHATASE (test code = 2204) 71 U/L AST (test code = 2218) 15 U/L ALT (test code = 2219) 12 U/L Fabricio CasianoLIPID [id number] 00:00:00* Test Item Value Reference Range Interpretation Comme nts CHOLESTEROL (test code = 2210) 194 MG/DL TRIGLYCERIDES (test code = 2232) 100 MG/DL HDL CHOLESTEROL (test code = 2220) 53 MG/DL CALC LDL CHOL (test code = 2237) 121 MG/DL RISK RATIO LDL/HDL (test cod e = 2238) 2.28 RATIO Fabricio CasianoCBC W/AUTO [id number] 00:00:00* Test Item Value Reference Range Interpretation Comme nts WBC (test code = 1001) 5.9 K/UL RBC (test code = 1002) 4.58 M/UL HEMOGLOBIN (test code = 1003) 14.4 G/DL HEMATOCRIT (test code = 1004) 40.9 % MCV (test code = 1005) 89.3 fL MCH (test code = 1006) 31.4 PG MCHC (test code = 1007) 35.2 G/DL RDW (test code = 1038) 12.4 % NEUTROPHILS (test code = 1008) 46.5 % LYMPHOCYTES (test code = 1010) 42.2 % MONOCYTES (test code = 1011) 6.6 % EOSINOPHILS (test code = 1012) 4.2 % BASOPHILS (test code = 1013) 0.5 % PLATELET COUNT (test code = 1015) 192 K/UL Fabricio CasianoHEMOGLOBIN [id number] 00:00:00* Test Item Value Reference Range Interpretation Comme nts HEMOGLOBIN A1c (test code = 96903) 4.8 % Fabricio [id number] 00:00:00* Test Item Value Reference Range Interpretation Comme nts TSH (test code = 2821) 2.8 UIU/ML Fabricio CasianoCARBAMAZEPINE (TEGRETOL)2015-12-23 00:00:00* Test Item Value Reference Range Interpretation Comme nts CARBAMAZEPINE (TEGRETOL) (te st code = 3006) 7.4 UG/ML Fabricio CasianoCOMPREHENSIVE METABOLIC [id number] 00:00:00* Test Item Value Reference Range Interpretation Comme nts GLUCOSE (test code = 2217) 84 MG/DL BUN (test code = 2208) 14 MG/DL CREATININE (test code = 2214) 0.81 MG/DL eGFR AMER. (test cod e = 88756) 130 ML/MIN/1.73 eGFR NON- AMER. (test code = 69022) 112 ML/MIN/1.73 CALC BUN/CREAT (test code = 2235) 17 RATIO SODIUM (test code = 2231) 141 MEQ/L POTASSIUM (test code = 2228) 3.9 MEQ/L CHLORIDE (test code = 2215) 100 MEQ/L CARBON DIOXIDE (test code = 2206) 26 MEQ/L CALCIUM (test code = 2209) 9.2 MG/DL PROTEIN, TOTAL (test code = 2229) 7.8 G/DL ALBUMIN (test code = 2201) 4.9 G/DL CALC GLOBULIN (test code = 2240) 2.9 G/DL CALC A/G RATIO (test code = 2234) 1.7 RATIO BILIRUBIN, TOTAL (test code = 2207) 0.3 MG/DL ALKALINE PHOSPHATASE (test code = 2204) 71 U/L AST (test code = 2218) 15 U/L ALT (test code = 2219) 12 U/L Fabricio CasianoLIPID [id number] 00:00:00* Test Item Value Reference Range Interpretation Comme nts CHOLESTEROL (test code = 2210) 194 MG/DL TRIGLYCERIDES (test code = 2232) 100 MG/DL HDL CHOLESTEROL (test code = 2220) 53 MG/DL CALC LDL CHOL (test code = 2237) 121 MG/DL RISK RATIO LDL/HDL (test cod e = 2238) 2.28 RATIO Fabricio CasianoCBC W/AUTO [id number] 00:00:00* Test Item Value Reference Range Interpretation Comme nts WBC (test code = 1001) 5.9 K/UL RBC (test code = 1002) 4.58 M/UL HEMOGLOBIN (test code = 1003) 14.4 G/DL HEMATOCRIT (test code = 1004) 40.9 % MCV (test code = 1005) 89.3 fL MCH (test code = 1006) 31.4 PG MCHC (test code = 1007) 35.2 G/DL RDW (test code = 1038) 12.4 % NEUTROPHILS (test code = 1008) 46.5 % LYMPHOCYTES (test code = 1010) 42.2 % MONOCYTES (test code = 1011) 6.6 % EOSINOPHILS (test code = 1012) 4.2 % BASOPHILS (test code = 1013) 0.5 % PLATELET COUNT (test code = 1015) 192 K/UL Fabricio CasianoHEMOGLOBIN [id number] 00:00:00* Test Item Value Reference Range Interpretation Comme [facility] HEMOGLOBIN A1c (test code = 59838) 4.8 % Fabricio Casiano Notes Date/Time Note Provider Source 2023-09-30 00:00:00 [id number]+vmGLf0kZzixe [id number]+2023-09-30 T00:00:00+ + +| Plan Activity | Plan Date |+ + +| CBC | 2015-02-08 || CMP | || A1C | || TSH | || Lipids | || Follow up in one year for follow up | || Results will be called to You and addressed | || Appended: 2016-02-14 | || complete blood panel today . Healthy diet , physical therapy and activity as | || tolerated . | || RTC for chronic management and also as needed | |+ + +| refill Carbamazepine | 2015-02-08 || Ok to crush pills and put in applesauce | || Schedule appointment with [facility] home health appointment for labs: Carbamazepine | || level, CBC, CMP | |+ + +| Stable | 2015-02-08 |+ + +| Visualized 2 seizures in office | 2015-03-22 || Patient able to make eye contact | || Call for EMS services | || Follow up upon discharge of next business day | |+ + +| Referral for removal with Dr. Westbrook | 2015-06-14 || Arrange transportation to appointment | |+ + +| All discussed with patient instructions as below. Adan todd prescribed | 2015-06-23 || and continue Albuterol nebulizer treatments as previously prescribed. Mucinex | || over the counter per package instructions. Dosing and side effects discussed in | || detail. Red flag symptoms including fever, SOB, difficulty breathing, chest | || pain reviewed and ER precautions given and will seek urgent care if these | || should occur. Follow-up if symptoms change, worsen or do not resolve. | |+ + +| Drink plenty of water | 2015-10-19 || Eat soup that is not spicy | || Monitor for skin break down | || Monitor for diarrhea | || Patient's mother given handout about diarrhea in [place] | || Watchful waiting - Diarrhea is the body's natural defense against bacteria and | || does not need to be treated with medication at this time | || Return to clinic if symptoms worsen or persist | |+ + +| diet as tolerated | 2016-02-24 || RTC as needed for any concerns | |+ + +| carbamazepine level normal, 6.0 | 2017-07-04 || Refilled: | || carbamazepine 200mg 2 tablet by mouth BID | |+ + +| Made carbamazepine 200mg 4 tabs daily instead of QID for improved compliance | 2017-09-12 || Appended: 2018-09-24 | || Reviewed meds and regimen with patient | |+ + +| Reviewed [facility] | 2017-09-12 |+ + +| CXR ordered, pending results | 2017-09-12 |+ + +| CXR ordered, pending results | 2017-09-12 |+ + +| Diapers, facial masks, gloves, wipes ordered | 2017-10-15 |+ + +| Ensure Collins cans ordered TID after meals | 2017-10-20 |+ + +| prednisone 20 mg 1 tablet by mouth BID for 5 days | 2018-03-10 || azithromycin 250 mg Add'l Sig tablet by mouth as directed take 2 tabs day 1, | || then 1 tab daily the next 4 days | || loratadine 10 mg 1 tablet by mouth DAILY | || promethazine-DM 6.25-15 mg/5 mL 5 ml by mouth Q6-8h prn | || Appended: 2018-09-24 | || loratadine 10mg 1 tablet by mouth DAILY for 14 days | || | || Bromfed DM 2-30-10mg/5 mL 5 ml by mouth Q6-8h prn, most likely insurance | || coverage | |+ + +| refill loratadine | 2023-09-30 || refill Arnuity Ellipta | |+ + +| refill omeprazole 40mg | 2020-08-18 || refill famotidine 40mg | |+ + +| Refer to GI | 2021-07-18 |+ + +| azithromycin, prednisone, promethazine-DM,albuterol prn, benzonatate ordered | 2022-05-02 |+ + +[id number] of TreatmentLNCARE PLANTXTSFA|[facility] [id number] for patient vogaUubqphvXbomwngpxEGVGm26 Section NarrativeNARRATIVEFormatted C-CDA narrative textSLincoln County Medical Centerdwight PatriciaDashawn [facility]2024-06-11T00:00:00 Fabricio Caldwell [facility] 2023-08-12 00:00:00 [id number] [id number] rCV[id number] T00:00:00+ + +| Plan Activity | Plan Date |+ + +| CBC | 2015-02-08 || CMP | || A1C | || TSH | || Lipids | || Follow up in one year for follow up | || Results will be called to You and addressed | || Appended: 2016-02-14 | || complete blood panel today . Healthy diet , physical therapy and activity as | || tolerated . | || RTC for chronic management and also as needed | |+ + +| Refer to neurology | 2015-02-08 || Carbamazepine refilled 08/07 for 60 days | || Ok to crush pills and put in applesauce | || RTO for Carbamazepine level, CBC, CMP | |+ + +| Wheelchair and shower chair, walker, walker seat com | 2015-02-08 || Refer to [facility] | |+ + +| Visualized 2 seizures in office | 2015-03-22 || Patient able to make eye contact | || Call for EMS services | || Follow up upon discharge of next day | |+ + +| Referral for removal with Dr. Westbrook | 2015-06-14 || Arrange transportation to appointment | |+ + +| All discussed with patient instructions as below. Adan todd prescribed | 2015-06-23 || and continue Albuterol nebulizer treatments as previously prescribed. Mucinex | || over the counter per package instructions. Dosing and side effects discussed in | || detail. Red flag symptoms including fever, SOB, difficulty breathing, chest | || pain reviewed and ER precautions given and will seek urgent care if these | || should occur. Follow-up if symptoms change, worsen or do not resolve. | |+ + +| Drink plenty of water | 2015-10-19 || Eat soup that is not spicy | || Monitor for skin break down | || Monitor for diarrhea | || Patient's mother given handout about diarrhea in [place] | || Watchful waiting - Diarrhea is the body's natural defense against bacteria and | || does not need to be treated with medication at this time | || Return to clinic if symptoms worsen or persist | |+ + +| diet as tolerated | 2016-02-24 || RTC as needed for any concerns | |+ + +| carbamazepine level normal, 6.0 | 2017-07-04 || Refilled: | || carbamazepine 200mg 2 tablet by mouth BID | |+ + +| Made carbamazepine 200mg 4 tabs daily instead of QID for improved compliance | 2017-09-12 || Appended: 2018-09-24 | || Reviewed meds and regimen with patient | |+ + +| Reviewed [facility] | 2017-09-12 |+ + +| CXR ordered, pending results | 2017-09-12 |+ + +| CXR ordered, pending results | 2017-09-12 |+ + +| Diapers, facial masks, gloves, wipes ordered | 2017-10-15 |+ + +| Ensure Collins cans ordered TID after meals | 2017-10-20 |+ + +| prednisone 20 mg 1 tablet by mouth BID for 5 days | 2018-03-10 || azithromycin 250 mg Add'l Sig tablet by mouth as directed take 2 tabs day 1, | || then 1 tab daily the next 4 days | || loratadine 10 mg 1 tablet by mouth DAILY | || promethazine-DM 6.25-15 mg/5 mL 5 ml by mouth Q6-8h prn | || Appended: 2018-09-24 | || loratadine 10mg 1 tablet by mouth DAILY for 14 days | || | || Bromfed DM 2-30-10mg/5 mL 5 ml by mouth Q6-8h prn, most likely insurance | || coverage | |+ + +| loratadine 10mg refilled 08/11 | 2019-01-27 || Arnuity Ellipta refilled 08/11 | |+ + +| omeprazole 40mg refilled 08/11 | 2020-08-18 || famotidine 40mg daily refilled 08/07 | || Take meds as prescribed | || Avoid laying down after eating | || Aovid any spicy, high acidic foods and drinks | |+ + +| Refer to GI | 2021-07-18 |+ + +| azithromycin, prednisone, promethazine-DM,albuterol prn, benzonatate ordered | 2022-05-02 |+ + +[id number] of TreatmentED [id number] for patient anzqUulmqsrXktfxhtigXXTHs26 Section NarrativeNARRATIVEFormatted C-CDA narrative textSFAStdwight Caldwell [facility]2024-04-23T00:00:00 Fabricio Caldwell [facility] 2023-06-11 00:00:00 [id number] [id number] pRDln[id number] T00:00:00+ + +| Plan Activity | Plan Date |+ + +| CBC | 2015-02-08 || CMP | || A1C | || TSH | || Lipids | || Follow up in one year for follow up | || Results will be called to You and addressed | || Appended: 2016-02-14 | || complete blood panel today . Healthy diet , physical therapy and activity as | || tolerated . | || RTC for chronic management and also as needed | |+ + +| Refer to neurology | 2015-02-08 || Carbamazepine refilled 08/07 for 60 days | || Ok to crush pills and put in applesauce | || RTO for Carbamazepine level, CBC, CMP | |+ + +| Wheelchair and shower chair, walker, walker seat com | 2015-02-08 || Refer to [facility] home [facility] | |+ + +| Visualized 2 seizures in office | 2015-03-22 || Patient able to make eye contact | || Call for EMS services | || Follow up upon discharge of next business day | |+ + +| Referral for removal with Dr. Westbrook | 2015-06-14 || Arrange transportation to appointment | |+ + +| All discussed with patient instructions as below. Adan todd prescribed | 2015-06-23 || and continue Albuterol nebulizer treatments as previously prescribed. Mucinex | || over the counter per package instructions. Dosing and side effects discussed in | || detail. Red flag symptoms including fever, SOB, difficulty breathing, chest | || pain reviewed and ER precautions given and will seek urgent care if these | || should occur. Follow-up if symptoms change, worsen or do not resolve. | |+ + +| Drink plenty of water | 2015-10-19 || Eat soup that is not spicy | || Monitor for skin break down | || Monitor for diarrhea | || Patient's mother given handout about diarrhea in [place] | || Watchful waiting - Diarrhea is the body's natural defense against bacteria and | || does not need to be treated with medication at this time | || Return to clinic if symptoms worsen or persist | |+ + +| diet as tolerated | 2016-02-24 || RTC as needed for any concerns | |+ + +| carbamazepine level normal, 6.0 | 2017-07-04 || Refilled: | || carbamazepine 200mg 2 tablet by mouth BID | |+ + +| Made carbamazepine 200mg 4 tabs daily instead of QID for improved compliance | 2017-09-12 || Appended: 2018-09-24 | || Reviewed meds and regimen with patient | |+ + +| Reviewed [facility] | 2017-09-12 |+ + +| CXR ordered, pending results | 2017-09-12 |+ + +| CXR ordered, pending results | 2017-09-12 |+ + +| Diapers, facial masks, gloves, wipes ordered | 2017-10-15 |+ + +| Ensure Collins cans ordered TID after meals | 2017-10-20 |+ + +| prednisone 20 mg 1 tablet by mouth BID for 5 days | 2018-03-10 || azithromycin 250 mg Add'l Sig tablet by mouth as directed take 2 tabs day 1, | || then 1 tab daily the next 4 days | || loratadine 10 mg 1 tablet by mouth DAILY | || promethazine-DM 6.25-15 mg/5 mL 5 ml by mouth Q6-8h prn | || Appended: 2018-09-24 | || loratadine 10mg 1 tablet by mouth DAILY for 14 days | || | || Bromfed DM 2-30-10mg/5 mL 5 ml by mouth Q6-8h prn, most likely insurance | || coverage | |+ + +| loratadine 10mg refilled 08/11 | 2019-01-27 || Arnuity Ellipta refilled 08/11 | |+ + +| omeprazole 40mg refilled 08/11 | 2020-08-18 || famotidine 40mg daily refilled 08/07 | || Take meds as prescribed | || Avoid laying down after eating | || Aovid any spicy, high acidic foods and drinks | |+ + +| Refer to GI | 2021-07-18 |+ + +| azithromycin, prednisone, promethazine-DM,albuterol prn, benzonatate ordered | 2022-05-02 |+ + +[id number] of TreatmentLNCARE PLANTXTSFA|[id number] for patient llnzVhbcikkBlbiggwecGXDXc87 Section NarrativeNARRATIVEFormatted C-CDA narrative textSFAStdwight Caldwell [facility]2024-04-23T00:00:00 Fabricio Caldwell [facility] 2023-05-01 00:00:00 [id number] yQ7ybD4lR9xIszgJK nDMxjlmkhxB0neFIpHb9dE1cdUn8635-00-04 T00:00:00+ + +| Plan Activity | Plan Date |+ + +| CBC | 2015-02-08 || CMP | || A1C | || TSH | || Lipids | || Follow up in one year for follow up | || Results will be called to You and addressed | || Appended: 2016-02-14 | || complete blood panel today . Healthy diet , physical therapy and activity as | || tolerated . | || RTC for chronic management and also as needed | |+ + +| Refer to neurology | 2015-02-08 || Carbamazepine refilled 08/07 for 60 days | || Ok to crush pills and put in applesauce | || RTO for Carbamazepine level, CBC, CMP | |+ + +| Wheelchair and shower chair, walker, walker seat com | 2015-02-08 || Refer to [facility] | |+ + +| Visualized 2 seizures in office | 2015-03-22 || Patient able to make eye contact | || Call for EMS services | || Follow up upon discharge of next business day | |+ + +| Referral for removal with Dr. Westbrook | 2015-06-14 || Arrange transportation to appointment | |+ + +| All discussed with patient instructions as below. Adan todd prescribed | 2015-06-23 || and continue Albuterol nebulizer treatments as previously prescribed. Mucinex | || over the counter per package instructions. Dosing and side effects discussed in | || detail. Red flag symptoms including fever, SOB, difficulty breathing, chest | || pain reviewed and ER precautions given and will seek urgent care if these | || should occur. Follow-up if symptoms change, worsen or do not resolve. | |+ + +| Drink plenty of water | 2015-10-19 || Eat soup that is not spicy | || Monitor for skin break down | || Monitor for diarrhea | || Patient's mother given handout about diarrhea in [place] | || Watchful waiting - Diarrhea is the body's natural defense against bacteria and | || does not need to be treated with medication at this time | || Return to clinic if symptoms worsen or persist | |+ + +| diet as tolerated | 2016-02-24 || RTC as needed for any concerns | |+ + +| carbamazepine level normal, 6.0 | 2017-07-04 || Refilled: | || carbamazepine 200mg 2 tablet by mouth BID | |+ + +| Made carbamazepine 200mg 4 tabs daily instead of QID for improved compliance | 2017-09-12 || Appended: 2018-09-24 | || Reviewed meds and regimen with patient | |+ + +| [facility] | 2017-09-12 |+ + +| CXR ordered, pending results | 2017-09-12 |+ + +| CXR ordered, pending results | 2017-09-12 |+ + +| Diapers, facial masks, gloves, wipes ordered | 2017-10-15 |+ + +| Ensure Cristóbal amarals ordered TID after meals | 2017-10-20 |+ + +| prednisone 20 mg 1 tablet by mouth BID for 5 days | 2018-03-10 || azithromycin 250 mg Add'l Sig tablet by mouth as directed take 2 tabs day 1, | || then 1 tab daily the next 4 days | || loratadine 10 mg 1 tablet by mouth DAILY | || promethazine-DM 6.25-15 mg/5 mL 5 ml by mouth Q6-8h prn | || Appended: 2018-09-24 | || loratadine 10mg 1 tablet by mouth DAILY for 14 days | || | || Bromfed DM 2-30-10mg/5 mL 5 ml by mouth Q6-8h prn, most likely insurance | || coverage | |+ + +| loratadine 10mg refilled 08/11 | 2019-01-27 || Arnuity Ellipta refilled 08/11 | |+ + +| omeprazole 40mg refilled 08/11 | 2020-08-18 || famotidine 40mg daily refilled 08/07 | || Take meds as prescribed | || Avoid laying down after eating | || Aovid any spicy, high acidic foods and drinks | |+ + +| Refer to GI | 2021-07-18 |+ + +| azithromycin, prednisone, promethazine-DM,albuterol prn, benzonatate ordered | 2022-05-02 |+ + +[id number] of TreatmentLNCARE PLANTXTSFA|[id number] for patient qyauCwhzkysXoyxxuwriSFYXe71 Section NarrativeNARRATIVEFormatted C-CDA narrative textSFAStdwight PatriciaDashawn [facility]2024-04-23T00:00:00 Fabricio PatriciaDashawn [facility] 2023-02-28 00:00:00 [id number] eP9uiV8dB3yEkdrWJ lXYfckfrfcI9zhHWqLb4bK8khHh5763-04-87 T00:00:00+ + +| Plan Activity | Plan Date |+ + +| CBC | 2015-02-08 || CMP | || A1C | || TSH | || Lipids | || Follow up in one year for follow up | || Results will be called to You and addressed | || Appended: 2016-02-14 | || complete blood panel today . Healthy diet , physical therapy and activity as | || tolerated . | || RTC for chronic management and also as needed | |+ + +| Refer to neurology | 2015-02-08 || Carbamazepine refilled 08/07 for 60 days | || Ok to crush pills and put in applesauce | || RTO for Carbamazepine level, CBC, CMP | |+ + +| Wheelchair and shower chair, walker, walker seat com | 2015-02-08 || Refer to [facility] | |+ + +| Visualized 2 seizures in office | 2015-03-22 || Patient able to make eye contact | || Call for EMS services | || Follow up upon discharge of next business day | |+ + +| Referral for removal with Dr. Westbrook | 2015-06-14 || Arrange transportation to appointment | |+ + +| All discussed with patient instructions as below. Adan todd prescribed | 2015-06-23 || and continue Albuterol nebulizer treatments as previously prescribed. Mucinex | || over the counter per package instructions. Dosing and side effects discussed in | || detail. Red flag symptoms including fever, SOB, difficulty breathing, chest | || pain reviewed and ER precautions given and will seek urgent care if these | || should occur. Follow-up if symptoms change, worsen or do not resolve. | |+ + +| Drink plenty of water | 2015-10-19 || Eat soup that is not spicy | || Monitor for skin break down | || Monitor for diarrhea | || Patient's mother given handout about diarrhea in [place] | || Watchful waiting - Diarrhea is the body's natural defense against bacteria and | || does not need to be treated with medication at this time | || Return to clinic if symptoms worsen or persist | |+ + +| diet as tolerated | 2016-02-24 || RTC as needed for any concerns | |+ + +| carbamazepine level normal, 6.0 | 2017-07-04 || Refilled: | || carbamazepine 200mg 2 tablet by mouth BID | |+ + +| Made carbamazepine 200mg 4 tabs daily instead of QID for improved compliance | 2017-09-12 || Appended: 2018-09-24 | || Reviewed meds and regimen with patient | |+ + +| Reviewed [facility] | 2017-09-12 |+ + +| CXR ordered, pending results | 2017-09-12 |+ + +| CXR ordered, pending results | 2017-09-12 |+ + +| Diapers, facial masks, gloves, wipes ordered | 2017-10-15 |+ + +| Ensure Collins cans ordered TID after meals | 2017-10-20 |+ + +| prednisone 20 mg 1 tablet by mouth BID for 5 days | 2018-03-10 || azithromycin 250 mg Add'l Sig tablet by mouth as directed take 2 tabs day 1, | || then 1 tab daily the next 4 days | || loratadine 10 mg 1 tablet by mouth DAILY | || promethazine-DM 6.25-15 mg/5 mL 5 ml by mouth Q6-8h prn | || Appended: 2018-09-24 | || loratadine 10mg 1 tablet by mouth DAILY for 14 days | || | || Bromfed DM 2-30-10mg/5 mL 5 ml by mouth Q6-8h prn, most likely insurance | || coverage | |+ + +| loratadine 10mg refilled 08/11 | 2019-01-27 || Arnuity Ellipta refilled 08/11 | |+ + +| omeprazole 40mg refilled 08/11 | 2020-08-18 || famotidine 40mg daily refilled 08/07 | || Take meds as prescribed | || Avoid laying down after eating | || Aovid any spicy, high acidic foods and drinks | |+ + +| Refer to GI | 2021-07-18 |+ + +| azithromycin, prednisone, promethazine-DM,albuterol prn, benzonatate ordered | 2022-05-02 |+ + +[id number] [facility]ED [facility]|[id number] for patient qjfoNgioicoLvqzcdsssPWSIy48 Section NarrativeNARRATIVEFormatted C-CDA narrative textSLincoln County Medical Centerdwight [facility]2024-04-23T00:00:00 Fabricio [facility] 2022-11-20 00:00:00 [id number] dAWbnpn[id number] T00:00:00+ + +| Plan Activity | Plan Date |+ + +| CBC | 2015-02-08 || CMP | || A1C | || TSH | || Lipids | || Follow up in one year for follow up | || Results will be called to You and addressed | || Appended: 2016-02-14 | || complete blood panel today . Healthy diet , physical therapy and activity as | || tolerated . | || RTC for chronic management and also as needed | |+ + +| Refer to neurology | 2015-02-08 || Carbamazepine refilled 08/07 for 60 days | || Ok to crush pills and put in applesauce | || RTO for Carbamazepine level, CBC, CMP | |+ + +| Wheelchair and shower chair, walker, walker seat com | 2015-02-08 || Refer to [facility] | |+ + +| Visualized 2 seizures in office | 2015-03-22 || Patient able to make eye contact | || Call for EMS services | || Follow up upon discharge of next business day | |+ + +| Referral for removal with Dr. Westbrook | 2015-06-14 || Arrange transportation to appointment | |+ + +| All discussed with patient instructions as below. Adan todd prescribed | 2015-06-23 || and continue Albuterol nebulizer treatments as previously prescribed. Mucinex | || over the counter per package instructions. Dosing and side effects discussed in | || detail. Red flag symptoms including fever, SOB, difficulty breathing, chest | || pain reviewed and ER precautions given and will seek urgent care if these | || should occur. Follow-up if symptoms change, worsen or do not resolve. | |+ + +| Drink plenty of water | 2015-10-19 || Eat soup that is not spicy | || Monitor for skin break down | || Monitor for diarrhea | || Patient's mother given handout about diarrhea in [place] | || Watchful waiting - Diarrhea is the body's natural defense against bacteria and | || does not need to be treated with medication at this time | || Return to clinic if symptoms worsen or persist | |+ + +| diet as tolerated | 2016-02-24 || RTC as needed for any concerns | |+ + +| carbamazepine level normal, 6.0 | 2017-07-04 || Refilled: | || carbamazepine 200mg 2 tablet by mouth BID | |+ + +| Made carbamazepine 200mg 4 tabs daily instead of QID for improved compliance | 2017-09-12 || Appended: 2018-09-24 | || Reviewed meds and regimen with patient | |+ + +| Reviewed [facility] | 2017-09-12 |+ + +| CXR ordered, pending results | 2017-09-12 |+ + +| CXR ordered, pending results | 2017-09-12 |+ + +| Diapers, facial masks, gloves, wipes ordered | 2017-10-15 |+ + +| Ensure Collins cans ordered TID after meals | 2017-10-20 |+ + +| prednisone 20 mg 1 tablet by mouth BID for 5 days | 2018-03-10 || azithromycin 250 mg Add'l Sig tablet by mouth as directed take 2 tabs day 1, | || then 1 tab daily the next 4 days | || loratadine 10 mg 1 tablet by mouth DAILY | || promethazine-DM 6.25-15 mg/5 mL 5 ml by mouth Q6-8h prn | || Appended: 2018-09-24 | || loratadine 10mg 1 tablet by mouth DAILY for 14 days | || | || Bromfed DM 2-30-10mg/5 mL 5 ml by mouth Q6-8h prn, most likely insurance | || coverage | |+ + +| loratadine 10mg refilled 08/11 | 2019-01-27 || Arnuity Ellipta refilled 08/11 | |+ + +| omeprazole 40mg refilled 08/11 | 2020-08-18 || famotidine 40mg daily refilled 08/07 | || Take meds as prescribed | || Avoid laying down after eating | || Aovid any spicy, high acidic foods and drinks | |+ + +| Refer to GI | 2021-07-18 |+ + +| azithromycin, prednisone, promethazine-DM,albuterol prn, benzonatate ordered | 2022-05-02 |+ + +[id number] of TreatmentLNCARE [facility]TS[facility]|[id number] for patient gsrhGvmnvdkOtvpqzzbuNNLRz97 Section NarrativeNARRATIVEFormatted C-CDA narrative textSLincoln County Medical Centerdwight PatriciaDashawn [facility]2024-04-23T00:00:00 Fabricio PatriciaDashawn [facility] 2022-08-01 00:00:00 [id number] dA4goR2oS2kFbocYO dQNyxve[id number] T00:00:00+ + +| Plan Activity | Plan Date |+ + +| CBC | 2015-02-08 || CMP | || A1C | || TSH | || Lipids | || Follow up in one year for follow up | || Results will be called to You and addressed | || Appended: 2016-02-14 | || complete blood panel today . Healthy diet , physical therapy and activity as | || tolerated . | || RTC for chronic management and also as needed | |+ + +| Refer to neurology | 2015-02-08 || Carbamazepine refilled 08/07 for 60 days | || Ok to crush pills and put in applesauce | || RTO for Carbamazepine level, CBC, CMP | |+ + +| Wheelchair and shower chair, walker, walker seat com | 2015-02-08 || Refer to [facility] | |+ + +| Visualized 2 seizures in office | 2015-03-22 || Patient able to make eye contact | || Call for EMS services | || Follow up upon discharge of next business day | |+ + +| Referral for removal with Dr. Westbrook | 2015-06-14 || Arrange transportation to appointment | |+ + +| All discussed with patient instructions as below. Adan todd prescribed | 2015-06-23 || and continue Albuterol nebulizer treatments as previously prescribed. Mucinex | || over the counter per package instructions. Dosing and side effects discussed in | || detail. Red flag symptoms including fever, SOB, difficulty breathing, chest | || pain reviewed and ER precautions given and will seek urgent care if these | || should occur. Follow-up if symptoms change, worsen or do not resolve. | |+ + +| Drink plenty of water | 2015-10-19 || Eat soup that is not spicy | || Monitor for skin break down | || Monitor for diarrhea | || Patient's mother given handout about diarrhea in [place] | || Watchful waiting - Diarrhea is the body's natural defense against bacteria and | || does not need to be treated with medication at this time | || Return to clinic if symptoms worsen or persist | |+ + +| diet as tolerated | 2016-02-24 || RTC as needed for any concerns | |+ + +| carbamazepine level normal, 6.0 | 2017-07-04 || Refilled: | || carbamazepine 200mg 2 tablet by mouth BID | |+ + +| Made carbamazepine 200mg 4 tabs daily instead of QID for improved compliance | 2017-09-12 || Appended: 2018-09-24 | || Reviewed meds and regimen with patient | |+ + +| Reviewed [facility] | 2017-09-12 |+ + +| CXR ordered, pending results | 2017-09-12 |+ + +| CXR ordered, pending results | 2017-09-12 |+ + +| Diapers, facial masks, gloves, wipes ordered | 2017-10-15 |+ + +| Ensure Collins cans ordered TID after meals | 2017-10-20 |+ + +| prednisone 20 mg 1 tablet by mouth BID for 5 days | 2018-03-10 || azithromycin 250 mg Add'l Sig tablet by mouth as directed take 2 tabs day 1, | || then 1 tab daily the next 4 days | || loratadine 10 mg 1 tablet by mouth DAILY | || promethazine-DM 6.25-15 mg/5 mL 5 ml by mouth Q6-8h prn | || Appended: 2018-09-24 | || loratadine 10mg 1 tablet by mouth DAILY for 14 days | || | || Bromfed DM 2-30-10mg/5 mL 5 ml by mouth Q6-8h prn, most likely insurance | || coverage | |+ + +| loratadine 10mg refilled 08/11 | 2019-01-27 || Arnuity Ellipta refilled 08/11 | |+ + +| omeprazole 40mg refilled 08/11 | 2020-08-18 || famotidine 40mg daily refilled 08/07 | || Take meds as prescribed | || Avoid laying down after eating | || Aovid any spicy, high acidic foods and drinks | |+ + +| Refer to GI | 2021-07-18 |+ + +| azithromycin, prednisone, promethazine-DM,albuterol prn, benzonatate ordered | 2022-05-02 |+ + +[id number] of [facility]ED [facility]-[id number] for patient wfjbUrwmpzkXqeoazxutOXZZq95 Section NarrativeNARRATIVEFormatted C-CDA narrative textSFAStdwight [facility]dwell [facility]2024-04-23T00:00:00 Fabricio [facility] 2022-05-02 00:00:00 [id number] eW7vgY0fL8dEoxrFG sTTb[id number] T00:00:00+ + +| Plan Activity | Plan Date |+ + +| CBC | 2015-02-08 || CMP | || A1C | || TSH | || Lipids | || Follow up in one year for follow up | || Results will be called to You and addressed | || Appended: 2016-02-14 | || complete blood panel today . Healthy diet , physical therapy and activity as | || tolerated . | || RTC for chronic management and also as needed | |+ + +| Refer to neurology | 2015-02-08 || Carbamazepine refilled 08/07 for 60 days | || Ok to crush pills and put in applesauce | || RTO for Carbamazepine level, CBC, CMP | |+ + +| Wheelchair and shower chair, walker, walker seat com | 2015-02-08 || Refer to [facility] | |+ + +| Visualized 2 seizures in office | 2015-03-22 || Patient able to make eye contact | || Call for EMS services | || Follow up upon discharge of next business day | |+ + +| Referral for removal with Dr. Westbrook | 2015-06-14 || Arrange transportation to appointment | |+ + +| All discussed with patient instructions as below. Adan todd prescribed | 2015-06-23 || and continue Albuterol nebulizer treatments as previously prescribed. Mucinex | || over the counter per package instructions. Dosing and side effects discussed in | || detail. Red flag symptoms including fever, SOB, difficulty breathing, chest | || pain reviewed and ER precautions given and will seek urgent care if these | || should occur. Follow-up if symptoms change, worsen or do not resolve. | |+ + +| Drink plenty of water | 2015-10-19 || Eat soup that is not spicy | || Monitor for skin break down | || Monitor for diarrhea | || Patient's mother given handout about diarrhea in [place] | || Watchful waiting - Diarrhea is the body's natural defense against bacteria and | || does not need to be treated with medication at this time | || Return to clinic if symptoms worsen or persist | |+ + +| diet as tolerated | 2016-02-24 || RTC as needed for any concerns | |+ + +| carbamazepine level normal, 6.0 | 2017-07-04 || Refilled: | || carbamazepine 200mg 2 tablet by mouth BID | |+ + +| Made carbamazepine 200mg 4 tabs daily instead of QID for improved compliance | 2017-09-12 || Appended: 2018-09-24 | || Reviewed meds and regimen with patient | |+ + +| Reviewed notes [facility] | 2017-09-12 |+ + +| CXR ordered, pending results | 2017-09-12 |+ + +| CXR ordered, pending results | 2017-09-12 |+ + +| Diapers, facial masks, gloves, wipes ordered | 2017-10-15 |+ + +| Ensure Collins cans ordered TID after meals | 2017-10-20 |+ + +| prednisone 20 mg 1 tablet by mouth BID for 5 days | 2018-03-10 || azithromycin 250 mg Add'l Sig tablet by mouth as directed take 2 tabs day 1, | || then 1 tab daily the next 4 days | || loratadine 10 mg 1 tablet by mouth DAILY | || promethazine-DM 6.25-15 mg/5 mL 5 ml by mouth Q6-8h prn | || Appended: 2018-09-24 | || loratadine 10mg 1 tablet by mouth DAILY for 14 days | || | || Bromfed DM 2-30-10mg/5 mL 5 ml by mouth Q6-8h prn, most likely insurance | || coverage | |+ + +| loratadine 10mg refilled 08/11 | 2019-01-27 || Arnuity Ellipta refilled 08/11 | |+ + +| omeprazole 40mg refilled 08/11 | 2020-08-18 || famotidine 40mg daily refilled 08/07 | || Take meds as prescribed | || Avoid laying down after eating | || Aovid any spicy, high acidic foods and drinks | |+ + +| Refer to GI | 2021-07-18 |+ + +| azithromycin, prednisone, promethazine-DM,albuterol prn, benzonatate ordered | 2022-05-02 |+ + +[id number] of TreatmentLNMCLAREN [facility]-[id number] for patient bakrWtqwsskDdjvhyycbULXTl46 Section NarrativeNARRATIVEFormatted C-CDA narrative textSLincoln County Medical Centerdwight [facility]2024-04-23T00:00:00 Fabricio [facility] 2022-03-29 00:00:00 [id number] fW6kjF2kA8aBvacIX uLE[id number] T00:00:00+ + +| Plan Activity | Plan Date |+ + +| CBC | 2015-02-08 || CMP | || A1C | || TSH | || Lipids | || Follow up in one year for follow up | || Results will be called to You and addressed | || Appended: 2016-02-14 | || complete blood panel today . Healthy diet , physical therapy and activity as | || tolerated . | || RTC for chronic management and also as needed | |+ + +| Refer to neurology | 2015-02-08 || Carbamazepine refilled 08/07 for 60 days | || Ok to crush pills and put in applesauce | || RTO for Carbamazepine level, CBC, CMP | |+ + +| Wheelchair and shower chair, walker, walker seat com | 2015-02-08 || Refer to [facility] | |+ + +| Visualized 2 seizures in office | 2015-03-22 || Patient able to make eye contact | || Call for EMS services | || Follow up upon discharge of next business day | |+ + +| Referral for removal with Dr. Westbrook | 2015-06-14 || Arrange transportation to appointment | |+ + +| All discussed with patient instructions as below. Adan todd prescribed | 2015-06-23 || and continue Albuterol nebulizer treatments as previously prescribed. Mucinex | || over the counter per package instructions. Dosing and side effects discussed in | || detail. Red flag symptoms including fever, SOB, difficulty breathing, chest | || pain reviewed and ER precautions given and will seek urgent care if these | || should occur. Follow-up if symptoms change, worsen or do not resolve. | |+ + +| Drink plenty of water | 2015-10-19 || Eat soup that is not spicy | || Monitor for skin break down | || Monitor for diarrhea | || Patient's mother given handout about diarrhea in [place] | || Watchful waiting - Diarrhea is the body's natural defense against bacteria and | || does not need to be treated with medication at this time | || Return to clinic if symptoms worsen or persist | |+ + +| diet as tolerated | 2016-02-24 || RTC as needed for any concerns | |+ + +| carbamazepine level normal, 6.0 | 2017-07-04 || Refilled: | || carbamazepine 200mg 2 tablet by mouth BID | |+ + +| Made carbamazepine 200mg 4 tabs daily instead of QID for improved compliance | 2017-09-12 || Appended: 2018-09-24 | || Reviewed meds and regimen with patient | |+ + +| Cuauhtemoc conway [facility] | 2017-09-12 |+ + +| CXR ordered, pending results | 2017-09-12 |+ + +| CXR ordered, pending results | 2017-09-12 |+ + +| Diapers, facial masks, gloves, wipes ordered | 2017-10-15 |+ + +| Ensure Cristóbal cans ordered TID after meals | 2017-10-20 |+ + +| prednisone 20 mg 1 tablet by mouth BID for 5 days | 2018-03-10 || azithromycin 250 mg Add'l Sig tablet by mouth as directed take 2 tabs day 1, | || then 1 tab daily the next 4 days | || loratadine 10 mg 1 tablet by mouth DAILY | || promethazine-DM 6.25-15 mg/5 mL 5 ml by mouth Q6-8h prn | || Appended: 2018-09-24 | || loratadine 10mg 1 tablet by mouth DAILY for 14 days | || | || Bromfed DM 2-30-10mg/5 mL 5 ml by mouth Q6-8h prn, most likely insurance | || coverage | |+ + +| loratadine 10mg refilled 08/11 | 2019-01-27 || Arnuity Ellipta refilled 08/11 | |+ + +| omeprazole 40mg refilled 08/11 | 2020-08-18 || famotidine 40mg daily refilled 08/07 | || Take meds as prescribed | || Avoid laying down after eating | || Aovid any spicy, high acidic foods and drinks | |+ + +| Refer to GI | 2021-07-18 |+ + +| azithromycin, prednisone, promethazine-DM,albuterol prn, benzonatate ordered | 2022-05-02 |+ + +[id number] of TreatmentLNCARE [facility]ANTXTSFA|[id number] for patient osxqQivnhuvFxpguabsdLOOAo29 Section NarrativeNARRATIVEFormatted C-CDA narrative Tonny [facility]2024-04-23T00:00:00 Fabricio [facility] 2022-03-27 00:00:00 [id number] iL6mzU2kW8kIwqoNG qECyoogu[id number] T00:00:00+ + +| Plan Activity | Plan Date |+ + +| CBC | 2015-02-08 || CMP | || A1C | || TSH | || Lipids | || Follow up in one year for follow up | || Results will be called to You and addressed | || Appended: 2016-02-14 | || complete blood panel today . Healthy diet , physical therapy and activity as | || tolerated . | || RTC for chronic management and also as needed | |+ + +| Refer to neurology | 2015-02-08 || Carbamazepine refilled 08/07 for 60 days | || Ok to crush pills and put in applesauce | || RTO for Carbamazepine level, CBC, CMP | |+ + +| Wheelchair and shower chair, walker, walker seat com | 2015-02-08 || Refer to [facility] | |+ + +| Visualized 2 seizures in office | 2015-03-22 || Patient able to make eye contact | || Call for EMS services | || Follow up upon discharge of next business day | |+ + +| Referral for removal with Dr. Westbrook | 2015-06-14 || Arrange transportation to appointment | |+ + +| All discussed with patient instructions as below. Adan todd prescribed | 2015-06-23 || and continue Albuterol nebulizer treatments as previously prescribed. Mucinex | || over the counter per package instructions. Dosing and side effects discussed in | || detail. Red flag symptoms including fever, SOB, difficulty breathing, chest | || pain reviewed and ER precautions given and will seek urgent care if these | || should occur. Follow-up if symptoms change, worsen or do not resolve. | |+ + +| Drink plenty of water | 2015-10-19 || Eat soup that is not spicy | || Monitor for skin break down | || Monitor for diarrhea | || Patient's mother given handout about diarrhea in [place] | || Watchful waiting - Diarrhea is the body's natural defense against bacteria and | || does not need to be treated with medication at this time | || Return to clinic if symptoms worsen or persist | |+ + +| diet as tolerated | 2016-02-24 || RTC as needed for any concerns | |+ + +| carbamazepine level normal, 6.0 | 2017-07-04 || Refilled: | || carbamazepine 200mg 2 tablet by mouth BID | |+ + +| Made carbamazepine 200mg 4 tabs daily instead of QID for improved compliance | 2017-09-12 || Appended: 2018-09-24 | || Reviewed meds and regimen with patient | |+ + +| Reviewed [facility] | 2017-09-12 |+ + +| CXR ordered, pending results | 2017-09-12 |+ + +| CXR ordered, pending results | 2017-09-12 |+ + +| Diapers, facial masks, gloves, wipes ordered | 2017-10-15 |+ + +| Ensure Collins cans ordered TID after meals | 2017-10-20 |+ + +| prednisone 20 mg 1 tablet by mouth BID for 5 days | 2018-03-10 || azithromycin 250 mg Add'l Sig tablet by mouth as directed take 2 tabs day 1, | || then 1 tab daily the next 4 days | || loratadine 10 mg 1 tablet by mouth DAILY | || promethazine-DM 6.25-15 mg/5 mL 5 ml by mouth Q6-8h prn | || Appended: 2018-09-24 | || loratadine 10mg 1 tablet by mouth DAILY for 14 days | || | || Bromfed DM 2-30-10mg/5 mL 5 ml by mouth Q6-8h prn, most likely insurance | || coverage | |+ + +| loratadine 10mg refilled 08/11 | 2019-01-27 || Arnuity Ellipta refilled 08/11 | |+ + +| omeprazole 40mg refilled 08/11 | 2020-08-18 || famotidine 40mg daily refilled 08/07 | || Take meds as prescribed | || Avoid laying down after eating | || Aovid any spicy, high acidic foods and drinks | |+ + +| Refer to GI | 2021-07-18 |+ + +| azithromycin, prednisone, promethazine-DM,albuterol prn, benzonatate ordered | 2022-05-02 |+ + +[id number] of [facility]ED [facility]-[id number] for patient iasfJmqxuwzLzowpxaoqVEZEd43 Section NarrativeNARRATIVEFormatted C-CDA narrative textSFAStdwight [facility]2024-04-23T00:00:00 [facility]io GomezDashawn [facility] 2022-01-01 00:00:00 [id number] fV5zvU0sD9lMseaVD nRHsoyevcpC8tnWSpMb1mR2npZh4558-35-79 T00:00:00+ + +| Plan Activity | Plan Date |+ + +| CBC | 2015-02-08 || CMP | || A1C | || TSH | || Lipids | || Follow up in one year for follow up | || Results will be called to You and addressed | || Appended: 2016-02-14 | || complete blood panel today . Healthy diet , physical therapy and activity as | || tolerated . | || RTC for chronic management and also as needed | |+ + +| Refer to neurology | 2015-02-08 || Carbamazepine refilled 08/07 for 60 days | || Ok to crush pills and put in applesauce | || RTO for Carbamazepine level, CBC, CMP | |+ + +| Wheelchair and shower chair, walker, walker seat com | 2015-02-08 || Refer to [facility] | |+ + +| Visualized 2 seizures in office | 2015-03-22 || Patient able to make eye contact | || Call for EMS services | || Follow up upon discharge of next business day | |+ + +| Referral for removal with Dr. Westbrook | 2015-06-14 || Arrange transportation to appointment | |+ + +| All discussed with patient instructions as below. Adan todd prescribed | 2015-06-23 || and continue Albuterol nebulizer treatments as previously prescribed. Mucinex | || over the counter per package instructions. Dosing and side effects discussed in | || detail. Red flag symptoms including fever, SOB, difficulty breathing, chest | || pain reviewed and ER precautions given and will seek urgent care if these | || should occur. Follow-up if symptoms change, worsen or do not resolve. | |+ + +| Drink plenty of water | 2015-10-19 || Eat soup that is not spicy | || Monitor for skin break down | || Monitor for diarrhea | || Patient's mother given handout about diarrhea in [place] | || Watchful waiting - Diarrhea is the body's natural defense against bacteria and | || does not need to be treated with medication at this time | || Return to clinic if symptoms worsen or persist | |+ + +| diet as tolerated | 2016-02-24 || RTC as needed for any concerns | |+ + +| carbamazepine level normal, 6.0 | 2017-07-04 || Refilled: | || carbamazepine 200mg 2 tablet by mouth BID | |+ + +| Made carbamazepine 200mg 4 tabs daily instead of QID for improved compliance | 2017-09-12 || Appended: 2018-09-24 | || Reviewed meds and regimen with patient | |+ + +| Reviewed notes [facility] | 2017-09-12 |+ + +| CXR ordered, pending results | 2017-09-12 |+ + +| CXR ordered, pending results | 2017-09-12 |+ + +| Diapers, facial masks, gloves, wipes ordered | 2017-10-15 |+ + +| Ensure Collins cans ordered TID after meals | 2017-10-20 |+ + +| prednisone 20 mg 1 tablet by mouth BID for 5 days | 2018-03-10 || azithromycin 250 mg Add'l Sig tablet by mouth as directed take 2 tabs day 1, | || then 1 tab daily the next 4 days | || loratadine 10 mg 1 tablet by mouth DAILY | || promethazine-DM 6.25-15 mg/5 mL 5 ml by mouth Q6-8h prn | || Appended: 2018-09-24 | || loratadine 10mg 1 tablet by mouth DAILY for 14 days | || | || Bromfed DM 2-30-10mg/5 mL 5 ml by mouth Q6-8h prn, most likely insurance | || coverage | |+ + +| loratadine 10mg refilled 08/11 | 2019-01-27 || Arnuity Ellipta refilled 08/11 | |+ + +| omeprazole 40mg refilled 08/11 | 2020-08-18 || famotidine 40mg daily refilled 08/07 | || Take meds as prescribed | || Avoid laying down after eating | || Aovid any spicy, high acidic foods and drinks | |+ + +| Refer to GI | 2021-07-18 |+ + +| azithromycin, prednisone, promethazine-DM,albuterol prn, benzonatate ordered | 2022-05-02 |+ + +[id number] of TreatmentLNCARE PLANTXTSFA|[id number] for patient ryyyLawgtriSsapffjtpLRCKl76 Section NarrativeNARRATIVEFormatted C-CDA narrative textSLincoln County Medical Centerdwight PatriciaDashawn [facility]2024-04-23T00:00:00 Fabricio PatriciaDashawn [facility] 2021-10-25 00:00:00 [id number] oO5noT1jP7rAptpJI rFPoxkzdbuJ7egTCyKg8lP5eaCq7872-45-43 T00:00:00+ + +| Plan Activity | Plan Date |+ + +| CBC | 2015-02-08 || CMP | || A1C | || TSH | || Lipids | || Follow up in one year for follow up | || Results will be called to You and addressed | || Appended: 2016-02-14 | || complete blood panel today . Healthy diet , physical therapy and activity as | || tolerated . | || RTC for chronic management and also as needed | |+ + +| Refer to neurology | 2015-02-08 || Carbamazepine refilled 08/07 for 60 days | || Ok to crush pills and put in applesauce | || RTO for Carbamazepine level, CBC, CMP | |+ + +| Wheelchair and shower chair, walker, walker seat com | 2015-02-08 || Refer to N home visits | |+ + +| Visualized 2 seizures in office | 2015-03-22 || Patient able to make eye contact | || Call for EMS services | || Follow up upon discharge of next business day | |+ + +| Referral for removal with Dr. Westbrook | 2015-06-14 || Arrange transportation to appointment | |+ + +| All discussed with patient instructions as below. Adan todd prescribed | 2015-06-23 || and continue Albuterol nebulizer treatments as previously prescribed. Mucinex | || over the counter per package instructions. Dosing and side effects discussed in | || detail. Red flag symptoms including fever, SOB, difficulty breathing, chest | || pain reviewed and ER precautions given and will seek urgent care if these | || should occur. Follow-up if symptoms change, worsen or do not resolve. | |+ + +| Drink plenty of water | 2015-10-19 || Eat soup that is not spicy | || Monitor for skin break down | || Monitor for diarrhea | || Patient's mother given handout about diarrhea in mauritanian | || Watchful waiting - Diarrhea is the body's natural defense against bacteria and | || does not need to be treated with medication at this time | || Return to clinic if symptoms worsen or persist | |+ + +| diet as tolerated | 2016-02-24 || RTC as needed for any concerns | |+ + +| carbamazepine level normal, 6.0 | 2017-07-04 || Refilled: | || carbamazepine 200mg 2 tablet by mouth BID | |+ + +| Made carbamazepine 200mg 4 tabs daily instead of QID for improved compliance | 2017-09-12 || Appended: 2018-09-24 | || Reviewed meds and regimen with patient | |+ + +| Reviewed [facility] | 2017-09-12 |+ + +| CXR ordered, pending results | 2017-09-12 |+ + +| CXR ordered, pending results | 2017-09-12 |+ + +| Diapers, facial masks, gloves, wipes ordered | 2017-10-15 |+ + +| Ensure Collins cans ordered TID after meals | 2017-10-20 |+ + +| prednisone 20 mg 1 tablet by mouth BID for 5 days | 2018-03-10 || azithromycin 250 mg Add'l Sig tablet by mouth as directed take 2 tabs day 1, | || then 1 tab daily the next 4 days | || loratadine 10 mg 1 tablet by mouth DAILY | || promethazine-DM 6.25-15 mg/5 mL 5 ml by mouth Q6-8h prn | || Appended: 2018-09-24 | || loratadine 10mg 1 tablet by mouth DAILY for 14 days | || | || Bromfed DM 2-30-10mg/5 mL 5 ml by mouth Q6-8h prn, most likely insurance | || coverage | |+ + +| loratadine 10mg refilled 08/11 | 2019-01-27 || Arnuity Ellipta refilled 08/11 | |+ + +| omeprazole 40mg refilled 08/11 | 2020-08-18 || famotidine 40mg daily refilled 08/07 | || Take meds as prescribed | || Avoid laying down after eating | || Aovid any spicy, high acidic foods and drinks | |+ + +| Refer to GI | 2021-07-18 |+ + +| azithromycin, prednisone, promethazine-DM,albuterol prn, benzonatate ordered | 2022-05-02 |+ + +[id number] of TreatmentLNCARE PLANTXTSFA|[id number] for patient [id number] Section NarrativeNARRATIVEFormatted C-CDA narrative textSFAStdwight Dashawn [facility]2024-04-23T00:00:00 Fabricio Dasahwn [facility]"
[2023-10-15 22:20] LABS: Absolute Eosinophils 0.1 K/uL (0-0.5); Absolute Lymphocytes (CBC) 0.9 K/uL (0.7-4.9); Absolute Monocytes 0.4 K/uL (0.1-1.3); Absolute Neutrophil 4.6 K/uL (1.8-8.0); Basophils % 0.3 % (0-1.3); Eosinophils % 1.4 % (0-4.4); Hematocrit 41.9 % (39.6-49.0); Hemoglobin 14.1 g/dL (13.6-17.9); Lymphocytes % 14.5 % (15.3-44.8); MCH 30.4 pg (27.0-35.0); MCHC 33.7 g/dL (32.0-36.0); MCV 90.4 fL (80-100); MPV 7.3 fL (7.6-11.3); Monocytes % 6.6 % (3.3-12.3); Neutrophils % 77.2 % (41.7-73.7); Nucleated Red Blood Cells % 0.2 % (0-0); Platelets 221 thou/uL (152-406); RBC Red Blood Cell Count 4.63 M/uL (4.33-5.43); Red Cell Distribution Width 13.3 % (12.1-15.2)
[2023-10-15 22:36] LABS: Albumin 3.8 g/dL (3.4-5.0); Anion Gap 5.1 mEq/L (5.0-15.0); Bilirubin Total 0.3 mg/dL (0.2-1.0); Globulin 3.7 g/dL (2.3-3.5); Magnesium 2.2 mg/dL (1.6-2.4); Potassium 4.1 mEq/L (3.5-5.1); Protein, Total 7.5 g/dL (6.4-8.2)
--- NOTE | 2023-10-15 22:40 | ER ---
Nurse's Notes [facility] Name: Frank Peck Age: 47 yrs Sex: Male : 1975 Arrival Date: 10/15/2023 Time: 21:41 Bed 13 Private MD: Diagnosis: Other seizures Presentation: 10/14 21:49 Chief complaint: EMS states: probable seizure. Patient has hx of epilepsy. Coronavirus cp4 screen: Client denies travel out of the [place] in the last 14 days. At this time, the client does not indicate any symptoms associated with coronavirus-19. Ebola Screen: Patient negative for fever greater than or equal to 101.5 degrees Fahrenheit, and additional compatible Ebola Virus Disease symptoms Patient denies exposure to infectious person. Patient denies travel to an Ebola-affected area in the 21 days before illness onset. No symptoms or risks identified at this time. Initial Sepsis Screen: Does the patient meet any 2 criteria? No. Patient's initial sepsis screen is negative. Does the patient have a suspected source of infection? No. Patient's initial sepsis screen is negative. Risk Assessment: Do you want to hurt yourself or someone else? Patient reports no desire to harm self or others. Onset of symptoms was October 15, 2023. 21:49 Method Of Arrival: EMS: [facility] cp4 21:49 Acuity: ABBEY 3 cp4 Triage Assessment: 21:51 General: Appears in no apparent distress. Behavior is calm, cooperative, appropriate cp4 for age. Pain: Denies pain. Neuro: No deficits noted. Level of Consciousness is awake, alert, obeys commands, Oriented to person, place, time, situation, [employer] are equal bilaterally Moves all extremities. Gait is Patient has cerebral palsy.. Speech Patient does not speak.. Facial symmetry appears normal, Pupils are PERRLA, Denies weakness headache photophobia. Historical: - Allergies: 21:51 No Known Allergies; cp4 - Home Meds: 21:51 carbamazepine 200 mg Oral tab 1 tab four times a day [Active]; cp4 - PMHx: 21:51 Cerebral Palsy; Seizures; cp4 - Immunization history:: Adult Immunizations up to date. - Infectious Disease History:: Denies. - Social history:: Smoking status: Patient denies any tobacco usage or history of. Screenin:54 [facility] ED Fall Risk Assessment (Adult) History of falling in the last 3 months, cp4 including since admission No falls in past 3 months (0 pts) Confusion or Disorientation No (0 pts) Intoxicated or Sedated No (0 pts) Impaired Gait Yes (1 pt) Mobility Assist Device Used Yes (1 pt) Altered Elimination No (0 pt) Score/Fall Risk Level 0 - 2 = Low Risk Oriented to surroundings, Maintained a safe environment, Assessed \T\ reinforced patient's understanding of fall precautions, Hourly rounding (assess needs \T\ fall precautionary measures) done. Abuse screen: Denies threats or abuse. Nutritional screening: No deficits noted. Tuberculosis screening: No symptoms or risk factors identified. Assessment: 21:54 Reassessment: No changes from previously documented assessment. cp4 22:56 Reassessment: Patient's family trying to find ride home. Dispo pending. cp4 Vital Signs: 21:49 BP 122 / 74; Pulse 93; Resp 18; Temp 98; Pulse Ox 100% ; Pain 0/10; cp4 23:29 BP 111 / 65; Pulse 67; Resp 18; Temp 98; Pulse Ox 99% ; cp4 21:49 Pain Scale: Adult cp4 [place] Coma Score: 21:51 Eye Response: spontaneous(4). Motor Response: obeys commands(6). Verbal Response: cp4 oriented(5). Total: 15. ED Course: 21:44 Patient arrived in ED. cp4 21:45 Pratik England MD is Attending Physician. sp3 21:49 Christina Hernandez is Primary Nurse. cp4 21:51 Triage completed. cp4 21:51 Arm band placed on right wrist. Patient placed in an exam room, on a stretcher. cp4 21:54 Bed in low position. Call light in reach. Side rails up X 1. Provided Education on: cp4 seizures. 21:54 No provider procedures requiring assistance completed. cp4 22:14 Inserted saline lock: 22 gauge in right antecubital area, using aseptic technique. rc3 Blood collected. 22:14 CBC with Diff Sent. rc3 22:14 CMP Sent. rc3 23:31 Seizure precautions initiated. cp4 23:31 intact, bleeding controlled, No redness/swelling at site. Pressure dressing applied. cp4 Administered Medications: 22:46 Drug: carBAMazepine PO 200 mg PO once Route: PO; cp4 22:56 Follow up: Response: No adverse reaction cp4 23:30 Follow up: Response: No adverse reaction cp4 Medication: 21:54 VIS not applicable for this client. cp4 Outcome: 22:39 Discharge ordered by . sp3 23:30 Discharged to home via wheelchair, cp4 23:30 Condition: stable 23:30 Discharge instructions given to patient, family, director talent management, Instructed on discharge instructions, follow up and referral plans. Demonstrated understanding of instructions, follow-up care, 10/15 00:02 Discharge ordered by sp3 00:04 Patient left the ED. cp4 Signatures: Pratik England MD MD sp3 Christina Hernandez cp4 Elba Rucker3
--- NOTE | 2023-10-15 22:40 | EDPHYS ---
Physician Documentation [facility] Name: Frank Peck Age: 47 yrs Sex: Male : 1975 Arrival Date: 10/15/2023 Time: 21:41 Bed 13 Private MD: ED Physician Pratik England HPI: 10/14 22:17 This 47 yrs old Male presents to ER via EMS with complaints of Probable sp3 Seizure. 22:17 47-year-old male with history of cerebral palsy, epilepsy with multiple ER visits with sp3 recurrent seizures currently on carbamazepine presents to the ED via EMS for multiple seizure episodes today. EMS found patient in no acute distress not in postictal state and no active seizing noted on the transport. Patient is nonverbal therefore history, physical and ROS severely limited. Limited history obtained from family.. Historical: - Allergies: 21:51 No Known Allergies; cp4 - Home Meds: 21:51 carbamazepine 200 mg Oral tab 1 tab four times a day [Active]; cp4 - PMHx: 21:51 Cerebral Palsy; Seizures; cp4 - Immunization history:: Adult Immunizations up to date. - Infectious Disease History:: Denies. - Social history:: Smoking status: Patient denies any tobacco usage or history of. ROS: 22:17 Unable to obtain ROS due to Cerebral palsy, sp3 Exam: 22:17 Constitutional: This is a well developed, well nourished patient who is awake, alert, sp3 and in no acute distress. Head/Face: Normocephalic, atraumatic. Eyes: Pupils equal round and reactive to light, extra-ocular motions intact. Lids and lashes normal. Conjunctiva and sclera are non-icteric and not injected. Cornea within normal limits. Periorbital areas with no swelling, redness, or edema. Chest/axilla: Normal chest wall appearance and motion. Nontender with no deformity. No lesions are appreciated. Cardiovascular: Regular rate and rhythm with a normal S1 and S2. No gallops, murmurs, or rubs. Normal PMI, no JVD. No pulse deficits. Respiratory: Lungs have equal breath sounds bilaterally, clear to auscultation and percussion. No rales, rhonchi or wheezes noted. No increased work of breathing, no retractions or nasal flaring. Abdomen/GI: Soft, non-tender, with normal bowel sounds. No distension or tympany. No guarding or rebound. No evidence of tenderness throughout. Skin: Warm, dry with normal turgor. Normal color with no rashes, no lesions, and no evidence of cellulitis. MS/ Extremity: Pulses equal, no cyanosis. Neurovascular intact. Full, normal range of motion. 22:17 Neuro: Patient denies any pain although communication is limited. No active seizures in the ED. Patient is at baseline mental state as reported by family., Vital Signs: 21:49 BP 122 / 74; Pulse 93; Resp 18; Temp 98; Pulse Ox 100% ; Pain 0/10; cp4 23:29 BP 111 / 65; Pulse 67; Resp 18; Temp 98; Pulse Ox 99% ; cp4 21:49 Pain Scale: Adult cp4 [place] Coma Score: 21:51 Eye Response: spontaneous(4). Motor Response: obeys commands(6). Verbal Response: cp4 oriented(5). Total: 15. MDM: 21:52 Patient medically screened. sp3 22:18 Data reviewed: vital signs, nurses notes, old medical records, lab test result(s). ED sp3 course: 47-year-old male with cerebral palsy and recurrent seizures now with reported recurrent seizure. No active seizure activity in the ED. Will obtain routine labs and carbamazepine level and observe patient. We will replenish any necessary carbamazepine and safely discharge patient home.. 22:38 ED course: Carbamazepine to 4.5 on the low end of the range. Will administer 200 mg sp3 additional and safely discharge patient home. No seizure activity in the ED noted.. 10/14 21:46 Order name: CBC with Diff; Complete Time: 22:38 sp3 10/14 21:46 Order name: CMP; Complete Time: 22:38 sp3 10/14 21:46 Order name: Magnesium; Complete Time: 22:38 sp3 10/14 21:46 Order name: Carbamazepine (tegretol); Complete Time: 22:38 sp3 10/14 21:46 Order name: IV Saline Lock; Complete Time: 22:14 sp3 10/14 21:46 Order name: Labs collected and sent; Complete Time: 22:14 sp3 Administered Medications: 22:46 Drug: carBAMazepine PO 200 mg PO once Route: PO; cp4 22:56 Follow up: Response: No adverse reaction cp4 23:30 Follow up: Response: No adverse reaction cp4 Disposition Summary: 10/16/23 00:02 Discharge Ordered Notes: Location: Home(10/16/23 00:02) sp3 Condition: Stable(10/16/23 00:02) sp3 Diagnosis - Other seizures sp3 Followup: sp3 - With: Private Physician - When: Upon discharge from the Emergency Department - Reason: Continuance of care Discharge Instructions: - Discharge Summary Sheet sp3 - Seizure, Adult sp3 Forms: - Medication Reconciliation Form sp3 - Antibiotic Education sp3 - Prescription Opioid Use sp3 - Patient Portal Instructions sp3 - Leadership Thank You Letter sp3 Signatures: Dispatcher [employer] EDPratik Sims MD MD sp3 Christina Hernandez cp4 Corrections: (The following items were deleted from the chart) 23:59 22:39 Home sp3 cp4 23:59 22:39 Stable sp3 cp4 23:59 22:39 Recurrent seizure sp3 cp4
[2023-10-15] MEDS ORDERED: carBAMazepine 200 MG TAB ONE (22:44)
[2023-10-16 00:47] VITALS: BP 111/65; TEMP 98; O2SAT 99
== END 2023-10-16 00:04 | disposition home or self-care (01) ==
LOC: ER 21:41
DX: G40.89 Other seizures (principal); G80.9 Cerebral palsy, unspecified
CPT/HCPCS: 36415; 80053; 80156; 83735; 85025; 99284